=== PATIENT | male | born 1960 | race Caucasian/White ===

== ENCOUNTER 2016-11-12 16:27 | Inpatient (IN) | payer OTHER ==
[2016-11-12 16:48] VITALS: BMI 16.0
--- NOTE | 2016-11-12 18:42 | PDOC ---
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 The patient recently had bloodwork done which revealed that his H&H was low, with a hemoglobin of 8. The patient is nonverbal. Patient is accompanied by family, who report that he has been more pale than usual over the past couple of days. They also report that at this baseline, he usually can stand with support, but this past week has been too weak to do so. Family states that to communicate that he is in pain, the patient usually grunts but has not been doing so, therefore, they do not believe that he is currently in any pain. HPI is limited due to the patients clinical condition. Allergies: Lactose, tomato Past Surgical History: None reported. Social History: Patient lives in a alf. Non smoker. Denies alcohol or drug use. PCP: Dr. 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; PAFIB) CHF: (left diastolic dysfunction) GI Disorders: Yes (HIATAL HERNIA, Shanae-nazario tear, upper GIB, GERD, dysphagia ) HTN: Yes Seizures: Yes - Immunization History Immunization Up to Date: Yes - Psycho/Social/Smoking Cessation Hx Anxiety: No Suicidal Ideation: No Smoking History: Never smoked Have you smoked in the past 12 months: No Number of Cigarettes Smoked Daily: 0 Hx Alcohol Use: No Drug/Substance Use Hx: No Substance Use Type: None Hx Substance Use Treatment: No <Jaycob Christian - Last Filed: 11/12/16 21:28> <Tiff Moreno - Last Filed: 11/12/16 21:31> - Past Medical History Allergies/Adverse Reactions: Allergies Allergy/AdvReac Type Severity Reaction Status Date / Time lactose Allergy Verified 11/12/16 16:44 tomato Allergy Verified 11/12/16 16:44 Home Medications: Ambulatory Orders Ascorbic Acid [Vitamin C] 500 mg PO DAILY 11/12/16 Calcium Carbonate/Vitamin D3 [Calcium 600 + Vit D Softgel] 1 each PO DAILY 11/12 Cholecalciferol (Vitamin D3) [Vitamin D3 -] 400 unit PO DAILY 11/12/16 Denosumab [Prolia] 60 mg SQ MONTHLY 11/12/16 Fluconazole 100 mg PO DAILY 11/12/16 Furosemide [Lasix] 20 mg PO DAILY 11/12/16 Latanoprost 0.005% Eye Drops [Xalatan 0.005% Eye Drops -] 1 drop OD HS 11/12/16 Metoprolol Tartrate 25 mg PO BID 11/12/16 NK [No Known Home Medication] 11/12/16 Pantoprazole Sodium [Protonix] 40 mg PO DAILY 11/12/16 Polyethylene Glycol 3350 [Glycolax] 119 gm PO DAILY 11/12/16 Prednisolone 1% Ophthalmic [Pred Forte 1% -] 1 ml OP TID 11/12/16 Sucralfate [Carafate -] 1 gm PO BID 11/12/16 Review of Systems - Review of Systems Able to Perform ROS?: No Comments:: 11/12/16 19:33 Unable to perform ROS due to patient's clinical condition. <Tiff Moreno - Last Filed: 11/12/16 21:31> *Physical Exam - Vital Signs Last Vital Signs Temp Pulse Resp BP Pulse Ox 98.3 F 54 L 19 128/71 95 11/12/16 16:44 11/12/16 16:44 11/12/16 16:44 11/12/16 16:44 11/12/16 16:44 <Jaycob Christian - Last Filed: 11/12/16 21:28> - Vital Signs Last Vital Signs Temp Pulse Resp BP Pulse Ox 98.3 F 54 L 19 128/71 95 11/12/16 16:44 11/12/16 16:44 11/12/16 16:44 11/12/16 16:44 11/12/16 16:44 - Physical Exam Comments: 11/12/16 21:19 CONSTITUTIONAL: Difficult exam because patient was agitated and began pushing away, which is his baseline for interactions with strangers. Well-appearing; well-nourished; in no apparent distress. HEAD: Normocephalic; atraumatic. EYES: PERRL; EOM intact. ENMT: External appears normal; normal oropharynx. NECK: Supple; non-tender; no cervical lymphadenopathy. CARD: Normal S1, S2; no murmurs, rubs, or gallops. RESP: Normal chest excursion with respiration; breath sounds clear and equal bilaterally; no wheezes, rhonchi, or rales. ABD: Soft, non-distended; non-tender; no palpable organomegaly, no palpable hernias. EXT: Normal ROM in all four extremities; non-tender to palpation; distal pulses intact. SKIN: Pale. Warm, dry, no rash. NEURO: No focal neurological deficiencies. <Tiff Moreno - Last Filed: 11/12/16 21:31> ED Treatment Course - LABORATORY CBC & Chemistry Diagram: 11/12/16 19:21 11/12/16 19:21 <Jaycob Christian - Last Filed: 11/12/16 21:28> - LABORATORY CBC & Chemistry Diagram: 11/12/16 19:21 11/12/16 19:21 <Tiff Moreno - Last Filed: 11/12/16 21:31> Medical Decision Making - Medical Decision Making 11/12/16 21:13 Patient is a 56-year-old male with advanced MR, history of CP, recurrent upper GI bleed with packed RBC transfusions who presents with low hemoglobin and hematocrit noted by the primary care physician as well as increased generalized weakness. In the ER, patient is awake and alert, nonverbal, doesn't follow commands, becomes agitated when examined by M.D., normotensive without evidence of active GI bleeding. As per history, there is no evidence of hematochezia or melena. H&H is noted to be 8 and 25. Patient will be admitted andtransfused 2 units of packed cells to hematocrit of 30. also will be evaluated for hyponatremia. <Jaycob Christian - Last Filed: 11/12/16 21:28> *DC/Admit/Observation/Transfer - Discharge Dispostion Admit: Yes - Attestations Physician Attestion: 11/12/16 21:13 The documentation was prepared by the scribe under my direct supervision. I have reviewed the documentation which correctly represents the findings, medical decision-making and critical action taken by me. <Jaycob Christian - Last Filed: 11/12/16 21:28> - Attestations Scribe Attestion: 11/12/16 18:54 Documentation prepared by Tiff Moreno, acting as medical technologist microbiology for Jaycob Christian MD. <Tiff Moreno - Last Filed: 11/12/16 21:31> Diagnosis at time of Disposition: Weakness, Hyponatremia Anemia Qualifiers: Anemia type: unspecified type Qualified Code(s): D64.9 - Anemia, unspecified - Referrals Referrals: Sarah Miller [Primary Care Provider] -
[2016-11-12 20:28] LABS: BASOPHIL 0.6 % (0-2.0); EOSINOPHIL 0.7 % (0-4.5); MCH 22.3 pg (25.7-33.7); MCHC 32.1 g/dl (32.0-35.9); MEAN CELL VOLUME 69.5 fl (80-96); MEAN PLT VOLUME 7.2 fl (7.5-11.1); NEUTROPHILS 73.1 % (42.8-82.8); PLATELET COUNT 221 K/MM3 (134-434); RDW 19.2 % (11.9-15.9)
[2016-11-12 20:41] LABS: INR 1.07 (0.82-1.09); PROTHROMBIN TIME (PATIENT) 11.8 SEC (9.98-11.88)
[2016-11-12 21:01] LABS: CALCIUM 7.9 mg/dL (8.5-10.1); CREATININE 0.4 mg/dL (0.7-1.3)
[2016-11-12 21:15] LABS: HYPOCHROMIA 1+; PLATELET ESTIMATE DECREASED (NORMAL)
[2016-11-12 21:16] LABS: ANISOCYTOSIS 1+; MICROCYTOSIS 1+; OVALOCYTES 1+; POIKILOCYTOSIS 1+
--- NOTE | 2016-11-12 21:29 | HP ---
[id number] 11/12/16 Care time: The patient presented to the Emergency Department on the above date and was hospitalized for further evaluation of their emergent condition. - New Patient This patient is new to me today: Yes Date on this admission: 11/20/16 - Critical Care Critical Care patient: No
--- NOTE | 2016-11-12 21:36 | HP ---
CHIEF COMPLAINT: PCP: HISTORY OF PRESENT ILLNESS: 56 year old male, residing in a shelter for Cerebral palsy, was sent by his Primary physician Dr. Miller for the evaluation of low hemoglobin of 8. A/c to the patients mother and health aid at bed side, patient visited PCP 3 days ago and found to have Hb of 8. Patient was symptomatic since few days, had low energy, looked pale, didn't like to sit on a chair which he normally does,, unable to stand with support. Patient again went to his PCP today and was sent directly from the clinic to the ED. Repeat blood work from the clinic will be available tomorrow. Patient however has good appetite, no change in sleep pattern, no changes in the color of the stool, didn't notice blood from urine or stool. Denies LOC, nausea or vomiting. Patients baseline: Non verbal, understands very little, recognizes family members, physically disabled, used to walk with a cane but now on a wheel chair. ER course was notable for: (1) CBC, CMP, Type and Screen (2) 1 Unit of PRBC (3) Recent Travel: None Hospitalization: Multiple episodes, last admitted at [facility] on 10/03/2016 for evaluation of GI bleed. PAST MEDICAL HISTORY: Cerebral Palsy/Mental retardation, seizure disorder (Hasn' t had seizures since 25 years), hydrocephalus, anemia, Hiatal hernia, MVP, Hypertension, Paroxysmal Atrial fibrillation, Diastolic dysfunction, GERD, PUD with Upper GI bleed. PAST SURGICAL HISTORY: Hernia repair Social History: Smoking: Never Smoked Alcohol: Never took alcohol Drugs: No illicit drug use Family History: Allergies lactose Allergy (Verified 11/12/16 16:44) tomato Allergy (Verified 11/12/16 16:44) HOME MEDICATIONS: Medication Instructions Recorded Ascorbic Acid [Vitamin C] 500 mg PO DAILY 11/12/16 Calcium Carbonate/Vitamin D3 1 each PO DAILY 11/12/16 [Calcium 600 + Vit D Softgel] Cholecalciferol (Vitamin D3) 400 unit PO DAILY 11/12/16 [Vitamin D3 -] Denosumab [Prolia] 60 mg SQ MONTHLY 11/12/16 Fluconazole 100 mg PO DAILY 11/12/16 Furosemide [Lasix] 20 mg PO DAILY 11/12/16 Latanoprost 0.005% Eye Drops 1 drop OD HS 11/12/16 [Xalatan 0.005% Eye Drops -] Metoprolol Tartrate 25 mg PO BID 11/12/16 NK [No Known Home Medication] 11/12/16 Pantoprazole Sodium [Protonix] 40 mg PO DAILY 11/12/16 Polyethylene Glycol 3350 [Glycolax] 119 gm PO DAILY 11/12/16 Prednisolone 1% Ophthalmic [Pred 1 ml OP TID 11/12/16 Forte 1% -] Sucralfate [Carafate -] 1 gm PO BID 11/12/16 REVIEW OF SYSTEMS: Unobtainable as patient is non verbal at baseline. PHYSICAL EXAMINATION Vital Signs - 24 hr 11/12/16 16:44 Temperature 98.3 F Pulse Rate 54 L Respiratory 19 Rate Blood Pressure 128/71 O2 Sat by Pulse 95 Oximetry (%) GENERAL: Thinly built male, sitting on a wheel chair, Awake, alert, non verbal at baseline, in no acute distress. HEAD: Normal with no signs of trauma. EYES: EOM intact, pallor +, no icterus. EARS, NOSE, THROAT: Ears normal. Moist mucous membranes. NECK: Normal range of motion, supple. LUNGS: Breath sounds equal, clear to auscultation bilaterally. No wheezes, and no crackles. No accessory muscle use. HEART: Regular rate and rhythm, normal S1 and S2 , pansystolic murmur +2. ABDOMEN: Soft, nontender, not distended, normoactive bowel sounds, no guarding, no rebound, no masses. No hepatomegaly or splenomegaly. MUSCULOSKELETAL: Normal range of motion at all joints. No bony deformities or tenderness. No CVA tenderness. MD-Normal. no enlarged prostate. Negative guaiac test. UPPER EXTREMITIES: 2+ pulses, warm, well-perfused. No cyanosis. No clubbing. Cap refill <2 seconds. No peripheral edema. LOWER EXTREMITIES: 2+ pulses, warm, well-perfused. No calf tenderness. No peripheral edema. NEUROLOGICAL: Couldn't assess as patient didn't allow. PSYCHIATRIC:Couldn't assess. SKIN: Warm, dry, normal turgor, no rashes or lesions noted. Laboratory Results - last 24 hr 11/12/16 11/12/16 11/12/16 19:21 19:21 19:21 WBC 8.0 D RBC 3.65 L Hgb 8.1 L D Hct 25.4 L D MCV 69.5 L MCHC 32.1 RDW 19.2 H Plt Count 221 MPV 7.2 L Neutrophils % 73.1 D Lymphocytes % 13.4 D Monocytes % 12.2 H Eosinophils % 0.7 D Basophils % 0.6 Platelet Estimate Decreased Hypochromic-Microcytic 1+ Poikilocytosis 1+ Anisocytosis 1+ Microcytosis 1+ Macrocytosis 1+ Ovalocytes 1+ Morphology Comment Slide scanned INR 1.07 Sodium 125 L D Potassium 4.3 Chloride 90 L D Carbon Dioxide 25 Anion Gap 10 BUN 7 D Creatinine 0.4 L D Random Glucose 79 Calcium 7.9 L Blood Type Antibody Screen Crossmatch 11/12/16 19:21 WBC RBC Hgb Hct MCV MCHC RDW Plt Count MPV Neutrophils % Lymphocytes % Monocytes % Eosinophils % Basophils % Platelet Estimate Hypochromic-Microcytic Poikilocytosis Anisocytosis Microcytosis Macrocytosis Ovalocytes Morphology Comment INR Sodium Potassium Chloride Carbon Dioxide Anion Gap BUN Creatinine Random Glucose Calcium Blood Type B POSITIVE Antibody Screen Negative Crossmatch See Detail ASSESSMENT/PLAN: 56 year old male, residing in a shelter for Cerebral palsy, with significant PMHs of Cerebral Palsy/Mental retardation, seizure disorder (Hasn't had seizures since 25 years), hydrocephalus, anemia, Hiatal hernia, MVP, Hypertension, Paroxysmal Atrial fibrillation, Diastolic dysfunction, GERD, PUD with Upper GI bleed. was sent by his Primary physician Dr. Miller for the evaluation of low hemoglobin of 8. Admitted for Blood transfusion. # Hematology: H/O Anemia Today's H/H: 8.1/25.4 Monitor H/H Transfuse 2 Units of blood and repeat CBC. # Gastrointestinal: H/O GERD, PUD and Hiatal hernia, H/O GI Bleed requiring blood transfusion in the past. No active GI bleed MD-no blood, hemeoccult negative Continue Pantoprazole 40 IVPB Daily GI consult placed Last admission, as per GI attending, he was advised for Yoav fundoplication. Mother wanted to do the procedure at [facility]. In last admission, Esophagram/UGI was scheduled to better document the HH size and exclude a concomitant volvulus but was cancelled due to risk of aspiration. # Hyponatremia Na-125 Continue IV NS Urine osmolality, Serum osmolality, urine electrolytes, urine creatinine pending. # Neurology: H/O Cerebral palsy, Seizure Lives in shelter No seizure activity noted today, as per mother, patient hasn't had seizure activity since 25 years # Cardiovascular: Now normotensive. If Hypotensive, IV NS 500 mls to be given if MAP < 65 and SBP <90 H/O Diastolic LV dysfunction with class I-II NYHA classification LV failure, compensated H/O Mitral valve disease MVP with moderate to severe MR History of paroxysmal atrial fibrillation currently in sinus rhythm, [id number] score of 0 H/O TR with mild degree of pulmonary HTN Hold Metoprolol 25mg for now, will reassess the vitals post transfusion, and continue with the same meds. # FEN:- IV NS @ 100mls/hr Electrolytes to be repeated tomorrow NPO for now except meds. # Prophylaxis: For GI: Pantoprazole IVPB For DVT: On SCD's, not on heparin due to risk of GI bleed # Code Status: Full Code # Health Care proxy: Mother. Illness, Investigation and Plan of care explained to the patients mother. She verbalized understanding. Will discuss case with Dr. Dempsey. Visit type - Emergency Visit Emergency Visit: Yes ED Registration Date: 11/12/16 Care time: The patient presented to the Emergency Department on the above date and was hospitalized for further evaluation of their emergent condition. - New Patient This patient is new to me today: Yes Date on this admission: 11/13/16 - Critical Care Critical Care patient: No
[2016-11-12] MEDS ORDERED: PATIENT'S OWN MEDICATION (NON-FORMULARY) (Denosumab 60 MG) SQ SCH (22:30)
[2016-11-12] MEDS ORDERED: PANTOPRAZOLE SODIUM 40 MG in SODIUM CHLORIDE 100 ML IVPB ONE (22:30)
--- NOTE | 2016-11-12 23:44 | PN ---
<Nahed Dempsey - Last Filed: 11/12/16 23:44> Teaching Attending Note Name of Resident: Argelia Snowden <Marcial Lujan - Last Filed: 11/13/16 04:54> Teaching Attending Note ATTENDING PHYSICIAN STATEMENT I saw and evaluated the patient. I reviewed the resident's note and discussed the case with the resident. I agree with the resident's findings and plan as documented. SUBJECTIVE: Patient is a 56 year old male who presented to the emergency department for evaluation of abnormal blood work. The patient is nonverbal, accompanied by his nurse and mother. On Wednesday, the patient had bloodwork done which revealed a hemoglobin of 8. Patient's mother and nurse noted that he has been more pale than usual over the past couple of days. They also reported that at this baseline, he can usually stand with support, but this past week has been too weak to do so. 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 Awake, alert, in no acute distress. HEAD: Normal with no signs of trauma. EYES: (+)Pallor. EOMI, no icterus. EARS, NOSE, THROAT: Ears normal. Moist mucous membranes. NECK: Normal range of motion, supple. LUNGS: Breath sounds equal, clear to auscultation bilaterally. No wheezes, and no crackles. No accessory muscle use. HEART: (+)Pansystolic murmur +2. Regular rate and rhythm, normal S1 and S2, rub or gallop. ABDOMEN: Soft, nontender, not distended, normoactive bowel sounds, no guarding, no rebound, no masses. No hepatomegaly or splenomegaly. MUSCULOSKELETAL: Normal range of motion at all joints. No bony deformities or tenderness. No CVA tenderness. UPPER EXTREMITIES: 2+ pulses, warm, well-perfused. No cyanosis. No clubbing. Cap refill <2 seconds. No peripheral edema. LOWER EXTREMITIES: 2+ pulses, warm, well-perfused. No calf tenderness. No peripheral edema. NEUROLOGICAL: Cranial nerves II-XII intact. Normal speech. Normal gait. PSYCHIATRIC: Cooperative. Good eye contact. Appropriate mood and affect. SKIN: Warm, dry, normal turgor, no rashes or lesions noted. Labs: CBCD WBC 8.0 K/mm3 (4.0-10.0) D 11/12/16 19:21 RBC 3.65 M/mm3 (4.00-5.60) L 11/12/16 19:21 Hgb 8.1 GM/dL (11.7-16.9) L D 11/12/16 19:21 Hct 25.4 % (35.4-49) L D 11/12/16 19:21 MCV 69.5 fl (80-96) L 11/12/16 19:21 MCHC 32.1 g/dl (32.0-35.9) 11/12/16 19:21 RDW 19.2 % (11.9-15.9) H 11/12/16 19:21 Plt Count 221 K/MM3 (134-434) 11/12/16 19:21 MPV 7.2 fl (7.5-11.1) L 11/12/16 19:21 CMP Sodium 125 mmol/L (136-145) L D 11/12/16 19:21 Potassium 4.3 mmol/L (3.5-5.1) 11/12/16 19:21 Chloride 90 mmol/L (98-107) L D 11/12/16 19:21 Carbon Dioxide 25 mmol/L (21-32) 11/12/16 19:21 Anion Gap 10 (8-16) 11/12/16 19:21 BUN 7 mg/dL (7-18) D 11/12/16 19:21 Creatinine 0.4 mg/dL (0.7-1.3) L D 11/12/16 19:21 Calcium 7.9 mg/dL (8.5-10.1) L 11/12/16 19:21 ASSESSMENT AND PLAN: Acute on chronic anemia secondary to GI bleed, history of bleeding ulcers. NPO, IVF. Continue sucralfat repeat CBC post transfusion on one unit PRBC, follow stool occult test, consider GI consult. -Hyponatremia: most likely euvolemic vs hypovolemic -Get urine studies. -Calculate serum osmolarity. -Repeat BMP in 6 hours. Admit to observation Documentation prepared by Marcial Lujan, acting as medical field representative for Dr. Roselyn MD.
[2016-11-13] MEDS: SODIUM CHLORIDE 1,000 ML IV SCH ×2 (01:55→09:42)
[2016-11-13] MEDS: prednisoLONE ACETATE 1% OPHTH SUSP 5 ML BOTTLE OU SCH ×4 (05:05→21:25)
--- NOTE | 2016-11-13 08:08 | PN ---
Physical Exam: SUBJECTIVE: Patient seen and examined. Non verbal, noncommunicative, can express distress through sounds. As per aide at bedside, he has been appearing weak and appears to lack energy different from his baseline. No recent diarrhia, vomiting, trouble swallowing, coughing, choking, fever. OBJECTIVE: Vital Signs Period Temp Pulse Resp BP Sys/Pimentel Pulse Ox Last 24 Hr 97.5 F-98.9 F 65-97 16-18 107-120/59-92 100 GENERAL: The patient is awake, alert, nonverbal. thin appearing, calm. laying in bed with knees bent HEAD: Normal with no signs of trauma. bitemporal wasting EYES: sclera anicteric, conjunctiva clear. No ptosis. right eye with corneal hazyness, left eye wnl. ENT: Ears normal, nares patent, moist mucous membranes. NECK: Trachea midline LUNGS: Breath sounds equal quiet, no wheezing appreciated HEART: afib, S1, S2, holosystolic heard best in apex. ABDOMEN: Soft, nondistended, normoactive bowel sounds, no masses. EXTREMITIES: 2+ pulses, warm, well-perfused, no edema. limited range of movement secondary to CP NEUROLOGICAL: Normal speech, gait not observed. SKIN: Warm, dry, normal turgor, no rashes or lesions noted - cervantes placed in ED, clear yellow urine. Home medication list: vitamin D 1000 iu caps sucralfate 1gm tabs furosemide 20mg tab latanaprost 0.005% opthsl 1 drop in left eye at bedtime for glaucoma Prolia bam 60mg q 6 months prednisoline 1% oph 1drop in right eye TID vitamin C 500mg tab metoprolol tart 25mg hold if BP <100/60 glycolax oral bam 17gm daily nuha 600+200D 1 tab po BID pantoprazole 40m g tab 1 tab po BID Prevdnt [address] p[address] 1% Homatropine 5% ophthsol 1 drop right eye TID erythromycin gel 2% apply between toes 1 appl BID TATE crm protection apply to buttock area BID TATE 2%cr fungal BARRIENTSO apply 1 appl topically to buttock area BID Active Medications Generic Name Dose Route Start Last Admin Trade Name Freq PRN Reason Stop Dose Admin Ascorbic Acid 500 mg 11/13/16 10:00 Vitamin C - PO DAILY GIA Calcium Carbonate/Cholecalciferol 1 tab 11/13/16 10:00 Os-Nuha 500+D - PO DAILY REPLACED BY [facility] Cholecalciferol 400 unit 11/13/16 10:00 Vitamin D3 - PO DAILY REPLACED BY [facility] Fluconazole 100 mg 11/13/16 10:00 Diflucan - PO DAILY REPLACED BY [facility] Sodium Chloride 1,000 mls @ 100 mls/hr 11/12/16 23:45 11/13/16 01:55 Normal Saline - IV 100 mls/hr ASDIR GIA Administration Latanoprost 1 drop 11/13/16 22:00 Xalatan 0.005% Eye Drops - OD HS GIA Non-Formulary Medication 60 mg 11/12/16 22:30 Denosumab SQ MONTHLY REPLACED BY [facility] Pantoprazole Sodium 40 mg 11/12/16 22:45 Protonix 40mg Ivpb (Pre-Docked) IVPB DAILY REPLACED BY [facility] Prednisolone Acetate 1 drop 11/12/16 22:30 11/13/16 05:05 Pred Forte 1% - OU Not Given TID REPLACED BY [facility] Sucralfate 1 gm 11/12/16 22:30 Carafate - PO BID REPLACED BY [facility] ASSESSMENT/PLAN: 56 yr old man with cerebral palsy, MR, seizure disorder, hydrocephalus, anemia, hiatal hernia, mitral valve prolapse, hypertension, paroxysmal Atrial fibrillation, diastolic dysfunction, GERD, PUD with hx of upper GI bleed referred by PCP for symptomatic anemia. #Anemia - transfuse 2 units of prbc's - repeat labs post transfusion at 10AM - iron studies 10/06/2016, [facility] - GI consulted for hx of PUD, hiatal hernia dr. Barrios - no active GI bleed, stool occult negative. Repeat stool occult positive in the evening as per Dr. Barrios. - H.pylori culture negative from biopsy taken during colonoscopy - on diflucan for herminia in GI, received 11/12, needs 11/13, 11/14 to complete 21 days. #Hyponatremia, Na-125, different from normal baseline on labs, improved post- transfusion - likely from lasix use and poor po intake, hold lasix #Diet: ground diet #DVT: SCD's Visit type - Emergency Visit Emergency Visit: No - New Patient This patient is new to me today: Yes Date on this admission: 11/13/16 - Critical Care Critical Care patient: No - Discharge Referral Referred to [facility] No
[2016-11-13] MEDS: SUCRALFATE 1 GM TABLET (FP) PO SCH ×3 (08:48→21:27)
[2016-11-13] MEDS: PANTOPRAZOLE SODIUM 40 MG/100 ML PRE-DOCKED IVPB SCH ×2 (08:48→09:39)
[2016-11-13] MEDS ORDERED: FLUCONAZOLE 100 MG TABLET (UD) ONE (09:26)
[2016-11-13] MEDS ORDERED: PANTOPRAZOLE SODIUM 100 ML IVPB ONE (09:27)
[2016-11-13] MEDS ORDERED: SUCRALFATE 1 GM TABLET (FP) ONE (09:27)
[2016-11-13] MEDS: FLUCONAZOLE 100 MG TABLET (UD) PO SCH (09:39)
[2016-11-13] MEDS ORDERED: ASCORBIC ACID 500 MG TABLET (FP) PO SCH (10:00)
[2016-11-13 10:32] LABS: BASOPHIL 0.7 % (0-2.0); EOSINOPHIL 0.6 % (0-4.5); MCH 24.3 pg (25.7-33.7); MEAN CELL VOLUME 73.6 fl (80-96); MEAN PLT VOLUME 7.2 fl (7.5-11.1); NEUTROPHILS 68.5 % (42.8-82.8); PLATELET COUNT 174 K/MM3 (134-434); WHITE BLOOD COUNT 4.6 K/mm3 (4.0-10.0)
[2016-11-13 10:49] LABS: CHLORIDE,RANDOM URINE 83 MMOL/L; SODIUM,RANDOM URINE 90 MMOL/L
[2016-11-13 10:50] LABS: URINE CREATININE < 13.0 mg/dL
[2016-11-13 10:58] LABS: ALBUMIN 3.1 g/dl (3.4-5.0); ALK PHOS 83 U/L (45-117); ANION GAP 12 (8-16); BILIRUBIN,TOTAL 1.6 mg/dL (0.2-1.0); CO2 25 mmol/L (21-32); CREATININE 0.4 mg/dL (0.7-1.3); GLUCOSE,RANDOM 65 mg/dL (74-106); SGOT/AST 19 U/L (15-37); SGPT/ALT 15 U/L (12-78); TOT PROT 6.8 g/dl (6.4-8.2)
[2016-11-13 11:45] LABS: ALBUMIN 3.3 g/dl (3.4-5.0)
[2016-11-13] MEDS ORDERED: SODIUM CHLORIDE 1,000 ML IV SCH ×3 (12:22→13:05)
[2016-11-13] MEDS: CHOLECALCIFEROL (VITAMIN D3) 400 UNIT TABLET (FP) PO SCH (12:37)
[2016-11-13] MEDS: CALCIUM 500MG/VIT-D 200 UNITS COMBO TABLET (FP) PO SCH (12:37)
--- NOTE | 2016-11-13 12:38 | PN ---
Teaching Attending Note Name of Resident: Inés Beth ATTENDING PHYSICIAN STATEMENT I saw and evaluated the patient. I reviewed the resident's note and discussed the case with the resident. I agree with the resident's findings and plan as documented. SUBJECTIVE: unable to obtain hx as pt is non-verbal. per Mon , back to base line , has color to his cheek OBJECTIVE: NAD , Awake . non verbal CV: irreg irreg, 3/6 SM at apex with Rad to axilla , also heard in L scapular area in back. Diastolic murmur in RUSB. Lungs : decreased breath sounds at bases . Ext : bakari erma Abd : soft, NT, ND < NL BS Rectal exam: Nl hair distribution , no external hemorrhoids felt , no masses in rectum, soft stool felt in rectum. Light brown/greenish stool came out on examiner finger , OB Neg . ASSESSMENT AND PLAN: 56 y/o man with h/o cerebral palsy , D CHF , A fib not on AC, Upper GI bleed , iron def anemia , HIatal hernia , recent admission to [facility] with Upper GI bleed , was found to have PUD. He presented this time with anemia . 1- acute on chronic icrocytic anemia , ( iron def on irod studies in 10/02 ) . likely form slow blood loss from PUD . No black stool or Bright red blood on rectal exam, stool was Neg for OB . - last EGD 10/07 ulcer in stomach. was supposed to get esophageogram and Surgery but never done - for now , s/p 2 units of RBC in ER. Hb 11. - cont IV PPI daily - no need for further transfusion - add carafate . - start diet . - will start iron supp TID at ut - check 2 more OB in stool - D/W family , will place GI consult . If GI to perform repeat EGD will follow Recs . If not , then will monitor over night , and transfer back to facility tomorrow if no bleed . 2- Hyponatremia: unfortunately , there is no Serum Osm checked on admission. Likely it is hypotonic hypovolemia though ( will order Osm ) Now patient looks euvolemic , but this is after receiving fluids and blood. He possibly was hypovolemic at presentation . Looking at urine Osm and U Na > 20 , FeNA 2.2 % ,it seems like the patient has renal loss from diuretic use ( lasix ) . SIADH is unlikely as NA improved on NS. - Check TSH - given his h/o CHF , will decrease IVF to 50 x 12 hr only - acceptable Na level now 3- h/o chronic Diastolic CHF , not in exacerbation . monitor carefully on fluids can resume his metoprolol at 12.5 BID with holding parameters 4- h/o Afib : CHADSVASC score 1. with his h/o bleed , No AC is recommended - resume BB - monitor 5- dipo : HLOC
--- NOTE | 2016-11-13 16:18 | CON.GI ---
Consult Consult Specialty:: Gastroenterology Referred by:: Dr. Nicolas Flores Reason for Consultation:: Anemia - History of Present Illness Chief Complaint: Past h/o recurring hematemesis but not on this occasion History of Present Illness: 56M with cerebral palsy and h/o recurring GI bleeding is admitted with a Hb of 8. He had a Hb of 6.5 when we last saw him in consultation in 10/02. I performed an EGD on 10/07/16 that revealed a very raw severe distal reflux esophagitis with ulcerations above a large intrathoracic hiatal hernia witha component of gastric volvulus contributing to the reflux. He has a h/o recurring UGI bleeding due to similar findings. IN 12/03 he had a Shanae Richard bleed that required endoclipping. He had a colonoscopy on 04/02/[address] Jonny Post which was unremarkable. He has also been scoped multiple times by my other partner Dr Saleh whenever he got admitted to [facility]. I discussed his situation with his mother in 10/02 and referred them to Dr Candi Chávez at [facility] for hiatal hernia repair. He advised a cardiology preop evaluation. She was told that he needs a valve replacement but is not a candidate for this. 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: Seizure, Other (Mental retardation-cerebral palsy) Cardio/Vascular: Yes: AFIB (paroxysmal), Aortic Insufficiency, HTN, Mitral Insufficiency, Murmur Pulmonary: Yes: Pneumonia Gastrointestinal: Yes: GERD (severe and refractory to therapy and causing transfusion requiring chronic blood loss anemia ), Hiatal Hernia (prone to Nigel ulcers), Peptic Ulcer Disease, Other (large intrathoracic hiatal hernia , h/o Shanae Richard bleed) Heme/Onc: Yes: Anemia (due to GERD and Nigel ulcer bleeding) Additional Medical History: Cerebral palsy, Seizure D/O, Mitral valve prolapse, shingles, glaucoma - Past Surgical History Additional Surgical History: mother describes an abdominal hernia repair but I cannot identify incision - Alcohol/Substance Use Hx Alcohol Use: No History of Substance Use: reports: None - Smoking History Smoking history: Never smoked Have you smoked in the past 12 months: No Aproximately how many cigarettes per day: 0 - Social History Usual Living Arrangement: Assisted ADL: Support Services Place of : [facility] History of Recent Travel: No Home Medications - Allergies Allergies/Adverse Reactions: Allergies Allergy/AdvReac Type Severity Reaction Status Date / Time lactose Allergy Verified 11/12/16 16:44 tomato Allergy Verified 11/12/16 16:44 - Home Medications Home Medications: Ambulatory Orders Ascorbic Acid [Vitamin C] 500 mg PO DAILY 11/12/16 Calcium Carbonate/Vitamin D3 [Calcium 600 + Vit D Softgel] 1 each PO BID Cholecalciferol (Vitamin D3) [Vitamin D3 -] 400 unit PO DAILY 11/12/16 Denosumab [Prolia] 60 mg SQ MONTHLY 11/12/16 Fluconazole 100 mg PO DAILY 11/12/16 Furosemide [Lasix] 20 mg PO DAILY 11/12/16 Latanoprost 0.005% Eye Drops [Xalatan 0.005% Eye Drops -] 1 drop OD HS 11/12/16 Metoprolol Tartrate 25 mg PO BID 11/12/16 Pantoprazole Sodium [Protonix] 40 mg PO BID 11/12/16 Polyethylene Glycol 3350 [Glycolax] 119 gm PO DAILY 11/12/16 Prednisolone 1% Ophthalmic [Pred Forte 1% -] 1 ml OP TID 11/12/16 Sucralfate [Carafate -] 1 gm PO BID 11/12/16 Family Disease History - Family Disease History Family History: Unable to Obtain Review of Systems Unable to obtain ROS, reason: due to cerebral palsy Physical Exam-GI Vital Signs: Vital Signs Temperature 98.6 F 11/13/16 13:07 Pulse Rate 80 11/13/16 13:07 Respiratory Rate 20 11/13/16 13:07 Blood Pressure 153/64 11/13/16 13:07 O2 Sat by Pulse Oximetry (%) 94 L 11/13/16 13:10 CBC,CMP WBC 4.6 K/mm3 (4.0-10.0) D 11/13/16 10:20 RBC 4.54 M/mm3 (4.00-5.60) D 11/13/16 10:20 Hgb 11.0 GM/dL (11.7-16.9) L D 11/13/16 10:20 Hct 33.4 % (35.4-49) L D 11/13/16 10:20 MCV 73.6 fl (80-96) L 11/13/16 10:20 MCHC 33.0 g/dl (32.0-35.9) 11/13/16 10:20 RDW 21.0 % (11.9-15.9) H 11/13/16 10:20 Plt Count 174 K/MM3 (134-434) D 11/13/16 10:20 MPV 7.2 fl (7.5-11.1) L 11/13/16 10:20 Neutrophils % 68.5 % (42.8-82.8) 11/13/16 10:20 Lymphocytes % 15.8 % (8-40) 11/13/16 10:20 Monocytes % 14.4 % (3.8-10.2) H 11/13/16 10:20 Eosinophils % 0.6 % (0-4.5) 11/13/16 10:20 Basophils % 0.7 % (0-2.0) 11/13/16 10:20 Platelet Estimate Decreased (NORMAL) 11/12/16 19:21 Hypochromic-Microcytic 1+ 11/12/16 19:21 Poikilocytosis 1+ 11/12/16 19:21 Anisocytosis 1+ 11/12/16 19:21 Microcytosis 1+ 11/12/16 19:21 Macrocytosis 1+ 11/12/16 19:21 Ovalocytes 1+ 11/12/16 19:21 Morphology Comment Slide scanned 11/12/16 19:21 Sodium 130 mmol/L (136-145) L 11/13/16 10:20 Potassium 4.1 mmol/L (3.5-5.1) 11/13/16 10:20 Chloride 93 mmol/L (98-107) L 11/13/16 10:20 Carbon Dioxide 25 mmol/L (21-32) 11/13/16 10:20 Anion Gap 12 (8-16) 11/13/16 10:20 BUN 4 mg/dL (7-18) L D 11/13/16 10:20 Creatinine 0.4 mg/dL (0.7-1.3) L 11/13/16 10:20 Creat Clearance w eGFR > 60 (>60) 11/13/16 10:20 Random Glucose 65 mg/dL (74-106) L 11/13/16 10:20 Serum Osmolality 262 mosm/kg (278-305) L 11/13/16 11:49 Calcium 8.0 mg/dL (8.5-10.1) L 11/13/16 10:20 Total Bilirubin 1.6 mg/dL (0.2-1.0) H D 11/13/16 10:20 AST 19 U/L (15-37) D 11/13/16 10:20 ALT 15 U/L (12-78) 11/13/16 10:20 Alkaline Phosphatase 83 U/L (45-117) 11/13/16 10:20 Total Protein 6.8 g/dl (6.4-8.2) 11/13/16 10:20 Albumin 3.1 g/dl (3.4-5.0) L 11/13/16 10:20 Current Medications Generic Name Dose Route Start Last Admin Trade Name Jeffersonq PRN Reason Stop Dose Admin Ascorbic Acid 500 mg 11/13/16 10:00 11/13/16 12:37 Vitamin C - PO Not Given DAILY [facility] Calcium Carbonate/Cholecalciferol 1 tab 11/13/16 10:00 11/13/16 12:37 Os-Wil 500+D - PO Not Given DAILY [facility] Cholecalciferol 400 unit 11/13/16 10:00 11/13/16 12:37 Vitamin D3 - PO Not Given DAILY [facility] Fluconazole 100 mg 11/13/16 10:00 11/13/16 09:39 Diflucan - PO 100 mg DAILY GIA Administration Sodium Chloride 1,000 mls @ 50 mls/hr 11/13/16 13:05 11/13/16 13:22 Normal Saline - IV 11/14/16 00:29 50 mls/hr ASDIR GIA Administration Latanoprost 1 drop 11/13/16 22:00 Xalatan 0.005% Eye Drops - OD HS [facility] Metoprolol Tartrate 12.5 mg 11/13/16 22:00 Lopressor - PO BID [facility] Non-Formulary Medication 60 mg 11/12/16 22:30 Denosumab SQ MONTHLY [facility] Pantoprazole Sodium 40 mg 11/12/16 22:45 11/13/16 09:39 Protonix 40mg Ivpb (Pre-Docked) IVPB 40 mg DAILY GIA Administration Prednisolone Acetate 1 drop 11/12/16 22:30 11/13/16 15:53 Pred Forte 1% - OU Not Given TID GIA Sucralfate 1 gm 11/12/16 22:30 11/13/16 09:39 Carafate - PO 1 gm BID GIA Administration Constitutional: Yes: Calm Eyes: Yes: Conjunctiva Clear HENT: Yes: Atraumatic Neck: Yes: Supple Cardiovascular: Yes: Regular Rate and Rhythm, Murmur (3/6 early diastolic murmur ) Respiratory: Yes: CTA Bilaterally Gastrointestinal Inspection: Yes: WNL ...Auscultate: Yes: Normoactive Bowel Sounds ...Palpate: Yes: Soft, Other (nontender) ...Rectal Exam: Yes: Guaiac Positive (no masses, brown guaiac positive stool) Psychiatric: Yes: Alert Labs: CBC, BMP 11/13/16 10:20 11/13/16 10:20 INR, PTT INR 1.07 (0.82-1.09) 11/12/16 19:21 Problem List - Problems (1) Hiatal hernia with gastroesophageal reflux Code(s): K21.9 - GASTRO-ESOPHAGEAL REFLUX DISEASE WITHOUT ESOPHAGITIS K44.9 - DIAPHRAGMATIC HERNIA WITHOUT OBSTRUCTION OR GANGRENE (2) Shanae-Richard syndrome Code(s): K22.6 - GASTRO-ESOPHAGEAL LACERATION-HEMORRHAGE SYNDROME (3) Nigel ulcer Code(s): K25.9 - GASTRIC ULCER, UNSP ACUTE OR CHRONIC, W/O HEMOR OR PERF (4) Aortic insufficiency Code(s): I35.1 - NONRHEUMATIC AORTIC (VALVE) INSUFFICIENCY Assessment/Plan Given the occult bleeding I believe that Akbar's anemia again attributable to refractory ulcerated reflux esophagitis above a large hiatal hernia. Unfortunately he has a cardiac condition that apparently precludes a surgical repair. Would therefore give PPI BID, Carafate and Reglan ( to promote improved gastric emptying and minimize reflux) while strictly enforcing antireflux measures. There is no role for a repeat EGD or colonoscopy at this juncture. I have no objections to discharge after transfusions. His Hcts should be checked regularly and iron replaced with Vitamin C.
[2016-11-13] MEDS ORDERED: PT OWN MED DRAWER 7, Y5N ONE (18:51)
[2016-11-13] MEDS: METOPROLOL TARTRATE 25 MG TABLET (FP) PO SCH (21:23)
[2016-11-13] MEDS: PANTOPRAZOLE 40 MG TABLET (FP) PO SCH (21:23)
[2016-11-13] MEDS: ASCORBIC ACID 500 MG TABLET (FP) PO SCH (21:24)
[2016-11-13] MEDS: FERROUS SO4 325 MG TABLET (FP) PO SCH (21:27)
[2016-11-13] MEDS ORDERED: LATANOPROST 0.005% OPHTH SOLN 2.5ML BOTTLE OD SCH (22:00)
[2016-11-14] MEDS: prednisoLONE ACETATE 1% OPHTH SUSP 5 ML BOTTLE OU SCH (06:32)
[2016-11-14] MEDS: METOCLOPRAMIDE HCL 10 MG TABLET (FP) PO SCH ×2 (06:33→10:13)
[2016-11-14] MEDS ORDERED: PT OWN MED DRAWER 7, Y5N ONE ×2 (06:58→10:05)
[2016-11-14 07:50] LABS: MCH 24.4 pg (25.7-33.7); MCHC 33.6 g/dl (32.0-35.9); MEAN CELL VOLUME 72.7 fl (80-96); MEAN PLT VOLUME 7.4 fl (7.5-11.1); PLATELET COUNT 180 K/MM3 (134-434); RDW 20.5 % (11.9-15.9); WHITE BLOOD COUNT 3.4 K/mm3 (4.0-10.0)
--- NOTE | 2016-11-14 08:04 | DS ---
Physical Exam: SUBJECTIVE: Patient seen and examined. nonverbal. appears to be in no acute distress. hemoglobin/hematocrit stable. OBJECTIVE: Vital Signs Period Temp Pulse Resp BP Sys/Pimentel Pulse Ox Last 24 Hr 97.9 F-98.6 F 80-88 16-20 130-153/62-79 94-94 PHYSICAL EXAM GENERAL: The patient is awake, alert, nonverbal. thin appearing, calm. laying in bed with knees bent. HEAD: Normal with no signs of trauma. bitemporal wasting EYES: sclera anicteric, conjunctiva clear. No ptosis. right eye with corneal hazyness, left eye wnl. ENT: Ears normal, nares patent, moist mucous membranes. NECK: Trachea midline LUNGS: Breath sounds clear, no wheezing, no crackles. HEART: afib, S1, S2, holosystolic murmuer heard best in apex, radiating up axilla ABDOMEN: Soft, nondistended, normoactive bowel sounds, no masses. EXTREMITIES: 2+ pulses, warm, well-perfused, no edema. limited range of movement secondary to CP NEUROLOGICAL: Normal speech, gait not observed. SKIN: Warm, dry, normal turgor, no rashes or lesions noted Rectal exam: normal hair distribution, no external hemorroids, normal rectal tone, no anal fissures, prostate not enlarged without nodules, nonbloody stool on gloved finger. LABS Laboratory Results - last 24 hr 11/12/16 11/13/16 11/13/16 22:15 10:20 10:20 WBC 4.6 D RBC 4.54 D Hgb 11.0 L D Hct 33.4 L D MCV 73.6 L MCHC 33.0 RDW 21.0 H Plt Count 174 D MPV 7.2 L Neutrophils % 68.5 Lymphocytes % 15.8 Monocytes % 14.4 H Eosinophils % 0.6 Basophils % 0.7 Sodium 130 L Potassium 4.1 Chloride 93 L Carbon Dioxide 25 Anion Gap 12 BUN 4 L D Creatinine 0.4 L Creat Clearance w eGFR > 60 Random Glucose 65 L Serum Osmolality Calcium 8.0 L Total Bilirubin 1.6 H D AST 19 D ALT 15 Alkaline Phosphatase 83 Total Protein 6.8 Albumin 3.1 L Urine Osmolality 259 L 11/13/16 11/14/16 11:49 06:15 WBC 3.4 L RBC 4.30 Hgb 10.5 L Hct 31.3 L MCV 72.7 L MCHC 33.6 RDW 20.5 H Plt Count 180 MPV 7.4 L Neutrophils % Lymphocytes % Monocytes % Eosinophils % Basophils % Sodium Potassium Chloride Carbon Dioxide Anion Gap BUN Creatinine Creat Clearance w eGFR Random Glucose Serum Osmolality 262 L Calcium Total Bilirubin AST ALT Alkaline Phosphatase Total Protein Albumin Urine Osmolality Laboratory Tests 11/12/16 11/12/16 11/13/16 19:21 19:21 10:20 Hgb 8.1 L D 11.0 L D Hct 25.4 L D 33.4 L D Sodium 125 L D Potassium 4.3 11/13/16 11/14/16 10:20 06:15 Hgb 10.5 L Hct 31.3 L Sodium 130 L Potassium 4.1 HOSPITAL COURSE: Date of Admission:11/12/16 - Date of Discharge: 11/14/16 56 yr old man from [facility] with cerebral palsy, seizure disorder, MVP, hx of PUD with upper GI bleed referred to ED for symptomatic anemia by PCP, Dr. Miller. His hgb/ hct on admission was 8.1/25.4. His He was transfused 2 units of packed red blood cells. He tolerated the transfusion without complication. He was also found to have hyponatremia of 125.Urine osmolarity and FeNa was FeNA 2.2%, making his sodium likely from diuretic use. His lasix was held during hospital stay. Repeat labs showed an improvement in H/H, 11/33.4 which stayed stable on repeat draw 10.5/31.3. Sodium also improved to 130 after normal saline He was evaluated by GI, Dr. Barrios, who has seen him before. No GI procedure, including EGD/colonoscopy was not indicated at this time. Dr. Barrios has discussed the need for hiatal hernia repair with the family in the past. Past evaluation shows Akbar requires a valve replacement, for which he is not a candidate. Blood work stayed stable on repeat draws. Recommendations: Hold lasix for one week and have PCP to reassess for need to restart. Minutes to complete discharge: 45 Discharge Summary Reason For Visit: AMENIA GI BLEED Current Active Problems Anemia (Acute) Hyponatremia (Acute) Condition: Improved - Instructions Diet, Activity, Other Instructions: The following medications and measures are recommended given Mr. Cage's anemia and gastric ulcer: - A PPI twice daily, he is currently on pantoprazole BID - Carafate 1gm po BID - Iron 325 TID with Vitamin C - strictly enforce antireflux measures - Hcts should be checked regularly He received his diflucan at [facility] on the and the . Given his low sodium level, his lasix 40mg was held. Need CBC, BMP in 1 week Referrals: Sophie Walden MD [Staff Physician] - Sarah Miller [Primary Care Provider] - [facility]position: [facility] - Home Medications Comprehensive Discharge Medication List: Ambulatory Orders Ascorbic Acid [Vitamin C] 500 mg PO DAILY 11/12/16 Calcium Carbonate/Vitamin D3 [Calcium 600 + Vit D Softgel] 1 each PO BID Cholecalciferol (Vitamin D3) [Vitamin D3 -] 400 unit PO DAILY 11/12/16 Denosumab [Prolia] 60 mg SQ MONTHLY 11/12/16 Fluconazole 100 mg PO DAILY 11/12/16 Latanoprost 0.005% Eye Drops [Xalatan 0.005% Eye Drops -] 1 drop OD HS 11/12/16 Pantoprazole Sodium [Protonix] 40 mg PO BID 11/12/16 Polyethylene Glycol 3350 [Glycolax] 119 gm PO DAILY 11/12/16 Prednisolone 1% Ophthalmic [Pred Forte 1% -] 1 ml OP TID 11/12/16 Sucralfate [Carafate -] 1 gm PO BID 11/12/16 Metoprolol Tartrate 25mg po BID This patient is new to me today: No Emergency Visit: No Critical Care patient: No - Discharge Referral Referred to [facility] No
--- NOTE | 2016-11-14 09:06 | PN ---
Teaching Attending Note Name of Resident: Inés Beth ATTENDING PHYSICIAN STATEMENT I saw and evaluated the patient. I reviewed the resident's note and discussed the case with the resident. I agree with the resident's findings and plan as documented. SUBJECTIVE: no events over night , no BM . unable to obtain hx OBJECTIVE: NAD , Awake . non verbal CV: irreg irreg, 3/6 SM at apex with Rad to axilla , also heard in L scapular area in back. Diastolic murmur in RUSB. Lungs : decreased breath sounds at bases . Ext : no edema Abd : soft, NT, ND . NL BS ASSESSMENT AND PLAN: 56 y/o man with h/o cerebral palsy , D CHF , A fib not on AC, Upper GI bleed , iron def anemia , HIatal hernia , recent admission to [facility] with Upper GI bleed , was found to have PUD. He presented this time with anemia . 1- Acute on chronic microcytic anemia , . likely form slow upper GI bleed . - appreciate GI recs - cont PPI , carafate . give reglan - repeat blood work in 1 week , and regularly - no need to repeat EGD at this point. - needed funduplication but not a candidate for sx due to his cardiac issues 2- Hyponatremia: likely hypovolemic hyponatremia , from renal loss ( use of diuretics ) . received IVF. NA improved, lasix was held . Na pending this am 3- h/o chronic Diastolic CHF , not in exacerbation . lasix o n hold for 1 week after dc . 4- h/o Afib : with his h/o bleed , No AC is recommended cont BB dispo : pending blood work, might dc to facility today
[2016-11-14 09:36] LABS: CALCIUM 8.1 mg/dL (8.5-10.1); CREATININE 0.4 mg/dL (0.7-1.3)
[2016-11-14 10:11] VITALS: BP 140/70; PULSE 85; TEMP 98.6
[2016-11-14] MEDS: CALCIUM 500MG/VIT-D 200 UNITS COMBO TABLET (FP) PO SCH (10:13)
[2016-11-14] MEDS: SUCRALFATE 1 GM TABLET (FP) PO SCH (10:13)
[2016-11-14] MEDS: CHOLECALCIFEROL (VITAMIN D3) 400 UNIT TABLET (FP) PO SCH (10:13)
[2016-11-14] MEDS: METOPROLOL TARTRATE 25 MG TABLET (FP) PO SCH (10:13)
[2016-11-14] MEDS: FLUCONAZOLE 100 MG TABLET (UD) PO SCH (10:13)
[2016-11-14] MEDS: FERROUS SO4 325 MG TABLET (FP) PO SCH (10:13)
[2016-11-14] MEDS: ASCORBIC ACID 500 MG TABLET (FP) PO SCH (10:13)
[2016-11-14] MEDS: PANTOPRAZOLE 40 MG TABLET (FP) PO SCH (10:13)
== END 2016-11-14 13:06 | disposition home or self-care (01) | DRG 811 ==
LOC: JER 16:27 → JERBED 21:44 → J8W 11-13 12:27
PROVIDERS: ADMIT Internal Medicine; ATTEND Internal Medicine
PROC: 30233N1 Transfusion of Nonautologous Red Blood Cells into Peripheral Vein, Percutaneous Approach (ICD-10-PCS; principal; 2016-11-12)
DX: D50.0 Iron deficiency anemia secondary to blood loss (chronic) (principal); K22.6 Gastro-esophageal laceration-hemorrhage syndrome; E87.1 Hypo-osmolality and hyponatremia; I50.32 Chronic diastolic (congestive) heart failure; K21.9 Gastro-esophageal reflux disease without esophagitis; K44.9 Diaphragmatic hernia without obstruction or gangrene; K25.9 Gastric ulcer, unspecified as acute or chronic, without hemorrhage or perforation; I35.1 Nonrheumatic aortic (valve) insufficiency; G80.9 Cerebral palsy, unspecified; F79 Unspecified intellectual disabilities; I34.1 Nonrheumatic mitral (valve) prolapse; I48.0 Paroxysmal atrial fibrillation; I11.0 Hypertensive heart disease with heart failure; G40.909 Epilepsy, unspecified, not intractable, without status epilepticus
CPT/HCPCS: 36415; 36430; 80048; 80053; 82040; 82272; 82436; 82570; 83930; 83935; 84133; 84300; 84443; 85025; 85027; 85610; 86850; 86900; 86901; 86922; 99285-25; P9038; P9058

== ENCOUNTER 2017-01-13 13:52 | Emergency (ER) | payer OTHER ==
[2017-01-13 14:01] VITALS: TEMP 98; BMI 16.1
--- NOTE | 2017-01-13 16:09 | PDOC ---
History of Present Illness - General History Source: Patient Exam Limitations: No Limitations - History of Present Illness Initial Comments: 01/13/17 16:18 The patient is a 56-year-old man with a significant past medical history of hypertension, anemia, atrial fibrillation, left diastolic dysfunction, upper gastrointestinal bleed, gastroesophageal reflux disease, intellectual disability and cerebral palsy (non verbal at baseline) who presents to the emergency department for further evaluation of possible anemia. History was provided by patient's home health aide. As per aid,e the patient has been bleeding from his hiatal hernia for approximately 1 year. Recent Hgb went form 12 and dropped to 10. Patient's mother does not want her son to undergo necessary surgery. Patient was recently in this ED, in October, for aspiration pneumonia. Allergies: No Known Drug Allergies Nurse Practitioner: Angela Smith <Joi Pearce - Last Filed: 01/13/17 18:40> <Marla Andersen - Last Filed: 01/13/17 23:03> - General Chief Complaint: Revisit, Lab Variance Stated Complaint: Revisit, Lab Variance Time Seen by Provider: 01/13/17 16:08 Past History <Joi Pearce - Last Filed: 01/13/17 18:40> - Past Medical History Anemia: Yes Cardiac Disorders: Yes (MVP with MR; PAFIB) CHF: (left diastolic dysfunction) GI Disorders: Yes (HIATAL HERNIA, Shanae-nazario tear, upper GIB, GERD, dysphagia ) HTN: Yes Seizures: Yes - Immunization History Immunization Up to Date: Yes - Psycho/Social/Smoking Cessation Hx Anxiety: No Suicidal Ideation: No Smoking History: Never smoked Have you smoked in the past 12 months: No Number of Cigarettes Smoked Daily: 0 Hx Alcohol Use: No Drug/Substance Use Hx: No Substance Use Type: None Hx Substance Use Treatment: No <Marla Andersen - Last Filed: 01/13/17 23:03> - Past Medical History Allergies/Adverse Reactions: Allergies Allergy/AdvReac Type Severity Reaction Status Date / Time No Known Allergies Allergy Verified 01/13/17 14:01 Home Medications: Ambulatory Orders Calcium Carbonate/Vitamin D3 [Calcium 600 + Vit D Softgel] 1 each PO BID Cholecalciferol (Vitamin D3) [Vitamin D -] 400 unit PO DAILY 11/12/16 Denosumab [Prolia -] 60 mg SQ MONTHLY 11/12/16 Latanoprost 0.005% Eye Drops [Xalatan 0.005% Eye Drops -] 1 drop OD HS 11/12/16 Pantoprazole Sodium [Protonix] 40 mg PO BID 11/12/16 Polyethylene Glycol 3350 [Glycolax] 119 gm PO DAILY 11/12/16 Prednisolone 1% Ophthalmic [Pred Forte 1% -] 1 ml OP TID 11/12/16 Ascorbic Acid [Vitamin C] 500 mg PO DAILY #7 capsule.er 11/14/16 Metoprolol Tartrate 25 mg PO BID #30 tablet 11/14/16 Sucralfate [Carafate -] 1 gm PO BID #14 tablet 11/14/16 Azithromycin [Zithromax -] 250 mg PO UTDICT #6 tab 01/13/17 Review of Systems - Review of Systems Able to Perform ROS?: No Comments:: 01/13/17 16:22 Limited. <Joi Pearce - Last Filed: 01/13/17 18:40> *Physical Exam - Vital Signs Last Vital Signs Temp Pulse Resp BP Pulse Ox 98.0 F 103 H 20 119/59 99 01/13/17 13:56 01/13/17 13:56 01/13/17 13:56 01/13/17 13:56 01/13/17 13:56 - Physical Exam Comments: 01/13/17 16:22 GENERAL: Awake. Non verbal at baseline HEAD: No signs of trauma EYES: PERRLA, EOMI, sclera anicteric, conjunctiva clear ENT: Auricles normal inspection, hearing grossly normal, nares patent, oropharynx clear without exudates. Moist mucosa NECK: Normal ROM, supple, no lymphadenopathy, JVD, or masses LUNGS: Diffuse rhonchi bilaterally. HEART: Regular rate and rhythm, normal S1 and S2, no murmurs, rubs or gallops ABDOMEN: Soft, nontender normoactive bowel sounds. No rebound. No masses EXTREMITIES: Normal range of motion, no edema. No clubbing or cyanosis. No cords, erythema, or tenderness NEUROLOGICAL: Limited by patient's history. Non verbal. <Joi Pearce - Last Filed: 01/13/17 18:40> - Vital Signs Last Vital Signs Temp Pulse Resp BP Pulse Ox 98.0 F 103 H 20 119/59 99 01/13/17 13:56 01/13/17 13:56 01/13/17 13:56 01/13/17 13:56 01/13/17 13:56 <Marla Andersen - Last Filed: 01/13/17 23:03> ED Treatment Course - LABORATORY CBC & Chemistry Diagram: 01/13/17 16:30 01/13/17 16:30 - RADIOLOGY Radiograph Interpretation: 01/13/17 18:25 EXAM: RAD/CHEST X-RAY PORTABLE IMPRESSION: Since 09/04/2016, the cardiac silhouette remains slightly enlarged. Chin artifact is obscuring the thoracic inlet. There are increased interstitial markings, bilaterally with likely pleural calcifications along the left lateral chest wall.. Mediastinum and visualized osseous structures appear intact with evidence of osteopenia. Note is made of a small hiatus hernia with an air-fluid level. <Joi Pearce - Last Filed: 01/13/17 18:40> - LABORATORY CBC & Chemistry Diagram: 01/13/17 16:30 01/13/17 16:30 <Marla Andersen - Last Filed: 01/13/17 23:03> Medical Decision Making - Medical Decision Making 01/13/17 19:[address] Bronson. Awaiting CMP and UA results. He has history of multiple prior aspiration pneumonias, and although the CXR does not show acute findings, it is limited by patient's body habitus (and his posture). His lungs are rhoncherous B/L, implying there may be a pneumonia. In terms of his H&H, he does not acutely need transfusion, however, does need remainder of workup for the leukocytosis. I have treated for aspiration pna. Will likely require admission. <Marla Andersen - Last Filed: 01/13/17 23:03> *DC/Admit/Observation/Transfer - Attestations Scribe Attestion: 01/13/17 16:22 Documentation prepared by Joi Pearce, acting as medical sales representative for Marla Andersen MD. <Joi Pearce - Last Filed: 01/13/17 18:40> <Marla Andersen - Last Filed: 01/13/17 23:03> Diagnosis at time of Disposition: Cough - Discharge Dispostion Disposition: HOME Condition at time of disposition: Stable - Prescriptions Prescriptions: Azithromycin [Zithromax -] 250 mg PO UTDICT #6 tab - Referrals Referrals: Sarah Miller [Primary Care Provider] - - Patient Instructions Printed Discharge Instructions: DI for Cough -- Adult
[2017-01-13 16:39] LABS: BASOPHIL 0.3 % (0-2.0); MCH 25.5 pg (25.7-33.7); MCHC 32.5 g/dl (32.0-35.9); MEAN CELL VOLUME 78.5 fl (80-96); MEAN PLT VOLUME 7.8 fl (7.5-11.1); NEUTROPHILS 82.3 % (42.8-82.8); PLATELET COUNT 222 K/MM3 (134-434); RDW 25.5 % (11.9-15.9)
[2017-01-13 17:32] LABS: ALBUMIN 3.1 g/dl (3.4-5.0); ALK PHOS 116 U/L (45-117); BILIRUBIN,TOTAL 0.6 mg/dL (0.2-1.0); CALCIUM 8.4 mg/dL (8.5-10.1); CO2 27 mmol/L (21-32); CREATININE 0.5 mg/dL (0.7-1.3); GLUCOSE,RANDOM 130 mg/dL (74-106); SGPT/ALT 15 U/L (12-78)
[2017-01-13 18:44] LABS: ANION GAP 12 (8-16)
[2017-01-13] MEDS ORDERED: PIPERACILLIN/TAZOB 3.375 GM 3.375 GM in DEXTROSE 5%-WATER - 50 ML IVPB ONE (18:50)
[2017-01-13 19:00] LABS: SGOT/AST 16 U/L (15-37)
[2017-01-13 19:03] LABS: ANISOCYTOSIS 3+; HYPOCHROMIA 1+; MICROCYTOSIS 2+; OVALOCYTES 2+; PLATELET ESTIMATE ADEQUATE (NORMAL)
[2017-01-13] MEDS ORDERED: PIPERACILLIN/TAZOB 3.375 GM 50 ML IVPB ONE (19:33)
[2017-01-13 20:41] LABS: URINE APPEARANCE CLEAR; URINE BILIRUBIN NEGATIVE (NEGATIVE); URINE BLOOD NEGATIVE (NEGATIVE); URINE COLOR LTYELLOW; URINE GLUCOSE (UA) NEGATIVE (NEGATIVE); URINE KETONE NEGATIVE (NEGATIVE); URINE LEUK ESTERASE NEGATIVE (NEGATIVE); URINE NITRITE NEGATIVE (NEGATIVE); URINE PROTEIN NEGATIVE (NEGATIVE); URINE UROBILINOGEN NEGATIVE E.U./dl (0.2-1.0)
--- NOTE | 2017-01-13 21:44 | PDOC ---
*Physical Exam - Vital Signs Last Vital Signs Temp Pulse Resp BP Pulse Ox 98.0 F 103 H 20 119/59 99 01/13/17 13:56 01/13/17 13:56 01/13/17 13:56 01/13/17 13:56 01/13/17 13:56 ED Treatment Course - LABORATORY CBC & Chemistry Diagram: 01/13/17 16:30 01/13/17 16:30 - ADDITIONAL ORDERS Additional order review: Laboratory Results 01/13/17 01/13/17 20:30 16:30 Sodium 134 L Potassium 4.4 Chloride 95 L Carbon Dioxide 27 Anion Gap 12 BUN 15 D Creatinine 0.5 L D Creat Clearance w eGFR > 60 Random Glucose 130 H D Calcium 8.4 L Total Bilirubin 0.6 D AST 16 ALT 15 Alkaline Phosphatase 116 D Total Protein 8.0 Albumin 3.1 L Urine Color Ltyellow Urine Appearance Clear Urine pH 7.0 Ur Specific [place] 1.026 Urine Protein Negative Urine Glucose (UA) Negative Urine Ketones Negative Urine Blood Negative Urine Nitrite Negative Urine Bilirubin Negative Urine Urobilinogen Negative Ur Leukocyte Esterase Negative 01/13/17 16:30 RBC 4.54 MCV 78.5 L MCHC 32.5 RDW 25.5 H MPV 7.8 Neutrophils % 82.3 D Lymphocytes % 7.4 L D Monocytes % 9.0 Eosinophils % 1.0 Basophils % 0.3 - Medications Given in the ED: ED Medications Discontinued Medications Generic Name Dose Route Start Last Admin Trade Name Freq PRN Reason Stop Dose Admin Piperacillin Sod/Tazobactam 50 mls @ 100 mls/hr 01/13/17 18:50 01/13/17 19:40 Sod 3.375 gm/ Dextrose IVPB 01/13/17 19:19 100 mls/hr ONCE ONE Administration Protocol Medical Decision Making - Medical Decision Making 01/13/17 21:43 Pt will be given ABx for preventative coverage. Pt to be discharged *DC/Admit/Observation/Transfer Diagnosis at time of Disposition: Cough - Discharge Dispostion Disposition: HOME Condition at time of disposition: Stable Admit: No - Referrals Referrals: Sarah Miller [Primary Care Provider] - - Patient Instructions Printed Discharge Instructions: DI for Cough -- Adult - Post Discharge Activity
[2017-01-13 21:55] VITALS: BP 110/70
[2017-01-13 22:00] VITALS: PULSE 115
[2017-01-13] MEDS ORDERED: IBUPROFEN 100 MG/5 ML UNIT DOSE CUPS PO ONE (22:03)
[2017-01-13] MEDS ORDERED: IBUPROFEN 100 MG/5 ML UNIT DOSE CUPS ONE (22:05)
== END 2017-01-13 22:09 | disposition home or self-care (01) ==
LOC: JER 13:52
DX: J69.0 Pneumonitis due to inhalation of food and vomit (principal); R05 Cough; D72.828 Other elevated white blood cell count; I50.30 Unspecified diastolic (congestive) heart failure; I48.91 Unspecified atrial fibrillation; K44.9 Diaphragmatic hernia without obstruction or gangrene; I34.1 Nonrheumatic mitral (valve) prolapse; G80.9 Cerebral palsy, unspecified
CPT/HCPCS: 36415; 71010-TC; 80053; 81003; 85025; 99283-25

== ENCOUNTER 2017-02-11 19:23 | Emergency (ER) | payer OTHER ==
[2017-02-11 20:05] VITALS: BP 115/69; PULSE 95; BMI 14.7
--- NOTE | 2017-02-11 21:02 | PDOC ---
History of Present Illness - General History Source: Care Provider, Old Records Exam Limitations: Clinical Condition - History of Present Illness Initial Comments: 02/11/17 21:10 The patient is a 56 year old male with significant past medical history of hypertension, anemia, atrial fibrillation, left diastolic dysfunction, upper gastrointestinal bleed, gastroesophageal reflux disease, intellectual disability and cerebral palsy (non verbal at baseline) who presents to the ED [facility] from [facility] for abnormal labs. As per bench carpenter, at bedside , patient had labs done yesterday at the resident facility, which was noted to have a white blood count 27.5. Complaint Analyst states patient a appears to be in his usual state of health and behavior. It was not reported if patient had a fever at the facility. Complaint Analyst denies diaphoresis, chills, cough, SOB, vomiting, or diarrhea. 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; PAFIB) CHF: (left diastolic dysfunction) GI Disorders: Yes (HIATAL HERNIA, Shanae-nazario tear, upper GIB, GERD, dysphagia ) HTN: Yes Seizures: Yes - Immunization History Immunization Up to Date: Yes - Psycho/Social/Smoking Cessation Hx Anxiety: No Suicidal Ideation: No Smoking History: Never smoked Have you smoked in the past 12 months: No Number of Cigarettes Smoked Daily: 0 Information on smoking cessation initiated: No Hx Alcohol Use: No Drug/Substance Use Hx: No Substance Use Type: None Hx Substance Use Treatment: No <Jagdish Bronson - Last Filed: 02/12/17 00:55> - Past Medical History Allergies/Adverse Reactions: Allergies Allergy/AdvReac Type Severity Reaction Status Date / Time No Known Allergies Allergy Verified 02/11/17 19:59 Home Medications: Ambulatory Orders Calcium Carbonate/Vitamin D3 [Calcium 600 + Vit D Softgel] 1 each PO BID Latanoprost 0.005% Eye Drops [Xalatan 0.005% Eye Drops -] 1 drop OD HS 11/12/16 Pantoprazole Sodium [Protonix] 40 mg PO BID 11/12/16 Polyethylene Glycol 3350 [Glycolax] 17 gm PO DAILY 11/12/16 Prednisolone 1% Ophthalmic [Pred Forte 1% -] 1 ml OP TID 11/12/16 Ascorbic Acid [Vitamin C] 500 mg PO DAILY #7 capsule.er 11/14/16 Metoprolol Tartrate 25 mg PO BID #30 tablet 11/14/16 Sucralfate [Carafate -] 1 gm PO BID #14 tablet 11/14/16 Ferrous Sulfate 325 mg PO BID 02/11/17 Vitamin D - 1,000 iu PO DAILY 02/11/17 Cephalexin [Keflex *Suspension*] 10 ml PO TID 10 Days 02/12/17 Review of Systems - Review of Systems Able to Perform ROS?: No Comments:: 02/11/17 21:10 Unable to obtain secondary to clinical condition <Rachel Walters - Last Filed: 02/11/17 21:09> *Physical Exam - Vital Signs Last Vital Signs Temp Pulse Resp BP Pulse Ox 99.3 F 95 H 18 115/69 96 02/11/17 20:01 02/11/17 20:01 02/11/17 20:01 02/11/17 20:01 02/11/17 20:01 - Physical Exam Comments: 02/11/17 21:10 GENERAL: Well-appearing, well-nourished. No apparent distress. Pt is non verbal at baseline. HEENT: Normocephalic, atraumatic. PERRL, EOM intact. CARDIOVASCULAR: Normal S1, S2. Regular rate and rhythm. PULMONARY: Clear to auscultation bilaterally. ABDOMEN: Soft, non-distended, non-tender. EXTREMITIES: Normal ROM in all four extremities. No gross deformities. SKIN: Warm, dry. No rash NEUROLOGICAL: Pt at baseline per bench carpenter. Nonverbal. <Rachel Walters - Last Filed: 02/11/17 21:09> - Vital Signs Last Vital Signs Temp Pulse Resp BP Pulse Ox 99.3 F 95 H 18 115/69 96 02/11/17 20:01 02/11/17 20:01 02/11/17 20:01 02/11/17 20:01 02/11/17 20:01 <Jagdish Bronson - Last Filed: 02/12/17 00:55> ED Treatment Course - LABORATORY CBC & Chemistry Diagram: 02/11/17 22:04 02/11/17 23:03 <Jagdish Bronson - Last Filed: 02/12/17 00:55> Medical Decision Making - Medical Decision Making 02/12/17 00:54 Dr. Bronson: The scribe's documentation has been prepared under my direction and personally reviewed by me in its entirery. I confirm that the note above accurately reflects all work, treatment, procedures, and medical decision making performed by me. patient found early urinary tract infection. prescription for Keflex suspension given to bench carpenter. Patient to be discharge <Jagdish Bronson - Last Filed: 02/12/17 00:55> *DC/Admit/Observation/Transfer - Attestations Scribe Attestion: 02/11/17 21:10 Documentation prepared by Rachel Walters, acting as medical assistant for Jagdish Bronson MD <Rachel Walters - Last Filed: 02/11/17 21:09> - Discharge Dispostion Admit: No <Jagdish Bronson - Last Filed: 02/12/17 00:55> Diagnosis at time of Disposition: UTI (urinary tract infection) Qualifiers: Urinary tract infection type: site unspecified Hematuria presence: without hematuria Qualified Code(s): N39.0 - Urinary tract infection, site not specified - Discharge Dispostion Disposition: HOME Condition at time of disposition: Stable - Prescriptions Prescriptions: Cephalexin [Keflex *Suspension*] 10 ml PO TID 10 Days - Referrals Referrals: STAFF,NOT ON [Primary Care Provider] - - Patient Instructions Printed Discharge Instructions: DI for Urinary Tract Infection (UTI)
[2017-02-11 22:16] LABS: BASOPHIL 0.3 % (0-2.0); EOSINOPHIL 1.1 % (0-4.5); MCH 26.7 pg (25.7-33.7); MCHC 32.3 g/dl (32.0-35.9); MEAN CELL VOLUME 82.6 fl (80-96); MEAN PLT VOLUME 7.8 fl (7.5-11.1); NEUTROPHILS 82.3 % (42.8-82.8); PLATELET COUNT 183 K/MM3 (134-434); RDW 22.5 % (11.9-15.9); WHITE BLOOD COUNT 14.3 K/mm3 (4.0-10.0)
[2017-02-11 22:37] LABS: INR 1.13 (0.82-1.09); PROTHROMBIN TIME (PATIENT) 12.5 SEC (9.98-11.88)
[2017-02-11 23:16] VITALS: TEMP 98.7
[2017-02-11 23:42] LABS: URINE APPEARANCE SLCLOUDY; URINE BILIRUBIN NEGATIVE (NEGATIVE); URINE COLOR LTYELLOW; URINE GLUCOSE (UA) NEGATIVE (NEGATIVE); URINE KETONE NEGATIVE (NEGATIVE); URINE LEUK ESTERASE NEGATIVE (NEGATIVE); URINE NITRITE NEGATIVE (NEGATIVE); URINE PROTEIN NEGATIVE (NEGATIVE); URINE UROBILINOGEN NEGATIVE E.U./dl (0.2-1.0)
[2017-02-11 23:46] LABS: ANION GAP 8 (8-16); CALCIUM 8.8 mg/dL (8.5-10.1); CO2 32 mmol/L (21-32); COCKROFT - GAULT 75.07; CREATININE 0.7 mg/dL (0.7-1.3); GLUCOSE,RANDOM 156 mg/dL (74-106); MAGNESIUM 2.2 mg/dL (1.8-2.4); SGOT/AST 12 U/L (15-37); SGPT/ALT 14 U/L (12-78)
[2017-02-11 23:49] LABS: ALK PHOS 107 U/L (45-117); BILIRUBIN,TOTAL 0.6 mg/dL (0.2-1.0); TOT PROT 7.3 g/dl (6.4-8.2)
[2017-02-12 00:41] LABS: URINE BLOOD 2+ (NEGATIVE)
[2017-02-12 00:42] LABS: GRANULAR CASTS 1 /lpf; URINE MUCUS RARE; URINE RBC 139 /hpf (0-3); URINE WBC 4 /hpf (3-5); YEAST RARE
[2017-02-12] MEDS ORDERED: CEPHALEXIN 250 MG/5 ML ORAL SUSPENSION PO ONE (00:51)
== END 2017-02-12 01:26 | disposition home or self-care (01) ==
LOC: JER 19:23
DX: N39.0 Urinary tract infection, site not specified (principal); I10 Essential (primary) hypertension; D64.9 Anemia, unspecified; I48.0 Paroxysmal atrial fibrillation; Z79.01 Long term (current) use of anticoagulants; I50.30 Unspecified diastolic (congestive) heart failure; K21.9 Gastro-esophageal reflux disease without esophagitis; G80.8 Other cerebral palsy; F79 Unspecified intellectual disabilities
CPT/HCPCS: 36415; 80053; 81003; 81015; 83605; 83735; 85025; 85610; 87040; 87086; 99283-25

== ENCOUNTER 2017-07-23 19:51 | Emergency (ER) | payer OTHER ==
[2017-07-23 20:07] VITALS: BP 105/65; PULSE 95; TEMP 98.5; BMI 16.1
--- NOTE | 2017-07-23 21:15 | PDOC ---
History of Present Illness - General History Source: Patient Exam Limitations: No Limitations <Chandra Vides - Last Filed: 07/23/17 23:46> - General History Source: Care Provider Exam Limitations: Clinical Condition - History of Present Illness Initial Comments: 07/23/17 22:55 The patient is a 57 year old male, with a significant past medical history of hypertension, anemia, atrial fibrillation, left diastolic dysfunction, upper gastrointestinal bleed, GERD, intellectual disability and cerebral palsy (non verbal at baseline) who presents to the emergency department for abnormal labs. The patients aide is present and reports labs were taken earlier today at the facility and detected an increased WBC count so the patient was advised to come to the ER. The patients aide reports the patient has been behaving normally and eating regularly. The patients aide denies any recent fevers, coughing, vomiting , diarrhea or malodorous stool or urine. The patients aide states there is a cold going around the facility but denies noticing any recent cold symptoms for the patient. Allergies:NKA PCP: Dr. 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; PAFIB) CHF: (left diastolic dysfunction) GI Disorders: Yes (HIATAL HERNIA, Shanae-nazario tear, upper GIB, GERD, dysphagia ) HTN: Yes Seizures: Yes - Immunization History Immunization Up to Date: Yes - Suicide/Smoking/Psychosocial Hx Smoking History: Never smoked Have you smoked in the past 12 months: No Number of Cigarettes Smoked Daily: 0 Information on smoking cessation initiated: No Hx Alcohol Use: No Drug/Substance Use Hx: No Substance Use Type: None Hx Substance Use Treatment: No <Chandra Vides - Last Filed: 07/23/17 23:46> <Sidney Reid - Last Filed: 07/24/17 00:30> - Past Medical History Allergies/Adverse Reactions: Allergies Allergy/AdvReac Type Severity Reaction Status Date / Time No Known Allergies Allergy Verified 07/23/17 20:07 Home Medications: Ambulatory Orders Calcium Carbonate/Vitamin D3 [Calcium 600-Vit D3 500 Softgel] 1 each PO BID Latanoprost 0.005% Eye Drops [Xalatan 0.005% Eye Drops -] 1 drop OD HS 11/12/16 Pantoprazole Sodium [Protonix] 40 mg PO BID 11/12/16 Polyethylene Glycol 3350 [Glycolax] 17 gm PO DAILY 11/12/16 Prednisolone 1% Ophthalmic [Pred Forte 1% -] 1 ml OP TID 11/12/16 Ascorbic Acid [Vitamin C] 500 mg PO DAILY #7 capsule.er 11/14/16 Metoprolol Tartrate 25 mg PO BID #30 tablet 11/14/16 Sucralfate [Carafate -] 1 gm PO BID #14 tablet 11/14/16 Ferrous Sulfate 325 mg PO BID 02/11/17 Vitamin D - 1,000 iu PO DAILY 02/11/17 Cephalexin [Keflex *Suspension*] 10 ml PO TID 10 Days 02/12/17 Review of Systems - Review of Systems Able to Perform ROS?: Yes Comments:: 07/23/17 22:56 Limited due to patient baseline status <Sidney Reid - Last Filed: 07/24/17 00:30> *Physical Exam - Vital Signs Last Vital Signs Temp Pulse Resp BP Pulse Ox 98.5 F 95 H 18 105/65 98 07/23/17 20:01 07/23/17 20:01 07/23/17 20:01 07/23/17 20:01 07/23/17 20:01 <Chandra Vides - Last Filed: 07/23/17 23:46> - Vital Signs Last Vital Signs Temp Pulse Resp BP Pulse Ox 98.5 F 95 H 18 105/65 98 07/23/17 20:01 07/23/17 20:01 07/23/17 20:01 07/23/17 20:01 07/23/17 20:01 - Physical Exam Comments: 07/23/17 22:56 GENERAL: The patient is awake, alert, Nontoxic - in no acute distress. HEAD: microcephalic, atraumatic. EYES: extraocular movements intact, sclera anicteric, conjunctiva clear. ENT: Moist mucous membranes. NECK: Normal range of motion, supple LUNGS: poor respiratory effort, very mild basilar rales HEART: +murmer, ABDOMEN: Soft, nontender, normoactive bowel sounds. No guarding, no rebound. No CVA tenderness EXTREMITIES: Normal range of motion, no edema. NEUROLOGICAL: No facial assymetry, PSYCH: Normal mood, normal affect. <Sidney Reid - Last Filed: 07/24/17 00:30> ED Treatment Course - LABORATORY CBC & Chemistry Diagram: 07/23/17 21:16 07/23/17 21:16 - RADIOLOGY Radiology Studies Ordered: Category Date Time Status CHEST X-RAY PORTABLE* [RAD] Stat Radiology 07/23/17 21:11 Ordered <Chandra Vides - Last Filed: 07/23/17 23:46> - LABORATORY CBC & Chemistry Diagram: 07/23/17 21:16 07/23/17 21:16 - ADDITIONAL ORDERS Additional order review: Laboratory Results 07/23/17 21:16 Sodium 137 Potassium 5.1 Chloride 101 Carbon Dioxide 30 Anion Gap 6 L BUN 21 H Creatinine 0.9 D Creat Clearance w eGFR > 60 Random Glucose 92 D Calcium 8.7 Total Bilirubin 0.2 D AST 21 D ALT 18 D Alkaline Phosphatase 104 Total Protein 8.1 Albumin 3.1 L <Sidney Reid - Last Filed: 07/24/17 00:30> Medical Decision Making - Medical Decision Making 07/23/17 21:15 57y M hx of htn, anemia, afib, lef tidastolic dysfunction, gib, MR (nonverbal at baseline) presents from his longterm for leukocytosis of 12. Per his aid, the pt is otherwise his usual self, eating/drinking, no cough/congestion, n/v, change in his behavior, foul melling urine, diarrhea. will ck basic labs his exam note dfor mild rales at the bases b/l, but pt had poor inspiratory effort, possible atelectasis vs/ pna will obtain xray will reasess A portion of this note was documented by scribe services under my direction. I have reviewed the details of the note, within reason, and agree with the documentation with the following case summary and management plan written by me 07/23/17 23:43 labs reviewed no leukocytosis here cxr neg will dc with pmd fu return precuations were discussed I discussed the physical exam findings, ancillary test results and final diagnoses with the patient. I answered all of the patient's questions. The patient was satisfied with the care received and felt comfortable with the discharge plan and treatment plan. The patient will call their primary care physician within 24 hours to arrange follow-up and will return to the Emergency Department with any new, persistent or worsening symptoms. <Chandra Vides - Last Filed: 07/23/17 23:46> *DC/Admit/Observation/Transfer - Discharge Dispostion Admit: No <Chandra Vides - Last Filed: 07/23/17 23:46> - Attestations Scribe Attestion: 07/23/17 22:57 Documentation prepared by Sidney Reid, acting as medical delivery technician for Chandra Vides MD. <Sidney Reid - Last Filed: 07/24/17 00:30> Diagnosis at time of Disposition: Abnormal laboratory test - Discharge Dispostion Disposition: HOME Condition at time of disposition: Improved - Referrals Referrals: Sarah Miller [Primary Care Provider] - - Patient Instructions Additional Instructions: Return to the emergency department immediately with ANY new, persistent or worsening symptoms. You MUST call and follow up with your doctor tomorrow for further evaluation of your symptoms. Results were discussed with you. Please make sure your doctor reviews the results of your emergency evaluation. If you had any xrays during your visit, it was read preliminarily by myself, a Radiologist will review it and if there are any additional findings we will call you.
[2017-07-23 22:14] LABS: ALBUMIN 3.1 g/dl (3.4-5.0); ALK PHOS 104 U/L (45-117); ANION GAP 6 (8-16); BILIRUBIN,TOTAL 0.2 mg/dL (0.2-1.0); CALCIUM 8.7 mg/dL (8.5-10.1); CO2 30 mmol/L (21-32); CREATININE 0.9 mg/dL (0.7-1.3); GLUCOSE,RANDOM 92 mg/dL (74-106); SGPT/ALT 18 U/L (12-78); TOT PROT 8.1 g/dl (6.4-8.2)
[2017-07-23 22:24] LABS: SGOT/AST 21 U/L (15-37)
[2017-07-23 23:36] LABS: WHITE BLOOD COUNT 7.7 K/mm3 (4.0-10.0)
[2017-07-23 23:37] LABS: BASOPHIL 0.8 % (0-2.0); EOSINOPHIL 2.7 % (0-4.5); MCH 27.8 pg (25.7-33.7); MCHC 33.1 g/dl (32.0-35.9); MEAN CELL VOLUME 84.2 fl (80-96); MEAN PLT VOLUME 7.8 fl (7.5-11.1); PLATELET COUNT 279 K/MM3 (134-434); RDW 15.8 % (11.9-15.9)
== END 2017-07-24 00:02 | disposition home or self-care (01) ==
LOC: JER 19:51
DX: R79.9 Abnormal finding of blood chemistry, unspecified (principal); I10 Essential (primary) hypertension; D64.9 Anemia, unspecified; I48.91 Unspecified atrial fibrillation; K21.9 Gastro-esophageal reflux disease without esophagitis; F79 Unspecified intellectual disabilities; G80.9 Cerebral palsy, unspecified
CPT/HCPCS: 36415; 71010-TC; 80053; 85025; 99281-25

== ENCOUNTER 2018-11-03 07:49 | Emergency (ER) | payer OTHER ==
[2018-11-03 08:03] VITALS: TEMP 98.1; BMI 25.7
--- NOTE | 2018-11-03 08:22 | PDOC ---
Attending Attestation - Resident Resident Name: Manisha García - HPI HPI: 11/03/18 09:43 Pt presents to the ED after brought in by [facility] staff for vomiting with "dark" emesis. As per aide who is with the patient, multiple patients are sick with gastroenteritis. Last night, patient's vomit became dark and he has a history of GI bleeds and ulcers in the past. Aide does not report bloody stool. Patient is non verbal at his baseline and is unable to give history. - Physicial Exam PE: 11/03/18 09:46 Agree with resident exam. Pt is alert and non verbal. Lungs are clear. Heart regular rate and rhythm. Abdomen is non tender, non distended without guarding or rebound. - Medical Decision Making 11/03/18 09:48 Pt presents to the ED with nausea and vomiting and concern for hematemesis. Abdomen is non tender. Stool tested for occult blood and is negative. Will check labs to rule out severe anemia and reassess. Will likely discharge to [facility] if labs are negative.
[2018-11-03] MEDS ORDERED: SODIUM CHLORIDE 1,000 ML IV STA (08:35)
[2018-11-03] MEDS ORDERED: PANTOPRAZOLE SODIUM 40 MG in SODIUM CHLORIDE 100 ML IVPB ONE (08:35)
[2018-11-03] MEDS ORDERED: ONDANSETRON 4 MG/2 ML VIAL IVPUSH ONE (08:38)
[2018-11-03] MEDS ORDERED: ONDANSETRON 4 MG/2 ML VIAL ONE (09:17)
[2018-11-03] MEDS ORDERED: PANTOPRAZOLE SODIUM 40 MG VIAL ONE (09:18)
[2018-11-03 09:32] LABS: BASO % 0.2 % (0-2.0); EOS % 0.4 % (0-4.5); HEMATOCRIT 38.3 % (35.4-49); HEMOGLOBIN 13.1 GM/dL (11.7-16.9); LYMPH % 10.2 % (8-40); MCH 29.4 pg (25.7-33.7); MCHC 34.2 g/dl (32.0-35.9); MEAN CELL VOLUME 86.2 fl (80-96); MEAN PLT VOLUME 7.7 fl (7.5-11.1); MONO % 9.6 % (3.8-10.2); NEUT % 79.6 % (42.8-82.8); PLATELET COUNT 257 K/MM3 (134-434); RBC 4.44 M/mm3 (4.00-5.60); RDW 14.8 % (11.9-15.9); WHITE BLOOD COUNT 7.4 K/mm3 (4.0-10.0)
--- NOTE | 2018-11-03 09:45 | PDOC ---
History of Present Illness - General Chief Complaint: Coffee Ground Emesis Stated Complaint: VOMITING BLOOD Time Seen by Provider: 11/03/18 08:18 History Source: Care Provider, EMS Exam Limitations: Other (nonverbal) - History of Present Illness Initial Comments: 11/03/18 08:40 58 YOM with h/o prior UGIB, PUD, GERD, HTN who was BIBEMS alongside his caregiver who notes he has had vomiting with episodes of coffee ground emesis. Caregiver notes that he has vomited four times since yesterday at 4 pm. The first episode was yellow liquid at 4 pm, the second was slight dark brown tinged fluid at 7 pm, and then he had two episodes of larger volume liquid coffee ground emesis this morning at 5 am, which prompted them to bring him into the ED. They note that otherwise he seems to be feeling well lately and is acting per his baseline. He always appears pale and looks no different to the caregiver today. There has been a "GI bug" going around at [place]. Past History - Past Medical History Allergies/Adverse Reactions: Allergies Allergy/AdvReac Type Severity Reaction Status Date / Time No Known Allergies Allergy Verified 11/03/18 09:31 Home Medications: Ambulatory Orders Calcium Carbonate/Vitamin D3 [Calcium 600-Vit D3 500 Softgel] 1 each PO BID Latanoprost 0.005% Eye Drops [Xalatan 0.005% Eye Drops -] 1 drop OD HS 11/12/16 Pantoprazole Sodium [Protonix] 40 mg PO BID 11/12/16 Polyethylene Glycol 3350 [Glycolax] 17 gm PO DAILY 11/12/16 Prednisolone 1% Ophthalmic [Pred Forte 1% -] 1 ml OP TID 11/12/16 Ascorbic Acid [Vitamin C] 500 mg PO DAILY #7 capsule.er 11/14/16 Metoprolol Tartrate 25 mg PO BID #30 tablet 11/14/16 Sucralfate [Carafate -] 1 gm PO BID #14 tablet 11/14/16 Ferrous Sulfate 325 mg PO BID 02/11/17 Cholecalciferol (Vitamin D3) [Vitamin D3] 1,000 unit PO DAILY 11/03/18 Fluticasone Prop 0.05% Nasal [Flonase -] 1 - 2 spray NS DAILY 11/03/18 Anemia: Yes Cardiac Disorders: Yes (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; PAFIB) COPD: No CHF: (left diastolic dysfunction) GI Disorders: Yes (HIATAL HERNIA, Shanae-richard tear, upper GIB, GERD, dysphagia ) HTN: Yes Seizures: Yes - Immunization History Immunization Up to Date: Yes - Suicide/Smoking/Psychosocial Hx Smoking History: Never smoked Have you smoked in the past 12 months: No Number of Cigarettes Smoked Daily: 0 Information on smoking cessation initiated: No Hx Alcohol Use: No Drug/Substance Use Hx: No Substance Use Type: None Hx Substance Use Treatment: No Review of Systems - Review of Systems Able to Perform ROS?: No (developmental delay) *Physical Exam - Vital Signs Last Vital Signs Temp Pulse Resp BP Pulse Ox 98.1 F 104 H 16 133/82 96 11/03/18 07:59 11/03/18 07:59 11/03/18 07:59 11/03/18 07:59 11/03/18 07:59 - Physical Exam Comments: GENERAL: unable to answer questions 2/2 developmental delay, caregiver at bedside HEENT: small amount of dried black material in crease of lip, PERRLA, EOMI, a bit dry mucous membranes NECK/BACK: no spinal stepoff or deformity, no hematoma, neck supple CHEST WALL: no crepitus CARDIOVASCULAR: regular rate/rhythm, normal S1S2, 2/6 systolic murmur, capillary refill <2 seconds, extremities wwp, no edema LUNGS/RESPIRATORY: nononlabored respirations, lungs CTAB GI/ABDOMEN: symmetric [id number], normoactive BS, soft, no midline pulsatile masses, no organomegaly : normal external appearance, no lesions, no swelling, non-malodorous EXTREMITIES: chronic muscle atrophy, no acute deformity, no edema SKIN: warm and dry, no pallor, no jaundice, no rash, no bruising, no skin breakdown, no cuts NEUROLOGICAL: Not alert or oriented, CN II-XII grossly intact, no obvious facial droop, otherwise patient is unable to participate in exam Moderate Sedation - Procedure Monitoring Vital Signs: Procedure Monitoring Vital Signs Temperature 98.1 F 11/03/18 07:59 Pulse Rate 104 H 11/03/18 07:59 Respiratory Rate 16 11/03/18 07:59 Blood Pressure 133/82 11/03/18 07:59 O2 Sat by Pulse Oximetry (%) 96 11/03/18 07:59 ED Treatment Course - LABORATORY CBC & Chemistry Diagram: 11/03/18 09:00 11/03/18 09:00 - RADIOLOGY Radiology Studies Ordered: Category Date Time Status CHEST X-RAY PORTABLE* [RAD] Stat Radiology 11/03/18 08:35 Ordered Medical Decision Making - Medical Decision Making Adult male with MR/DD and h/o PUD p/w report of coffee ground emesis. Initial Vital Signs Temp Pulse Resp BP Pulse Ox 98.1 F 104 H 16 133/82 96 11/03/18 07:59 11/03/18 07:59 11/03/18 07:59 11/03/18 07:59 11/03/18 07:59 Exam: As noted in Physical Exam section. DDX IBNLT: PUD, esophagitis, varices, gastritis, Shanae-Richard, [place], gastric or duodenal cancer, aortoenteric fistula, hemoptysis, epistaxis, etc. W/U ordered: CBCD CMP Mg Phos T&S Coags FOBT CXR TX ordered: Zofran, IVF, Protonix RAD/CHEST X-RAY PORTABLE* Chest: Vomiting. A single AP view the chest is been submitted. Since 07/23/2017, there is a slightly better inspiration with rotation to the left, large heart, prominent knob and some pleural calcifications but no sign of a discrete infiltrate. Pneumoperitoneum or gross obstructive process is not seen in the abdomen. The soft tissues are intact. There are degenerative changes. Correlation recommended. For more complete evaluation, further imaging may be of help Laboratory Tests 11/03/18 11/03/18 11/03/18 08:50 09:00 09:00 WBC 7.4 RBC 4.44 Hgb 13.1 Hct 38.3 MCV 86.2 MCH 29.4 MCHC 34.2 RDW 14.8 Plt Count 257 MPV 7.7 Absolute Neuts (auto) 5.9 Neutrophils % 79.6 D Lymphocytes % 10.2 D Monocytes % 9.6 Eosinophils % 0.4 D Basophils % 0.2 Nucleated RBC % 0 PT with INR 12.10 INR 1.03 PTT (Actin FS) 30.8 Sodium Potassium Chloride Carbon Dioxide Anion Gap BUN Creatinine Creat Clearance w eGFR Random Glucose Calcium Total Bilirubin AST ALT Alkaline Phosphatase Total Protein Albumin Stool Occult Blood Negative Influenza A (Rapid) Influenza B (Rapid) Blood Type Antibody Screen 11/03/18 11/03/18 11/03/18 09:00 09:00 09:00 WBC RBC Hgb Hct MCV MCH MCHC RDW Plt Count MPV Absolute Neuts (auto) Neutrophils % Lymphocytes % Monocytes % Eosinophils % Basophils % Nucleated RBC % PT with INR INR PTT (Actin FS) Sodium 140 Potassium 4.3 Chloride 103 Carbon Dioxide 29 Anion Gap 8 BUN 34 H Creatinine 0.8 Creat Clearance w eGFR > 60 Random Glucose 88 Calcium 8.2 L Total Bilirubin 0.8 AST 22 ALT 19 Alkaline Phosphatase 92 Total Protein 7.6 Albumin 3.2 L Stool Occult Blood Influenza A (Rapid) Negative Influenza B (Rapid) Negative Blood Type B POSITIVE Antibody Screen Negative Vital Signs Temperature 98.1 F 11/03/18 07:59 Pulse Rate 87 11/03/18 10:47 Respiratory Rate 18 11/03/18 10:47 Blood Pressure 121/79 11/03/18 10:47 O2 Sat by Pulse Oximetry (%) 96 11/03/18 10:47 This patient has gotten significant relief of symptoms while in the ED. On last reassessment, vitals are wnl, pain is reasonably controlled, and exam is benign. Workup is not concerning for emergency-level pathology at this time. This patient is appropriate for discharge with close outpatient follow up. They are comfortable with this plan and will follow up with their primary care provider in 1-3 days. Specific return precautions are discussed and they will come back to the ER if necessary. *DC/Admit/Observation/Transfer Diagnosis at time of Disposition: Vomiting Qualifiers: Vomiting type: unspecified Vomiting Intractability: non-intractable Nausea presence: unspecified Qualified Code(s): R11.10 - Vomiting, unspecified - Discharge Dispostion Disposition: HOME Condition at time of disposition: Stable Decision to Admit order: No - Referrals Referrals: Sarah Miller [Primary Care Provider] - - Patient Instructions Printed Discharge Instructions: DI for Vomiting -- Adult Additional Instructions: Akbar was seen for nausea and vomiting with concern for GI bleeding. We did not see evidence of GI bleeding here in the ER, and all his labs and his chest X -ray were normal. His influenza test was negative. Please follow up with PCP in 1-3 days, also GI doctor in 2-4 weeks. Return to the ER for uncontrollable vomiting, inability to keep down liquids, upper or lower GI bleeding, or any further emergency concerns. - Post Discharge Activity
[2018-11-03 09:53] LABS: INR 1.03 (0.83-1.09); PROTHROMBIN TIME (PATIENT) 12.1 SEC (9.7-13.0)
[2018-11-03 09:56] LABS: ACTIVATED PTT 30.8 SECONDS (25.2-36.5)
[2018-11-03 10:01] LABS: ALBUMIN 3.2 g/dl (3.4-5.0); ALK PHOS 92 U/L (45-117); ANION GAP 8 MMOL/L (8-16); BILIRUBIN,TOTAL 0.8 mg/dL (0.2-1); BLOOD UREA NITROGEN 34 mg/dL (7-18); CALCIUM 8.2 mg/dL (8.5-10.1); CHLORIDE 103 mmol/L (98-107); CO2 29 mmol/L (21-32); CREATININE 0.8 mg/dL (0.55-1.3); GLUCOSE,RANDOM 88 mg/dL (74-106); POTASSIUM 4.3 mmol/L (3.5-5.1); SGOT/AST 22 U/L (15-37); SGPT/ALT 19 U/L (13-61); SODIUM 140 mmol/L (136-145); TOT PROT 7.6 g/dl (6.4-8.2)
[2018-11-03 10:51] VITALS: BP 121/79; PULSE 87
== END 2018-11-03 10:45 | disposition home or self-care (01) ==
LOC: JER 07:49
PROC: 3E033GC Introduction of Other Therapeutic Substance into Peripheral Vein, Percutaneous Approach (ICD-10-PCS; principal; 2018-11-03)
PROC: 3E033GC Introduction of Other Therapeutic Substance into Peripheral Vein, Percutaneous Approach (ICD-10-PCS; 2018-11-03)
DX: R11.10 Vomiting, unspecified (principal); I11.0 Hypertensive heart disease with heart failure; I50.30 Unspecified diastolic (congestive) heart failure; D64.9 Anemia, unspecified; Z87.11 Personal history of peptic ulcer disease; Z87.19 Personal history of other diseases of the digestive system; Z86.69 Personal history of other diseases of the nervous system and sense organs
CPT/HCPCS: 36415; 71045-TC-FY; 80053; 82272; 85025; 85610; 85730; 86850; 86900; 86901; 87804; 99282-25; J7030

== ENCOUNTER 2018-12-01 15:39 | Emergency (ER) | payer OTHER ==
[2018-12-01 15:59] VITALS: BMI 21.6
--- NOTE | 2018-12-01 16:23 | PDOC ---
History of Present Illness - General Chief Complaint: Weakness Stated Complaint: LETHARGIC Time Seen by Provider: 12/01/18 16:23 History Source: Patient Exam Limitations: No Limitations - History of Present Illness Initial Comments: 12/01/18 16:26 58 year old male with PMH HTN, UGIB, PUD, paroxymal atrial fibrillation, twyla -nazario syndrome, murmur, hiatal hernia presented to ED for generalized weakness since today. Per medical aid pt was seen by other staff to appear generally weak and flushed in the face, which is how he has appeared with prior GIB. Per medical aid at bedside who takes care of the patient daily, she believes he is at his normal baseline (nonverbal, wheelchair bound, does not follow commands) and that he was weak because he was unable to use his wheelchair today and was required to walk, and has had a runny nose for a couple of days. Pt was seen and evaluated at [facility], was sent to ED for evaluation. Medical aid denied coughing, fever, AMS, lower extremity swelling, blood in stool, hematemesis. Past History - Past Medical History Allergies/Adverse Reactions: Allergies Allergy/AdvReac Type Severity Reaction Status Date / Time No Known Allergies Allergy Verified 12/01/18 15:55 Home Medications: Ambulatory Orders Calcium Carbonate/Vitamin D3 [Calcium 600-Vit D3 500 Softgel] 1 each PO BID Latanoprost 0.005% Eye Drops [Xalatan 0.005% Eye Drops -] 1 drop OD HS 11/12/16 Pantoprazole Sodium [Protonix] 40 mg PO BID 11/12/16 Polyethylene Glycol 3350 [Glycolax] 17 gm PO DAILY 11/12/16 Prednisolone 1% Ophthalmic [Pred Forte 1% -] 1 ml OP TID 11/12/16 Ascorbic Acid [Vitamin C] 500 mg PO DAILY #7 capsule.er 11/14/16 Metoprolol Tartrate 25 mg PO BID #30 tablet 11/14/16 Sucralfate [Carafate -] 1 gm PO BID #14 tablet 11/14/16 Ferrous Sulfate 325 mg PO BID 02/11/17 Cholecalciferol (Vitamin D3) [Vitamin D3] 1,000 unit PO DAILY 11/03/18 Fluticasone Prop 0.05% Nasal [Flonase -] 1 - 2 spray NS DAILY 11/03/18 Anemia: Yes Cardiac Disorders: Yes (MVP with MR; PAFIB) COPD: No CHF: (left diastolic dysfunction) GI Disorders: Yes (HIATAL HERNIA, Twyla-nazario tear, upper GIB, GERD, dysphagia ) HTN: Yes Seizures: Yes - Immunization History Immunization Up to Date: Yes - Suicide/Smoking/Psychosocial Hx Smoking History: Never smoked Have you smoked in the past 12 months: No Number of Cigarettes Smoked Daily: 0 Hx Alcohol Use: No Drug/Substance Use Hx: No Substance Use Type: None Hx Substance Use Treatment: No Review of Systems - Review of Systems Able to Perform ROS?: No (Baseline mental status) *Physical Exam - Vital Signs Last Vital Signs Temp Pulse Resp BP Pulse Ox 99.1 F 99 H 17 126/80 98 12/01/18 15:55 12/01/18 15:55 12/01/18 15:55 12/01/18 15:55 12/01/18 15:55 - Physical Exam Comments: 12/01/18 17:02 Constitutional: Well-nourished, Well-developed, appearing stated age. HEENT: head is normocephalic, atraumatic. EOMI. PERRLA. unable to visualize posterior pharynx secondary to mental status and inability to follow commands. Neck: supple. Full ROM. Heart: regular rhythm. murmur noted. Lungs: crackles to left base. no wheezing. no stridor. no labored breathing. Abdomen: soft, nontender. normal bowel sounds. no rebound, guarding, masses. Extremities: Peripheral pulses intact, equal, and regular. No lower extremity edema. Neurological: CN 2-12 grossly intact. Moves all four extremities. Psych: awake, alert, noverbal. does not follow commands. Moderate Sedation - Procedure Monitoring Vital Signs: Procedure Monitoring Vital Signs Temperature 99.1 F 12/01/18 15:55 Pulse Rate 99 H 12/01/18 15:55 Respiratory Rate 17 12/01/18 15:55 Blood Pressure 126/80 12/01/18 15:55 O2 Sat by Pulse Oximetry (%) 98 12/01/18 15:55 Medical Decision Making - Medical Decision Making 12/01/18 17:03 58 year old male with above PMH brought to ED by medical aid from [facility] for generalized weakness starting today. Pt was seen and evaluated at [facility], sent to ED. Initial Vital Signs Temp Pulse Resp BP Pulse Ox 99.1 F 99 H 17 126/80 98 12/01/18 15:55 12/01/18 15:55 12/01/18 15:55 12/01/18 15:55 12/01/18 15:55 Afebrile. Borderline tachycardia. No tachypnea. No hypotension. No hypoxia on room air. Labs ordered: none Imaging ordered: CXR Medications ordered: none EKG performed at 1832: rate 107, regular rhythm, normal axis, normal intervals, LVH, T flattening in I/aVL, flipped T in V6. Similar to prior 10/03/16. Paper labwork performed today brought to ED by medical aid. CBC: Hgb 11.4, Hct 35.4%, WBC 8.0. No CMP paperwork. 12/01/18 17:13 I called and spoke with Tiara SEGOVIA who saw the pt at [facility] today, stated she felt they did not have the resources to fully evaluate his weakness, without access to EKG. She stated his CMP was normal, except that his BUN was 25. Cr 0.7. She stated she discussed the case with [facility] Dr. Saleh who knows the patient well, who stated that this patient has had massive GIB with pooling of blood in hiatal hernia. Medical aid denies any vomiting, hematemesis, blood in stool. Repeatedly stated pt is at his baseline. No clinical evidence of GIB at this time. No vomiting. No hematemesis. No blood in stool per aid. Lab work done today within normal limits, other than mildly elevated BUN. Would expect higher value for acute GIB. Will evaluate for pneumonia/pleural effusion that may be causing crackling at left base on examination. Will evaluate for atrial fibrillation that may be causing weakness/borderline tachycardia. 12/01/18 19:01 Pt continues to be asymptomatic. CXR: no infiltrate noted. malrotation noted. Pt discharged. 12/02/18 18:48 CXR official report: hiatal hernia. no infiltrate. no congestive changes. no pleural effusions. *DC/Admit/Observation/Transfer Diagnosis at time of Disposition: Generalized weakness - Discharge Dispostion Disposition: HOME Condition at time of disposition: Improved Decision to Admit order: No - Referrals - Patient Instructions Additional Instructions: Akbar Cage was seen today for generalized weakness. His chest X-ray looked similar to prior. His EKG was similar to prior. He continued to be asymptomatic in the Emergency Department. No further blood work was performed because CBC and CMP was performed at [facility]. Follow up with his primary care doctor in 1-2 days. His care is not complete until he follows up. Return to the Emergency Department for weakness, altered mental status, blood in stool, vomiting, vomiting blood or any other new, worsening or concerning symptoms. - Post Discharge Activity
--- NOTE | 2018-12-01 16:51 | PDOC ---
Attending Attestation - Medical Decision Making Documentation prepared by ZIYAD Palacios, acting as medical advisor for Chandra Vides MD. 12/01/18 18:18 <Christine Marcus - Last Filed: 12/01/18 18:18> - Resident Resident Name: Tiff Reyes - ED Attending Attestation I have performed the following: I have examined & evaluated the patient, The case was reviewed & discussed with the resident, I agree w/resident's findings & plan, Exceptions are as noted - HPI HPI: 12/01/18 17:25 The patient is a 58 year old male, with a significant PMH of cerebral palsy and intellectual disability (non-verbal at baseline), MVP with MR, PAfib, left diastolic dysfunction, upper GI bleed, GERD, hiatal hernia, Shanae-nazario tear, dysphagia, HTN, anemia, and seizures, who presents to the emergency department today with generalized weakness for one day. As per patients aid from [facility] who is typically with him everyday, patient is nonverbal, wheelchair bound, and unresponsive to commands at baseline. She believes he has been weak because there was no wheel chair to use this morning, and had to walk to the bus as a result. Patients aid does report that he has had a runny nose the past two days without associated fever or cough. Patient was seen earlier today at [facility], and was referred to the ED for comparison of blood work and a more complete workup if necessar which is cause for concern for blood pooling in his hiatal hernia (pt gets sick easily, and has a history of this incident). The patient denies chest pain, shortness of breath, headache and dizziness. Denies fever, chills, nausea, vomit, diarrhea and constipation. Denies dysuria, frequency, urgency and hematuria. Allergies: NKA Past surgical history: None reported Social history: No reported PCP: Dr. Sarah Miller - Physicial Exam PE: 12/01/18 17:23 General: no distress HEENT: atraumatic, moist mucus membranes PULM: CTA b/l CARD: rrr, no mrg ABD: soft tender - Medical Decision Making 12/01/18 16:51 58y M pafib, htn, anemia, gib, CP, presents from [facility] for generalized weakness. normal at baseline, the patient is nromally wheel chair bound, but today due to lack of a wheel chair, he was ambulated to the bus. Aide is with the patient who knows the patient well. people at his program noted he was eating les than usual - aid notes that he had a whole ensure, typically he takes the ensure after his meal and suspects that it was because he got full from the ensure and didnt eat his regular meal. Per the aide he was at his usual baseline otherwise. denies fever, chills, n/v, hemotpysis, diarrhea, dark stool, abd pain. notes that his behavior is currently at baseline as well. 12/01/18 17:24 suspect pt at baseline pt was at urgent care earlier - had essentially normal labs pt tolerating oral intake here of a bottle of thickened dairy product and juice will obtain ekg if neg anticipate dc back to assisted with pmd fu <Chandra Vides - Last Filed: 12/01/18 18:49> Heart Score/ECG Review - ECG Impressions Comment:: 12/01/18 18:47 Twelve-lead EKG was performed and reviewed by me. There is normal sinus rhythm with a rate of [address] abnormalities <Chandra Vides - Last Filed: 12/01/18 18:49>
[2018-12-01 19:26] VITALS: BP 127/67; PULSE 110; TEMP 97.7
--- NOTE | 2018-12-02 12:59 | EKG ---
Test Reason : Blood Pressure : / mmHG Vent. Rate : 107 BPM Atrial Rate : 107 BPM P-R Int : 114 ms QRS Dur : 086 ms QT Int : 336 ms P-R-T Axes : 003 -02 -59 degrees QTc Int : 448 ms SINUS TACHYCARDIA MINIMAL VOLTAGE CRITERIA FOR LVH, MAY BE NORMAL VARIANT NONSPECIFIC ST AND T WAVE ABNORMALITY ABNORMAL ECG WHEN COMPARED WITH ECG OF 03-OCT-2016 01:56, MINIMAL CRITERIA FOR SEPTAL INFARCT ARE NO LONGER PRESENT T WAVE AMPLITUDE HAS INCREASED IN ANTERIOR LEADS INVERTED T WAVES HAVE REPLACED NONSPECIFIC T WAVE ABNORMALITY IN LATERAL LEADS Confirmed by CRISTIANA ALFORD, STEPHANIE ([id number]) on 12/02/2018 12:58:47 PM Referred By: Confirmed By:STEPHANIE ZENDEJAS MD
== END 2018-12-01 19:27 | disposition home or self-care (01) ==
LOC: JER 15:39
DX: R53.1 Weakness (principal); I48.91 Unspecified atrial fibrillation; I10 Essential (primary) hypertension; K22.6 Gastro-esophageal laceration-hemorrhage syndrome; R01.1 Cardiac murmur, unspecified
CPT/HCPCS: 71046-TC-FY; 93005; 93010; 99282-25

== ENCOUNTER 2018-12-20 11:17 | Inpatient (IN) | payer OTHER ==
[2018-12-20] MEDS ORDERED: SODIUM CHLORIDE 0.9% 500 ML INFUS.BAG IV ONE (12:38)
--- NOTE | 2018-12-20 12:38 | PDOC ---
History of Present Illness - General Chief Complaint: Respiratory Stated Complaint: COUGH/LOSS APPETITE Time Seen by Provider: 12/20/18 12:07 - History of Present Illness Initial Comments: 58 year old handicapped male with history of cerebral palsy, HTN, UGIB, PUD, paroxymal atrial fibrillation, shanae-nazario syndrome, murmur, and hiatal hernia presented to ED for generalized weakness, warmth, and decreased feeding for the past few days. Per the aid at bedside he is less participatory in his daily activities but is awake and alert. His family (who takes him home for the weekends) states that he has been less willing to eat. The aid at bedside notes the same but he does eat when prompted. The highest temperature measured over the weekend was 99.4 and there has been a light cough noted today. The aid states that he is at his communicative baseline (nonverbal, wheelchair bound, rarely follows commands). They deny measured fevers, nausea, vomiting,diarrhea, or other symptoms. At a baseline his stool is very soft and "pasty". 12/20/18 12:24 Past History - Past Medical History Allergies/Adverse Reactions: Allergies Allergy/AdvReac Type Severity Reaction Status Date / Time No Known Allergies Allergy Verified 12/01/18 15:55 Home Medications: Ambulatory Orders Calcium Carbonate/Vitamin D3 [Calcium 600-Vit D3 500 Softgel] 1 each PO BID Latanoprost 0.005% Eye Drops [Xalatan 0.005% Eye Drops -] 1 drop OD HS 11/12/16 Polyethylene Glycol 3350 [Glycolax] 17 gm PO DAILY 11/12/16 Prednisolone 1% Ophthalmic [Pred Forte 1% -] 1 ml OP TID 11/12/16 Ascorbic Acid [Vitamin C] 500 mg PO DAILY #7 capsule.er 11/14/16 Sucralfate [Carafate -] 1 gm PO BID #14 tablet 11/14/16 Cholecalciferol (Vitamin D3) [Vitamin D3] 1,000 unit PO ASDIR 11/03/18 Famotidine [Pepcid -] 20 mg PO BID 12/20/18 Iron Polysaccharide Complex [Ferrex 150] 150 mg PO BID 12/20/18 Metoprolol Tartrate 12.5 mg PO BID 12/20/18 Anemia: Yes Cardiac Disorders: Yes (MVP with MR; PAFIB) COPD: No CHF: (left diastolic dysfunction) GI Disorders: Yes (HIATAL HERNIA, Shanae-nazario tear, upper GIB, GERD, dysphagia ) HTN: Yes Seizures: Yes - Immunization History Immunization Up to Date: Yes - Suicide/Smoking/Psychosocial Hx Smoking History: Never smoked Have you smoked in the past 12 months: No Number of Cigarettes Smoked Daily: 0 Hx Alcohol Use: No Drug/Substance Use Hx: No Substance Use Type: None Hx Substance Use Treatment: No Review of Systems - Review of Systems Able to Perform ROS?: No (CP) *Physical Exam - Vital Signs Last Vital Signs Temp Pulse Resp BP Pulse Ox 98.4 F 106 H 22 H 117/69 98 12/20/18 11:56 12/20/18 11:28 12/20/18 11:28 12/20/18 11:28 12/20/18 11:28 - Physical Exam General Appearance: Yes: Nourished, Appropriately Dressed. No: Apparent Distress HEENT: positive: EOMI, FRANTZ. negative: Normal ENT Inspection (abnormally shaped cranial features) Neck: positive: Trachea midline, Normal Thyroid, Supple. negative: Tender, Rigid Respiratory/Chest: positive: Lungs Clear (but with upper airway soudn transmission). negative: Chest Tender, Normal Breath Sounds, Respiratory Distress, Accessory Muscle Use Cardiovascular: positive: Regular Rhythm, Tachycardia Gastrointestinal/Abdominal: positive: Normal Bowel Sounds, Flat, Soft. negative : Tender Rectal Exam: positive: melena, heme positive stool. negative: normal exam, hemorrhoids Musculoskeletal: negative: Normal Inspection (upper and lower extremity contractions) Extremity: positive: Normal Capillary Refill. negative: Normal Inspection, Normal Range of Motion, Tender Integumentary: positive: Normal Color, Dry, Warm Neurologic: positive: Alert. negative: Fully Oriented, Normal Mood/Affect Moderate Sedation - Procedure Monitoring Vital Signs: Procedure Monitoring Vital Signs Temperature 98.4 F 12/20/18 11:56 Pulse Rate 106 H 12/20/18 11:28 Respiratory Rate 22 H 12/20/18 11:28 Blood Pressure 117/69 12/20/18 11:28 O2 Sat by Pulse Oximetry (%) 98 12/20/18 11:28 ED Treatment Course - LABORATORY CBC & Chemistry Diagram: 12/20/18 12:50 12/20/18 12:50 Medical Decision Making - Medical Decision Making 58 year old male with history of CP, GIB, AFIB (not on AC) and PUD presenting with weakness, heme positive stool, anemia (2 point drop over the past two months), mild tachycardia. This is concerning for a mild PUD bleed that is causing this. Tachcyacardia resovled with 1 L NS. Lactate also resolved with NS as well. EKG demonstrating apparently sinus rhytm at rate 105, KS 124, QRS 102, QTC 465, nomal axis and non specific ST-T wave repol abnormalities in V1-V3 that are unchanged from EKG on 12/01/18. Patient admitted to [facility] sonogram technician under Dr. Mirella ariasa and new anemia. 12/20/18 15:45 *DC/Admit/Observation/Transfer Diagnosis at time of Disposition: Weakness, Melena - Discharge Dispostion Condition at time of disposition: Stable Decision to Admit order: Yes - Referrals Referrals: Noni Pathak MD [Primary Care Provider] - - Patient Instructions - Post Discharge Activity
--- NOTE | 2018-12-20 12:55 | PDOC ---
Attending Attestation - HPI HPI: 12/20/18 13:25 The patient is a 58 year old male with a significant past medical history of cerebral palsy, GERD, GI bleeds, dysphagia, hypertension, anemia, seizures, PAfib, left diastolic dysfunction, and hiatal hernia who presents to the emergency department via EMS from [facility] with some noted warmth and less like himself for about 1 week. As per the patients aide at bedside, the patient has been a little less interactive in activities at the sn[facility] and more picky with eating. The patients aid states the he will eat if spoon fed but has not been doing so otherwise. It is noted that the patient began to experience a dry cough today with an oral temp of 99.7. It is also noted that there have been some changes to the patient medications recently (protonics to pepcid, metoprolol 25 to 12.5, ferric sulfate to ferric). The patient is otherwise at mental baseline as per patients aide. No other symptoms or complaints reported. - Physicial Exam PE: 12/20/18 13:25 Vitals: Triage vital signs reviewed General Appearance: No acute distress, well nourished, well developed Head: Atraumatic Neck: Supple; No nuchal rigidity Chest Wall: Nontender Cardiac: Regular rate and rhythm, no murmurs, no rubs, no gallops Lungs: Clear to auscultation bilateral, good air movement bilaterally Abdomen: Soft, nondistended, normal bowel sounds, nontender to palpation Extremities: Full range of motion to all extremities, no cyanosis, clubbing, or edema Skin: Warm and dry, no rashes or lesions, no rash, no petechiae Neuro: AOX3; Cranial Nerves 2-12 grossly intact, Strength intact to all extremities, Sensation intact to all extremities, gait normal Psych: Normal mood, normal affect - Medical Decision Making 12/20/18 13:26 The patient is a 58 year old male with a significant past medical history of cerebral palsy, GERD, GI bleeds, dysphagia, hypertension, anemia, seizures, PAfib, left diastolic dysfunction, and hiatal hernia who presents to the emergency department via EMS from [facility] with some noted warmth and less like himself for about 1 week.The patient will get labs drawn and flu swab. <Álvaro Gaytan - Last Filed: 12/20/18 13:25> - Resident Resident Name: Justin Caballero - ED Attending Attestation I have performed the following: I have examined & evaluated the patient, The case was reviewed & discussed with the resident, I agree w/resident's findings & plan, Exceptions are as noted - Critical Care Time Total Critical Care Time: 36 Critical Care Statement: The care of this patient involved high complexity decision making to prevent further life threatening deterioration of the patient 's condition and/or to evaluate & treat vital organ system(s) failure or risk of failure. - Medical Decision Making 58 years old with change in mental status very mild per outside cutter found to be anemic compared to prior labs concerning for GI bleed given history of GI bleeds Coags type and screen ordered we'll admit the patient for further management GI consultation Patient placed on Protonix bolus and drip <Bar Montague - Last Filed: 12/20/18 15:38> Attestations - Attestations 12/20/18 13:26 Documentation prepared by Álvaro Gaytan, acting as medical stenographer for Bar Montague MD. <Álvaro Gaytan - Last Filed: 12/20/18 13:25>
[2018-12-20 13:34] LABS: BASO % 0.5 % (0-2.0); EOS % 1.9 % (0-4.5); HEMATOCRIT 26.8 % (35.4-49); HEMOGLOBIN 8.7 GM/dL (11.7-16.9); LYMPH % 20.1 % (8-40); MCH 27.2 pg (25.7-33.7); MCHC 32.4 g/dl (32.0-35.9); MEAN PLT VOLUME 7.5 fl (7.5-11.1); MONO % 11.4 % (3.8-10.2); NEUT % 66.1 % (42.8-82.8); PLATELET COUNT 389 K/MM3 (134-434); RBC 3.19 M/mm3 (4.00-5.60); RDW 14.5 % (11.9-15.9); WHITE BLOOD COUNT 7.8 K/mm3 (4.0-10.0)
[2018-12-20 13:43] LABS: VENOUS PC02 57.2 mmHg (38-52); VENOUS PH 7.37 (7.32-7.42); VENOUS PO2 29.5 mmHg (28-48)
[2018-12-20 13:48] LABS: INR 1.03 (0.83-1.09); PROTHROMBIN TIME (PATIENT) 12.1 SEC (9.7-13.0)
[2018-12-20 13:51] LABS: ACTIVATED PTT 25.5 SECONDS (25.2-36.5)
[2018-12-20 14:01] LABS: ALBUMIN 2.5 g/dl (3.4-5.0); ALK PHOS 65 U/L (45-117); ANION GAP 8 MMOL/L (8-16); BILIRUBIN,TOTAL 0.2 mg/dL (0.2-1); BLOOD UREA NITROGEN 22 mg/dL (7-18); CALCIUM 8.1 mg/dL (8.5-10.1); CHLORIDE 102 mmol/L (98-107); CO2 32 mmol/L (21-32); CREATININE 0.8 mg/dL (0.55-1.3); GLUCOSE,RANDOM 88 mg/dL (74-106); POTASSIUM 3.6 mmol/L (3.5-5.1); SGOT/AST 15 U/L (15-37); SGPT/ALT 20 U/L (13-61); SODIUM 142 mmol/L (136-145); TOT PROT 6.8 g/dl (6.4-8.2)
[2018-12-20] MEDS ORDERED: PANTOPRAZOLE SODIUM 40 MG VIAL IVPUSH ONE (14:30)
[2018-12-20] MEDS ORDERED: PANTOPRAZOLE SODIUM 40 MG VIAL ONE (14:58)
--- NOTE | 2018-12-20 18:32 | HP ---
CHIEF COMPLAINT: ams PCP: HISTORY OF PRESENT ILLNESS: Patient is a 58 year old male with a past medical history significant for cerebral palsy, seizures, HTN, anemia, MVP, respiratory failure, pneumonia, mitral regurg, paroxysmal a.fib, diastolic dysfunction, cerebral palsy, GERD, dysphagia. Patient comes to the ED with complaints by staff and family that patient is more lethargic, eating less and having less energy for a few weeks, but worsening the last few days. He had noted warmth and less like himself for about 1 week. As per the patients aide at bedside, the patient has been a little less interactive in activities at the long term and more picky with eating. On ED labs, he was noted to have a decrease in his hmg/hct from baseline. He also was noted to have heme positive stools with mild tachycardia. This is concerning for a mild PUD bleed. Tachycardia improved with 1 L NS. His lactic acidosis also resolved with IVF bolus. ER course was notable for: (1) heme positive stools (2) lactic acidosis (3) Family History: Allergies No Known Allergies Allergy (Verified 12/01/18 15:55) HOME MEDICATIONS: Home Medications Medication Instructions Recorded Calcium Carbonate/Vitamin D3 1 each PO BID 11/12/16 [Calcium 600-Vit D3 500 Softgel] Latanoprost 0.005% Eye Drops 1 drop OD HS 11/12/16 [Xalatan 0.005% Eye Drops -] Polyethylene Glycol 3350 [Glycolax] 17 gm PO DAILY 11/12/16 Prednisolone 1% Ophthalmic [Pred 1 ml OP TID 11/12/16 Forte 1% -] Ascorbic Acid [Vitamin C] 500 mg PO DAILY #7 capsule.er 11/14/16 Sucralfate [Carafate -] 1 gm PO BID #14 tablet 11/14/16 Cholecalciferol (Vitamin D3) 1,000 unit PO ASDIR 11/03/18 [Vitamin D3] Famotidine [Pepcid -] 20 mg PO BID 12/20/18 Iron Polysaccharide Complex 150 mg PO BID 12/20/18 [Ferrex 150] Metoprolol Tartrate 12.5 mg PO BID 12/20/18 REVIEW OF SYSTEMS PHYSICAL EXAMINATION Vital Signs - 24 hr 12/20/18 12/20/18 12/20/18 11:28 11:56 17:35 Temperature 98.4 F 98.4 F Pulse Rate 106 H Pulse Rate [ 82 Apical] Respiratory 22 H 16 Rate Blood Pressure 117/69 Blood Pressure 120/82 [Right Arm] O2 Sat by Pulse 98 Oximetry (%) GENERAL: awake, alert, in no acute distress, hx of cerebral palsy HEAD: Normal with no signs of trauma. EYES: Pupils equal, round and reactive to light, extraocular movements intact, sclera anicteric, conjunctiva clear. No lid lag. EARS, NOSE, THROAT: Ears normal, nares patent, oropharynx clear without exudates. Moist mucous membranes. NECK: Normal range of motion, supple without lymphadenopathy, JVD, or masses. LUNGS: Breath sounds equal, clear to auscultation bilaterally. No wheezes, and no crackles. No accessory muscle use. HEART: mild tachycardia ABDOMEN: Soft, nontender, not distended, normoactive bowel sounds, no guarding, no rebound, no masses. No hepatomegaly or splenomegaly. MUSCULOSKELETAL: Normal range of motion at all joints. No bony deformities or tenderness. No CVA tenderness. UPPER EXTREMITIES: . No peripheral edema. LOWER EXTREMITIES: No peripheral edema. NEUROLOGICAL: Normal speech. Normal gait. Laboratory Results - last 24 hr 12/20/18 12/20/18 12/20/18 12:43 12:50 12:50 WBC 7.8 RBC 3.19 L Hgb 8.7 L Hct 26.8 L D MCV 84.0 MCH 27.2 MCHC 32.4 RDW 14.5 Plt Count 389 D MPV 7.5 Absolute Neuts (auto) 5.2 Neutrophils % 66.1 Lymphocytes % 20.1 D Monocytes % 11.4 H Eosinophils % 1.9 D Basophils % 0.5 Nucleated RBC % 0 PT with INR 12.10 INR 1.03 PTT (Actin FS) 25.5 VBG pH POC VBG pCO2 POC VBG pO2 Mixed VBG HCO3 Sodium Potassium Chloride Carbon Dioxide Anion Gap BUN Creatinine Creat Clearance w eGFR Random Glucose Lactic Acid Calcium Total Bilirubin AST ALT Alkaline Phosphatase Troponin I Total Protein Albumin Stool Occult Blood Influenza A (Rapid) Negative Influenza B (Rapid) Negative Blood Type Antibody Screen 12/20/18 12/20/18 12/20/18 12:50 12:50 12:50 WBC RBC Hgb Hct MCV MCH MCHC RDW Plt Count MPV Absolute Neuts (auto) Neutrophils % Lymphocytes % Monocytes % Eosinophils % Basophils % Nucleated RBC % PT with INR INR PTT (Actin FS) VBG pH 7.37 POC VBG pCO2 57.2 H POC VBG pO2 29.5 Mixed VBG HCO3 32.1 H Sodium 142 Potassium 3.6 Chloride 102 Carbon Dioxide 32 Anion Gap 8 BUN 22 H Creatinine 0.8 Creat Clearance w eGFR > 60 Random Glucose 88 Lactic Acid 3.4 H* Calcium 8.1 L Total Bilirubin 0.2 AST 15 ALT 20 Alkaline Phosphatase 65 Troponin I 0.02 Total Protein 6.8 Albumin 2.5 L Stool Occult Blood Influenza A (Rapid) Influenza B (Rapid) Blood Type Antibody Screen 12/20/18 12/20/18 12/20/18 14:30 14:30 15:00 WBC RBC Hgb Hct MCV MCH MCHC RDW Plt Count MPV Absolute Neuts (auto) Neutrophils % Lymphocytes % Monocytes % Eosinophils % Basophils % Nucleated RBC % PT with INR INR PTT (Actin FS) VBG pH POC VBG pCO2 POC VBG pO2 Mixed VBG HCO3 Sodium Potassium Chloride Carbon Dioxide Anion Gap BUN Creatinine Creat Clearance w eGFR Random Glucose Lactic Acid 2.0 Calcium Total Bilirubin AST ALT Alkaline Phosphatase Troponin I Total Protein Albumin Stool Occult Blood Positive Influenza A (Rapid) Influenza B (Rapid) Blood Type B POSITIVE Antibody Screen Negative ASSESSMENT/PLAN: Patient is a 58 year old male with a past medical history significant for cerebral palsy, seizures, HTN, anemia, MVP, respiratory failure, pneumonia, mitral regurg, paroxysmal a.fib, diastolic dysfunction, cerebral palsy, GERD, dysphagia. Patient comes to the ED with complaints by staff and family that patient is more lethargic, eating less and having less energy for a few weeks, but worsening the last few days. He had noted warmth and less like himself for about 1 week. As per the patients aide at bedside, the patient has been a little less interactive in activities at the long term and more picky with eating. On ED labs, he was noted to have a decrease in his hmg/hct from baseline. He also was noted to have heme positive stools with mild tachycardia. This is concerning for a mild PUD bleed . Tachycardia improved with 1 L NS. His lactic acidosis also resolved with IVF bolus. 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 GI: Rule out GI bleed Presents with a decrease in his hmg/hct from baseline with heme positive stools Has history of GI bleed Will start on protonix drip pending Gi consult Clear liquid diet ordered Monitor labs, vitals Heme: Acute blood loss anemia. iron studies pending. Pulmonary: tolerating room air, no acute issues Cardiovascular: Tachycardia in the setting of acute blood loss anemia Hydrate and monitor vitals q4 Endocrine Hypoglycemia, mild monitor and encourage PO intake fen Monitor BMP and replete as indicated Clear liquid diet Prophylaxis: GI: Protonix drip Dispostion: Requires inpatient hospitalization. Full Code. Visit type - Emergency Visit Emergency Visit: Yes ED Registration Date: 12/20/18 Care time: The patient presented to the Emergency Department on the above date and was hospitalized for further evaluation of their emergent condition. - New Patient This patient is new to me today: Yes Date on this admission: 12/20/18 - Critical Care Critical Care patient: No
[2018-12-20] MEDS: SODIUM CHLORIDE 1,000 ML IV SCH (20:29)
[2018-12-20] MEDS: PANTOPRAZOLE SODIUM 80 MG in SODIUM CHLORIDE 100 ML IVPB SCH (20:29)
[2018-12-20] MEDS: LATANOPROST 0.005% OPHTH SOLN 2.5ML BOTTLE OD SCH (22:15)
[2018-12-20] MEDS: RANITIDINE HCL 150 MG TABLET (FP) PO SCH (22:16)
[2018-12-20] MEDS: METOPROLOL TARTRATE 25 MG TABLET (FP) PO SCH (22:16)
[2018-12-20] MEDS: CALCIUM 500MG/VIT-D 200 UNITS COMBO TABLET (FP) PO SCH (22:16)
[2018-12-21] MEDS: PANTOPRAZOLE SODIUM 80 MG in SODIUM CHLORIDE 100 ML IVPB SCH ×2 (05:39→18:03)
[2018-12-21 07:37] LABS: HEMATOCRIT 21.6 % (35.4-49); HEMOGLOBIN 7.1 GM/dL (11.7-16.9); MCH 27.3 pg (25.7-33.7); MCHC 32.7 g/dl (32.0-35.9); MEAN CELL VOLUME 83.4 fl (80-96); MEAN PLT VOLUME 7.1 fl (7.5-11.1); PLATELET COUNT 345 K/MM3 (134-434); RBC 2.59 M/mm3 (4.00-5.60); RDW 14.7 % (11.9-15.9); WHITE BLOOD COUNT 5.3 K/mm3 (4.0-10.0)
[2018-12-21 07:52] LABS: ALBUMIN 2.1 g/dl (3.4-5.0); ALK PHOS 54 U/L (45-117); ANION GAP 6 MMOL/L (8-16); BILIRUBIN,TOTAL 0.3 mg/dL (0.2-1); BLOOD UREA NITROGEN 12 mg/dL (7-18); CALCIUM 7.1 mg/dL (8.5-10.1); CHLORIDE 107 mmol/L (98-107); CO2 28 mmol/L (21-32); CREATININE 0.5 mg/dL (0.55-1.3); GLUCOSE,RANDOM 83 mg/dL (74-106); MAGNESIUM 1.9 mg/dL (1.8-2.4); PHOSPHOROUS 2.9 mg/dL (2.5-4.9); POTASSIUM 3.5 mmol/L (3.5-5.1); SGOT/AST 11 U/L (15-37); SGPT/ALT 15 U/L (13-61); SODIUM 140 mmol/L (136-145)
[2018-12-21] MEDS: METOPROLOL TARTRATE 25 MG TABLET (FP) PO SCH ×2 (10:15→23:35)
[2018-12-21] MEDS: CALCIUM 500MG/VIT-D 200 UNITS COMBO TABLET (FP) PO SCH ×2 (10:18→23:35)
[2018-12-21] MEDS: RANITIDINE HCL 150 MG TABLET (FP) PO SCH ×2 (10:18→23:35)
[2018-12-21] MEDS: CHOLECALCIFEROL (VITAMIN D3) 1,000 UNIT TABLET (FP) PO SCH (10:19)
[2018-12-21] MEDS: SODIUM CHLORIDE 1,000 ML IV SCH (10:23)
--- NOTE | 2018-12-21 11:56 | EKG ---
Test Reason : Blood Pressure : / mmHG Vent. Rate : 105 BPM Atrial Rate : 105 BPM P-R Int : 124 ms QRS Dur : 102 ms QT Int : 352 ms P-R-T Axes : 012 -01 097 degrees QTc Int : 465 ms POOR DATA QUALITY, INTERPRETATION MAY BE ADVERSELY AFFECTED SINUS TACHYCARDIA ABNORMAL ECG WHEN COMPARED WITH ECG OF 01-DEC-2018 18:32, ST NO LONGER DEPRESSED IN INFERIOR LEADS NONSPECIFIC T WAVE ABNORMALITY NO LONGER EVIDENT IN INFERIOR LEADS Confirmed by CRISTIANA ALFORD, STEPHANIE ([id number]) on 12/21/2018 11:56:34 AM Referred By: Confirmed By:STEPHANIE ZENDEJAS MD
--- NOTE | 2018-12-21 11:58 | PN ---
Physical Exam: SUBJECTIVE: Patient seen and examined at the bedside. family present. OBJECTIVE: hmg/hct dropping. dilutional? repeat cbc now. will cancel head ct as his mental status is back to baseline Vital Signs Period Temp Pulse Resp BP Sys/Pimentel Pulse Ox Last 24 Hr 98.3 F-99.1 F 82-114 16-20 109-120/56-82 97 GENERAL: awake, alert, in no acute distress, hx of cerebral palsy HEAD: Normal with no signs of trauma. EYES: Pupils equal, round and reactive to light, extraocular movements intact, sclera anicteric, conjunctiva clear. No lid lag. EARS, NOSE, THROAT: Ears normal, nares patent, oropharynx clear without exudates. Moist mucous membranes. NECK: Normal range of motion, supple without lymphadenopathy, JVD, or masses. LUNGS: Breath sounds equal, clear to auscultation bilaterally. No wheezes, and no crackles. No accessory muscle use. HEART: mild tachycardia ABDOMEN: Soft, nontender, not distended, normoactive bowel sounds, no guarding, no rebound, no masses. No hepatomegaly or splenomegaly. MUSCULOSKELETAL: Normal range of motion at all joints. No bony deformities or tenderness. No CVA tenderness. UPPER EXTREMITIES: . No peripheral edema. LOWER EXTREMITIES: No peripheral edema. NEUROLOGICAL: Normal speech. Normal gait. Laboratory Results - last 24 hr 12/20/18 12/20/18 12/20/18 12:43 12:50 12:50 WBC 7.8 RBC 3.19 L Hgb 8.7 L Hct 26.8 L D MCV 84.0 MCH 27.2 MCHC 32.4 RDW 14.5 Plt Count 389 D MPV 7.5 Absolute Neuts (auto) 5.2 Neutrophils % 66.1 Lymphocytes % 20.1 D Monocytes % 11.4 H Eosinophils % 1.9 D Basophils % 0.5 Nucleated RBC % 0 PT with INR 12.10 INR 1.03 PTT (Actin FS) 25.5 VBG pH POC VBG pCO2 POC VBG pO2 Mixed VBG HCO3 Sodium Potassium Chloride Carbon Dioxide Anion Gap BUN Creatinine Creat Clearance w eGFR Random Glucose Lactic Acid Calcium Phosphorus Magnesium Ferritin Total Bilirubin AST ALT Alkaline Phosphatase Troponin I Total Protein Albumin Stool Occult Blood Influenza A (Rapid) Negative Influenza B (Rapid) Negative Blood Type Antibody Screen 12/20/18 12/20/18 12/20/18 12:50 12:50 12:50 WBC RBC Hgb Hct MCV MCH MCHC RDW Plt Count MPV Absolute Neuts (auto) Neutrophils % Lymphocytes % Monocytes % Eosinophils % Basophils % Nucleated RBC % PT with INR INR PTT (Actin FS) VBG pH 7.37 POC VBG pCO2 57.2 H POC VBG pO2 29.5 Mixed VBG HCO3 32.1 H Sodium 142 Potassium 3.6 Chloride 102 Carbon Dioxide 32 Anion Gap 8 BUN 22 H Creatinine 0.8 Creat Clearance w eGFR > 60 Random Glucose 88 Lactic Acid 3.4 H* Calcium 8.1 L Phosphorus Magnesium Ferritin Total Bilirubin 0.2 AST 15 ALT 20 Alkaline Phosphatase 65 Troponin I 0.02 Total Protein 6.8 Albumin 2.5 L Stool Occult Blood Influenza A (Rapid) Influenza B (Rapid) Blood Type Antibody Screen 12/20/18 12/20/18 12/20/18 14:30 14:30 15:00 WBC RBC Hgb Hct MCV MCH MCHC RDW Plt Count MPV Absolute Neuts (auto) Neutrophils % Lymphocytes % Monocytes % Eosinophils % Basophils % Nucleated RBC % PT with INR INR PTT (Actin FS) VBG pH POC VBG pCO2 POC VBG pO2 Mixed VBG HCO3 Sodium Potassium Chloride Carbon Dioxide Anion Gap BUN Creatinine Creat Clearance w eGFR Random Glucose Lactic Acid 2.0 Calcium Phosphorus Magnesium Ferritin Total Bilirubin AST ALT Alkaline Phosphatase Troponin I Total Protein Albumin Stool Occult Blood Positive Influenza A (Rapid) Influenza B (Rapid) Blood Type B POSITIVE Antibody Screen Negative 12/20/18 12/21/18 12/21/18 20:15 03:30 06:20 WBC 5.3 RBC 2.59 L Hgb 7.1 L Hct 21.6 L D MCV 83.4 MCH 27.3 MCHC 32.7 RDW 14.7 Plt Count 345 MPV 7.1 L Absolute Neuts (auto) Neutrophils % Lymphocytes % Monocytes % Eosinophils % Basophils % Nucleated RBC % PT with INR INR PTT (Actin FS) VBG pH POC VBG pCO2 POC VBG pO2 Mixed VBG HCO3 Sodium Potassium Chloride Carbon Dioxide Anion Gap BUN Creatinine Creat Clearance w eGFR Random Glucose Lactic Acid Calcium Phosphorus Magnesium Ferritin 6.9 L Total Bilirubin AST ALT Alkaline Phosphatase Troponin I Total Protein Albumin Stool Occult Blood Positive Influenza A (Rapid) Influenza B (Rapid) Blood Type Antibody Screen 12/21/18 06:20 WBC RBC Hgb Hct MCV MCH MCHC RDW Plt Count MPV Absolute Neuts (auto) Neutrophils % Lymphocytes % Monocytes % Eosinophils % Basophils % Nucleated RBC % PT with INR INR PTT (Actin FS) VBG pH POC VBG pCO2 POC VBG pO2 Mixed VBG HCO3 Sodium 140 Potassium 3.5 Chloride 107 Carbon Dioxide 28 Anion Gap 6 L BUN 12 Creatinine 0.5 L Creat Clearance w eGFR > 60 Random Glucose 83 Lactic Acid Calcium 7.1 L Phosphorus 2.9 Magnesium 1.9 Ferritin Total Bilirubin 0.3 AST 11 L ALT 15 Alkaline Phosphatase 54 Troponin I Total Protein 5.0 L Albumin 2.1 L Stool Occult Blood Influenza A (Rapid) Influenza B (Rapid) Blood Type Antibody Screen Active Medications Generic Name Dose Route Start Last Admin Trade Name Freq PRN Reason Stop Dose Admin Calcium Carbonate/Cholecalciferol 1 tab 12/20/18 22:00 12/21/18 10:18 Os-Wil 500+D - PO 1 tab BID GIA Administration Cholecalciferol 1,000 unit 12/21/18 10:00 12/21/18 10:19 Vitamin D3 - PO 1,000 unit DAILY GIA Administration Pantoprazole Sodium 80 mg/ 100 mls @ 10 mls/hr 12/20/18 18:30 12/21/18 05:39 Sodium Chloride IVPB 10 mls/hr Q10H GIA Administration 8 MG/HR Sodium Chloride 1,000 mls @ 75 mls/hr 12/20/18 18:30 12/21/18 10:23 Normal Saline - IV 75 mls/hr ASDIR GIA Administration Latanoprost 1 drop 12/20/18 22:00 12/20/18 22:15 Xalatan 0.005% Eye Drops - OD 1 drop HS GIA Administration Metoprolol Tartrate 12.5 mg 12/20/18 22:00 12/21/18 10:15 Lopressor - PO Not Given BID GIA Ranitidine HCl 150 mg 12/20/18 22:00 12/21/18 10:18 Zantac - PO 150 mg BID GIA Administration ASSESSMENT/PLAN: Patient is a 58 year old male with a past medical history significant for cerebral palsy, seizures, HTN, anemia, MVP, respiratory failure, pneumonia, mitral regurg, paroxysmal a.fib, diastolic dysfunction, cerebral palsy, GERD, dysphagia. Patient comes to the ED with complaints by staff and family that patient is more lethargic, eating less and having less energy for a few weeks, but worsening the last few days. He had noted warmth and less like himself for about 1 week. As per the patients aide at bedside, the patient has been a little less interactive in activities at the [facility] and more picky with eating. On ED labs, he was noted to have a decrease in his hmg/hct from baseline. He also was noted to have heme positive stools with mild tachycardia. This is concerning for a gi bleed . Tachycardia improved with 1 L NS. His lactic acidosis also resolved with IVF bolus. Neurology: Acute metabolic encephalopathy. menal status improving. at baseline per family. blood cultures ordered and pending No current signs of sepsis Hydration with IVF Cerebral Palsy, chronic halfway aide and patient's mom both state that pt mentation is at baseline. GI: Rule out GI bleed Presents with a decrease in his hmg/hct from baseline with heme positive stools Has history of GI bleed Will start on protonix drip pending Gi consult Clear liquid diet ordered Monitor labs, vitals Heme: Acute blood loss anemia. iron studies pending. hmg/hct dropping, may need blood transfusion. discussed with his mom who will give us consent Pulmonary: tolerating room air, no acute issues Cardiovascular: Tachycardia in the setting of acute blood loss anemia Hydrate and monitor vitals q4 Endocrine Hypoglycemia, mild monitor and encourage PO intake fen Monitor BMP and replete as indicated Clear liquid diet Prophylaxis: GI: Protonix drip Dispostion: Requires inpatient hospitalization. Full Code. Visit type - Emergency Visit Emergency Visit: Yes ED Registration Date: 12/20/18 Care time: The patient presented to the Emergency Department on the above date and was hospitalized for further evaluation of their emergent condition. - New Patient This patient is new to me today: No - Critical Care Critical Care patient: No - Discharge Referral Referred to [facility] No
[2018-12-21 12:30] LABS: URINE APPEARANCE SLCLOUDY; URINE BILIRUBIN NEGATIVE (<2.0 mg/dL); URINE COLOR LTYELLOW; URINE GLUCOSE (UA) NEGATIVE (NEGATIVE); URINE KETONE NEGATIVE (NEGATIVE); URINE LEUK ESTERASE NEGATIVE (NEGATIVE); URINE NITRITE NEGATIVE (NEGATIVE); URINE PROTEIN NEGATIVE (NEGATIVE); URINE UROBILINOGEN NEGATIVE mg/dL (0.2-1.0)
[2018-12-21 13:07] LABS: BASO % 0.6 % (0-2.0); EOS % 1.9 % (0-4.5); HEMATOCRIT 21.3 % (35.4-49); LYMPH % 24.8 % (8-40); MCH 27.1 pg (25.7-33.7); MCHC 32.9 g/dl (32.0-35.9); MEAN CELL VOLUME 82.3 fl (80-96); MEAN PLT VOLUME 7.1 fl (7.5-11.1); MONO % 12.8 % (3.8-10.2); NEUT % 59.9 % (42.8-82.8); PLATELET COUNT 337 K/MM3 (134-434); RBC 2.58 M/mm3 (4.00-5.60); RDW 14.6 % (11.9-15.9); WHITE BLOOD COUNT 5.7 K/mm3 (4.0-10.0)
[2018-12-21 15:14] VITALS: BMI 20.5
[2018-12-21] MEDS ORDERED: PT OWN MED DRAWER 7, Y5N ONE (17:58)
--- NOTE | 2018-12-21 18:59 | CON.GI ---
Consult Consult Specialty:: Gastroenterology Referred by:: Khadar Silva NP Reason for Consultation:: Anemia - History of Present Illness Chief Complaint: Weakness History of Present Illness: 58M with cerebral palsy is admitted with c/o of waning interaction and wekaness and found to have a drop in Hb to 8. He is well known to our practice. In 12/03 he had a Shanae Richard tear bleed that required endoclipping. EGD with me in revealed a large hiatal hernia with severe reflux esophagitis and Nigel ulcerations. A large portion of his stomach was intrathoracic and torted his stomach into volvulus. At that tome I advised a hernia repair to his mother and referred them to Dr. Kenn Chávez at [facility]. The mother tells me that she opted against the surgery when the surgeon told them that a preoperative consultation was advised. This culminated in a valve replacement surgery which at which point she opted against proceeding. He has required trasfusion on several occasions for bleeding related to this large hiatal hernia. Akbar had a colonoscopy with Dr Jonny Post on 04/02/16 which was unremarkable. 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, Other (Mental retardation-cerebral palsy) Cardio/Vascular: Yes: AFIB (paroxysmal), Aortic Insufficiency, HTN, Mitral Insufficiency (moderate to severe MR), Murmur (moderate to severe TR and MR), Pulmonary Hypertension Pulmonary: Yes: Pneumonia Gastrointestinal: Yes: GERD (severe and refractory to therapy and causing transfusion requiring chronic blood loss anemia ), Hiatal Hernia (large intrathoracic segment HH prone to Nigel ulcers, GERD and gastric volvulus), Peptic Ulcer Disease, Other (large intrathoracic hiatal hernia, h/o Shanae Richard bleed) Heme/Onc: Yes: Anemia (due to GERD and Nigel ulcers) Additional Medical History: Cerebral palsy, Seizure D/O, Mitral valve prolapse, shingles, glaucoma - Past Surgical History Past Surgical History: Yes: Colonoscopy, Upper Endoscopy - Alcohol/Substance Use Hx Alcohol Use: No History of Substance Use: reports: None - Smoking History Smoking history: Never smoked Have you smoked in the past 12 months: No Aproximately how many cigarettes per day: 0 - Social History Usual Living Arrangement: Intermediate ADL: Support Services Place of : [facility] History of Recent Travel: No Home Medications - Allergies Allergies/Adverse Reactions: Allergies Allergy/AdvReac Type Severity Reaction Status Date / Time No Known Allergies Allergy Verified 12/01/18 15:55 - Home Medications Home Medications: Ambulatory Orders Calcium Carbonate/Vitamin D3 [Calcium 600-Vit D3 500 Softgel] 1 each PO BID Latanoprost 0.005% Eye Drops [Xalatan 0.005% Eye Drops -] 1 drop OD HS 11/12/16 Polyethylene Glycol 3350 [Glycolax] 17 gm PO DAILY 11/12/16 Prednisolone 1% Ophthalmic [Pred Forte 1% -] 1 ml OP TID 11/12/16 Ascorbic Acid [Vitamin C] 500 mg PO DAILY #7 capsule.er 11/14/16 Sucralfate [Carafate -] 1 gm PO BID #14 tablet 11/14/16 Cholecalciferol (Vitamin D3) [Vitamin D3] 1,000 unit PO ASDIR 11/03/18 Famotidine [Pepcid -] 20 mg PO BID 12/20/18 Iron Polysaccharide Complex [Ferrex 150] 150 mg PO BID 12/20/18 Metoprolol Tartrate 12.5 mg PO BID 12/20/18 Physical Exam-GI Vital Signs: Vital Signs Temperature 99.8 F H 12/21/18 14:50 Pulse Rate 108 H 12/21/18 14:50 Respiratory Rate 18 12/21/18 14:50 Blood Pressure 120/72 12/21/18 14:50 O2 Sat by Pulse Oximetry (%) 97 12/20/18 22:00 CBC,CMP WBC 5.7 K/mm3 (4.0-10.0) 12/21/18 12:30 RBC 2.58 M/mm3 (4.00-5.60) L 12/21/18 12:30 Hgb 7.0 GM/dL (11.7-16.9) L 12/21/18 12:30 Hct 21.3 % (35.4-49) L 12/21/18 12:30 MCV 82.3 fl (80-96) 12/21/18 12:30 MCH 27.1 pg (25.7-33.7) 12/21/18 12:30 MCHC 32.9 g/dl (32.0-35.9) 12/21/18 12:30 RDW 14.6 % (11.9-15.9) 12/21/18 12:30 Plt Count 337 K/MM3 (134-434) 12/21/18 12:30 MPV 7.1 fl (7.5-11.1) L 12/21/18 12:30 Absolute Neuts (auto) 3.4 K/mm3 (1.5-8.0) 12/21/18 12:30 Neutrophils % 59.9 % (42.8-82.8) 12/21/18 12:30 Lymphocytes % 24.8 % (8-40) D 12/21/18 12:30 Monocytes % 12.8 % (3.8-10.2) H 12/21/18 12:30 Eosinophils % 1.9 % (0-4.5) 12/21/18 12:30 Basophils % 0.6 % (0-2.0) 12/21/18 12:30 Nucleated RBC % 0 % (0-0) 12/21/18 12:30 Sodium 140 mmol/L (136-145) 12/21/18 06:20 Potassium 3.5 mmol/L (3.5-5.1) 12/21/18 06:20 Chloride 107 mmol/L (98-107) 12/21/18 06:20 Carbon Dioxide 28 mmol/L (21-32) 12/21/18 06:20 Anion Gap 6 MMOL/L (8-16) L 12/21/18 06:20 BUN 12 mg/dL (7-18) 12/21/18 06:20 Creatinine 0.5 mg/dL (0.55-1.3) L 12/21/18 06:20 Creat Clearance w eGFR > 60 (>60) 12/21/18 06:20 Random Glucose 83 mg/dL (74-106) 12/21/18 06:20 Lactic Acid 2.0 mmol/L (0.4-2.0) 12/20/18 14:30 Calcium 7.1 mg/dL (8.5-10.1) L 12/21/18 06:20 Phosphorus 2.9 mg/dL (2.5-4.9) 12/21/18 06:20 Magnesium 1.9 mg/dL (1.8-2.4) 12/21/18 06:20 Ferritin 6.9 ng/ml (8-388) L 12/20/18 20:15 Total Bilirubin 0.3 mg/dL (0.2-1) 12/21/18 06:20 AST 11 U/L (15-37) L 12/21/18 06:20 ALT 15 U/L (13-61) 12/21/18 06:20 Alkaline Phosphatase 54 U/L (45-117) 12/21/18 06:20 Troponin I 0.02 ng/ml (0.00-0.05) 12/20/18 12:50 Total Protein 5.0 g/dl (6.4-8.2) L 12/21/18 06:20 Albumin 2.1 g/dl (3.4-5.0) L 12/21/18 06:20 Current Medications Generic Name Dose Route Start Last Admin Trade Name Freq PRN Reason Stop Dose Admin Calcium Carbonate/Cholecalciferol 1 tab 12/20/18 22:00 12/21/18 10:18 Os-Wil 500+D - PO 1 tab BID GIA Administration Cholecalciferol 1,000 unit 12/21/18 10:00 12/21/18 10:19 Vitamin D3 - PO 1,000 unit DAILY GIA Administration Pantoprazole Sodium 80 mg/ 100 mls @ 10 mls/hr 12/20/18 18:30 12/21/18 18:03 Sodium Chloride IVPB 10 mls/hr Q10H GIA Administration 8 MG/HR Sodium Chloride 1,000 mls @ 75 mls/hr 12/20/18 18:30 12/21/18 10:23 Normal Saline - IV 75 mls/hr ASDIR GIA Administration Latanoprost 1 drop 12/20/18 22:00 12/20/18 22:15 Xalatan 0.005% Eye Drops - OD 1 drop HS GIA Administration Metoprolol Tartrate 12.5 mg 12/20/18 22:00 12/21/18 10:15 Lopressor - PO Not Given BID GIA Ranitidine HCl 150 mg 12/20/18 22:00 12/21/18 10:18 Zantac - PO 150 mg BID GIA Administration Constitutional: Yes: Calm Eyes: Yes: Conjunctiva Clear HENT: Yes: Atraumatic Neck: Yes: Trachea Midline Cardiovascular: Yes: Regular Rate and Rhythm, Murmur (3/6 early systolic murmur) Respiratory: Yes: CTA Bilaterally Gastrointestinal Inspection: Yes: WNL ...Auscultate: Yes: Normoactive Bowel Sounds ...Palpate: Yes: Soft, Other (nontender) ...Rectal Exam: Yes: Guaiac Positive (iron stained stool, 1+ prostate, no masses ) Neurological: Yes: Alert Labs: CBC, BMP 12/21/18 12:30 12/21/18 06:20 INR, PTT INR 1.03 (0.83-1.09) 12/20/18 12:50 Laboratory Tests 12/04/15 12/07/15 12/08/15 12:33 09:45 05:50 Hgb 11.1 L 6.6 L* 10.1 L D Hct Plt Count BUN Creatinine Total Bilirubin AST ALT Alkaline Phosphatase Albumin 03/26/16 03/29/16 04/02/16 11:50 05:40 08:30 Hgb 6.1 L* D 6.9 L* D 10.3 L Hct Plt Count BUN Creatinine Total Bilirubin AST ALT Alkaline Phosphatase Albumin 10/06/16 10/06/16 11/03/18 06:00 06:00 09:00 Hgb 9.6 L 13.1 Hct 29.5 L Plt Count 208 BUN 14 D Creatinine 0.7 Total Bilirubin 0.5 D AST 14 L ALT 13 Alkaline Phosphatase 81 Albumin 2.6 L 12/20/18 12/21/18 12/21/18 12:50 06:20 12:30 Hgb 8.7 L 7.1 L 7.0 L Hct Plt Count BUN Creatinine Total Bilirubin AST ALT Alkaline Phosphatase Albumin Problem List - Problems (1) GI bleed Code(s): K92.2 - GASTROINTESTINAL HEMORRHAGE, UNSPECIFIED (2) Hiatal hernia with GERD and esophagitis Code(s): K44.9 - DIAPHRAGMATIC HERNIA WITHOUT OBSTRUCTION OR GANGRENE; K21.0 - GASTRO-ESOPHAGEAL REFLUX DISEASE WITH ESOPHAGITIS (3) Nigel ulcer Code(s): K25.9 - GASTRIC ULCER, UNSP ACUTE OR CHRONIC, W/O HEMOR OR PERF (4) Organoaxial gastric volvulus Code(s): K31.89 - OTHER DISEASES OF STOMACH AND DUODENUM (5) Cerebral palsy Code(s): G80.9 - CEREBRAL PALSY, UNSPECIFIED (6) Shanae-Richard tear Code(s): K22.6 - GASTRO-ESOPHAGEAL LACERATION-HEMORRHAGE SYNDROME (7) Gastroesophageal laceration-hemorrhage syndrome Code(s): K22.6 - GASTRO-ESOPHAGEAL LACERATION-HEMORRHAGE SYNDROME (8) Anemia Code(s): D64.9 - ANEMIA, UNSPECIFIED Qualifiers: Anemia type: unspecified type Qualified Code(s): D64.9 - Anemia, unspecified Assessment/Plan Impression: Recurrent Nigel ulcer and GERD bleeding associated with a large intrathoracic segment hiatal hernia Propensity to organoaxial volvulus Personal h/o Shanae Richard tear bleed Plan: PPI drip Tranfuse PRBCs I have advised a repeat EGD to Akbar's mother. After I informed her of the potential for such complications as perforation and hemorrhage she signed an informed consent Dr Post will perform the EGD tomorrow Case discussed with Khadar Silva, OIL EXPERT May need to reconsider hiatal hernia repair. Given this a repeat cardiology evaluation would be in order.
[2018-12-21] MEDS: LATANOPROST 0.005% OPHTH SOLN 2.5ML BOTTLE OD SCH (23:36)
[2018-12-22] MEDS: PANTOPRAZOLE SODIUM 80 MG in SODIUM CHLORIDE 100 ML IVPB SCH ×2 (01:54→12:15)
[2018-12-22 08:07] LABS: SERUM IRON SATURATION 4 % (15-55); TOTAL IRON BINDING CAPACITY 256 ug/dL (250-450); UIBC 245 ug/dL (111-343)
[2018-12-22 08:07] LABS: BASO % 0.7 % (0-2.0); EOS % 2.5 % (0-4.5); HEMATOCRIT 29.5 % (35.4-49); HEMOGLOBIN 10.2 GM/dL (11.7-16.9); LYMPH % 15.7 % (8-40); MCH 28.4 pg (25.7-33.7); MCHC 34.4 g/dl (32.0-35.9); MEAN CELL VOLUME 82.6 fl (80-96); MEAN PLT VOLUME 7.3 fl (7.5-11.1); MONO % 12.1 % (3.8-10.2); PLATELET COUNT 330 K/MM3 (134-434); RBC 3.58 M/mm3 (4.00-5.60); RDW 14.6 % (11.9-15.9); WHITE BLOOD COUNT 6.3 K/mm3 (4.0-10.0)
[2018-12-22 08:27] LABS: ALBUMIN 2.3 g/dl (3.4-5.0); ALK PHOS 62 U/L (45-117); ANION GAP 6 MMOL/L (8-16); BILIRUBIN,TOTAL 1.8 mg/dL (0.2-1); BLOOD UREA NITROGEN 6 mg/dL (7-18); CALCIUM 7.6 mg/dL (8.5-10.1); CHLORIDE 104 mmol/L (98-107); CO2 27 mmol/L (21-32); CREATININE 0.6 mg/dL (0.55-1.3); GLUCOSE,RANDOM 77 mg/dL (74-106); MAGNESIUM 1.8 mg/dL (1.8-2.4); SGOT/AST 15 U/L (15-37); SGPT/ALT 15 U/L (13-61); SODIUM 137 mmol/L (136-145); TOT PROT 5.8 g/dl (6.4-8.2)
--- NOTE | 2018-12-22 09:48 | CON.CARD ---
Consult Consult Specialty:: Cardiology Referred by:: Hospitalist Reason for Consultation:: Cardiac evaluation - History of Present Illness History of Present Illness: Patient is a 58 year old male with cerebral palsy, HTN, LV diastolic dysfunction , GERD, history of occult GI bleed due to large hiatal hernia, dysphagia, mitral valve disease (MVP) with moderate to severe MR who presented with lethargy, less energy and less interactive. He was found to be anemic and also has heme positive stool with mild tachycardia. He was scheduled for EGD. He was given IV fluids with improvement. He is nonverbal. History was obtained from previous medical records. 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 (Mental retardation-cerebral palsy) Cardio/Vascular: Yes: AFIB (paroxysmal), Aortic Insufficiency, HTN, Mitral Insufficiency (moderate to severe MR), Murmur (moderate to severe TR and MR), Pulmonary Hypertension Pulmonary: Yes: Pneumonia Gastrointestinal: Yes: GERD (severe and refractory to therapy and causing transfusion requiring chronic blood loss anemia ), Hiatal Hernia (large intrathoracic segment HH prone to Nigel ulcers, GERD and gastric volvulus), Peptic Ulcer Disease, Other (large intrathoracic hiatal hernia, h/o Shanae Richard bleed) Additional Medical History: Cerebral palsy, Seizure D/O, Mitral valve prolapse, shingles, glaucoma - Past Surgical History Past Surgical History: Yes: Colonoscopy, Upper Endoscopy - Alcohol/Substance Use Hx Alcohol Use: No History of Substance Use: reports: None - Smoking History Smoking history: Never smoked Have you smoked in the past 12 months: No Aproximately how many cigarettes per day: 0 - Social History Usual Living Arrangement: Intermediate ADL: Support Services History of Recent Travel: No Home Medications - Allergies Allergies/Adverse Reactions: Allergies Allergy/AdvReac Type Severity Reaction Status Date / Time No Known Allergies Allergy Verified 12/01/18 15:55 - Home Medications Home Medications: Ambulatory Orders Calcium Carbonate/Vitamin D3 [Calcium 600-Vit D3 500 Softgel] 1 each PO BID Latanoprost 0.005% Eye Drops [Xalatan 0.005% Eye Drops -] 1 drop OD HS 11/12/16 Polyethylene Glycol 3350 [Glycolax] 17 gm PO DAILY 11/12/16 Prednisolone 1% Ophthalmic [Pred Forte 1% -] 1 ml OP TID 11/12/16 Ascorbic Acid [Vitamin C] 500 mg PO DAILY #7 capsule.er 11/14/16 Sucralfate [Carafate -] 1 gm PO BID #14 tablet 11/14/16 Cholecalciferol (Vitamin D3) [Vitamin D3] 1,000 unit PO ASDIR 11/03/18 Famotidine [Pepcid -] 20 mg PO BID 12/20/18 Iron Polysaccharide Complex [Ferrex 150] 150 mg PO BID 12/20/18 Metoprolol Tartrate 12.5 mg PO BID 12/20/18 Family Disease History - Family Disease History Family History: Unable to Obtain Review of Systems Unable to obtain ROS, reason: Unable to obtain Vital Signs: Vital Signs Temperature 98.4 F 12/22/18 06:00 Pulse Rate 93 H 12/22/18 06:00 Respiratory Rate 17 12/22/18 06:00 Blood Pressure 117/74 12/22/18 06:00 O2 Sat by Pulse Oximetry (%) 97 12/21/18 20:52 Neck: Yes: Supple Respiratory: Yes: Regular, CTA Bilaterally Gastrointestinal: Yes: Normal Bowel Sounds, Soft. No: Tenderness Cardiovascular: Yes: Regular Rate and Rhythm, Tachycardia JVD: No Carotid Bruit: No PMI: Non-Displaced Heart Sounds: Yes: S1, S2 Murmur: Yes: Systolic Murmur, Grade 2 Edema: No - Other Data Labs, Other Data: CBC, BMP 12/22/18 07:05 12/22/18 07:05 INR, PTT INR 1.03 (0.83-1.09) 12/20/18 12:50 Laboratory Results - last 24 hr 12/20/18 12/20/18 12/21/18 15:00 20:15 06:04 WBC RBC Hgb Hct MCV MCH MCHC RDW Plt Count MPV Absolute Neuts (auto) Neutrophils % Lymphocytes % Monocytes % Eosinophils % Basophils % Nucleated RBC % Sodium Potassium Chloride Carbon Dioxide Anion Gap BUN Creatinine Creat Clearance w eGFR Random Glucose Calcium Magnesium Iron 11 L TIBC 256 Iron Saturation 4 L Total Bilirubin AST ALT Alkaline Phosphatase Total Protein Albumin Urine Color Ltyellow Urine Appearance Slcloudy Urine pH 8.0 D Ur Specific [place] 1.012 Urine Protein Negative Urine Glucose (UA) Negative Urine Ketones Negative Urine Blood Negative Urine Nitrite Negative Urine Bilirubin Negative Urine Urobilinogen Negative Ur Leukocyte Esterase Negative Blood Type B POSITIVE Antibody Screen Negative Crossmatch See Detail 12/21/18 12/22/18 12/22/18 12:30 07:05 07:05 WBC 5.7 6.3 RBC 2.58 L 3.58 L Hgb 7.0 L 10.2 L Hct 21.3 L 29.5 L D MCV 82.3 82.6 MCH 27.1 28.4 MCHC 32.9 34.4 RDW 14.6 14.6 Plt Count 337 330 MPV 7.1 L 7.3 L Absolute Neuts (auto) 3.4 4.3 Neutrophils % 59.9 69.0 Lymphocytes % 24.8 D 15.7 D Monocytes % 12.8 H 12.1 H Eosinophils % 1.9 2.5 Basophils % 0.6 0.7 Nucleated RBC % 0 0 Sodium 137 Potassium 4.0 Chloride 104 Carbon Dioxide 27 Anion Gap 6 L BUN 6 L Creatinine 0.6 Creat Clearance w eGFR > 60 Random Glucose 77 Calcium 7.6 L Magnesium 1.8 Iron TIBC Iron Saturation Total Bilirubin 1.8 H AST 15 ALT 15 Alkaline Phosphatase 62 Total Protein 5.8 L Albumin 2.3 L Urine Color Urine Appearance Urine pH Ur Specific [place] Urine Protein Urine Glucose (UA) Urine Ketones Urine Blood Urine Nitrite Urine Bilirubin Urine Urobilinogen Ur Leukocyte Esterase Blood Type Antibody Screen Crossmatch Sinus tachycardia Problem List - Problems (1) HTN (hypertension) Code(s): I10 - ESSENTIAL (PRIMARY) HYPERTENSION (2) Cerebral palsy Code(s): G80.9 - CEREBRAL PALSY, UNSPECIFIED (3) GI bleed Code(s): K92.2 - GASTROINTESTINAL HEMORRHAGE, UNSPECIFIED (4) Hiatal hernia with GERD and esophagitis Code(s): K44.9 - DIAPHRAGMATIC HERNIA WITHOUT OBSTRUCTION OR GANGRENE; K21.0 - GASTRO-ESOPHAGEAL REFLUX DISEASE WITH ESOPHAGITIS (5) Shanae-Richard tear Code(s): K22.6 - GASTRO-ESOPHAGEAL LACERATION-HEMORRHAGE SYNDROME (6) Anemia Code(s): D64.9 - ANEMIA, UNSPECIFIED Qualifiers: Anemia type: unspecified type Qualified Code(s): D64.9 - Anemia, unspecified Assessment/Plan 1. Anemia with heme positive stool 2. LV diastolic dysfunction currently euvolemic 3. HTN 4. GERD with history of prior GI bleed 5. Hiatal hernia 6. Mental retardation due to cerebral palsy 7. Mitral valve disease with MVP and moderate to severe MR PLAN: 1. EGD and further GI work up in progress 2. Continue Lopressor 3. Transfuse as needed and follow H/H Further plans are to follow Serge Bergman MD
[2018-12-22] MEDS ORDERED: MIDAZOLAM HCL 2 MG/2 ML SINGLE DOSE VIAL ONE (09:58)
--- NOTE | 2018-12-22 10:48 | PN ---
Progress Note (short form) - Note Progress Note: EGD report placed in procedural section of physical chart and to be scanned into [facility]
--- NOTE | 2018-12-22 11:28 | PN ---
Physical Exam: SUBJECTIVE: Patient seen and examined at the bedside. family at bedside OBJECTIVE: s/p egd today Vital Signs Period Temp Pulse Resp BP Sys/Pimentel Pulse Ox Last 24 Hr 98.2 F-99.8 F 91-109 17-19 102-127/50-76 93-99 GENERAL: awake, alert, in no acute distress, hx of cerebral palsy HEAD: Normal with no signs of trauma. EYES: Pupils equal, round and reactive to light, extraocular movements intact, sclera anicteric, conjunctiva clear. No lid lag. EARS, NOSE, THROAT: Ears normal, nares patent, oropharynx clear without exudates. Moist mucous membranes. NECK: Normal range of motion, supple without lymphadenopathy, JVD, or masses. LUNGS: Breath sounds equal, clear to auscultation bilaterally. No wheezes, and no crackles. No accessory muscle use. HEART: mild tachycardia ABDOMEN: Soft, nontender, not distended, normoactive bowel sounds, no guarding, no rebound, no masses. No hepatomegaly or splenomegaly. MUSCULOSKELETAL: Normal range of motion at all joints. No bony deformities or tenderness. No CVA tenderness. UPPER EXTREMITIES: . No peripheral edema. LOWER EXTREMITIES: No peripheral edema. NEUROLOGICAL: Normal speech. Normal gait. Laboratory Results - last 24 hr 12/20/18 12/20/18 12/21/18 15:00 20:15 06:04 WBC RBC Hgb Hct MCV MCH MCHC RDW Plt Count MPV Absolute Neuts (auto) Neutrophils % Lymphocytes % Monocytes % Eosinophils % Basophils % Nucleated RBC % Sodium Potassium Chloride Carbon Dioxide Anion Gap BUN Creatinine Creat Clearance w eGFR Random Glucose Calcium Magnesium Iron 11 L TIBC 256 Iron Saturation 4 L Total Bilirubin AST ALT Alkaline Phosphatase Total Protein Albumin Urine Color Ltyellow Urine Appearance Slcloudy Urine pH 8.0 D Ur Specific [place] 1.012 Urine Protein Negative Urine Glucose (UA) Negative Urine Ketones Negative Urine Blood Negative Urine Nitrite Negative Urine Bilirubin Negative Urine Urobilinogen Negative Ur Leukocyte Esterase Negative Blood Type B POSITIVE Antibody Screen Negative Crossmatch See Detail 12/21/18 12/22/18 12/22/18 12:30 07:05 07:05 WBC 5.7 6.3 RBC 2.58 L 3.58 L Hgb 7.0 L 10.2 L Hct 21.3 L 29.5 L D MCV 82.3 82.6 MCH 27.1 28.4 MCHC 32.9 34.4 RDW 14.6 14.6 Plt Count 337 330 MPV 7.1 L 7.3 L Absolute Neuts (auto) 3.4 4.3 Neutrophils % 59.9 69.0 Lymphocytes % 24.8 D 15.7 D Monocytes % 12.8 H 12.1 H Eosinophils % 1.9 2.5 Basophils % 0.6 0.7 Nucleated RBC % 0 0 Sodium 137 Potassium 4.0 Chloride 104 Carbon Dioxide 27 Anion Gap 6 L BUN 6 L Creatinine 0.6 Creat Clearance w eGFR > 60 Random Glucose 77 Calcium 7.6 L Magnesium 1.8 Iron TIBC Iron Saturation Total Bilirubin 1.8 H AST 15 ALT 15 Alkaline Phosphatase 62 Total Protein 5.8 L Albumin 2.3 L Urine Color Urine Appearance Urine pH Ur Specific [place] Urine Protein Urine Glucose (UA) Urine Ketones Urine Blood Urine Nitrite Urine Bilirubin Urine Urobilinogen Ur Leukocyte Esterase Blood Type Antibody Screen Crossmatch Active Medications Generic Name Dose Route Start Last Admin Trade Name Caitlyn PRN Reason Stop Dose Admin Calcium Carbonate/Cholecalciferol 1 tab 12/20/18 22:00 12/21/18 23:35 Os-Wil 500+D - PO 1 tab BID GIA Administration Cholecalciferol 1,000 unit 12/21/18 10:00 12/21/18 10:19 Vitamin D3 - PO 1,000 unit DAILY GIA Administration Sodium Chloride 1,000 mls @ 75 mls/hr 12/20/18 18:30 12/21/18 10:23 Normal Saline - IV 75 mls/hr ASDIR GIA Administration Latanoprost 1 drop 12/20/18 22:00 12/21/18 23:36 Xalatan 0.005% Eye Drops - OD 1 drop HS GIA Administration Metoprolol Tartrate 12.5 mg 12/20/18 22:00 12/21/18 23:35 Lopressor - PO 12.5 mg BID GIA Administration Pantoprazole Sodium 40 mg 12/22/18 22:00 Protonix - PO BID GIA Sucralfate 1 gm 12/22/18 22:00 Carafate Oral Suspension - PO 12/27/18 21:59 BID GIA ASSESSMENT/PLAN: Patient is a 58 year old male with a past medical history significant for cerebral palsy, seizures, HTN, anemia, MVP, respiratory failure, pneumonia, mitral regurg, paroxysmal a.fib, diastolic dysfunction, cerebral palsy, GERD, dysphagia. Patient comes to the ED with complaints by staff and family that patient is more lethargic, eating less and having less energy for a few weeks, but worsening the last few days. He had noted warmth and less like himself for about 1 week. As per the patients aide at bedside, the patient has been a little less interactive in activities at the custodial and more picky with eating. On ED labs, he was noted to have a decrease in his hmg/hct from baseline. He also was noted to have heme positive stools with mild tachycardia. This is concerning for a gi bleed . Tachycardia improved with 1 L NS. His lactic acidosis also resolved with IVF bolus. Neurology: Acute metabolic encephalopathy. 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 GI: Rule out GI bleed Presents with a decrease in his hmg/hct from baseline with heme positive stools Has history of GI bleed Has received 2 units of blood with good response Has had an EGD which shows severe LA grade D reflux esophagitis in the distal esophagus, large hiatal hernia containing most of the body of the fundus. Plan is to avoid NSAIDs, Protonix 40mg bid, carafate liquid 1 gram bid x 5 days. Monitor labs, vitals Heme: Acute blood loss anemia. iron studies pending. s/p 2 units of prbc Pulmonary: tolerating room air, no acute issues Cardiovascular: Would need cardiac clearance for surgical procedures as patient has a valvular heart issue. Cardiology following fen pureed diet, nectar thick Prophy: protonix bid Dispostion: Requires inpatient hospitalization. Full Code. Discharge tomorrow pending. Visit type - Emergency Visit Emergency Visit: Yes ED Registration Date: 12/20/18 Care time: The patient presented to the Emergency Department on the above date and was hospitalized for further evaluation of their emergent condition. - New Patient This patient is new to me today: No - Critical Care Critical Care patient: No - Discharge Referral Referred to [facility] Med P.C[facility] No
[2018-12-22] MEDS: METOPROLOL TARTRATE 25 MG TABLET (FP) PO SCH ×2 (11:51→21:44)
[2018-12-22] MEDS: CHOLECALCIFEROL (VITAMIN D3) 1,000 UNIT TABLET (FP) PO SCH (11:51)
[2018-12-22] MEDS: CALCIUM 500MG/VIT-D 200 UNITS COMBO TABLET (FP) PO SCH ×2 (11:51→21:44)
[2018-12-22] MEDS: RANITIDINE HCL 150 MG TABLET (FP) PO SCH (12:14)
[2018-12-22] MEDS: SODIUM CHLORIDE 1,000 ML IV SCH ×2 (15:02→17:28)
[2018-12-22] MEDS: SUCRALFATE 1 GM/10 ML UNIT DOSE CUPS PO SCH (21:44)
[2018-12-22] MEDS: LATANOPROST 0.005% OPHTH SOLN 2.5ML BOTTLE OD SCH (21:45)
[2018-12-22] MEDS: PANTOPRAZOLE 40 MG TABLET (FP) PO SCH (21:45)
[2018-12-23] MEDS: SODIUM CHLORIDE 1,000 ML IV SCH ×2 (01:34→15:18)
[2018-12-23 07:13] LABS: BASO % 0.6 % (0-2.0); HEMATOCRIT 35.1 % (35.4-49); HEMOGLOBIN 11.8 GM/dL (11.7-16.9); LYMPH % 28.3 % (8-40); MCH 28.6 pg (25.7-33.7); MCHC 33.5 g/dl (32.0-35.9); MEAN CELL VOLUME 85.5 fl (80-96); MEAN PLT VOLUME 7.2 fl (7.5-11.1); MONO % 13.1 % (3.8-10.2); PLATELET COUNT 360 K/MM3 (134-434); RBC 4.11 M/mm3 (4.00-5.60); RDW 14.7 % (11.9-15.9); WHITE BLOOD COUNT 7.4 K/mm3 (4.0-10.0)
[2018-12-23 08:11] LABS: ALBUMIN 2.6 g/dl (3.4-5.0); ALK PHOS 72 U/L (45-117); ANION GAP 14 MMOL/L (8-16); BILIRUBIN,TOTAL 1.2 mg/dL (0.2-1); BLOOD UREA NITROGEN 6 mg/dL (7-18); CALCIUM 8.2 mg/dL (8.5-10.1); CHLORIDE 104 mmol/L (98-107); CO2 24 mmol/L (21-32); CREATININE 0.8 mg/dL (0.55-1.3); GLUCOSE,RANDOM 84 mg/dL (74-106); POTASSIUM 4.1 mmol/L (3.5-5.1); SGOT/AST 16 U/L (15-37); SGPT/ALT 16 U/L (13-61); SODIUM 141 mmol/L (136-145); TOT PROT 6.8 g/dl (6.4-8.2)
[2018-12-23] MEDS ORDERED: IRON SUCROSE INJECTION 200 MG in SODIUM CHLORIDE 90 ML IVPB ONE (09:00)
[2018-12-23] MEDS: CHOLECALCIFEROL (VITAMIN D3) 1,000 UNIT TABLET (FP) PO SCH (09:32)
[2018-12-23] MEDS: SUCRALFATE 1 GM/10 ML UNIT DOSE CUPS PO SCH (09:32)
[2018-12-23] MEDS: CALCIUM 500MG/VIT-D 200 UNITS COMBO TABLET (FP) PO SCH (09:32)
[2018-12-23] MEDS: METOPROLOL TARTRATE 25 MG TABLET (FP) PO SCH (09:32)
[2018-12-23] MEDS: PANTOPRAZOLE 40 MG TABLET (FP) PO SCH (09:32)
[2018-12-23] MEDS ORDERED: MULTIVITAMINS (DAILY MVI) TABLET (FP) PO SCH (10:00)
--- NOTE | 2018-12-23 10:09 | PN ---
Progress Note, Physician History of Present Illness: EGD shows severe reflux esophagitis and hiatal hernia. - Current Medication List Current Medications: Active Medications Calcium Carbonate/Cholecalciferol (Os-Wil 500+D -) 1 tab PO BID [facility] Last Admin: 12/23/18 09:32 Dose: 1 tab Cholecalciferol (Vitamin D3 -) 1,000 unit PO DAILY [facility] Last Admin: 12/23/18 09:32 Dose: 1,000 unit Sodium Chloride (Normal Saline -) 1,000 mls @ 50 mls/hr IV ASDIR [facility] Last Admin: 12/23/18 01:34 Dose: 50 mls/hr Latanoprost (Xalatan 0.005% Eye Drops -) 1 drop OD HS [facility] Last Admin: 12/22/18 21:45 Dose: 1 drop Metoprolol Tartrate (Lopressor -) 12.5 mg PO BID [facility] Last Admin: 12/23/18 09:32 Dose: 12.5 mg Multivitamins/Minerals/Vitamin C (Tab-A-Vit -) 1 tab PO DAILY [facility] Last Admin: 12/23/18 09:32 Dose: 1 tab Pantoprazole Sodium (Protonix -) 40 mg PO BID [facility] Last Admin: 12/23/18 09:32 Dose: 40 mg Sucralfate (Carafate Oral Suspension -) 1 gm PO BID [facility] Stop: 12/27/18 21:59 Last Admin: 12/23/18 09:32 Dose: 1 gm - Objective Vital Signs: Vital Signs Temperature 98.1 F 12/23/18 06:00 Pulse Rate 91 H 12/23/18 06:00 Respiratory Rate 18 12/23/18 06:00 Blood Pressure 101/54 L 12/23/18 06:00 O2 Sat by Pulse Oximetry (%) 98 12/22/18 21:00 Constitutional: Yes: No Distress, Calm, Thin Neck: Yes: Supple Cardiovascular: Yes: Regular Rate and Rhythm, Murmur (2/6 SM) Respiratory: Yes: Regular, Diminished Gastrointestinal: Yes: Normal Bowel Sounds, Soft Edema: No Labs: CBC, BMP 12/23/18 06:00 12/23/18 06:00 INR, PTT INR 1.03 (0.83-1.09) 12/20/18 12:50 Problem List - Problems (1) Cerebral palsy Code(s): G80.9 - CEREBRAL PALSY, UNSPECIFIED Qualifiers: Cerebral palsy type: unspecified type Qualified Code(s): G80.9 - Cerebral palsy, unspecified (2) HTN (hypertension) Code(s): I10 - ESSENTIAL (PRIMARY) HYPERTENSION Qualifiers: Hypertension type: essential hypertension Qualified Code(s): I10 - Essential (primary) hypertension (3) Hiatal hernia with GERD and esophagitis Code(s): K44.9 - DIAPHRAGMATIC HERNIA WITHOUT OBSTRUCTION OR GANGRENE; K21.0 - GASTRO-ESOPHAGEAL REFLUX DISEASE WITH ESOPHAGITIS Assessment/Plan 09/04/2016 Echo: Normal LV and RV size and fxn, mild LAE, MVP with mod-severe MR , mild-mod TR, RVSP 40-50 mmHg, mild-mod AR 1. Anemia with heme positive stool referable to severe reflux esophagitis 2. LV diastolic dysfunction currently euvolemic 3. HTN 4. GERD with history of prior GI bleed 2/2 MWT, reflux esophagitis and Nigel ulcers 5. Hiatal hernia 6. Mental retardation due to cerebral palsy 7. Mitral valve disease with MVP and moderate to severe MR PLAN: 1. Antireflux meds, not ideal candidate for hiatal hernia repair 2. Continue Lopressor 12.5 bid 3. Transfuse as needed and follow H/H
[2018-12-23 14:07] VITALS: BP 144/67; PULSE 118; TEMP 99.9
--- NOTE | 2018-12-23 14:45 | DS ---
Physical Exam: SUBJECTIVE: Patient seen and examined OBJECTIVE: Vital Signs Period Temp Pulse Resp BP Sys/Pimentel Pulse Ox Last 24 Hr 97.7 F-99.9 F 91-118 18-20 101-144/52-73 98 PHYSICAL EXAM GENERAL: awake, alert, in no acute distress, hx of cerebral palsy HEAD: Normal with no signs of trauma. EYES: Pupils equal, round and reactive to light, extraocular movements intact, sclera anicteric, conjunctiva clear. No lid lag. EARS, NOSE, THROAT: Ears normal, nares patent, oropharynx clear without exudates. Moist mucous membranes. NECK: Normal range of motion, supple without lymphadenopathy, JVD, or masses. LUNGS: Breath sounds equal, clear to auscultation bilaterally. No wheezes, and no crackles. No accessory muscle use. HEART: mild tachycardia ABDOMEN: Soft, nontender, not distended, normoactive bowel sounds, no guarding, no rebound, no masses. No hepatomegaly or splenomegaly. MUSCULOSKELETAL: Normal range of motion at all joints. No bony deformities or tenderness. No CVA tenderness. UPPER EXTREMITIES: . No peripheral edema. LOWER EXTREMITIES: No peripheral edema. NEUROLOGICAL: Normal speech. Normal gait. LABS Laboratory Results - last 24 hr 12/20/18 12/23/18 12/23/18 15:00 06:00 06:00 WBC 7.4 RBC 4.11 Hgb 11.8 Hct 35.1 L D MCV 85.5 MCH 28.6 MCHC 33.5 RDW 14.7 Plt Count 360 MPV 7.2 L Absolute Neuts (auto) 4.0 Neutrophils % 54.0 D Lymphocytes % 28.3 D Monocytes % 13.1 H Eosinophils % 4.0 Basophils % 0.6 Nucleated RBC % 0 Sodium 141 Potassium 4.1 Chloride 104 Carbon Dioxide 24 Anion Gap 14 BUN 6 L Creatinine 0.8 Creat Clearance w eGFR > 60 Random Glucose 84 Calcium 8.2 L Total Bilirubin 1.2 H AST 16 ALT 16 Alkaline Phosphatase 72 Total Protein 6.8 Albumin 2.6 L Blood Type B POSITIVE Antibody Screen Negative Crossmatch See Detail HOSPITAL COURSE: Date of Admission:12/20/18 Date of Discharge: 12/23/18 Patient is a 58 year old male with a past medical history significant for cerebral palsy, seizures, HTN, anemia, MVP, respiratory failure, pneumonia, mitral regurg, paroxysmal a.fib, diastolic dysfunction, cerebral palsy, GERD, dysphagia. Patient comes to the ED with complaints by staff and family that patient is more lethargic, eating less and having less energy for a few weeks, but worsening the last few days. He had noted warmth and less like himself for about 1 week. As per the patients aide at bedside, the patient has been a little less interactive in activities at the retirement and more picky with eating. On ED labs, he was noted to have a decrease in his hmg/hct from baseline. He also was noted to have heme positive stools with mild tachycardia. This is concerning for a gi bleed . Tachycardia improved with 1 L NS. His lactic acidosis also resolved with IVF bolus. Neurology: Acute metabolic encephalopathy. resolved, mental status at baseline blood cultures negative No current signs of sepsis Hydration with IVF Cerebral Palsy, chronic long-term aide and patient's mom both state that pt mentation is at baseline. GI: Rule out GI bleed Presents with a decrease in his hmg/hct from baseline with heme positive stools Has history of GI bleed Has received 2 units of blood with good response Has had an EGD which shows severe LA grade D reflux esophagitis in the distal esophagus, large hiatal hernia containing most of the body of the fundus. Plan is to avoid NSAIDs, Protonix 40mg bid, carafate liquid 1 gram bid x 5 days. He will need a repeat EGD with Dr. Post. Family to make a follow up appointment. Patient has a [employer] mixing [employer] that he follows and recommended that he follow up again. Heme: Acute blood loss anemia. iron studies show iron deficiency anemia s/p 2 units of prbc and given 200mg of IV venofer. follow up with [employer] as an outpatient continue Iron supplements Pulmonary: tolerating room air, no acute issues Cardiovascular: Would need cardiac clearance for surgical procedures as patient has a valvular heart issue. Cardiology following Discharge back to retirement with recommended medical regimen for the gastric ulcers. 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 recommended to his mom that he should be seen again. Repeat labs next week. Visit type - Emergency Visit Emergency Visit: Yes ED Registration Date: 12/20/18 Care time: The patient presented to the Emergency Department on the above date and was hospitalized for further evaluation of their emergent condition. - New Patient This patient is new to me today: No - Critical Care Critical Care patient: No - Discharge Referral Referred to [facility] Med P.C.: No Minutes to complete discharge: 60 Discharge Summary Reason For Visit: ANEMIA/WEAKNESS/MELENA Current Active Problems Nigel ulcer (Acute) Cerebral palsy (Acute) GI bleed (Acute) Gastroesophageal laceration-hemorrhage syndrome (Acute) HTN (hypertension) (Acute) Hiatal hernia with GERD and esophagitis (Acute) Shanae-Richard tear (Acute) Melena (Acute) Organoaxial gastric volvulus (Acute) Weakness (Acute) Condition: Stable - Instructions Diet, Activity, Other Instructions: Mr. Cage, family and staff: We thank you for allowing us to care for Mr. Cage. Mr Cage came to our hospital on 12/20/2018 for anemia and weakness. He was found to have low red blood cell counts and has been transfused 2 units of blood and has been given IV iron. Here are our recommendations: Blood Loss anemia We did an EGD that shows severe reflux esophagitis in the distal esopohagus. We gave you 2 units of blood and now your counts are stable. Please do not take any Aspirin, Motrin or Advil. If you have some pain, Tylenol is Ok to take. You have been started on Protonix 40mg TWICE per day. I have called in 60 pills to you pharmacy but you your doctor will need to call in more once you run out. Carafate 1 gram/10ml TWICE per day for 4 more days, then stop taking carafate. You will need another EGD in 3 months to make sure that your ulcers are healing. Please have your blood work repeated next week (CBC) to make sure that your hemaglobin and hematocrit are stable. You will need to keep a close eye on this so that your counts dont drop. IF you start to feel short of breath or if you have Black stools, please return back to the ER. Follow ups: Please follow up with Dr. Post by calling his office for an appointment. His information is enclosed. I am available for questions. Please call me if you any have any. Thank you [facility] [phone] Referrals: Agustin Post DO [Staff Physician] - 1 Week Sophie Walden MD [Staff Physician] - Noni Pathak MD [Primary Care Provider] - Disposition: HOME - Home Medications Comprehensive Discharge Medication List: Ambulatory Orders Calcium Carbonate/Vitamin D3 [Calcium 600-Vit D3 500 Softgel] 1 each PO BID Latanoprost 0.005% Eye Drops [Xalatan 0.005% Eye Drops -] 1 drop OD HS 11/12/16 Polyethylene Glycol 3350 [Glycolax] 17 gm PO DAILY 11/12/16 Prednisolone 1% Ophthalmic [Pred Forte 1% -] 1 ml OP TID 11/12/16 Ascorbic Acid [Vitamin C] 500 mg PO DAILY #7 capsule.er 11/14/16 Cholecalciferol (Vitamin D3) [Vitamin D3] 1,000 unit PO ASDIR 11/03/18 Iron Polysaccharide Complex [Ferrex 150] 150 mg PO BID 12/20/18 Metoprolol Tartrate 12.5 mg PO BID 12/20/18 Multivitamins [Multivit ([facility] Formulary)] 1 tab PO DAILY #30 tab 12/23/18 Pantoprazole Sodium [Protonix -] 40 mg PO BID #60 tablet.ec 12/23/18 Sucralfate Oral Suspension [Carafate Oral Suspension -] 1 gm PO BID #1 bottle This patient is new to me today: No Emergency Visit: Yes ED Registration Date: 12/20/18 Care time: The patient presented to the Emergency Department on the above date and was hospitalized for further evaluation of their emergent condition. Critical Care patient: No - Discharge Referral Referred to [facility] Med P.C.: No
== END 2018-12-23 16:14 | disposition home or self-care (01) | DRG 377 ==
LOC: JER 11:17 → JERBED 14:41 → J5S 18:21
PROVIDERS: ADMIT Internal Medicine; ATTEND Nurse Practitioner Family
PROC: 30233N1 Transfusion of Nonautologous Red Blood Cells into Peripheral Vein, Percutaneous Approach (ICD-10-PCS; 2018-12-21)
PROC: 0DD68ZX Extraction of Stomach, Via Natural or Artificial Opening Endoscopic, Diagnostic (ICD-10-PCS; principal; 2018-12-22 09:00)
DX: K92.2 Gastrointestinal hemorrhage, unspecified (principal); G93.41 Metabolic encephalopathy; E87.2 Acidosis; D62 Acute posthemorrhagic anemia; G80.9 Cerebral palsy, unspecified; E16.2 Hypoglycemia, unspecified; K31.89 Other diseases of stomach and duodenum; K21.0 Gastro-esophageal reflux disease with esophagitis; I10 Essential (primary) hypertension; I48.0 Paroxysmal atrial fibrillation; I34.0 Nonrheumatic mitral (valve) insufficiency; F79 Unspecified intellectual disabilities; I27.20 Pulmonary hypertension, unspecified; K44.9 Diaphragmatic hernia without obstruction or gangrene; Z87.11 Personal history of peptic ulcer disease
CPT/HCPCS: 36415; 36430; 71045-TC-FY; 80053; 81003; 82272; 82728; 82803; 83540; 83550; 83605; 83735; 84100; 84484; 85025; 85027; 85610; 85730; 86850; 86900; 86901; 86922; 87040; 87045; 87046; 87086; 87804; 93005; 93010; 97116-GP; 97161-GP; 99283-25; J1756; J7030; P9038; P9058

== ENCOUNTER 2019-01-05 13:55 | Observation (INO) | payer OTHER ==
--- NOTE | 2019-01-05 15:01 | PDOC ---
History of Present Illness - General Chief Complaint: Rectal Bleed Stated Complaint: BLOOD IN THE STOOL Time Seen by Provider: 01/05/19 14:59 - History of Present Illness Initial Comments: 58yo M with PMH of GI bleed coming from [facility] with severe reflux esophagitis and bashir ulcerations, cerebral palsy, HTN, Anemia, paroxysmal Afib, GERD, dysphagia presenting with positive heme occult test. Per aide at the bedside, patient is currently at his baseline. He was discharged from the hospital two weeks ago. No vomiting observed. Stool is green at baseline. Per aide, they contacted one of patient's gastroenterologists for follow-up but was told that since he would not be able to see the physician until Wednesday, they were instructed to bring the patient to the ED. History is difficult to obtain as patient is nonverbal at baseline. Past History - Past Medical History Allergies/Adverse Reactions: Allergies Allergy/AdvReac Type Severity Reaction Status Date / Time No Known Allergies Allergy Verified 01/05/19 14:09 Home Medications: Ambulatory Orders Calcium Carbonate/Vitamin D3 [Calcium 600-Vit D3 500 Softgel] 1 each PO BID Latanoprost 0.005% Eye Drops [Xalatan 0.005% Eye Drops -] 1 drop OD HS 11/12/16 Polyethylene Glycol 3350 [Glycolax] 17 gm PO DAILY 11/12/16 Prednisolone 1% Ophthalmic [Pred Forte 1% -] 1 ml OP TID 11/12/16 Ascorbic Acid [Vitamin C] 500 mg PO DAILY #7 capsule.er 11/14/16 Cholecalciferol (Vitamin D3) [Vitamin D3] 1,000 unit PO ASDIR 11/03/18 Iron Polysaccharide Complex [Ferrex 150] 150 mg PO BID 12/20/18 Metoprolol Tartrate 12.5 mg PO BID 12/20/18 Multivitamins [Multivit ([facility] Formulary)] 1 tab PO DAILY #30 tab 12/23/18 Pantoprazole Sodium [Protonix -] 40 mg PO BID #60 tablet.ec 12/23/18 Sucralfate Oral Suspension [Carafate Oral Suspension -] 1 gm PO BID #1 bottle Anemia: Yes Asthma: No Cancer: No Cardiac Disorders: Yes (MVP with MR; PAFIB) CVA: No COPD: No CHF: (left diastolic dysfunction) Dementia: No Diabetes: No GI Disorders: Yes (HIATAL HERNIA, Shanae-nazario tear, upper GIB, GERD, dysphagia ) Disorders: No HTN: Yes Hypercholesterolemia: No Liver Disease: No Seizures: Yes Thyroid Disease: No - Surgical History Abdominal Surgery: Yes Appendectomy: No Cholecystectomy: No Lung Surgery: No Neurologic Surgery: No Orthopedic Surgery: No - Immunization History Immunization Up to Date: Yes - Suicide/Smoking/Psychosocial Hx Smoking History: Never smoked Have you smoked in the past 12 months: No Number of Cigarettes Smoked Daily: 0 Information on smoking cessation initiated: No Hx Alcohol Use: No Drug/Substance Use Hx: No Substance Use Type: None Hx Substance Use Treatment: No Review of Systems - Review of Systems Able to Perform ROS?: No (pt nonverbal) *Physical Exam - Vital Signs Last Vital Signs Temp Pulse Resp BP Pulse Ox 98.4 F 103 H 17 119/65 98 01/05/19 14:07 01/05/19 14:07 01/05/19 14:07 01/05/19 14:07 01/05/19 14:07 - Physical Exam Comments: General: Awake, alert Head: No signs of trauma Eyes: EOMI, sclera anicteric ENT: Moist mucus membranes Neck: Normal ROM, supple Lungs: Lungs clear, Normal breath sounds Cardio: Regular rhythm, S1 and S2 present Abdomen: Soft, nondistended. No grimacing appreciated while palpating abdomen. Extremities: Contracted, Distal pulses present SKIN: Warm, Dry, normal turgor Neurologic: Nonverbal, will track with eyes Moderate Sedation - Procedure Monitoring Vital Signs: Procedure Monitoring Vital Signs Temperature 98.4 F 01/05/19 14:07 Pulse Rate 103 H 01/05/19 14:07 Respiratory Rate 17 01/05/19 14:07 Blood Pressure 119/65 01/05/19 14:07 O2 Sat by Pulse Oximetry (%) 98 01/05/19 14:07 ED Treatment Course - LABORATORY CBC & Chemistry Diagram: 01/06/19 06:15 01/06/19 06:15 Medical Decision Making - Medical Decision Making 58yo M with PMH of GI bleed coming from [facility] with severe reflux esophagitis and bashir ulcerations, cerebral palsy, HTN, Anemia, paroxysmal Afib, GERD, dysphagia presenting with positive heme occult test. DDX including but not limited to GI bleed- upper vs lower, pepto bismol or iron consumption, anemia CBC, CMP, TS, EKG, CXR 01/05/19 16:16 No leukocytosis Hgb at baseline 10. Lactate elevated 2.1, 1L NS ordered Discussed case with Dr. Tang who reports that patient had endoscopy 2-3 weeks ago. He says that per patient's family member, patient is a not a surgical candidate due to valvular heart disease. Plan made to hydrate patient and repeat CBC and lactate. If CBC relatively stable, patient may be discharged from ED. 01/05/19 16:53 Hgb 9.5, down from 10.9. Repeat hgb decreased more than expected for dilutional decrease after giving 1LNS Pending lactate Plan to admit for serial CBC's 01/05/19 20:[address] Thorne who will come down and evaluate the patient 01/05/19 20:37 Repeat lactate 0.5 01/05/19 23:10 Patient accepted for admission under Dr. Guevara *DC/Admit/Observation/Transfer Diagnosis at time of Disposition: Fecal occult blood test positive Anemia Qualifiers: Anemia type: unspecified type Qualified Code(s): D64.9 - Anemia, unspecified - Discharge Dispostion Condition at time of disposition: Guarded Decision to Admit order: Yes - Referrals - Patient Instructions - Post Discharge Activity
[2019-01-05 16:08] LABS: EOS % 3.2 % (0-4.5); HEMATOCRIT 32.3 % (35.4-49); HEMOGLOBIN 10.9 GM/dL (11.7-16.9); LYMPH % 26.8 % (8-40); MCH 28.5 pg (25.7-33.7); MCHC 33.7 g/dl (32.0-35.9); MEAN CELL VOLUME 84.5 fl (80-96); MEAN PLT VOLUME 7.3 fl (7.5-11.1); MONO % 10.7 % (3.8-10.2); NEUT % 58.3 % (42.8-82.8); PLATELET COUNT 347 K/MM3 (134-434); RBC 3.83 M/mm3 (4.00-5.60); RDW 17.2 % (11.9-15.9); WHITE BLOOD COUNT 6.2 K/mm3 (4.0-10.0)
[2019-01-05 16:36] LABS: INR 1.06 (0.83-1.09); PROTHROMBIN TIME (PATIENT) 12.5 SEC (9.7-13.0)
[2019-01-05 16:44] LABS: ALBUMIN 2.4 g/dl (3.4-5.0); ALK PHOS 66 U/L (45-117); ANION GAP 8 MMOL/L (8-16); BILIRUBIN,TOTAL 0.1 mg/dL (0.2-1); BLOOD UREA NITROGEN 15 mg/dL (7-18); CALCIUM 8.2 mg/dL (8.5-10.1); CHLORIDE 101 mmol/L (98-107); CO2 27 mmol/L (21-32); CREATININE 0.9 mg/dL (0.55-1.3); GLUCOSE,RANDOM 89 mg/dL (74-106); POTASSIUM 4.4 mmol/L (3.5-5.1); SGOT/AST 8 U/L (15-37); SGPT/ALT 12 U/L (13-61); SODIUM 136 mmol/L (136-145); TOT PROT 7.3 g/dl (6.4-8.2)
--- NOTE | 2019-01-05 16:50 | PDOC ---
Attending Attestation - Resident Resident Name: AmandaAgnesMarla - ED Attending Attestation I have performed the following: I have examined & evaluated the patient, The case was reviewed & discussed with the resident, I agree w/resident's findings & plan, Exceptions are as noted - Medical Decision Making 58 yo male with h/o cp, prior gi bleed, h/o ulcers and gastritis, recently admitted, here from group facility because were called about a positive guiac test. per staff at [facility]. no bright red blood per rectum in home. tolerating po well. appears well overall. no f/c no n/v no melena. pt is on iron and has dark stool from iron. no other complaints. has appt with GI in 4 days, were worried, because told hemoccult positive so came to ed for earlier eval. on exam pt awake alert lungs clear , abd soft nt nd. ext wwp . pt with outpt hemoccult positive. otherwise at baseline and well appearing per staff. plan r/o anemia, persistant bleeding, and repeat hemoccult. d/w dr bettencourt, pt not surgical candidate, will see on wednesday if stable. hemoccult negative in ED, hgb at baseline, and improved from last dc 10.9, mild elevated lactate 2.1 will repeat with hydration, and repeat cbc vs. if stable, dc home wtih outpt fu GI in 4 days. () signed out oncomoing attending pending rpt cbc and lactate. hemoccult negative here. no gross blood on rectal exam. <Renetta Green - Last Filed: 01/05/19 18:12> - HPI HPI: The patient is a 58 year old male, with a significant PMH of cerebral palsy (non -verbal at baseline), MVP with MR, PAfib, left diastolic CHF, anemia, hiatal hernia, Shanae-Richard tear, upper GIB, GERD with dysphagia,HTN, and seizures, who presents to the emergency department today from [facility] as per request of door manager for positive hemoccult test. Patient was recently discharged two weeks ago for GI bleed, and was instructed to return to the ED for treatment since GI would not be able to evaluate him for another 4 days. Patients aid reports green stool, which is baseline. The patient denies chest pain, shortness of breath, headache and dizziness. Denies fever, chills, nausea, vomit, diarrhea and constipation. Denies dysuria, frequency, urgency and hematuria. Allergies: NKA Past surgical history: None reported Social history: No reported PCP; Dr. Edilia Miller 01/05/19 16:50 - Physicial Exam PE: GENERAL: +Nonverbal (baseline secondary to CP). Awake, alert, and fully oriented , in no acute distress HEAD: No signs of trauma EYES: PERRLA, EOMI, sclera anicteric, conjunctiva clear ENT: Auricles normal inspection, hearing grossly normal, nares patent, oropharynx clear without exudates. Moist mucosa NECK: Normal ROM, supple, no lymphadenopathy, JVD, or masses LUNGS: Breath sounds equal, clear to auscultation bilaterally. No wheezes, and no crackles HEART: +Systolic murmur. Regular rate and rhythm, normal S1 and S2, no rubs or gallops ABDOMEN: Soft, nontender, normoactive bowel sounds. No guarding, no rebound. No masses EXTREMITIES: +Few superficial abrasions to the right anterior garza. Normal range of motion, no edema. No clubbing or cyanosis. No cords, erythema, or tenderness NEUROLOGICAL: +Nonverbal (baseline secondary to CP). Cranial nerves II through XII grossly intact. Normal speech, normal gait SKIN: +Pale-appearing. Warm, Dry, normal turgor, no rashes or lesions noted. 01/05/19 17:12 - Medical Decision Making Documentation prepared by ZIYAD Palacios, acting as medical staff services manager for Renetta Green MD. 01/05/19 16:50 <Christine Marcus - Last Filed: 01/05/19 20:52>
[2019-01-05] MEDS ORDERED: PANTOPRAZOLE SODIUM 40 MG/100 ML BAG IVPB ONE (16:57)
[2019-01-05] MEDS ORDERED: PANTOPRAZOLE SODIUM 40 MG VIAL ONE (16:57)
[2019-01-05] MEDS: PANTOPRAZOLE SODIUM 80 MG in SODIUM CHLORIDE 100 ML IVPB SCH (17:06)
[2019-01-05] MEDS ORDERED: SODIUM CHLORIDE 1,000 ML IV STA (17:58)
[2019-01-05 20:21] LABS: BASO % 0.5 % (0-2.0); EOS % 3.6 % (0-4.5); HEMATOCRIT 28.2 % (35.4-49); HEMOGLOBIN 9.5 GM/dL (11.7-16.9); LYMPH % 26.4 % (8-40); MCH 28.1 pg (25.7-33.7); MCHC 33.7 g/dl (32.0-35.9); MEAN CELL VOLUME 83.6 fl (80-96); MEAN PLT VOLUME 7.3 fl (7.5-11.1); MONO % 9.7 % (3.8-10.2); NEUT % 59.8 % (42.8-82.8); PLATELET COUNT 313 K/MM3 (134-434); RBC 3.38 M/mm3 (4.00-5.60); RDW 17.3 % (11.9-15.9); WHITE BLOOD COUNT 6.3 K/mm3 (4.0-10.0)
--- NOTE | 2019-01-05 20:44 | PN ---
Teaching Attending Note Name of Resident: Bryon Thorne ATTENDING PHYSICIAN STATEMENT I saw and evaluated the patient. I reviewed the resident's note and discussed the case with the resident. I agree with the resident's findings and plan as documented. SUBJECTIVE: Seen and examined; please see resident note for further historical documentation. Briefly, this is a 58 y/o male sent in for +FOBT 2 days ago ( taken 2 days ago and resulted today). He provides no history due to his underlying PMH of CP. He was recently here for GIB and was discharged on (3 admit) by [facility]; recently seen by Dr. Post; 2 units of PRBC and a dose of venofer on last admission and had EGD which showed evere LA grade D reflux esophagitis in the distal esophagus with large hiatal hernia containing most of stomach and ormal gastric/duodenal mucosa. Family insists multiple tests done on stool here that were positive and negative, but we only have one negative FOBT and have verified with ER MD that only 1 FOBT was done and it was negative. I am told his stool is greenish with no robert blood or melena. He has no vomiting or diarrhea recorded. Family is concerned that he may not be eating enough. 10 sys ROS done and negative aside from HPI PMH (HTN, anemia, GIB [2017 MWT s/p endoclipping; large hiatal hernia known since 10/02 with bashir ulcerations] , MR/MVP [documented opted against offered repair], p-af, diastolic dysfunction, grade D reflux esophagitis in distal esophagus, large hiatal hernia [a portion of his stomach was seen 2015 to be intrathoracic in a volvulus and pt referred to [facility] Dr. Chávez for operative repair which was opted against], CP, Seizures HTN), PSH, Family Hx, Social Hx reviewed Medication list reviewed; pending reconciliation Home Medications Medication Instructions Recorded Calcium Carbonate/Vitamin D3 1 each PO BID 11/12/16 [Calcium 600-Vit D3 500 Softgel] Latanoprost 0.005% Eye Drops 1 drop OD HS 11/12/16 [Xalatan 0.005% Eye Drops -] Polyethylene Glycol 3350 [Glycolax] 17 gm PO DAILY 11/12/16 Prednisolone 1% Ophthalmic [Pred 1 ml OP TID 11/12/16 Forte 1% -] Ascorbic Acid [Vitamin C] 500 mg PO DAILY #7 capsule.er 11/14/16 Cholecalciferol (Vitamin D3) 1,000 unit PO ASDIR 11/03/18 [Vitamin D3] Iron Polysaccharide Complex 150 mg PO BID 12/20/18 [Ferrex 150] Metoprolol Tartrate 12.5 mg PO BID 12/20/18 Multivitamins [Multivit ([facility] 1 tab PO DAILY #30 tab 12/23/18 Formulary)] Pantoprazole Sodium [Protonix -] 40 mg PO BID #60 tablet.ec 12/23/18 Sucralfate Oral Suspension 1 gm PO BID #1 bottle 12/23/18 [Carafate Oral Suspension -] OBJECTIVE: VS, labs, imaging reviewed NAD, AA but nonverbal, resting comfortably in bed NC AT EOMI PERRLA RRR s1/2 no mgr Lungs CTAB, w/ sym exp NT ND +BS CN2-12 wnl, no fnd Normal mood, appropriate behavior ASSESSMENT AND PLAN: Patient presents with positive FOBT done as OP with known severe esophagitis, now with negative FOBT and stable Hb (went down slightly but was after 1L fluid) . 1) Severe esophagitis with +FOBT (prior hx GIB 2/2 MWT, reflux esophagitis, bashir ulcers) -Recent endoscopy report from Dr. Post 12/22/2018 shows severe LA grade D reflux esophagitis in the distal esophagus with large hiatal hernia containing most of stomach and oral gastric/duodenal mucosa. Recommended at that juncture to avoid NSAIDs and do protonix 40 BID (with a 5 day course of BID carafate). Per documentation with GI, valvular heart issues precluded him from surgical repair of the hiatal hernia (alongside family concern with patient's ability to maintain post op care). Recommended 3 month repeat EGD. -Today the patient's h/h are around his baseline (appears to be ~10 post transfusion after last time); slight drop after fluids. Will place him NPO, repeat FOBT, and change his protonix to PO. Consider GI consult in AM. Q8H h/ h for today to ensure no significant drop. No bloody/melenotic stools noted. 2) LV Diastolic Dysfunction -Appears euvolemic; monitor fluid status carefully. On Lopressor 12.5 BID which can be continued. -Monitor IVF carefully and DC when taking PO 3) Chronic Anemia -Trend; has gotten transfused/IV Fe in the past 4) Cerebral Palsy -At baseline; resident of senior care. Monitor for agitation, etc. 5) Moderate to severe MR with MVP -This makes him a non-ideal candidate for hiatal hernia repair per Dr. Reina's last note; if aggressive measures warranted could consult their service to coordinate care. 6) Poor PO intake -Per family; low albumin noted. Check prealbumin and refer to nutrition as OP. FENA -LR@75 -PRN replete -NPO -As tolerated Family wishes to make him DNR/I; he lives in a senior care but is able to leave and spend time with family. Will discuss decision making, etc. with patient's senior care.
--- NOTE | 2019-01-06 00:29 | HP ---
<Bryon Thorne - Last Filed: 01/08/19 18:47> CHIEF COMPLAINT: Positive FOBT PCP: HISTORY OF PRESENT ILLNESS: Pt. is a 58 y.o. M from [facility] home presents after follow up visit to [facility](medical clinic, Dr. Perry? JARED gary) yielded a positive FOBT. Pt. has cerebral palsy and is non-verbal at baseline however sometimes understands simple commands. Per Health Aide wh sees hime 5x/week for the last 2 years he has not had any episodes of hematochezia or hematemesis. Health Aide and Pt.s mother and sister endorse decreased PO intake (1/3-1/2 of the plate of meals). Pt. was recently admitted for GI bleed 2 weeks ago, EGD showed severe Grade D reflux esophagitis 2/2 large hiatal hernia involving most of the body of the stomach. Pt.s mother refused intervention because of the need to evaluate Pt. for Mitral Valve Prolapse ( discussed at length with the family). Per Health Aide, no history of fevers, chills within the last week. Pt.s mother is Francisca Cage and states she is the HCP. ER course was notable for: (1)Protonix, CBC, CMP (2)FOBT, LA (3) Recent Travel: No PAST MEDICAL HISTORY: Shanae Richard Tear(2016), Cerebral Palsy, seizures (last seizure 20 years ago), HTN, anemia, MVP, Paroxysmal A.Fib, GERD and dysphagia PAST SURGICAL HISTORY: Inguinal Hernia Repair Social History: Smoking: Denies Alcohol: Denies Drugs: Denies Family History: Mother: Lupus and Pulmonary Fibrosis; Father: Laryngeal Ca, during knee surgery Allergies No Known Allergies Allergy (Verified 01/05/19 14:09) HOME MEDICATIONS: Home Medications Medication Instructions Recorded Calcium Carbonate/Vitamin D3 1 each PO BID 11/12/16 [Calcium 600-Vit D3 500 Softgel] Latanoprost 0.005% Eye Drops 1 drop OD HS 11/12/16 [Xalatan 0.005% Eye Drops -] Polyethylene Glycol 3350 [Glycolax] 17 gm PO DAILY 11/12/16 Prednisolone 1% Ophthalmic [Pred 1 ml OP TID 11/12/16 Forte 1% -] Ascorbic Acid [Vitamin C] 500 mg PO DAILY #7 capsule.er 11/14/16 Cholecalciferol (Vitamin D3) 1,000 unit PO ASDIR 11/03/18 [Vitamin D3] Iron Polysaccharide Complex 150 mg PO BID 12/20/18 [Ferrex 150] Metoprolol Tartrate 12.5 mg PO BID 12/20/18 Multivitamins [Multivit ([facility] 1 tab PO DAILY #30 tab 12/23/18 Formulary)] Pantoprazole Sodium [Protonix -] 40 mg PO BID #60 tablet.ec 12/23/18 Sucralfate Oral Suspension 1 gm PO BID #1 bottle 12/23/18 [Carafate Oral Suspension -] REVIEW OF SYSTEMS CONSTITUTIONAL: Absent: fever, chills, diaphoresis, generalized weakness, malaise, loss of appetite, weight change HEENT: Absent: rhinorrhea, nasal congestion, throat pain, throat swelling, difficulty swallowing, mouth swelling, ear pain, eye pain, visual changes CARDIOVASCULAR: Absent: chest pain, syncope, palpitations, irregular heart rate, lightheadedness , peripheral edema RESPIRATORY: Absent: cough, shortness of breath, dyspnea with exertion, orthopnea, wheezing, stridor, hemoptysis GASTROINTESTINAL: Absent: abdominal pain, abdominal distension, nausea, vomiting, diarrhea, constipation, melena, hematochezia GENITOURINARY: Absent: dysuria, frequency, urgency, hesitancy, hematuria, flank pain, genital pain MUSCULOSKELETAL: Absent: myalgia, arthralgia, joint swelling, back pain, neck pain SKIN: Absent: rash, itching, pallor HEMATOLOGIC/IMMUNOLOGIC: Absent: easy bleeding, easy bruising, lymphadenopathy, frequent infections ENDOCRINE: Absent: unexplained weight gain, unexplained weight loss, heat intolerance, cold intolerance NEUROLOGIC: Absent: headache, focal weakness or paresthesias, dizziness, unsteady gait, seizure, mental status changes, bladder or bowel incontinence PSYCHIATRIC: Absent: anxiety, depression, suicidal or homicidal ideation, hallucinations. PHYSICAL EXAMINATION Vital Signs - 24 hr 01/05/19 01/05/19 14:06 14:07 Temperature 98.4 F Pulse Rate 103 H Respiratory 17 17 Rate Blood Pressure 119/65 O2 Sat by Pulse 98 98 Oximetry (%) GENERAL: Awake, alert, and fully oriented, in no acute distress. HEAD: Normal with no signs of trauma. EYES: Pupils equal, round and reactive to light, extraocular movements intact, sclera anicteric, conjunctiva clear. No lid lag. EARS, NOSE, THROAT: Ears normal, nares patent, oropharynx clear without exudates. Moist mucous membranes. NECK: Normal range of motion, supple without lymphadenopathy, JVD, or masses. LUNGS: Breath sounds equal, clear to auscultation bilaterally. No wheezes, and no crackles. No accessory muscle use. HEART: Regular rate and rhythm, normal S1 and S2 without murmur, rub or gallop. ABDOMEN: Soft, nontender, not distended, normoactive bowel sounds, no guarding, no rebound, no masses. No hepatomegaly or splenomegaly. MUSCULOSKELETAL: Normal range of motion at all joints. No bony deformities or tenderness. No CVA tenderness. UPPER EXTREMITIES: 2+ pulses, warm, well-perfused. No cyanosis. No clubbing. No peripheral edema. LOWER EXTREMITIES: 2+ pulses, warm, well-perfused. No calf tenderness. No peripheral edema. NEUROLOGICAL: Cranial nerves II-XII intact. Normal speech. Normal gait. PSYCHIATRIC: Cooperative. Good eye contact. Appropriate mood and affect. SKIN: Warm, dry, normal turgor, no rashes or lesions noted, normal capillary refill. Laboratory Results - last 24 hr 01/05/19 01/05/19 01/05/19 15:37 15:37 15:37 WBC 6.2 RBC 3.83 L Hgb 10.9 L Hct 32.3 L MCV 84.5 MCH 28.5 MCHC 33.7 RDW 17.2 H Plt Count 347 MPV 7.3 L Absolute Neuts (auto) 3.6 Neutrophils % 58.3 Lymphocytes % 26.8 Monocytes % 10.7 H Eosinophils % 3.2 Basophils % 1.0 Nucleated RBC % 0 PT with INR INR PTT (Actin FS) 27.4 Sodium Potassium Chloride Carbon Dioxide Anion Gap BUN Creatinine Creat Clearance w eGFR Random Glucose Lactic Acid Calcium Total Bilirubin AST ALT Alkaline Phosphatase Troponin I Total Protein Albumin Stool Occult Blood Blood Type B POSITIVE Antibody Screen Negative 01/05/19 01/05/19 01/05/19 15:37 15:37 15:37 WBC RBC Hgb Hct MCV MCH MCHC RDW Plt Count MPV Absolute Neuts (auto) Neutrophils % Lymphocytes % Monocytes % Eosinophils % Basophils % Nucleated RBC % PT with INR 12.50 INR 1.06 PTT (Actin FS) Sodium 136 Potassium 4.4 Chloride 101 Carbon Dioxide 27 Anion Gap 8 BUN 15 Creatinine 0.9 Creat Clearance w eGFR 87.29 Random Glucose 89 Lactic Acid 2.1 H Calcium 8.2 L Total Bilirubin 0.1 L AST 8 L ALT 12 L Alkaline Phosphatase 66 Troponin I < 0.02 Total Protein 7.3 Albumin 2.4 L Stool Occult Blood Blood Type Antibody Screen 01/05/19 01/05/19 01/05/19 16:00 20:00 20:00 WBC 6.3 RBC 3.38 L Hgb 9.5 L Hct 28.2 L MCV 83.6 MCH 28.1 MCHC 33.7 RDW 17.3 H Plt Count 313 MPV 7.3 L Absolute Neuts (auto) 3.8 Neutrophils % 59.8 Lymphocytes % 26.4 Monocytes % 9.7 Eosinophils % 3.6 Basophils % 0.5 Nucleated RBC % 0 PT with INR INR PTT (Actin FS) Sodium Potassium Chloride Carbon Dioxide Anion Gap BUN Creatinine Creat Clearance w eGFR Random Glucose Lactic Acid 0.5 Calcium Total Bilirubin AST ALT Alkaline Phosphatase Troponin I Total Protein Albumin Stool Occult Blood Negative Blood Type Antibody Screen ASSESSMENT/PLAN: Pt. is a 58 y.o. M w/ PMHx. of Shanae Richard Tear(2016), Cerebral Palsy, seizures (last seizure 20 years ago), HTN, anemia, MVP, Paroxysmal A.Fib, GERD and dysphagia presents to the ED after a positive FOBT at [facility]). #GI Bleed Negative FOBT here Recent EGD: Visit type - Emergency Visit Emergency Visit: Yes ED Registration Date: 01/05/19 Care time: The patient presented to the Emergency Department on the above date and was hospitalized for further evaluation of their emergent condition. - New Patient This patient is new to me today: Yes Date on this admission: 01/05/19 - Critical Care Critical Care patient: No <Angelo Guevara - Last Filed: 02/06/19 21:51> Seen and examined; agree with above aside from what is supplemented in my own documentation. Repeated all fierro parts of exam, supervised all vital parts of patient care.
[2019-01-06] MEDS ORDERED: LACTATED RINGERS SOLUTION 1,000 ML/1,000 ML INFUS.BAG IV SCH (00:30)
[2019-01-06] MEDS ORDERED: PANTOPRAZOLE SODIUM 40 MG VIAL ONE (02:31)
[2019-01-06] MEDS: PANTOPRAZOLE SODIUM 80 MG in SODIUM CHLORIDE 100 ML IVPB SCH (03:07)
[2019-01-06] MEDS: prednisoLONE ACETATE 1% OPHTH SUSP 5 ML BOTTLE OU SCH ×2 (06:02→15:33)
[2019-01-06 06:42] LABS: HEMATOCRIT 28.5 % (35.4-49); HEMOGLOBIN 9.7 GM/dL (11.7-16.9); MCH 28.2 pg (25.7-33.7); MCHC 34.1 g/dl (32.0-35.9); MEAN CELL VOLUME 82.5 fl (80-96); MEAN PLT VOLUME 7.4 fl (7.5-11.1); PLATELET COUNT 314 K/MM3 (134-434); RBC 3.46 M/mm3 (4.00-5.60); RDW 17.5 % (11.9-15.9); WHITE BLOOD COUNT 5.2 K/mm3 (4.0-10.0)
[2019-01-06 07:56] LABS: ANION GAP 7 MMOL/L (8-16); BLOOD UREA NITROGEN 11 mg/dL (7-18); CALCIUM 7.6 mg/dL (8.5-10.1); CHLORIDE 104 mmol/L (98-107); CO2 25 mmol/L (21-32); CREATININE 0.5 mg/dL (0.55-1.3); GLUCOSE,RANDOM 76 mg/dL (74-106); PHOSPHOROUS 3.2 mg/dL (2.5-4.9); POTASSIUM 3.8 mmol/L (3.5-5.1); SODIUM 136 mmol/L (136-145)
[2019-01-06] MEDS ORDERED: PATIENT'S OWN MEDICATION (NON-FORMULARY) (Ascorbic Acid [Vitamin C] 500 MG) PO SCH (10:00)
[2019-01-06] MEDS ORDERED: POLYETHYLENE GLYCOL 3350 255 GM BTL PO SCH (10:00)
[2019-01-06] MEDS ORDERED: PATIENT'S OWN MEDICATION (NON-FORMULARY) (Calcium Carbonate/Vitamin D3 [Calcium 600-Vit D3 PO SCH (10:00)
[2019-01-06] MEDS ORDERED: MULTIVITAMINS (DAILY MVI) TABLET (FP) PO SCH (10:00)
[2019-01-06] MEDS ORDERED: PANTOPRAZOLE 40 MG TABLET (FP) PO SCH ×2 (10:00→22:00)
[2019-01-06] MEDS ORDERED: METOPROLOL TARTRATE 25 MG TABLET (FP) PO SCH (10:00)
[2019-01-06] MEDS ORDERED: IRON POLYSACCHARIDES 150 MG CAPSULE PO SCH (10:00)
[2019-01-06] MEDS ORDERED: METOPROLOL TARTRATE 25 MG TABLET (FP) ONE (10:11)
--- NOTE | 2019-01-06 11:05 | EKG ---
Test Reason : Blood Pressure : / mmHG Vent. Rate : 103 BPM Atrial Rate : 103 BPM P-R Int : 088 ms QRS Dur : 086 ms QT Int : 338 ms P-R-T Axes : 019 -01 103 degrees QTc Int : 442 ms POOR DATA QUALITY, INTERPRETATION MAY BE ADVERSELY AFFECTED SINUS TACHYCARDIA WITH SHORT MT MODERATE VOLTAGE CRITERIA FOR LVH, MAY BE NORMAL VARIANT ABNORMAL ECG Confirmed by BILL CROUCH MD ([id number]) on 01/06/2019 11:05:13 AM Referred By: Confirmed By:BILL CROUCH MD
[2019-01-06 15:31] VITALS: BP 125/77; PULSE 92; TEMP 99.3
--- NOTE | 2019-01-06 16:46 | PN ---
Physical Exam: SUBJECTIVE: Patient seen and examined OBJECTIVE: re admit for possible gi bleed has had stable cbc, and negative stool for blood here no signs of bleeding hmg/hct stable will repeat hmg/hct today and if remains stable, will start diet d/c tomorrow likely Vital Signs Period Temp Pulse Resp BP Sys/Pimentel Pulse Ox Last 24 Hr 98 F-99.3 F 17-92 16-18 118-138/57-77 96-99 GENERAL: awake, alert, in no acute distress, hx of cerebral palsy HEAD: Normal with no signs of trauma. EYES: Pupils equal, round and reactive to light, extraocular movements intact, sclera anicteric, conjunctiva clear. No lid lag. EARS, NOSE, THROAT: Ears normal, nares patent, oropharynx clear without exudates. Moist mucous membranes. NECK: Normal range of motion, supple without lymphadenopathy, JVD, or masses. LUNGS: Breath sounds equal, clear to auscultation bilaterally. No wheezes, and no crackles. No accessory muscle use. HEART: mild tachycardia ABDOMEN: Soft, nontender, not distended, normoactive bowel sounds, no guarding, no rebound, no masses. No hepatomegaly or splenomegaly. MUSCULOSKELETAL: Normal range of motion at all joints. No bony deformities or tenderness. No CVA tenderness. UPPER EXTREMITIES: . No peripheral edema. LOWER EXTREMITIES: No peripheral edema. NEUROLOGICAL: Normal speech. Normal gait. Laboratory Results - last 24 hr 01/05/19 01/05/19 01/05/19 15:37 15:37 20:00 WBC 6.3 RBC 3.38 L Hgb 9.5 L Hct 28.2 L MCV 83.6 MCH 28.1 MCHC 33.7 RDW 17.3 H Plt Count 313 MPV 7.3 L Absolute Neuts (auto) 3.8 Neutrophils % 59.8 Lymphocytes % 26.4 Monocytes % 9.7 Eosinophils % 3.6 Basophils % 0.5 Nucleated RBC % 0 Sodium Potassium Chloride Carbon Dioxide Anion Gap BUN Creatinine Creat Clearance w eGFR Random Glucose Lactic Acid 2.1 H Calcium Phosphorus Magnesium Blood Type B POSITIVE Antibody Screen Negative 01/05/19 01/06/19 01/06/19 20:00 06:15 06:15 WBC 5.2 RBC 3.46 L Hgb 9.7 L Hct 28.5 L MCV 82.5 MCH 28.2 MCHC 34.1 RDW 17.5 H Plt Count 314 MPV 7.4 L Absolute Neuts (auto) Neutrophils % Lymphocytes % Monocytes % Eosinophils % Basophils % Nucleated RBC % Sodium 136 Potassium 3.8 Chloride 104 Carbon Dioxide 25 Anion Gap 7 L BUN 11 Creatinine 0.5 L Creat Clearance w eGFR 172.01 Random Glucose 76 Lactic Acid 0.5 Calcium 7.6 L Phosphorus 3.2 Magnesium 2.0 Blood Type Antibody Screen 01/06/19 06:15 WBC RBC Hgb Hct MCV MCH MCHC RDW Plt Count MPV Absolute Neuts (auto) Neutrophils % Lymphocytes % Monocytes % Eosinophils % Basophils % Nucleated RBC % Sodium Potassium Chloride Carbon Dioxide Anion Gap BUN Creatinine Creat Clearance w eGFR Random Glucose Lactic Acid Calcium Phosphorus Magnesium Blood Type B POSITIVE Antibody Screen Negative Active Medications Generic Name Dose Route Start Last Admin Trade Name Freq PRN Reason Stop Dose Admin Lactated Ringer's 1,000 ml in 1,000 mls @ 75 mls/hr 01/06/19 00:30 01/06/19 00:48 Lactated Ringers Solution IV 75 mls/hr ASDIR GIA Administration Latanoprost 1 drop 01/06/19 22:00 Xalatan 0.005% Eye Drops - OD HS GIA Metoprolol Tartrate 12.5 mg 01/06/19 10:00 01/06/19 10:21 Lopressor - PO 12.5 mg BID GIA Administration Pantoprazole Sodium 40 mg 01/06/19 22:00 Protonix - PO BID GIA Prednisolone Acetate 1 drop 01/06/19 06:00 01/06/19 15:33 Pred Forte 1% - OU Not Given TID GIA ASSESSMENT/PLAN: Patient is a 58 year old male with a past medical history significant for cerebral palsy, seizures, HTN, anemia, MVP, respiratory failure, pneumonia, mitral regurg, paroxysmal a.fib, diastolic dysfunction, cerebral palsy, GERD, dysphagia. recently admitted for gi bleed and had an EGD. he is s/p 2 units of prbc and 1 run of venofer on last admission. Returns to the ED after he was told he had a possible + blood in stool. Neurology: Cerebral Palsy, chronic longterm aide and patient's mom both state that pt mentation is at baseline. GI: Rule out GI bleed hmg/hct stabe. s/p 2 units of prbc on last admission and iron sucrose. Has had an EGD 2 weeks ago which showed severe LA grade D reflux esophagitis in the distal esophagus, large hiatal hernia containing most of the body of the fundus. his discharge plan was to avoid NSAIDs, start on Protonix 40mg bid. He was instructed to take carafate liquid 1 gram bid x 5 days which he has completed. repeat cbc today, if stable. start pureed diet, follow up tomorrow cbc. Heme: Acute blood loss anemia. iron studies pending. s/p 2 units of prbc 2 weeks ago. does not require transfusions at this time. Pulmonary: tolerating room air, no acute issues Cardiovascular: Would need cardiac clearance for surgical procedures as patient has a valvular heart issue. but his mother is refusing surgical procedure. fen pureed diet, nectar thick Prophy: protonix bid Dispostion: Full Code. Discharge tomorrow pending. Visit type - Emergency Visit Emergency Visit: Yes ED Registration Date: 01/05/19 Care time: The patient presented to the Emergency Department on the above date and was hospitalized for further evaluation of their emergent condition. - New Patient This patient is new to me today: Yes Date on this admission: 01/06/19 - Critical Care Critical Care patient: No - Discharge Referral Referred to [facility] Med P.C.: No
[2019-01-06 17:52] LABS: BASO % 0.6 % (0-2.0); EOS % 2.1 % (0-4.5); HEMATOCRIT 32.1 % (35.4-49); HEMOGLOBIN 10.9 GM/dL (11.7-16.9); MCH 28.2 pg (25.7-33.7); MEAN CELL VOLUME 82.9 fl (80-96); MEAN PLT VOLUME 7.4 fl (7.5-11.1); MONO % 8.7 % (3.8-10.2); NEUT % 66.6 % (42.8-82.8); PLATELET COUNT 348 K/MM3 (134-434); RBC 3.87 M/mm3 (4.00-5.60); RDW 17.2 % (11.9-15.9); WHITE BLOOD COUNT 5.9 K/mm3 (4.0-10.0)
--- NOTE | 2019-01-06 18:35 | CON.GI ---
Consult Consult Specialty:: GI Referred by:: Hospitalist Service Reason for Consultation:: Anemia - History of Present Illness Chief Complaint: Patient non-verbal History of Present Illness: 58M admitted for evaluation of FOBT +. He was recently admitted. He had EGD early december that revealed severe ulcerated LA grade D esophagitis and a large hiatal hernia. This hernia and esophagitis has been suspected to play a role in his anemia and occult blood in stool for multiple years. His mother has opted not to have it repaired due to potential risks involved with surgery. He apparently has valvular heart disease that would need repair prior to surgery as per his mother. . He last had a colonoscopy in 2016 that was unremarkable. he has had multiple upper endoscopies. Last year he had a push enteroscopy that was unrevealing aside from the large hiatal hernia and reflux esophagitis. He usually has green iron stained bowel movements. There has been no gross rectal bleeding or melena. Hgb this afternoon is 10.9. His baseline is 9-10. 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, Other (Mental retardation-cerebral palsy) Cardio/Vascular: Yes: AFIB (paroxysmal), Aortic Insufficiency, HTN, Mitral Insufficiency (moderate to severe MR), Murmur (moderate to severe TR and MR), Pulmonary Hypertension Pulmonary: Yes: Pneumonia Gastrointestinal: Yes: GERD (severe and refractory to therapy and causing transfusion requiring chronic blood loss anemia ), Hiatal Hernia (large intrathoracic segment HH prone to Nigel ulcers, GERD and gastric volvulus), Peptic Ulcer Disease, Other (large intrathoracic hiatal hernia, h/o Shanae Richard bleed) Additional Medical History: Cerebral palsy, Seizure D/O, Mitral valve prolapse, shingles, glaucoma - Past Surgical History Past Surgical History: Yes: Colonoscopy, Upper Endoscopy - Alcohol/Substance Use Hx Alcohol Use: No History of Substance Use: reports: None - Smoking History Smoking history: Never smoked Have you smoked in the past 12 months: No Aproximately how many cigarettes per day: 0 - Social History Usual Living Arrangement: [facility] ADL: Support Services Place of : [facility] History of Recent Travel: No Home Medications - Allergies Allergies/Adverse Reactions: Allergies Allergy/AdvReac Type Severity Reaction Status Date / Time No Known Allergies Allergy Verified 01/05/19 14:09 - Home Medications Home Medications: Ambulatory Orders Calcium Carbonate/Vitamin D3 [Calcium 600-Vit D3 500 Softgel] 1 each PO BID Latanoprost 0.005% Eye Drops [Xalatan 0.005% Eye Drops -] 1 drop OD HS 11/12/16 Polyethylene Glycol 3350 [Glycolax] 17 gm PO DAILY 11/12/16 Prednisolone 1% Ophthalmic [Pred Forte 1% -] 1 ml OP TID 11/12/16 Ascorbic Acid [Vitamin C] 500 mg PO DAILY #7 capsule.er 11/14/16 Cholecalciferol (Vitamin D3) [Vitamin D3] 1,000 unit PO ASDIR 11/03/18 Iron Polysaccharide Complex [Ferrex 150] 150 mg PO BID 12/20/18 Metoprolol Tartrate 12.5 mg PO BID 12/20/18 Multivitamins [Multivit ([facility] Formulary)] 1 tab PO DAILY #30 tab 12/23/18 Pantoprazole Sodium [Protonix -] 40 mg PO BID #60 tablet.ec 12/23/18 Sucralfate Oral Suspension [Carafate Oral Suspension -] 1 gm PO BID #1 bottle Family Disease History - Family Disease History Other Family History: No family h/o colon cancer Review of Systems - Review of Systems Respiratory: reports: Cough Physical Exam-GI Vital Signs: Vital Signs Temperature 99.3 F 01/06/19 15:28 Pulse Rate 92 H 01/06/19 15:28 Respiratory Rate 18 01/06/19 15:28 Blood Pressure 125/77 01/06/19 15:28 O2 Sat by Pulse Oximetry (%) 99 01/06/19 13:58 Constitutional: Yes: Calm Eyes: No: Sclera Icterus Cardiovascular: Yes: Tachycardia Respiratory: Yes: Diminished (at bases with poor insp. effort) Gastrointestinal Inspection: No: Distention, Scars ...Auscultate: Yes: Normoactive Bowel Sounds ...Palpate: No: Tenderness (No frimacing upon palpation) ...Percussion: No: Tympanitic ...Rectal Exam: Yes: Other (Green iron stained stool) Edema: No (No LE edema) Neurological: Yes: Alert Labs: CBC, BMP 01/06/19 16:45 01/06/19 06:15 INR, PTT INR 1.06 (0.83-1.09) 01/05/19 15:37 Problem List - Problems (1) Anemia Assessment/Plan: Chronic anemia. suspect ozzing from severe esophagitis and intermittent nigel ulcerations accompanying the large hiatal hernia. Surgical repair deferred by his mother due to suirgical risks. Protonix 40mg PO BID Advised reassessment in 1-2 months to discus repeat upper endoscopy and assess distal esophagus. prior to his last admission, he had been taken off PPI by his claim administrator No GI objection to discharge home. Code(s): D64.9 - ANEMIA, UNSPECIFIED Qualifiers: Anemia type: unspecified type Qualified Code(s): D64.9 - Anemia, unspecified
[2019-01-06 18:37] VITALS: BMI 20.2
[2019-01-06] MEDS ORDERED: LATANOPROST 0.005% OPHTH SOLN 2.5ML BOTTLE OD SCH (22:00)
--- NOTE | 2019-01-07 07:10 | DS ---
Physical Exam: SUBJECTIVE: Patient and mother decided to go home overnight on 01/06/19 OBJECTIVE: Vital Signs Period Temp Pulse Resp BP Sys/Pimentel Pulse Ox Last 24 Hr 99.3 F 17-92 16-18 118-125/75-77 99-99 PHYSICAL EXAM GENERAL: awake, alert, in no acute distress, hx of cerebral palsy HEAD: Normal with no signs of trauma. EYES: Pupils equal, round and reactive to light, extraocular movements intact, sclera anicteric, conjunctiva clear. No lid lag. EARS, NOSE, THROAT: Ears normal, nares patent, oropharynx clear without exudates. Moist mucous membranes. NECK: Normal range of motion, supple without lymphadenopathy, JVD, or masses. LUNGS: Breath sounds equal, clear to auscultation bilaterally. No wheezes, and no crackles. No accessory muscle use. HEART: mild tachycardia ABDOMEN: Soft, nontender, not distended, normoactive bowel sounds, no guarding, no rebound, no masses. No hepatomegaly or splenomegaly. MUSCULOSKELETAL: Normal range of motion at all joints. No bony deformities or tenderness. No CVA tenderness. UPPER EXTREMITIES: . No peripheral edema. LOWER EXTREMITIES: No peripheral edema. NEUROLOGICAL: Normal speech. Normal gait. LABS Laboratory Results - last 24 hr 01/06/19 01/06/19 01/06/19 06:15 06:15 16:45 WBC 5.9 RBC 3.87 L Hgb 10.9 L Hct 32.1 L MCV 82.9 MCH 28.2 MCHC 34.0 RDW 17.2 H Plt Count 348 MPV 7.4 L Absolute Neuts (auto) 3.9 Neutrophils % 66.6 Lymphocytes % 22.0 Monocytes % 8.7 Eosinophils % 2.1 Basophils % 0.6 Nucleated RBC % 0 Sodium 136 Potassium 3.8 Chloride 104 Carbon Dioxide 25 Anion Gap 7 L BUN 11 Creatinine 0.5 L Creat Clearance w eGFR 172.01 Random Glucose 76 Calcium 7.6 L Phosphorus 3.2 Magnesium 2.0 Blood Type B POSITIVE Antibody Screen Negative HOSPITAL COURSE: Date of Admission:01/05/19 Date of Discharge: 01/07/19 Patient is a 58 year old male with a past medical history significant for cerebral palsy, seizures, HTN, anemia, MVP, respiratory failure, pneumonia, mitral regurg, paroxysmal a.fib, diastolic dysfunction, cerebral palsy, GERD, dysphagia. recently admitted for gi bleed and had an EGD. he is s/p 2 units of prbc and 1 run of venofer on last admission. Returns to the ED after he was told he had a possible + blood in stool. Neurology: Cerebral Palsy, chronic custodial aide and patient's mom both state that pt mentation is at baseline. GI: Rule out GI bleed, ruled out. hmg/hct stabe. s/p 2 units of prbc on last admission and iron sucrose. Has had an EGD 2 weeks ago which showed severe LA grade D reflux esophagitis in the distal esophagus, large hiatal hernia containing most of the body of the fundus. his discharge plan was to avoid NSAIDs, start on Protonix 40mg bid. He was instructed to take carafate liquid 1 gram bid x 5 days which he has completed. serial cbc stable and diet resumed. Heme: s/p 2 units of prbc 2 weeks ago. does not require transfusions at this time. Pulmonary: tolerating room air, no acute issues Cardiovascular: Would need cardiac clearance for surgical procedures as patient has a valvular heart issue. but his mother is refusing surgical procedure. Dispostion: discharge back to jail overnight on 01/06/19 Discharge Summary Reason For Visit: ANEMIA/HIATAL HERNIA W/GASTROESOPHAGEAL REFLUX Condition: Good - Instructions Disposition: [facility]IV[facility]AC[facility] - Home Medications Comprehensive Discharge Medication List: Ambulatory Orders Calcium Carbonate/Vitamin D3 [Calcium 600-Vit D3 500 Softgel] 1 each PO BID Latanoprost 0.005% Eye Drops [Xalatan 0.005% Eye Drops -] 1 drop OD HS 11/12/16 Polyethylene Glycol 3350 [Glycolax] 17 gm PO DAILY 11/12/16 Prednisolone 1% Ophthalmic [Pred Forte 1% -] 1 ml OP TID 11/12/16 Ascorbic Acid [Vitamin C] 500 mg PO DAILY #7 capsule.er 11/14/16 Cholecalciferol (Vitamin D3) [Vitamin D3] 1,000 unit PO ASDIR 11/03/18 Iron Polysaccharide Complex [Ferrex 150] 150 mg PO BID 12/20/18 Metoprolol Tartrate 12.5 mg PO BID 12/20/18 Multivitamins [Multivit ([facility] Formulary)] 1 tab PO DAILY #30 tab 12/23/18 Pantoprazole Sodium [Protonix -] 40 mg PO BID #60 tablet.ec 12/23/18 Sucralfate Oral Suspension [Carafate Oral Suspension -] 1 gm PO BID #1 bottle - Discharge Referral Referred to [facility] No
== END 2019-01-06 20:49 | disposition home or self-care (01) ==
LOC: JER 13:55 → JERBED 23:19 → INTOOBSV 23:19 → OBSVTOIN 23:19 → J7W 01-06 14:07
PROVIDERS: ADMIT Internal Medicine; ATTEND Nurse Practitioner Family
PROC: 3E033GC Introduction of Other Therapeutic Substance into Peripheral Vein, Percutaneous Approach (ICD-10-PCS; principal; 2019-01-05)
PROC: 3E0337Z Introduction of Electrolytic and Water Balance Substance into Peripheral Vein, Percutaneous Approach (ICD-10-PCS; 2019-01-05)
DX: D50.0 Iron deficiency anemia secondary to blood loss (chronic) (principal); R19.5 Other fecal abnormalities; K22.6 Gastro-esophageal laceration-hemorrhage syndrome; G80.9 Cerebral palsy, unspecified; G40.909 Epilepsy, unspecified, not intractable, without status epilepticus; I11.0 Hypertensive heart disease with heart failure; I34.1 Nonrheumatic mitral (valve) prolapse; I48.0 Paroxysmal atrial fibrillation; K21.9 Gastro-esophageal reflux disease without esophagitis; I34.0 Nonrheumatic mitral (valve) insufficiency; I50.30 Unspecified diastolic (congestive) heart failure; K44.9 Diaphragmatic hernia without obstruction or gangrene
CPT/HCPCS: 36415; 71045-TC-FY; 80048; 80053; 82272; 83605; 83735; 84100; 84484; 85025; 85027; 85610; 85730; 86850; 86900; 86901; 93005; 93010; 96361; 96374; 99283-25; G0378; J7030

== ENCOUNTER 2019-03-23 09:37 | Day surgery (SDC) | payer OTHER | END 2019-03-23 13:55 | disposition home or self-care (01) | LOC: JASU-ENDO 09:37 ==

== ENCOUNTER 2019-08-05 15:47 | Inpatient (IN) | payer OTHER ==
[2019-08-05] MEDS ORDERED: PANTOPRAZOLE SODIUM 40 MG VIAL IVPUSH ONE (16:03)
[2019-08-05] MEDS ORDERED: SODIUM CHLORIDE 0.9% 500 ML INFUS.BAG IV ONE (16:03)
--- NOTE | 2019-08-05 16:04 | PDOC ---
History of Present Illness - General Chief Complaint: Vomiting Blood Stated Complaint: VOIMITING BLOOD - History of Present Illness Initial Comments: The pt is a 59M from [facility] w/ a history of GI bleed, severe reflux esophagitis and bashir ulcerations, cerebral palsy, HTN, Anemia, paroxysmal Afib, GERD, and dysphagia who presents for evaluation of 1 episode of grossly bloody emesis at 1400 today witnessed by the medical language specialist. The pt is unable to provide a history. Per the caregiver, the pt has also had several dark stools. Denies fevers, blood in urine, abdominal distension, or changes in PO intake. PCP: Dr. Jyotsna Miller 08/05/19 16:48 Past History - Past Medical History Allergies/Adverse Reactions: Allergies Allergy/AdvReac Type Severity Reaction Status Date / Time No Known Allergies Allergy Verified 08/05/19 15:51 Home Medications: Ambulatory Orders Latanoprost 0.005% Eye Drops [Xalatan 0.005% Eye Drops -] 1 drop OS HS 11/12/16 Polyethylene Glycol 3350 [Glycolax] 17 gm PO DAILY 11/12/16 Prednisolone 1% Ophthalmic [Pred Forte 1% -] 1 ml OD TID 11/12/16 Ascorbic Acid [Vitamin C] 500 mg PO DAILY #7 capsule.er 11/14/16 Cholecalciferol (Vitamin D3) [Vitamin D3] 1,000 unit PO ASDIR 11/03/18 Metoprolol Tartrate 12.5 mg PO BID 12/20/18 Multivitamins [Multivit ([facility] Formulary)] 1 tab PO DAILY #30 tab 12/23/18 Pantoprazole Sodium [Protonix -] 40 mg PO BID #60 tablet.ec 12/23/18 Ferrous Sulfate [Iron] 325 mg PO BID 03/23/19 Calcium Citrate/Vitamin D3 [Calcium Cit 315-Vit D3 250 Cpt] 2 each PO BID Fluticasone Propionate 50 mcg IN DAILY 08/05/19 Nystatin Cream [Mycostatin] 1 applic TP BID 08/05/19 Sodium Fluoride 5000 Plus 1 applic PO DAILY 08/05/19 Whey Protein Isolate [Resource Beneprotein] 1 each PO DAILY 08/05/19 Anemia: Yes Asthma: No Cancer: No Cardiac Disorders: Yes (MVP AND INSUFFICIENCY with MR; PAFIB, VALVULAR HEART DISEASE) CVA: No COPD: No CHF: (left diastolic dysfunction) Dementia: No Diabetes: No GI Disorders: Yes (HIATAL HERNIA, Shanae-nazario tear, upper GIB, GERD, dysphagia ) Disorders: No HTN: Yes Hypercholesterolemia: No Liver Disease: No Seizures: Yes Thyroid Disease: No - Surgical History Abdominal Surgery: No Appendectomy: No Cholecystectomy: No Lung Surgery: No Neurologic Surgery: No Orthopedic Surgery: No - Immunization History Immunization Up to Date: Yes - Psycho Social/Smoking Cessation Hx Smoking History: Never smoked Have you smoked in the past 12 months: No Number of Cigarettes Smoked Daily: 0 Information on smoking cessation initiated: No Hx Alcohol Use: No Drug/Substance Use Hx: No Substance Use Type: None Hx Substance Use Treatment: No Review of Systems - Review of Systems Able to Perform ROS?: No (2/2 medical condition) *Physical Exam - Vital Signs Last Vital Signs Temp Pulse Resp BP Pulse Ox 98.5 F 128 H 18 128/81 96 08/05/19 15:51 08/05/19 15:51 08/05/19 15:51 08/05/19 15:51 08/05/19 15:51 - Physical Exam Comments: GENERAL: Awake, alert, in no acute distress HEAD: No signs of trauma, normocephalic, atraumatic EYES: PERRLA, EOMI, sclera anicteric, conjunctiva clear ENT: Hearing grossly normal, nares patent, oropharynx clear without exudates. Moist mucosa LUNGS: No distress, speaks in full sentences, clear to auscultation bilaterally BACK: severe kyphosis HEART: Regular rate and rhythm, normal S1 and S2, no murmurs appreciated, peripheral pulses normal and equal bilaterally ABDOMEN: Soft, nontender, normoactive bowel sounds. No guarding, no rebound EXTREMITIES: Pt able to stand with assistance. Mild contracture of BUE at elbows. NEUROLOGICAL: Cranial nerves II through XII grossly intact. Non-verbal SKIN: Warm, Dry 08/05/19 16:04 ED Treatment Course - LABORATORY CBC & Chemistry Diagram: 08/05/19 16:28 08/05/19 16:28 - RADIOLOGY Radiology Studies Ordered: Category Date Time Status CHEST PA & LAT [RAD] Stat Radiology 08/05/19 16:02 Ordered Medical Decision Making - Medical Decision Making The pt is a 59M from [facility] w/ a history of GI bleed, severe reflux esophagitis and bashir ulcerations, cerebral palsy, HTN, Anemia, paroxysmal Afib, GERD, and dysphagia who presents for evaluation of 1 episode of grossly bloody emesis at 1400 today Pt noted to be tachycardic and a rectal temp of 100.4 ED Course Sepsis labs ordered FOBT, though no stool in vault ECG CXR IVF Vanc/Zosyn 08/05/19 16:53 Leukocytosis to 18 No anemia Trop I neg FOBT neg 08/05/19 17:11 Pt given Vanc/Zosyn Lipase wnl UA pending, straight cath w/ no urine CXR w/ L pulmonary infiltrates, improved from previous, official read pending Microblog sent, awaiting call back 08/05/19 18:41 Pt signed out to Dr[address] English 08/05/19 19:04 Discharge - Discharge Information Problems reviewed: Yes Clinical Impression/Diagnosis: Hematemesis Qualifiers: Nausea presence: unspecified Qualified Code(s): K92.0 - Hematemesis Cerebral palsy Qualifiers: Cerebral palsy type: unspecified type Qualified Code(s): G80.9 - Cerebral palsy , unspecified HTN (hypertension) Qualifiers: Hypertension type: unspecified Qualified Code(s): I10 - Essential (primary) hypertension Condition: Fair - Admission Yes - Follow up/Referral - Patient Discharge Instructions - Post Discharge Activity
[2019-08-05] MEDS ORDERED: PANTOPRAZOLE SODIUM 40 MG VIAL ONE (16:42)
[2019-08-05 16:45] LABS: BASO % 0.4 % (0-2.0); EOS % 0.1 % (0-4.5); HEMATOCRIT 39.3 % (35.4-49); HEMOGLOBIN 12.6 GM/dL (11.7-16.9); LYMPH % 7.1 % (8-40); MCH 28.6 pg (25.7-33.7); MEAN CELL VOLUME 89.4 fl (80-96); MEAN PLT VOLUME 8.4 fl (7.5-11.1); MONO % 4.6 % (3.8-10.2); NEUT % 87.8 % (42.8-82.8); PLATELET COUNT 297 K/MM3 (134-434); RDW 14.4 % (11.9-15.9); WHITE BLOOD COUNT 18.3 K/mm3 (4.0-10.0)
[2019-08-05] MEDS ORDERED: PIPERACILLIN/TAZOB 3.375 GM 3.375 GM in DEXTROSE 5%-WATER - 50 ML IVPB ONE (16:54)
[2019-08-05] MEDS ORDERED: VANCOMYCIN 1,000 MG in DEXTROSE 5%-WATER - 250 ML IVPB ONE (16:54)
[2019-08-05 17:02] LABS: INR 1.06 (0.83-1.09); PROTHROMBIN TIME (PATIENT) 12.5 SEC (9.7-13.0)
[2019-08-05 17:05] LABS: ACTIVATED PTT 25.4 SECONDS (25.2-36.5)
[2019-08-05] MEDS ORDERED: PIPERACILLIN/TAZOB 3.375 GM 3.375 GM/50 ML BAG IVPB ONE (17:30)
[2019-08-05 17:52] LABS: ALBUMIN 3.6 g/dl (3.4-5.0); BILIRUBIN,TOTAL 0.3 mg/dL (0.2-1); BLOOD UREA NITROGEN 48.9 mg/dL (7-18); CALCIUM 9.3 mg/dL (8.5-10.1); CREATININE 0.9 mg/dL (0.55-1.3); MAGNESIUM 1.9 mg/dL (1.8-2.4); POTASSIUM 4.3 mmol/L (3.5-5.1); TOT PROT 8.1 g/dl (6.4-8.2)
[2019-08-05 17:57] LABS: VENOUS PC02 42.4 mmHg (38-52); VENOUS PH 7.42 (7.31-7.41); VENOUS PO2 62.9 mmHg (28-48)
[2019-08-05] MEDS ORDERED: VANCOMYCIN 1 GRAM (PRE-DOCKED) 1,000 MG/250 ML BAG IVPB ONE (18:01)
--- NOTE | 2019-08-05 18:56 | PDOC ---
Documentation entered by Kee Dominguez SCRIBE, acting as scribe for Bren Colmenares MD. Bren Colmenares MD: This documentation has been prepared by the Alberto curran Nirvannie, SCRIBE, under my direction and personally reviewed by me in its entirety. I confirm that the documentation accurately reflects all work, treatment, procedures, and medical decision making performed by me. Attending Attestation - Resident Resident Name: Brad Mcgarry - ED Attending Attestation I have performed the following: I have examined & evaluated the patient, The case was reviewed & discussed with the resident, I agree w/resident's findings & plan, Exceptions are as noted - HPI HPI: 08/05/19 18:40 The patient is a 59 year old male, with a significant past medical history of GI bleed, severe reflux esophagitis and bashir ulcerations, cerebral palsy, HTN , Anemia, paroxysmal Afib, GERD, and dysphagia, who presents to the emergency department with, 1 episode of hematemesis. As per testing and regulating technician, he has been experiencing multiple episodes of dark stool and today she noticed one episode of hematemesis at approximately 2pm, prompting their arrival to the ED. History was obtained via caregiver at bedside. Steam Drier Operator denies fevers or chills. History limited due to pt condition. Pt is not on blood thinners Allergies: NKDA Primary Care Physician: Dr. Jyotsna Miller - Physicial Exam PE: 08/05/19 18:52 agree with resident exam - Medical Decision Making 08/05/19 18:30 59yo M with MMP including CP, GERD, twyla nazario tears, severe reflux esophagitis and bashir ulcerations presents to the ED with 1 episode of hematemesis and dark stools. Pt tachycardic to 128, remaining vitals wnl Pt not on AC Exam with no blood in OP Pt also rectally febrile, sepsis w/u initiated Plan for labs, monitoring, PPI, IVF, admission for GI c/s 08/05/19 18:53 W/u thus far remarkable for WBC 18, lactic 2.8 Pt covered empirically with vanc/zosyn, 1L NS bolus initiated Pt voided twice in diaper, when nurse attempted straight cath, no urine in bladder CXR with some congestion in L hemithorax but improved compared to previous CXR Plan to admit for UGIB and possible sepsis Hospitalist paged for admission, awaiting call back
[2019-08-05] MEDS ORDERED: SODIUM CHLORIDE 1,000 ML IV SCH (19:15)
--- NOTE | 2019-08-05 19:27 | PN ---
Teaching Attending Note Name of Resident: Aurora Lowery ATTENDING PHYSICIAN STATEMENT I saw and evaluated the patient. I reviewed the resident's note and discussed the case with the resident. I agree with the resident's findings and plan as documented. SUBJECTIVE: 59-year-old male with mental retardation secondary to cerebral palsy who has a history of severe twyla wiess tear, pud, esophagitis who had a EGD in December [address] Henderson and was found to have grade D reflux esophagitis and distal esophagus with large hiatal hernia containing most of stomach and normal gastric/duodenal mucosal, presents today with legal investigator after he was found to have 2 episodes of dark bloody vomiting this morning. As per legal investigator vomitus was enough to fill up 1 cup. He also mentioned several weeks of dark green stools. Patient was found to be hemodynamically stable in the emergency rooPatient's H&H appears to be stable as well. Patient was noted to have colonoscopy in 2015 that was unremarkable he had multiple upper endoscopies. OBJECTIVE: Last Vital Signs Temp Pulse Resp BP Pulse Ox 98.0 F 113 H 17 143/82 96 08/05/19 19:13 08/05/19 19:13 08/05/19 19:13 08/05/19 19:13 08/05/19 19:13 General HEENTClear sclera nonicteric moist mucous membranes Neck Supple CV S1-S2 tachycardia Chest Clear to auscultation bilaterally Abdomen Soft nontender bowel sounds present Extremities No pedal edema Abnormal Lab Results 08/05/19 08/05/19 08/05/19 16:28 16:28 16:53 WBC 18.3 H Absolute Neuts (auto) 16.1 H Neutrophils % 87.8 H D Lymphocytes % 7.1 L D VBG pH POC VBG pO2 VBG O2 Sat (Skye) VBG Base Excess BUN 48.9 H Random Glucose 137 H Lactic Acid 2.8 H* 08/05/19 16:53 WBC Absolute Neuts (auto) Neutrophils % Lymphocytes % VBG pH 7.42 H POC VBG pO2 62.9 H VBG O2 Sat (Skye) 91.0 H VBG Base Excess 3.0 H BUN Random Glucose Lactic Acid Imaging reviewed EKG reviewed ASSESSMENT AND PLAN: 59-year-old male with hematemesis . Hemodynamically stable suspected upper GI bleed. Possibly secondary to esophagitis. Patient noted to have fever in ER along with tachycardia and leukocytosis. Sepsis picture noted however uncertain source of infection. Received vancomycin and Zosyn in the emergency room. Admit to [facility] Blood cultures UA Urine culture Flu swab Sputum culture Trend CBC Trend lactate IV fluid hydration Continue vancomycin and Zosyn Infectious disease evaluation Protonix drip CBC every 6 hours Monitor vital signs closely GI evaluation Keep n.p.o. Monitor BGM SCDs for DVT prophylaxis
--- NOTE | 2019-08-05 20:39 | HP ---
CHIEF COMPLAINT: bloody vomit episode PCP: Angela Goyal HISTORY OF PRESENT ILLNESS: 59 y/o M from [facility] with PMH of recurrent admission for GI bleeds secondary to sever LA type D gastritis with severe reflux, intermittent bashir ulcerations, cerebral palsy,scoliosis, hydrocephalus,seizure disorder, HTN, Anemia, pAfib, GERD, dysphagia, MVP, MR who was brought to the ED because of one episode of bloody vomitus around 2 pm today. Per caregiver, the vomitus amounted to 1 cup,with the smell of iron and did not reccur since. He has hx of black stool however pt is on iron therapy for his anemia. Pt had displayed signs that he wasnt feeling well by refusing his lunch. Though he was febrile on admission at 100.4 per caregiver his temperature this morning was 98.7F. Caregiver denies any recent use of NSAIDs, blood thinners or change to his medications or diet. Caregiver also denied any nausea, vomiting or diarrhea. ER course was notable for: (1) Sepsis work up sent. LA 2.8 pending repeat at 10 pm after IVFs (2) CXR showed no acute pathology. UA pending and urine culture sent (3) IV fluids bolus, 1 dose of Vanc and zosyn. PT 12.5 PTT 25.4 INR 1.06. neg FOBT. neg trop x1 Recent Travel: none PAST MEDICAL HISTORY: as noted above PAST SURGICAL HISTORY: none Social History: none Smoking: Alcohol: Drugs: Allergies No Known Allergies Allergy (Verified 08/05/19 15:51) HOME MEDICATIONS: Home Medications Medication Instructions Recorded Latanoprost 0.005% Eye Drops 1 drop OS HS 11/12/16 [Xalatan 0.005% Eye Drops -] Polyethylene Glycol 3350 [Glycolax] 17 gm PO DAILY 11/12/16 Prednisolone 1% Ophthalmic [Pred 1 ml OD TID 11/12/16 Forte 1% -] Ascorbic Acid [Vitamin C] 500 mg PO DAILY #7 capsule.er 11/14/16 Cholecalciferol (Vitamin D3) 1,000 unit PO ASDIR 11/03/18 [Vitamin D3] Metoprolol Tartrate 12.5 mg PO BID 12/20/18 Multivitamins [Multivit ([facility] 1 tab PO DAILY #30 tab 12/23/18 Formulary)] Pantoprazole Sodium [Protonix -] 40 mg PO BID #60 tablet.ec 12/23/18 Ferrous Sulfate [Iron] 325 mg PO BID 03/23/19 Calcium Citrate/Vitamin D3 2 each PO BID 08/05/19 [Calcium Cit 315-Vit D3 250 Cpt] Fluticasone Propionate 50 mcg IN DAILY 08/05/19 Whey Protein Isolate [Resource 1 each PO DAILY 08/05/19 Beneprotein] REVIEW OF SYSTEMS CONSTITUTIONAL: Absent: fever, chills, diaphoresis, generalized weakness, malaise, loss of appetite, weight change HEENT: Absent: rhinorrhea, nasal congestion, throat pain, throat swelling, difficulty swallowing, mouth swelling, ear pain, eye pain, visual changes CARDIOVASCULAR: Absent: chest pain, syncope, palpitations, irregular heart rate, lightheadedness , peripheral edema RESPIRATORY: Absent: cough, shortness of breath, dyspnea with exertion, orthopnea, wheezing, stridor, hemoptysis GASTROINTESTINAL:vomiting Absent: abdominal pain, abdominal distension, nausea , diarrhea, constipation, melena, hematochezia GENITOURINARY: Absent: dysuria, frequency, urgency, hesitancy, hematuria, flank pain, genital pain MUSCULOSKELETAL: Absent: myalgia, arthralgia, joint swelling, back pain, neck pain SKIN: Absent: rash, itching, pallor HEMATOLOGIC/IMMUNOLOGIC: Absent: easy bleeding, easy bruising, lymphadenopathy, frequent infections ENDOCRINE: Absent: unexplained weight gain, unexplained weight loss, heat intolerance, cold intolerance NEUROLOGIC: Absent: headache, focal weakness or paresthesias, dizziness, unsteady gait, seizure, mental status changes, bladder or bowel incontinence PSYCHIATRIC: Absent: anxiety, depression, suicidal or homicidal ideation, hallucinations. PHYSICAL EXAMINATION Vital Signs - 24 hr 08/05/19 08/05/19 08/05/19 15:51 16:30 16:50 Temperature 98.5 F 100.4 F H Pulse Rate 128 H Pulse Rate [ 128 H Left Radial] Respiratory 18 17 Rate Blood Pressure 128/81 Blood Pressure 151/83 [Left Arm] O2 Sat by Pulse 96 97 100 Oximetry (%) 08/05/19 08/05/19 18:40 19:13 Temperature 98.0 F Pulse Rate Pulse Rate [ 110 H 113 H Left Radial] Respiratory 18 17 Rate Blood Pressure Blood Pressure 137/82 143/82 [Left Arm] O2 Sat by Pulse 97 96 Oximetry (%) GENERAL: Awake, alert, and fully oriented, in apparent distress. HEAD: Normal with no signs of trauma. EYES: haziness on right iris, sclera anicteric, conjunctiva clear. No lid lag. EARS, NOSE, THROAT: Ears normal, nares patent, oropharynx clear without exudates. Moist mucous membranes. NECK: Normal range of motion, supple without lymphadenopathy, JVD, or masses. LUNGS: Breath sounds equal, clear to auscultation bilaterally. No wheezes, and no crackles. No accessory muscle use. HEART: Regular rate and rhythm, normal S1 and S2 with 4/6 mummur in apex and left sternal border,no rub or gallop. ABDOMEN: Soft, nontender, not distended, hyperactive bowel sounds, no guarding, no rebound, no masses. No hepatomegaly or splenomegaly. MUSCULOSKELETAL: Normal range of motion at all joints. No bony deformities or tenderness. No CVA tenderness. UPPER EXTREMITIES: 2+ pulses, warm, well-perfused. No cyanosis. No clubbing. No peripheral edema. LOWER EXTREMITIES: 2+ pulses, warm, well-perfused. No calf tenderness. No peripheral edema. SKIN: Warm, dry, normal turgor, no rashes or lesions noted, normal capillary refill. rectal exam: no skin tag, external or internal hemorrhoids noted or fissures. No mass or stool felt in rectal vault. Laboratory Results - last 24 hr 08/05/19 08/05/19 08/05/19 16:28 16:28 16:28 WBC 18.3 H RBC 4.40 Hgb 12.6 Hct 39.3 MCV 89.4 MCH 28.6 MCHC 32.0 RDW 14.4 D Plt Count 297 D MPV 8.4 Absolute Neuts (auto) 16.1 H Neutrophils % 87.8 H D Lymphocytes % 7.1 L D Monocytes % 4.6 Eosinophils % 0.1 D Basophils % 0.4 Nucleated RBC % 0 PT with INR 12.50 INR 1.06 PTT (Actin FS) 25.4 VBG pH POC VBG pCO2 POC VBG pO2 VBG HCO3 VBG O2 Sat (Skye) VBG Base Excess Sodium Potassium Chloride Carbon Dioxide Anion Gap BUN Creatinine Est GFR (CKD-EPI)AfAm Est GFR (CKD-EPI)NonAf Random Glucose Lactic Acid Calcium Magnesium Total Bilirubin AST ALT Alkaline Phosphatase Troponin I Total Protein Albumin Lipase Stool Occult Blood Negative Anti-A Titer Blood Type Antibody Screen 08/05/19 08/05/19 08/05/19 16:28 16:28 16:28 WBC RBC Hgb Hct MCV MCH MCHC RDW Plt Count MPV Absolute Neuts (auto) Neutrophils % Lymphocytes % Monocytes % Eosinophils % Basophils % Nucleated RBC % PT with INR INR PTT (Actin FS) VBG pH POC VBG pCO2 POC VBG pO2 VBG HCO3 VBG O2 Sat (Skye) VBG Base Excess Sodium 144 Potassium 4.3 Chloride 104 Carbon Dioxide 30 Anion Gap 11 BUN 48.9 H Creatinine 0.9 Est GFR (CKD-EPI)AfAm 109.50 Est GFR (CKD-EPI)NonAf 94.48 Random Glucose 137 H Lactic Acid Calcium 9.3 Magnesium 1.9 Total Bilirubin 0.3 AST 20 ALT 16 Alkaline Phosphatase 92 Troponin I < 0.02 Total Protein 8.1 Albumin 3.6 Lipase 151 Stool Occult Blood Anti-A Titer Cancelled Blood Type Cancelled Antibody Screen Cancelled 08/05/19 08/05/19 16:53 16:53 WBC RBC Hgb Hct MCV MCH MCHC RDW Plt Count MPV Absolute Neuts (auto) Neutrophils % Lymphocytes % Monocytes % Eosinophils % Basophils % Nucleated RBC % PT with INR INR PTT (Actin FS) VBG pH 7.42 H POC VBG pCO2 42.4 POC VBG pO2 62.9 H VBG HCO3 27.3 VBG O2 Sat (Skye) 91.0 H VBG Base Excess 3.0 H Sodium Potassium Chloride Carbon Dioxide Anion Gap BUN Creatinine Est GFR (CKD-EPI)AfAm Est GFR (CKD-EPI)NonAf Random Glucose Lactic Acid 2.8 H* Calcium Magnesium Total Bilirubin AST ALT Alkaline Phosphatase Troponin I Total Protein Albumin Lipase Stool Occult Blood Anti-A Titer Blood Type Antibody Screen ASSESSMENT/PLAN: 59 y/o M from [facility] with PMH of recurrent admission for GI bleeds secondary to sever LA type D gastritis with severe reflux, intermittent bsahir ulcerations, cerebral palsy,scoliosis, hydrocephalus,seizure disorder, HTN, Anemia, pAfib, GERD, dysphagia, MVP, MR who was brought to the ED because of one episode of bloody vomitus. Hematemesis 2/2 eosophigitis, gastric ulcer bleed NPO except for meds [id number]@100cc Protonix drip type and screen current Hemoglobin 12.6/39.3. monitor with CBC Q6h. low treshold for transfer to ICU if Hb drops again, pt goes to ICU. trend Lactic acid. current Lactic acid is 2.[address] Tang consulted as pt has been seen by him multiple time in the past for recurrent GI bleeds. Service contacted and transferred us to Dr Walden service who recommended to continue current management. Leukocytosis 2/2 UTI? WBC of 18.3 on admission low grade Fever of 100.4 CXR showed no acute pathology in ED received 1 dose of vanc and zosyn. continue for now Dr Corrigan consulted flu swab sent blood and urine cultures sent. DVT SCDs no chemical prophylaxis to decrease bleeding risk NEED TO HAVE GOALS OF CARE DISCUSSION WITH FAMILY. FAMILY SAYS PT IS DNR/DNI but [facility] HAS NO DOCUMENTATION Visit type - Emergency Visit Emergency Visit: Yes ED Registration Date: 08/05/19 Care time: The patient presented to the Emergency Department on the above date and was hospitalized for further evaluation of their emergent condition. - New Patient This patient is new to me today: Yes Date on this admission: 08/06/19 - Critical Care Critical Care patient: No ATTENDING PHYSICIAN STATEMENT I saw and evaluated the patient. I reviewed the resident's note and discussed the case with the resident. I agree with the resident's findings and plan as documented. SUBJECTIVE: OBJECTIVE: ASSESSMENT AND PLAN:
[2019-08-05] MEDS ORDERED: ACETAMINOPHEN 1000 MG/100 ML VIAL (NON FORMULARY) IVPB ONE (22:22)
[2019-08-05] MEDS: METOPROLOL TARTRATE 25 MG TABLET (FP) PO SCH (22:24)
[2019-08-05] MEDS: FERROUS SO4 325 MG TABLET (FP) PO SCH (22:24)
[2019-08-05] MEDS: DEXTROSE 5%-LACTATED RINGERS 1,000 ML IV SCH (22:44)
[2019-08-05] MEDS: PANTOPRAZOLE SODIUM 80 MG in SODIUM CHLORIDE 100 ML IVPB SCH (23:18)
[2019-08-05] MEDS: LATANOPROST 0.005% OPHTH SOLN 2.5ML BOTTLE OS SCH (23:21)
[2019-08-06 00:37] LABS: BASO % 0.3 % (0-2.0); EOS % 0.3 % (0-4.5); HEMATOCRIT 25.9 % (35.4-49); HEMOGLOBIN 8.5 GM/dL (11.7-16.9); LYMPH % 21.8 % (8-40); MCHC 32.6 g/dl (32.0-35.9); MEAN PLT VOLUME 8.1 fl (7.5-11.1); MONO % 10.1 % (3.8-10.2); NEUT % 67.5 % (42.8-82.8); PLATELET COUNT 177 K/MM3 (134-434); RBC 2.91 M/mm3 (4.00-5.60); RDW 14.7 % (11.9-15.9); WHITE BLOOD COUNT 9.5 K/mm3 (4.0-10.0)
[2019-08-06] MEDS: prednisoLONE ACETATE 1% OPHTH SUSP 5 ML BOTTLE OD SCH ×4 (00:37→22:49)
[2019-08-06] MEDS ORDERED: PIPERACILLIN/TAZOBACTAM 3.375 GM VIAL IVPB ONE ×2 (01:15→10:16)
[2019-08-06] MEDS ORDERED: DEXTROSE 5%-WATER - 50 ML IVPB ONE ×3 (01:15→14:53)
[2019-08-06] MEDS: PIPERACILLIN/TAZOB 3.375 GM 3.375 GM in DEXTROSE 5%-WATER - 50 ML IVPB SCH ×4 (01:58→19:22)
[2019-08-06] MEDS: PANTOPRAZOLE SODIUM 80 MG in SODIUM CHLORIDE 100 ML IVPB SCH ×4 (06:13→22:50)
[2019-08-06 07:26] LABS: BASO % 0.6 % (0-2.0); EOS % 1.1 % (0-4.5); HEMATOCRIT 24.5 % (35.4-49); HEMOGLOBIN 8.3 GM/dL (11.7-16.9); LYMPH % 20.7 % (8-40); MEAN CELL VOLUME 88.3 fl (80-96); MEAN PLT VOLUME 7.9 fl (7.5-11.1); MONO % 9.8 % (3.8-10.2); NEUT % 67.8 % (42.8-82.8); PLATELET COUNT 176 K/MM3 (134-434); RBC 2.77 M/mm3 (4.00-5.60); RDW 14.6 % (11.9-15.9); WHITE BLOOD COUNT 6.6 K/mm3 (4.0-10.0)
[2019-08-06 07:50] LABS: ALBUMIN 2.4 g/dl (3.4-5.0); BILIRUBIN,TOTAL 0.4 mg/dL (0.2-1); CALCIUM 7.7 mg/dL (8.5-10.1); CREATININE 0.8 mg/dL (0.55-1.3); MAGNESIUM 1.7 mg/dL (1.8-2.4); PHOSPHOROUS 2.4 mg/dL (2.5-4.9); POTASSIUM 3.5 mmol/L (3.5-5.1); TOT PROT 5.2 g/dl (6.4-8.2)
[2019-08-06] MEDS ORDERED: VANCOMYCIN 1 GM in D5W (PRE-DOCKED) 1,000 MG/250 ML IVPB SCH (10:00)
[2019-08-06] MEDS ORDERED: WHEY PROTEIN ISOLATE PO SCH (10:00)
[2019-08-06] MEDS: FLUTICASONE PROP 0.05% 16 GM NASAL SPRAY NS SCH (10:30)
[2019-08-06] MEDS: METOPROLOL TARTRATE 25 MG TABLET (FP) PO SCH ×2 (10:30→22:45)
[2019-08-06] MEDS: ASCORBIC ACID 500 MG TABLET (FP) PO SCH (10:30)
[2019-08-06] MEDS: MULTIVITAMINS (DAILY MVI) TABLET (FP) PO SCH (10:30)
[2019-08-06] MEDS: FERROUS SO4 325 MG TABLET (FP) PO SCH ×2 (10:30→22:44)
--- NOTE | 2019-08-06 10:32 | EKG ---
Test Reason : Blood Pressure : / mmHG Vent. Rate : 119 BPM Atrial Rate : 119 BPM P-R Int : 114 ms QRS Dur : 090 ms QT Int : 314 ms P-R-T Axes : -08 004 138 degrees QTc Int : 441 ms SINUS TACHYCARDIA ABNORMAL ECG WHEN COMPARED WITH ECG OF 05-JAN-2019 15:43, ST NO LONGER DEPRESSED IN INFERIOR LEADS NONSPECIFIC T WAVE ABNORMALITY NOW EVIDENT IN INFERIOR LEADS T WAVE INVERSION MORE EVIDENT IN LATERAL LEADS Confirmed by MD NANCI, SAURAV ([id number]) on 08/06/2019 10:32:18 AM Referred By: Confirmed By:SAURAV CHRISTINE MD
[2019-08-06] MEDS: DEXTROSE 5%-LACTATED RINGERS 1,000 ML IV SCH ×2 (12:30→22:31)
[2019-08-06 12:57] LABS: BASO % 0.5 % (0-2.0); EOS % 1.5 % (0-4.5); HEMATOCRIT 26.1 % (35.4-49); HEMOGLOBIN 8.5 GM/dL (11.7-16.9); LYMPH % 16.3 % (8-40); MCHC 32.6 g/dl (32.0-35.9); MEAN PLT VOLUME 7.8 fl (7.5-11.1); MONO % 7.1 % (3.8-10.2); NEUT % 74.6 % (42.8-82.8); PLATELET COUNT 176 K/MM3 (134-434); RBC 2.94 M/mm3 (4.00-5.60); RDW 15.1 % (11.9-15.9); WHITE BLOOD COUNT 9.2 K/mm3 (4.0-10.0)
--- NOTE | 2019-08-06 13:48 | PN ---
Progress Note (short form) - Note Progress Note: ID consult dictated imp/reccd suspect UGI bleed with coffee ground emesis leukocytosis and lactic acidosis could be due to the above episode vomiting with fever- ?aspirationn [facility] sick [facility] jail switch to unasyn last admit here in 01/03 Problem List - Problems (1) GI bleed Code(s): K92.2 - GASTROINTESTINAL HEMORRHAGE, UNSPECIFIED (2) Leukocytosis Code(s): D72.829 - ELEVATED WHITE BLOOD CELL COUNT, UNSPECIFIED (3) Lactic acid acidosis Code(s): E87.2 - ACIDOSIS (4) Aspiration pneumonia Code(s): J69.0 - PNEUMONITIS DUE TO INHALATION OF FOOD AND VOMIT
--- NOTE | 2019-08-06 14:26 | CON.GI ---
Consult Consult Specialty:: Gastroenterology ( covering Dr Post) Referred by:: Dr Aurora Lowery Reason for Consultation:: Coffee grd emesis - History of Present Illness Chief Complaint: Coffee ground emesis History of Present Illness: 59M with CP who is well known to [facility] for recurrent UGI bleeds related to severe reflux esophagitis above a large hiatal hernia. The intrathoracic protrusion into the thorax is large enough to cause partial organoaxial volvulus. He last had an EGD with Dr. Post on 03/23/19 when his distal reflux esophaghitis appeared improved but it did reveal persistent linear ulcers. Biopsies however did not reveal Hensley's eosphagitis. IN 12/03 he had a Shanae Richard bleed that required endoclipping. He had a colonoscopy with Dr Post on 03/23/16 that was unremarkable. He has had innumerable hospitalization for GERD related bleeding EGDs and transfusions. When he saw a surgeon at [facility] for hiatal hernia repair he was referred for a cardiac clearance which discovered that he would need a heart valve replacement before a HH repair could be undertaken. The mother cannot explain why the cardiac surgery never took place. She also tells me that the surgeon told her that Akbar could end up with a feeding tube if the surgery failed and she does not want thsi as his current residence would not accept him with a G tube. - History Source History Provided By: Family Member, Medical Record Limitations to Obtaining History: Clinical Condition - Past Medical History TIE LAYER: Yes: Seizure, Other (Mental retardation-cerebral palsy) Cardio/Vascular: Yes: AFIB (paroxysmal), Aortic Insufficiency, HTN, Mitral Insufficiency (moderate to severe MR), Murmur (moderate to severe TR and MR), Pulmonary Hypertension Pulmonary: Yes: Pneumonia Gastrointestinal: Yes: GERD (severe and refractory to therapy and causing transfusion requiring chronic blood loss anemia ), Hiatal Hernia (large intrathoracic segment HH prone to Nigel ulcers, GERD and gastric volvulus), Peptic Ulcer Disease, Other (large intrathoracic hiatal hernia, h/o Shanae Richard bleed) Additional Medical History: Cerebral palsy, Seizure D/O, Mitral valve prolapse, shingles, glaucoma - Past Surgical History Past Surgical History: Yes: Colonoscopy, Upper Endoscopy - Alcohol/Substance Use Hx Alcohol Use: No History of Substance Use: reports: None - Smoking History Smoking history: Never smoked Have you smoked in the past 12 months: No Aproximately how many cigarettes per day: 0 - Social History Usual Living Arrangement: [facility] ADL: Support Services Place of : [facility] History of Recent Travel: No Home Medications - Allergies Allergies/Adverse Reactions: Allergies Allergy/AdvReac Type Severity Reaction Status Date / Time No Known Allergies Allergy Verified 08/05/19 15:51 - Home Medications Home Medications: Ambulatory Orders Latanoprost 0.005% Eye Drops [Xalatan 0.005% Eye Drops -] 1 drop OS HS 11/12/16 Polyethylene Glycol 3350 [Glycolax] 17 gm PO DAILY 11/12/16 Prednisolone 1% Ophthalmic [Pred Forte 1% -] 1 ml OD TID 11/12/16 Ascorbic Acid [Vitamin C] 500 mg PO DAILY #7 capsule.er 11/14/16 Cholecalciferol (Vitamin D3) [Vitamin D3] 1,000 unit PO ASDIR 11/03/18 Metoprolol Tartrate 12.5 mg PO BID 12/20/18 Multivitamins [Multivit ([facility])] 1 tab PO DAILY #30 tab 12/23/18 Pantoprazole Sodium [Protonix -] 40 mg PO BID #60 tablet.ec 12/23/18 Ferrous Sulfate [Iron] 325 mg PO BID 03/23/19 Calcium Citrate/Vitamin D3 [Calcium Cit 315-Vit D3 250 Cpt] 2 each PO BID Fluticasone Propionate 50 mcg IN DAILY 08/05/19 Whey Protein Isolate [Resource Beneprotein] 1 each PO DAILY 08/05/19 Family Medical History Family History: Unable to Obtain Review of Systems Unable to obtain ROS, reason: cerebral palsy Physical Exam-GI Vital Signs: Vital Signs Temperature 97.9 F 08/06/19 10:00 Pulse Rate 105 H 08/06/19 10:00 Respiratory Rate 18 08/06/19 10:00 Blood Pressure 105/57 L 08/06/19 10:00 O2 Sat by Pulse Oximetry (%) 96 08/05/19 19:13 CBC,CMP WBC 9.2 K/mm3 (4.0-10.0) 08/06/19 12:30 RBC 2.94 M/mm3 (4.00-5.60) L 08/06/19 12:30 Hgb 8.5 GM/dL (11.7-16.9) L 08/06/19 12:30 Hct 26.1 % (35.4-49) L 08/06/19 12:30 MCV 89.0 fl (80-96) 08/06/19 12:30 MCH 29.0 pg (25.7-33.7) 08/06/19 12:30 MCHC 32.6 g/dl (32.0-35.9) 08/06/19 12:30 RDW 15.1 % (11.9-15.9) 08/06/19 12:30 Plt Count 176 K/MM3 (134-434) 08/06/19 12:30 MPV 7.8 fl (7.5-11.1) 08/06/19 12:30 Absolute Neuts (auto) 6.9 K/mm3 (1.5-8.0) 08/06/19 12:30 Neutrophils % 74.6 % (42.8-82.8) 08/06/19 12:30 Lymphocytes % 16.3 % (8-40) D 08/06/19 12:30 Monocytes % 7.1 % (3.8-10.2) 08/06/19 12:30 Eosinophils % 1.5 % (0-4.5) 08/06/19 12:30 Basophils % 0.5 % (0-2.0) 08/06/19 12:30 Nucleated RBC % 0 % (0-0) 08/06/19 12:30 Sodium 148 mmol/L (136-145) H 08/06/19 05:10 Potassium 3.5 mmol/L (3.5-5.1) 08/06/19 05:10 Chloride 114 mmol/L (98-107) H 08/06/19 05:10 Carbon Dioxide 27 mmol/L (21-32) 08/06/19 05:10 Anion Gap 7 MMOL/L (8-16) L 08/06/19 05:10 BUN 29.0 mg/dL (7-18) H 08/06/19 05:10 Creatinine 0.8 mg/dL (0.55-1.3) 08/06/19 05:10 Est GFR (CKD-EPI)AfAm 114.93 08/06/19 05:10 Est GFR (CKD-EPI)NonAf 99.16 08/06/19 05:10 Random Glucose 92 mg/dL (74-106) 08/06/19 05:10 Lactic Acid 1.5 mmol/L (0.4-2.0) 08/05/19 21:18 Calcium 7.7 mg/dL (8.5-10.1) L 08/06/19 05:10 Phosphorus 2.4 mg/dL (2.5-4.9) L 08/06/19 05:10 Magnesium 1.7 mg/dL (1.8-2.4) L 08/06/19 05:10 Total Bilirubin 0.4 mg/dL (0.2-1) 08/06/19 05:10 AST 9 U/L (15-37) L 08/06/19 05:10 ALT 10 U/L (13-61) L 08/06/19 05:10 Alkaline Phosphatase 55 U/L (45-117) 08/06/19 05:10 Troponin I < 0.02 ng/ml (0.00-0.05) 08/05/19 16:28 Total Protein 5.2 g/dl (6.4-8.2) L 08/06/19 05:10 Albumin 2.4 g/dl (3.4-5.0) L 08/06/19 05:10 Lipase 151 U/L (73-393) 08/05/19 16:28 Current Medications Generic Name Dose Route Start Last Admin Trade Name Freq PRN Reason Stop Dose Admin Ascorbic Acid 500 mg 08/06/19 10:00 08/06/19 10:30 Vitamin C - PO Not Given DAILY [facility] Cholecalciferol 1,000 unit 08/07/19 10:00 Vitamin D3 - PO MoWeFr@1000 [facility] Ferrous Sulfate 325 mg 08/05/19 22:00 08/06/19 10:30 Feosol - PO Not Given BID GIA Fluticasone Propionate 2 spray 08/06/19 10:00 08/06/19 10:30 Flonase - NS Not Given DAILY [facility] Sodium Chloride 1,000 mls @ 0 mls/hr 08/05/19 19:15 08/05/19 20:15 Normal Saline - IV 1,000 mls/hr ASDIR GIA Administration Wide Open Pantoprazole Sodium 80 mg/ 100 mls @ 10 mls/hr 08/05/19 20:30 08/06/19 10:24 Sodium Chloride IVPB 10 mls/hr Q10H GIA Administration 8 MG/HR Dextrose/Lactated Ringer's 1,000 mls @ 100 mls/hr 08/05/19 20:30 08/06/19 12: 30 D5-Lr - IV 100 mls/hr ASDIR GIA Administration Ceftriaxone Sodium 1 gm/ 50 mls @ 100 mls/hr 08/06/19 14:30 Dextrose IVPB DAILY GIA Metronidazole 500 mg in 100 mls @ 100 mls/hr 08/06/19 18:00 Flagyl 500mg Premixed Ivpb - IVPB Q8H-IV GIA Latanoprost 1 drop 08/05/19 22:00 08/05/19 23:21 Xalatan 0.005% Eye Drops - OS 1 drop HS GIA Administration Metoprolol Tartrate 12.5 mg 08/05/19 22:00 08/06/19 10:30 Lopressor - PO Not Given BID GIA Multivitamins/Minerals/Vitamin C 1 tab 08/06/19 10:00 08/06/19 10:30 Tab-A-Vit - PO Not Given DAILY [facility] Prednisolone Acetate 1 drop 08/05/19 22:00 08/06/19 05:20 Pred Forte 1% - OD 1 drop TID GIA Administration Constitutional: Yes: Calm Eyes: Yes: Conjunctiva Clear HENT: Yes: Atraumatic Neck: Yes: Trachea Midline Cardiovascular: Yes: Regular Rate and Rhythm, Murmur (3/6 holosystolic murmur) Respiratory: Yes: CTA Bilaterally Gastrointestinal Inspection: Yes: WNL ...Auscultate: Yes: Normoactive Bowel Sounds ...Palpate: Yes: Soft, Other (nontender) ...Rectal Exam: Yes: Guaiac Negative (iron stained guaiac negative stool) Labs: CBC, BMP 08/06/19 12:30 08/06/19 05:10 INR, PTT INR 1.06 (0.83-1.09) 08/05/19 16:28 Problem List - Problems (1) Hematemesis/vomiting blood Code(s): K92.0 - HEMATEMESIS (2) Mitral regurgitation Code(s): I34.0 - NONRHEUMATIC MITRAL (VALVE) INSUFFICIENCY (3) Tricuspid regurgitation Code(s): I07.1 - RHEUMATIC TRICUSPID INSUFFICIENCY (4) Cerebral palsy Code(s): G80.9 - CEREBRAL PALSY, UNSPECIFIED Qualifiers: Cerebral palsy type: unspecified type Qualified Code(s): G80.9 - Cerebral palsy, unspecified (5) GI bleed Code(s): K92.2 - GASTROINTESTINAL HEMORRHAGE, UNSPECIFIED (6) Gastroesophageal laceration-hemorrhage syndrome Code(s): K22.6 - GASTRO-ESOPHAGEAL LACERATION-HEMORRHAGE SYNDROME (7) Hiatal hernia with GERD and esophagitis Code(s): K44.9 - DIAPHRAGMATIC HERNIA WITHOUT OBSTRUCTION OR GANGRENE; K21.0 - GASTRO-ESOPHAGEAL REFLUX DISEASE WITH ESOPHAGITIS (8) Shanae-Richard tear Code(s): K22.6 - GASTRO-ESOPHAGEAL LACERATION-HEMORRHAGE SYNDROME (9) Organoaxial gastric volvulus Code(s): K31.89 - OTHER DISEASES OF STOMACH AND DUODENUM (10) Vomiting Code(s): R11.10 - VOMITING, UNSPECIFIED Qualifiers: Vomiting type: unspecified Vomiting Intractability: non-intractable Nausea presence: unspecified Qualified Code(s): R11.10 - Vomiting, unspecified Assessment/Plan Assessment: - Recurrent but self limited bleeding is most likely again from severe GERD above his large hiatal hernia. I again discussed the [facility] risks of developing esophageal ulceration with life threatening hemorrhage and perforation, for aspiration pneumonia and possibly esophageal cancer through Hensley's esophagus which fortunately has not yet become evident. Surgery was again discussed. - Propensity to organoaxial volvulus- if vomiting persists he may need an EGD to detort this Plan: - PPI drip to maximize acid control - Antireflux measures - Wilmer of clear liquids - If bleeding or vomiting persist/ ensue then a repeat EGDF will need to be considered. The [facility] GI service will assume GI care tomorrow.
[2019-08-06] MEDS ORDERED: cefTRIAXone SODIUM 1 GM VIAL ONE (14:53)
[2019-08-06] MEDS: CEFTRIAXONE 1 GM in DEXTROSE 5%-WATER - 50 ML IVPB SCH (15:26)
--- NOTE | 2019-08-06 16:53 | PN ---
Physical Exam: SUBJECTIVE: Patient seen and examined at the bedside. laying in bed, comfortable a rest. family at the bedside. aide also at bedside. OBJECTIVE: Patient is a 58 year old male with a past medical history significant for cerebral palsy, seizures, HTN, anemia, MVP, respiratory failure, pneumonia, mitral regurg, paroxysmal a.fib, diastolic dysfunction, cerebral palsy, GERD, dysphagia. Past hospitalized for gi bleed s/p EGD and prbcs. Last admitted on 12/2018. Returns [facility] for one episode of coffee [facility] emesis at the [facility]. Vital Signs Period Temp Pulse Resp BP Sys/Pimentel Pulse Ox Last 24 Hr 97.9 F-98.7 F 103-115 17-19 93-143/55-82 96-97 GENERAL: awake, alert, in no acute distress, hx of cerebral palsy HEAD: Normal with no signs of trauma. EYES: Pupils equal, round and reactive to light, extraocular movements intact, sclera anicteric, conjunctiva clear. No lid lag. EARS, NOSE, THROAT: Ears normal, nares patent, oropharynx clear without exudates. Moist mucous membranes. NECK: Normal range of motion, supple without lymphadenopathy, JVD, or masses. LUNGS: Breath sounds equal, clear to auscultation bilaterally. No wheezes, and no crackles. No accessory muscle use. HEART: mild tachycardia ABDOMEN: Soft, nontender, not distended, normoactive bowel sounds, no guarding, no rebound, no masses. No hepatomegaly or splenomegaly. MUSCULOSKELETAL: Normal range of motion at all joints. No bony deformities or tenderness. No CVA tenderness. UPPER EXTREMITIES: . No peripheral edema. LOWER EXTREMITIES: No peripheral edema. NEUROLOGICAL: Normal speech. Normal gait. Laboratory Results - last 24 hr 08/05/19 08/05/19 08/05/19 16:28 16:28 16:28 WBC 18.3 H RBC 4.40 Hgb 12.6 Hct 39.3 MCV 89.4 MCH 28.6 MCHC 32.0 RDW 14.4 D Plt Count 297 D MPV 8.4 Absolute Neuts (auto) 16.1 H Neutrophils % 87.8 H D Lymphocytes % 7.1 L D Monocytes % 4.6 Eosinophils % 0.1 D Basophils % 0.4 Nucleated RBC % 0 PT with INR 12.50 INR 1.06 PTT (Actin FS) 25.4 VBG pH POC VBG pCO2 POC VBG pO2 VBG HCO3 VBG O2 Sat (Skye) VBG Base Excess Sodium Potassium Chloride Carbon Dioxide Anion Gap BUN Creatinine Est GFR (CKD-EPI)AfAm Est GFR (CKD-EPI)NonAf Random Glucose Lactic Acid Calcium Phosphorus Magnesium Total Bilirubin AST ALT Alkaline Phosphatase Troponin I Total Protein Albumin Lipase Stool Occult Blood Negative Anti-A Titer Blood Type Antibody Screen 08/05/19 08/05/19 08/05/19 16:28 16:28 16:28 WBC RBC Hgb Hct MCV MCH MCHC RDW Plt Count MPV Absolute Neuts (auto) Neutrophils % Lymphocytes % Monocytes % Eosinophils % Basophils % Nucleated RBC % PT with INR INR PTT (Actin FS) VBG pH POC VBG pCO2 POC VBG pO2 VBG HCO3 VBG O2 Sat (Skye) VBG Base Excess Sodium 144 Potassium 4.3 Chloride 104 Carbon Dioxide 30 Anion Gap 11 BUN 48.9 H Creatinine 0.9 Est GFR (CKD-EPI)AfAm 109.50 Est GFR (CKD-EPI)NonAf 94.48 Random Glucose 137 H Lactic Acid Calcium 9.3 Phosphorus Magnesium 1.9 Total Bilirubin 0.3 AST 20 ALT 16 Alkaline Phosphatase 92 Troponin I < 0.02 Total Protein 8.1 Albumin 3.6 Lipase 151 Stool Occult Blood Anti-A Titer Cancelled Blood Type Cancelled Antibody Screen Cancelled 08/05/19 08/05/19 08/05/19 16:53 16:53 21:18 WBC RBC Hgb Hct MCV MCH MCHC RDW Plt Count MPV Absolute Neuts (auto) Neutrophils % Lymphocytes % Monocytes % Eosinophils % Basophils % Nucleated RBC % PT with INR INR PTT (Actin FS) VBG pH 7.42 H POC VBG pCO2 42.4 POC VBG pO2 62.9 H VBG HCO3 27.3 VBG O2 Sat (Skye) 91.0 H VBG Base Excess 3.0 H Sodium Potassium Chloride Carbon Dioxide Anion Gap BUN Creatinine Est GFR (CKD-EPI)AfAm Est GFR (CKD-EPI)NonAf Random Glucose Lactic Acid 2.8 H* 1.5 Calcium Phosphorus Magnesium Total Bilirubin AST ALT Alkaline Phosphatase Troponin I Total Protein Albumin Lipase Stool Occult Blood Anti-A Titer Blood Type Antibody Screen 08/06/19 08/06/19 08/06/19 00:05 05:10 05:10 WBC 9.5 6.6 RBC 2.91 L 2.77 L Hgb 8.5 L 8.3 L Hct 25.9 L D 24.5 L MCV 89.0 88.3 MCH 29.0 30.0 MCHC 32.6 34.0 RDW 14.7 14.6 Plt Count 177 D 176 MPV 8.1 7.9 Absolute Neuts (auto) 6.4 4.5 Neutrophils % 67.5 D 67.8 Lymphocytes % 21.8 D 20.7 Monocytes % 10.1 D 9.8 Eosinophils % 0.3 D 1.1 D Basophils % 0.3 0.6 Nucleated RBC % 0 0 PT with INR INR PTT (Actin FS) VBG pH POC VBG pCO2 POC VBG pO2 VBG HCO3 VBG O2 Sat (Skye) VBG Base Excess Sodium 148 H Potassium 3.5 Chloride 114 H Carbon Dioxide 27 Anion Gap 7 L BUN 29.0 H Creatinine 0.8 Est GFR (CKD-EPI)AfAm 114.93 Est GFR (CKD-EPI)NonAf 99.16 Random Glucose 92 Lactic Acid Calcium 7.7 L Phosphorus 2.4 L Magnesium 1.7 L Total Bilirubin 0.4 AST 9 L ALT 10 L Alkaline Phosphatase 55 Troponin I Total Protein 5.2 L Albumin 2.4 L Lipase Stool Occult Blood Anti-A Titer Blood Type Antibody Screen 08/06/19 08/06/19 07:20 12:30 WBC 9.2 RBC 2.94 L Hgb 8.5 L Hct 26.1 L MCV 89.0 MCH 29.0 MCHC 32.6 RDW 15.1 Plt Count 176 MPV 7.8 Absolute Neuts (auto) 6.9 Neutrophils % 74.6 Lymphocytes % 16.3 D Monocytes % 7.1 Eosinophils % 1.5 Basophils % 0.5 Nucleated RBC % 0 PT with INR INR PTT (Actin FS) VBG pH POC VBG pCO2 POC VBG pO2 VBG HCO3 VBG O2 Sat (Skye) VBG Base Excess Sodium Potassium Chloride Carbon Dioxide Anion Gap BUN Creatinine Est GFR (CKD-EPI)AfAm Est GFR (CKD-EPI)NonAf Random Glucose Lactic Acid Calcium Phosphorus Magnesium Total Bilirubin AST ALT Alkaline Phosphatase Troponin I Total Protein Albumin Lipase Stool Occult Blood Anti-A Titer Blood Type B POSITIVE Antibody Screen Negative Active Medications Generic Name Dose Route Start Last Admin Trade Name Freq PRN Reason Stop Dose Admin Ascorbic Acid 500 mg 08/06/19 10:00 08/06/19 10:30 Vitamin C - PO Not Given DAILY [facility] Cholecalciferol 1,000 unit 08/07/19 10:00 Vitamin D3 - PO MoWeFr@1000 GIA Ferrous Sulfate 325 mg 08/05/19 22:00 08/06/19 10:30 Feosol - PO Not Given BID GIA Fluticasone Propionate 2 spray 08/06/19 10:00 08/06/19 10:30 Flonase - NS Not Given DAILY [facility] Sodium Chloride 1,000 mls @ 0 mls/hr 08/05/19 19:15 08/05/19 20:15 Normal Saline - IV 1,000 mls/hr ASDIR GIA Administration Wide Open Pantoprazole Sodium 80 mg/ 100 mls @ 10 mls/hr 08/05/19 20:30 08/06/19 10:24 Sodium Chloride IVPB 10 mls/hr Q10H GIA Administration 8 MG/HR Dextrose/Lactated Ringer's 1,000 mls @ 100 mls/hr 08/05/19 20:30 08/06/19 12: 30 D5-Lr - IV 100 mls/hr ASDIR GIA Administration Ceftriaxone Sodium 1 gm/ 50 mls @ 100 mls/hr 08/06/19 14:30 08/06/19 15:26 Dextrose IVPB 100 mls/hr DAILY GIA Administration Metronidazole 500 mg in 100 mls @ 100 mls/hr 08/06/19 18:00 Flagyl 500mg Premixed Ivpb - IVPB Q8H-IV GIA Latanoprost 1 drop 08/05/19 22:00 08/05/19 23:21 Xalatan 0.005% Eye Drops - OS 1 drop HS GIA Administration Metoprolol Tartrate 12.5 mg 08/05/19 22:00 08/06/19 10:30 Lopressor - PO Not Given BID [facility] Multivitamins/Minerals/Vitamin C 1 tab 08/06/19 10:00 08/06/19 10:30 Tab-A-Vit - PO Not Given DAILY [facility] Prednisolone Acetate 1 drop 08/05/19 22:00 08/06/19 15:26 Pred Forte 1% - OD 1 drop TID GIA Administration ASSESSMENT/PLAN: Problem List - Problems (1) Acute blood loss anemia Assessment/Plan: significant blood loss since admission, a/e/b drop in hmg/hct. he is s/p 1 episode of coffee ground emesis in [facility] monitor hmg/hct. transfuse if hmg <8. Code(s): D62 - ACUTE POSTHEMORRHAGIC ANEMIA (2) Hematemesis/vomiting blood Assessment/Plan: one episode reported EGD per GI monitor cbc, which has dropped today since admission monitor for further bleeding Code(s): K92.0 - HEMATEMESIS (3) Cerebral palsy Assessment/Plan: by history. from [facility]. [facility] aide and patient's mom both state that pt mentation is at baseline. Code(s): G80.9 - CEREBRAL PALSY, UNSPECIFIED Qualifiers: Cerebral palsy type: unspecified type Qualified Code(s): G80.9 - Cerebral palsy, unspecified (4) Lactic acid acidosis Assessment/Plan: on ceftriaxone and flagy pending cultures lactic acid resolved Code(s): E87.2 - ACIDOSIS (5) Mitral regurgitation Code(s): I34.0 - NONRHEUMATIC MITRAL (VALVE) INSUFFICIENCY (6) Vomiting Assessment/Plan: no further vomiting monitor output started on clears per gi on protonix drip Code(s): R11.10 - VOMITING, UNSPECIFIED Qualifiers: Vomiting type: unspecified Vomiting Intractability: non-intractable Nausea presence: unspecified Qualified Code(s): R11.10 - Vomiting, unspecified (7) Prophylactic measure Code(s): Z29.9 - ENCOUNTER FOR PROPHYLACTIC MEASURES, UNSPECIFIED Visit type - Emergency Visit Emergency Visit: Yes ED Registration Date: 08/05/19 Care time: The patient presented to the Emergency Department on the above date and was hospitalized for further evaluation of their emergent condition. - New Patient This patient is new to me today: Yes Date on this admission: 08/06/19 - Critical Care Critical Care patient: No - Discharge Referral Referred to [facility] Med P.C.: No
[2019-08-06 17:43] LABS: BASO % 0.5 % (0-2.0); HEMATOCRIT 25.8 % (35.4-49); HEMOGLOBIN 8.4 GM/dL (11.7-16.9); LYMPH % 20.2 % (8-40); MCH 29.1 pg (25.7-33.7); MCHC 32.5 g/dl (32.0-35.9); MEAN CELL VOLUME 89.6 fl (80-96); MONO % 7.4 % (3.8-10.2); NEUT % 69.9 % (42.8-82.8); PLATELET COUNT 166 K/MM3 (134-434); RBC 2.88 M/mm3 (4.00-5.60); RDW 15.1 % (11.9-15.9); WHITE BLOOD COUNT 8.3 K/mm3 (4.0-10.0)
[2019-08-06] MEDS ORDERED: AMPICILLIN NA/SULBACTAM NA 3 GM in SODIUM CHLORIDE 100 ML IVPB SCH (18:00)
--- NOTE | 2019-08-06 18:58 | CONS ---
DATE OF CONSULTATION: REQUESTED BY: Hospitalist service. This is a 59-year-old man who lives in a assisted. He is non-ambulatory and non-verbal. He has a history of cerebral palsy. He has had recurrent upper GI bleeds related to severe reflux esophagitis and a large hiatal hernia. He was sent from the facility, when he had an episode of vomiting of blackish material yesterday. He was brought to the emergency room, where he was noted to have a low-grade fever of 100.4. He had an elevated white count of 18.3 and a lactic acid of 2.8. He had a chest x-ray that was unchanged from his baseline with left pleural calcifications, and he was started on antibiotic for possible aspiration. He has had a repeat CBC done that showed a drop in his hemoglobin from 12.6 to 8.5, which has been stable since that time. He has had no further vomiting. He is nonverbal and aide at the bedside reports that he is at his baseline mental status. He has had no further fevers and he looks quite comfortable. Past medical history is notable for seizures. He has a history of mental retardation, cerebral palsy, atrial fibrillation, aortic insufficiency, hypertension, mitral insufficiency, pulmonary hypertension. He has had pneumonia in the past. He has a history of GERD, hiatal hernia, peptic ulcer disease, history of Shanae-Richard bleed in the past, shingles, glaucoma, and he has apparently had a cardiology evaluation in the past that apparently revealed that he needed a heart valve replacement in order to have any surgery. He has no known drug allergies. His medications at the assisted includes fluticasone, prednisolone eyedrops, Xalatan eyedrops, Protonix, ferrous sulfate, calcium, whey protein, multivitamins, metoprolol, vitamin C, vitamin D, and MiraLax. Per the aide from the living facility, there are 11 adults who live there and no one is sick. She says there are no fevers, no respiratory illnesses circulating at the facility. PHYSICAL EXAMINATION: General: He is resting comfortably. Vital Signs: Temperature is 97.9. Pulse of 105. Blood pressure 105/57. Respiratory rate 18. He weighs 52 kg. HEENT: Normocephalic. He will not open his mouth. Lungs: Clear to auscultation. Heart: A regular rate and rhythm. He has a 3/6 holosystolic murmur. Abdomen: Soft, nontender. Extremities: Without edema. In summary, this is a 59-year-old man who I suspect has recurrent GI bleed. Leukocytosis and lactic acidosis could be due to the bleed. He had an episode of vomiting with fever. He may have aspirated. Would switch to Unasyn. He not been in the hospital for at least 6 months. The case was discussed with the hospitalist. Followup with GI. Zach [id number]
[2019-08-06 19:22] LABS: BASO % 0.6 % (0-2.0); EOS % 1.9 % (0-4.5); HEMATOCRIT 26.7 % (35.4-49); HEMOGLOBIN 8.6 GM/dL (11.7-16.9); LYMPH % 23.1 % (8-40); MCH 29.2 pg (25.7-33.7); MCHC 32.4 g/dl (32.0-35.9); MEAN CELL VOLUME 90.1 fl (80-96); MEAN PLT VOLUME 8.1 fl (7.5-11.1); MONO % 7.2 % (3.8-10.2); NEUT % 67.2 % (42.8-82.8); PLATELET COUNT 179 K/MM3 (134-434); RBC 2.96 M/mm3 (4.00-5.60); RDW 15.2 % (11.9-15.9); WHITE BLOOD COUNT 9.3 K/mm3 (4.0-10.0)
[2019-08-06 21:09] LABS: PH,URINE 8.5 (5.0-8.0); URINE APPEARANCE CLEAR; URINE BILIRUBIN NEGATIVE (NEGATIVE); URINE COLOR YELLOW; URINE GLUCOSE (UA) NEGATIVE (NEGATIVE); URINE KETONE NEGATIVE (NEGATIVE); URINE LEUK ESTERASE NEGATIVE (NEGATIVE); URINE NITRITE NEGATIVE (NEGATIVE); URINE PROTEIN NEGATIVE (NEGATIVE); URINE UROBILINOGEN 0.2 mg/dL (0.2-1.0)
[2019-08-06] MEDS: LATANOPROST 0.005% OPHTH SOLN 2.5ML BOTTLE OS SCH (22:49)
[2019-08-07] MEDS: DEXTROSE 5%-LACTATED RINGERS 1,000 ML IV SCH ×3 (02:02→21:31)
[2019-08-07] MEDS: PANTOPRAZOLE SODIUM 80 MG in SODIUM CHLORIDE 100 ML IVPB SCH ×3 (02:32→21:47)
[2019-08-07] MEDS: prednisoLONE ACETATE 1% OPHTH SUSP 5 ML BOTTLE OD SCH ×3 (06:57→21:35)
[2019-08-07 09:08] LABS: BASO % 0.4 % (0-2.0); EOS % 2.1 % (0-4.5); HEMOGLOBIN 9.3 GM/dL (11.7-16.9); LYMPH % 23.8 % (8-40); MCH 29.8 pg (25.7-33.7); MCHC 33.3 g/dl (32.0-35.9); MEAN CELL VOLUME 89.4 fl (80-96); MEAN PLT VOLUME 7.6 fl (7.5-11.1); MONO % 8.1 % (3.8-10.2); NEUT % 65.6 % (42.8-82.8); PLATELET COUNT 205 K/MM3 (134-434); RBC 3.13 M/mm3 (4.00-5.60); RDW 14.9 % (11.9-15.9); WHITE BLOOD COUNT 8.6 K/mm3 (4.0-10.0)
[2019-08-07 09:43] LABS: BILIRUBIN,TOTAL 0.6 mg/dL (0.2-1); BLOOD UREA NITROGEN 9.4 mg/dL (7-18); CALCIUM 8.1 mg/dL (8.5-10.1); CREATININE 0.8 mg/dL (0.55-1.3); POTASSIUM 3.4 mmol/L (3.5-5.1); TOT PROT 6.4 g/dl (6.4-8.2)
[2019-08-07] MEDS ORDERED: DEXTROSE 5%-WATER - 50 ML IVPB ONE (09:43)
[2019-08-07] MEDS ORDERED: cefTRIAXone SODIUM 1 GM VIAL ONE (09:43)
[2019-08-07] MEDS: CHOLECALCIFEROL (VIT D3) 1,000 UNIT (25 MCG) TABLET PO SCH (09:58)
[2019-08-07] MEDS: METOPROLOL TARTRATE 25 MG TABLET (FP) PO SCH ×2 (09:58→21:32)
[2019-08-07] MEDS: ASCORBIC ACID 500 MG TABLET (FP) PO SCH (09:58)
[2019-08-07] MEDS: MULTIVITAMINS (DAILY MVI) TABLET (FP) PO SCH (09:58)
[2019-08-07] MEDS: FERROUS SO4 325 MG TABLET (FP) PO SCH ×2 (09:58→21:32)
[2019-08-07] MEDS: CEFTRIAXONE 1 GM in DEXTROSE 5%-WATER - 50 ML IVPB SCH (09:59)
[2019-08-07] MEDS ORDERED: KCL 10 MEQ IVPB 10 MEQ/100 ML INFUS.BAG IVPB SCH (10:00)
--- NOTE | 2019-08-07 10:54 | PN ---
Progress Note (short form) - Note Progress Note: at baseline mental status per aide at bedside, nonverbal Vital Signs Period Temp Pulse Resp BP Sys/Pimentel Pulse Ox Last 24 Hr 96.8 F-98.8 F 93-114 93-142/59-70 96 cor-rrr lungs clear, decreased bs at bases abd soft,nt ext no edema CBC, BMP 08/07/19 08:50 08/07/19 08:50 Microbiology 08/05/19 16:53 Blood - Peripheral Venous Blood Culture - Preliminary NO GROWTH OBTAINED AFTER 24 HOURS, INCUBATION TO CONTINUE FOR 4 DAYS. 08/05/19 16:53 Blood - Peripheral Venous Blood Culture - Preliminary NO GROWTH OBTAINED AFTER 24 HOURS, INCUBATION TO CONTINUE FOR 4 DAYS. imp/reccd suspect UGI bleed with coffee ground emesis-hgb stable leukocytosis and lactic acidosis could be due to the above episode vomiting with fever- ?aspiration on rocephin/flagyl- no unasyn available day #2 antiibotics can switch to po augmentin to complete 5 days total please call back if needed Problem List - Problems (1) GI bleed Code(s): K92.2 - GASTROINTESTINAL HEMORRHAGE, UNSPECIFIED (2) Leukocytosis Code(s): D72.829 - ELEVATED WHITE BLOOD CELL COUNT, UNSPECIFIED (3) Lactic acid acidosis Code(s): E87.2 - ACIDOSIS (4) Aspiration pneumonia Code(s): J69.0 - PNEUMONITIS DUE TO INHALATION OF FOOD AND VOMIT
[2019-08-07] MEDS: FLUTICASONE PROP 0.05% 16 GM NASAL SPRAY NS SCH (12:24)
[2019-08-07] MEDS ORDERED: PT OWN MED DRAWER 7, Y5N ONE ×2 (12:43→21:46)
--- NOTE | 2019-08-07 18:27 | PN ---
Physical Exam: SUBJECTIVE: Patient seen and examined at the bedside. tolerating clears. no further vomiting. OBJECTIVE: Patient is a 58 year old male with a past medical history significant for cerebral palsy, seizures, HTN, anemia, MVP, respiratory failure, pneumonia, mitral regurg, paroxysmal a.fib, diastolic dysfunction, cerebral palsy, GERD, dysphagia. Past hospitalized for gi bleed s/p EGD and prbcs. Last admitted on 12/2018. Returns to [facility] for one episode of coffee ground emesis at the [facility]. continues on the protonix drip, no further episodes of vomiting, hmg/hct stable. Vital Signs Period Temp Pulse Resp BP Sys/Pimentel Pulse Ox Last 24 Hr 96.8 F-99.6 F 93-114 18-20 96-142/59-68 96 GENERAL: awake, alert, in no acute distress, hx of cerebral palsy HEAD: Normal with no signs of trauma. EYES: Pupils equal, round and reactive to light, extraocular movements intact, sclera anicteric, conjunctiva clear. No lid lag. EARS, NOSE, THROAT: Ears normal, nares patent, oropharynx clear without exudates. Moist mucous membranes. NECK: Normal range of motion, supple without lymphadenopathy, JVD, or masses. LUNGS: Breath sounds equal, clear to auscultation bilaterally. No wheezes, and no crackles. No accessory muscle use. HEART: mild tachycardia ABDOMEN: Soft, nontender, not distended, normoactive bowel sounds, no guarding, no rebound, no masses. No hepatomegaly or splenomegaly. MUSCULOSKELETAL: Normal range of motion at all joints. No bony deformities or tenderness. No CVA tenderness. UPPER EXTREMITIES: . No peripheral edema. LOWER EXTREMITIES: No peripheral edema. NEUROLOGICAL: Normal speech. Normal gait. Laboratory Results - last 24 hr 08/06/19 08/06/19 08/06/19 18:40 18:45 20:49 WBC 9.3 RBC 2.96 L Hgb 8.6 L Hct 26.7 L MCV 90.1 MCH 29.2 MCHC 32.4 RDW 15.2 Plt Count 179 MPV 8.1 Absolute Neuts (auto) 6.2 Neutrophils % 67.2 Lymphocytes % 23.1 Monocytes % 7.2 Eosinophils % 1.9 Basophils % 0.6 Nucleated RBC % 0 Retic Count Sodium Potassium Chloride Carbon Dioxide Anion Gap BUN Creatinine Est GFR (CKD-EPI)AfAm Est GFR (CKD-EPI)NonAf Random Glucose Lactic Acid 0.9 Calcium Magnesium Iron TIBC Iron Saturation Unsaturated IBC Ferritin Total Bilirubin AST ALT Alkaline Phosphatase Total Protein Albumin Urine Color Yellow Urine Appearance Clear Urine pH 8.5 H Ur Specific Jasper 1.017 Urine Protein Negative Urine Glucose (UA) Negative Urine Ketones Negative Urine Blood Negative Urine Nitrite Negative Urine Bilirubin Negative Urine Urobilinogen 0.2 Ur Leukocyte Esterase Negative 08/07/19 08/07/19 08/07/19 07:00 08:50 08:50 WBC 8.6 RBC 3.13 L Hgb 9.3 L Hct 28.0 L MCV 89.4 MCH 29.8 MCHC 33.3 RDW 14.9 Plt Count 205 MPV 7.6 Absolute Neuts (auto) 5.6 Neutrophils % 65.6 Lymphocytes % 23.8 Monocytes % 8.1 Eosinophils % 2.1 Basophils % 0.4 Nucleated RBC % 0 Retic Count 2.61 H Sodium 139 Potassium 3.4 L Chloride 105 Carbon Dioxide 25 Anion Gap 9 BUN 9.4 Creatinine 0.8 Est GFR (CKD-EPI)AfAm 114.93 Est GFR (CKD-EPI)NonAf 99.16 Random Glucose 108 H Lactic Acid Calcium 8.1 L Magnesium Iron 18 L TIBC 312 Iron Saturation 5 L Unsaturated IBC 294 H Ferritin 13.5 Total Bilirubin 0.6 AST 15 ALT 12 L Alkaline Phosphatase 69 Total Protein 6.4 Albumin 3.0 L Urine Color Urine Appearance Urine pH Ur Specific Jasper Urine Protein Urine Glucose (UA) Urine Ketones Urine Blood Urine Nitrite Urine Bilirubin Urine Urobilinogen Ur Leukocyte Esterase 08/07/19 08:50 WBC RBC Hgb Hct MCV MCH MCHC RDW Plt Count MPV Absolute Neuts (auto) Neutrophils % Lymphocytes % Monocytes % Eosinophils % Basophils % Nucleated RBC % Retic Count Sodium Potassium Chloride Carbon Dioxide Anion Gap BUN Creatinine Est GFR (CKD-EPI)AfAm Est GFR (CKD-EPI)NonAf Random Glucose Lactic Acid Calcium Magnesium 1.8 Iron TIBC Iron Saturation Unsaturated IBC Ferritin Total Bilirubin AST ALT Alkaline Phosphatase Total Protein Albumin Urine Color Urine Appearance Urine pH Ur Specific Jasper Urine Protein Urine Glucose (UA) Urine Ketones Urine Blood Urine Nitrite Urine Bilirubin Urine Urobilinogen Ur Leukocyte Esterase Active Medications Generic Name Dose Route Start Last Admin Trade Name Freq PRN Reason Stop Dose Admin Ascorbic Acid 500 mg 08/06/19 10:00 08/07/19 09:58 Vitamin C - PO 500 mg DAILY GIA Administration Cholecalciferol 1,000 unit 08/07/19 10:00 08/07/19 09:58 Vitamin D3 - PO 1,000 unit MoWeFr@1000 GIA Administration Ferrous Sulfate 325 mg 08/05/19 22:00 08/07/19 09:58 Feosol - PO 325 mg BID GIA Administration Fluticasone Propionate 2 spray 08/06/19 10:00 08/07/19 12:24 Flonase - NS Not Given DAILY GIA Pantoprazole Sodium 80 mg/ 100 mls @ 10 mls/hr 08/05/19 20:30 08/07/19 12:35 Sodium Chloride IVPB 10 mls/hr Q10H GIA Administration 8 MG/HR Dextrose/Lactated Ringer's 1,000 mls @ 100 mls/hr 08/05/19 20:30 08/07/19 18: 12 D5-Lr - IV 100 mls/hr ASDIR GIA Administration Ceftriaxone Sodium 1 gm/ 50 mls @ 100 mls/hr 08/06/19 14:30 08/07/19 09:59 Dextrose IVPB 100 mls/hr DAILY GIA Administration Metronidazole 500 mg in 100 mls @ 100 mls/hr 08/06/19 18:00 08/07/19 18:13 Flagyl 500mg Premixed Ivpb - IVPB 100 mls/hr Q8H-IV GIA Administration Latanoprost 1 drop 08/05/19 22:00 08/06/19 22:49 Xalatan 0.005% Eye Drops - OS 1 drop HS GIA Administration Metoprolol Tartrate 12.5 mg 08/05/19 22:00 08/07/19 09:58 Lopressor - PO 12.5 mg BID GIA Administration Multivitamins/Minerals/Vitamin C 1 tab 08/06/19 10:00 08/07/19 09:58 Tab-A-Vit - PO 1 tab DAILY GIA Administration Prednisolone Acetate 1 drop 08/05/19 22:00 08/07/19 15:38 Pred Forte 1% - OD 1 drop TID GIA Administration ASSESSMENT/PLAN: Problem List - Problems (1) Acute blood loss anemia Assessment/Plan: significant blood loss since admission, a/e/b drop in hmg/hct. he is s/p 1 episode of coffee ground emesis in [facility] monitor hmg/hct. transfuse if hmg <8. Code(s): D62 - ACUTE POSTHEMORRHAGIC ANEMIA (2) Hematemesis/vomiting blood Assessment/Plan: one episode reported EGD per GI monitor cbc, which has dropped since admission monitor for further bleeding Code(s): K92.0 - HEMATEMESIS (3) Cerebral palsy Assessment/Plan: by history. from [facility]. [facility] aide and patient's mom both state that pt mentation is at baseline. Code(s): G80.9 - CEREBRAL PALSY, UNSPECIFIED Qualifiers: Cerebral palsy type: unspecified type Qualified Code(s): G80.9 - Cerebral palsy, unspecified (4) Lactic acid acidosis Assessment/Plan: on ceftriaxone and flagy pending cultures, convert to oral antibiotics on d/c. lactic acid resolved Code(s): E87.2 - ACIDOSIS (5) Mitral regurgitation Code(s): I34.0 - NONRHEUMATIC MITRAL (VALVE) INSUFFICIENCY (6) Vomiting Assessment/Plan: no further vomiting monitor output tolerating clears on protonix drip Code(s): R11.10 - VOMITING, UNSPECIFIED Qualifiers: Vomiting type: unspecified Vomiting Intractability: non-intractable Nausea presence: unspecified Qualified Code(s): R11.10 - Vomiting, unspecified (7) Palliative care encounter Assessment/Plan: per mother, her wishes are for patient to be a dnr/dni. no hcp on file. palliative care consulted to discuss goals of care. pt is a resident at [facility]. Code(s): Z51.5 - ENCOUNTER FOR PALLIATIVE CARE (8) Prophylactic measure Code(s): Z29.9 - ENCOUNTER FOR PROPHYLACTIC MEASURES, UNSPECIFIED Visit type - Emergency Visit Emergency Visit: Yes ED Registration Date: 08/05/19 Care time: The patient presented to the Emergency Department on the above date and was hospitalized for further evaluation of their emergent condition. - New Patient This patient is new to me today: No - Critical Care Critical Care patient: No - Discharge Referral Referred to [facility] No
[2019-08-07] MEDS: LATANOPROST 0.005% OPHTH SOLN 2.5ML BOTTLE OS SCH (21:35)
[2019-08-08] MEDS: prednisoLONE ACETATE 1% OPHTH SUSP 5 ML BOTTLE OD SCH ×3 (05:54→22:36)
--- NOTE | 2019-08-08 08:43 | PN ---
Progress Note, Physician Chief Complaint: Non verbal. Mother at bedside, said he had a good night. History of Present Illness: Patient is a 58 year old male with a past medical history significant for cerebral palsy, seizures, HTN, anemia, MVP, respiratory failure, pneumonia, mitral regurg, paroxysmal a.fib, diastolic dysfunction, cerebral palsy, GERD, dysphagia. Past hospitalized for gi bleed s/p EGD and prbcs. Last admitted on 12/2018. Returns to [facility] for one episode of coffee ground emesis at the [facility]. continues on the protonix drip, no further episodes of vomiting, hmg/hct stable. - Current Medication List Current Medications: Active Medications Ascorbic Acid (Vitamin C -) 500 mg PO DAILY [facility] Last Admin: 08/07/19 09:58 Dose: 500 mg Cholecalciferol (Vitamin D3 -) 1,000 unit PO MoWeFr@1000 [facility] Last Admin: 08/07/19 09:58 Dose: 1,000 unit Ferrous Sulfate (Feosol -) 325 mg PO BID [facility] Last Admin: 08/07/19 21:32 Dose: 325 mg Fluticasone Propionate (Flonase -) 2 spray NS DAILY [facility] Last Admin: 08/07/19 12:24 Dose: Not Given Pantoprazole Sodium 80 mg/ (Sodium Chloride) 100 mls @ 10 mls/hr IVPB Q10H [facility] Last Admin: 08/07/19 21:47 Dose: 10 mls/hr Dextrose/Lactated Ringer's (D5-Lr -) 1,000 mls @ 100 mls/hr IV ASDIR [facility] Last Admin: 08/07/19 21:31 Dose: Not Given Ceftriaxone Sodium 1 gm/ (Dextrose) 50 mls @ 100 mls/hr IVPB DAILY [facility] Last Admin: 08/07/19 09:59 Dose: 100 mls/hr Metronidazole (Flagyl 500mg Premixed Ivpb -) 500 mg in 100 mls @ 100 mls/hr IVPB Q8H-IV [facility] Last Admin: 08/08/19 01:28 Dose: 100 mls/hr Latanoprost (Xalatan 0.005% Eye Drops -) 1 drop OS HS [facility] Last Admin: 08/07/19 21:35 Dose: 1 drop Metoprolol Tartrate (Lopressor -) 12.5 mg PO BID [facility] Last Admin: 08/07/19 21:32 Dose: 12.5 mg Multivitamins/Minerals/Vitamin C (Tab-A-Vit -) 1 tab PO DAILY [facility] Last Admin: 08/07/19 09:58 Dose: 1 tab Prednisolone Acetate (Pred Forte 1% -) 1 drop OD TID [facility] Last Admin: 08/08/19 05:54 Dose: 1 drop - Objective Vital Signs: Vital Signs Temperature 98.1 F 08/08/19 06:00 Pulse Rate 115 H 08/08/19 06:00 Respiratory Rate 20 08/08/19 06:00 Blood Pressure 135/60 08/08/19 06:00 O2 Sat by Pulse Oximetry (%) 98 08/07/19 21:00 Additional Findings/Remarks: GENERAL: Awake, alert, and fully oriented, in apparent distress. HEAD: Normal with no signs of trauma. EYES: haziness on right iris, sclera anicteric, conjunctiva clear. No lid lag. EARS, NOSE, THROAT: Ears normal, nares patent, oropharynx clear without exudates. Moist mucous membranes. NECK: Normal range of motion, supple without lymphadenopathy, JVD, or masses. LUNGS: Breath sounds equal, clear to auscultation bilaterally. No wheezes, and no crackles. No accessory muscle use. HEART: Regular rate and rhythm, normal S1 and S2 with 4/6 mummur in apex and left sternal border,no rub or gallop. ABDOMEN: Soft, nontender, not distended, hyperactive bowel sounds, no guarding, no rebound, no masses. No hepatomegaly or splenomegaly. MUSCULOSKELETAL: Normal range of motion at all joints. No bony deformities or tenderness. No CVA tenderness. UPPER EXTREMITIES: 2+ pulses, warm, well-perfused. No cyanosis. No clubbing. No peripheral edema. LOWER EXTREMITIES: 2+ pulses, warm, well-perfused. No calf tenderness. No peripheral edema. SKIN: Warm, dry, normal turgor, no rashes or lesions noted, normal capillary refill. Labs: CBC, BMP 08/07/19 08:50 08/07/19 08:50 INR, PTT INR 1.06 (0.83-1.09) 08/05/19 16:28 - ....Imaging Other: Report Reviewed (EGD with Dr. Post on 03/23/19 when his distal reflux esophaghitis appeared improved but it did reveal persistent linear ulcers. Biopsies however did not reveal Hensley's eosphagitis. IN 12/03 he had a Shanae Richard bleed that required endoclipping. He had a colonoscopy with Dr Post on 03/23/16 that was unremarkable) Problem List - Problems (1) Seizure Code(s): R56.9 - UNSPECIFIED CONVULSIONS (2) Diastolic dysfunction Code(s): I51.89 - OTHER ILL-DEFINED HEART DISEASES (3) Acute blood loss anemia Code(s): D62 - ACUTE POSTHEMORRHAGIC ANEMIA (4) Aspiration pneumonia Code(s): J69.0 - PNEUMONITIS DUE TO INHALATION OF FOOD AND VOMIT (5) Cerebral palsy Code(s): G80.9 - CEREBRAL PALSY, UNSPECIFIED Qualifiers: Cerebral palsy type: unspecified type Qualified Code(s): G80.9 - Cerebral palsy, unspecified (6) HTN (hypertension) Code(s): I10 - ESSENTIAL (PRIMARY) HYPERTENSION Qualifiers: Hypertension type: unspecified Qualified Code(s): I10 - Essential (primary ) hypertension (7) Hematemesis/vomiting blood Code(s): K92.0 - HEMATEMESIS (8) Mitral regurgitation Code(s): I34.0 - NONRHEUMATIC MITRAL (VALVE) INSUFFICIENCY (9) Palliative care encounter Assessment/Plan: per mother, her wishes are for patient to be a dnr/dni. no hcp on file. palliative care consulted to discuss goals of care. pt is a resident at [facility]. Code(s): Z51.5 - ENCOUNTER FOR PALLIATIVE CARE (10) Prophylactic measure Code(s): Z29.9 - ENCOUNTER FOR PROPHYLACTIC MEASURES, UNSPECIFIED (11) Functional quadriplegia Code(s): R53.2 - FUNCTIONAL QUADRIPLEGIA Impression/Plan Impression/Plan: Problem List - Problems (1) Acute blood loss anemia Assessment/Plan: no further s/s of bleeding h/h stable continue to monitor Code(s): D62 - ACUTE POSTHEMORRHAGIC ANEMIA (2) Hematemesis/vomiting blood Assessment/Plan: one episode reported EGD refused by mother monitor cbc monitor for further bleeding Code(s): K92.0 - HEMATEMESIS (3) Cerebral palsy Assessment/Plan: by history. from [facility]. [facility] aide and patient's mom both state that pt mentation is at baseline. Code(s): G80.9 - CEREBRAL PALSY, UNSPECIFIED Qualifiers: Cerebral palsy type: unspecified type Qualified Code(s): G80.9 - Cerebral palsy, unspecified (4) Lactic acid acidosis Assessment/Plan: on ceftriaxone and flagy pending cultures, convert to oral antibiotics on d/c. lactic acid resolved Code(s): E87.2 - ACIDOSIS (5) Mitral regurgitation Code(s): I34.0 - NONRHEUMATIC MITRAL (VALVE) INSUFFICIENCY (6) Vomiting Assessment/Plan: no further vomiting monitor output tolerating clears on protonix drip Code(s): R11.10 - VOMITING, UNSPECIFIED Qualifiers: Vomiting type: unspecified Vomiting Intractability: non-intractable Nausea presence: unspecified Qualified Code(s): R11.10 - Vomiting, unspecified (7) Palliative care encounter Assessment/Plan: per mother, her wishes are for patient to be a dnr/dni. no hcp on file. palliative care consulted to discuss goals of care. pt is a resident at [facility]. Code(s): Z51.5 - ENCOUNTER FOR PALLIATIVE CARE (8) Prophylactic measure Code(s): Z29.9 - ENCOUNTER FOR PROPHYLACTIC MEASURES, UNSPECIFIED Visit type - Emergency Visit Emergency Visit: Yes ED Registration Date: 08/05/19 Care time: The patient presented to the Emergency Department on the above date and was hospitalized for further evaluation of their emergent condition. - New Patient This patient is new to me today: Yes Date on this admission: 08/18/19 - Critical Care Critical Care patient: No - Discharge Referral Referred to [facility] No
[2019-08-08] MEDS: PANTOPRAZOLE SODIUM 80 MG in SODIUM CHLORIDE 100 ML IVPB SCH (09:36)
[2019-08-08] MEDS: DEXTROSE 5%-LACTATED RINGERS 1,000 ML IV SCH ×2 (09:40→22:35)
[2019-08-08] MEDS ORDERED: DEXTROSE 5%-WATER - 50 ML IVPB ONE (10:02)
[2019-08-08] MEDS ORDERED: cefTRIAXone SODIUM 1 GM VIAL ONE (10:02)
[2019-08-08] MEDS: FERROUS SO4 325 MG TABLET (FP) PO SCH ×2 (10:06→22:35)
[2019-08-08] MEDS: ASCORBIC ACID 500 MG TABLET (FP) PO SCH (10:06)
[2019-08-08] MEDS: MULTIVITAMINS (DAILY MVI) TABLET (FP) PO SCH (10:06)
[2019-08-08] MEDS: METOPROLOL TARTRATE 25 MG TABLET (FP) PO SCH ×2 (10:07→22:36)
[2019-08-08] MEDS: CEFTRIAXONE 1 GM in DEXTROSE 5%-WATER - 50 ML IVPB SCH (10:18)
[2019-08-08 10:52] LABS: BASO % 0.4 % (0-2.0); EOS % 0.8 % (0-4.5); HEMATOCRIT 26.7 % (35.4-49); MCH 29.5 pg (25.7-33.7); MCHC 33.6 g/dl (32.0-35.9); MEAN CELL VOLUME 87.8 fl (80-96); MEAN PLT VOLUME 7.6 fl (7.5-11.1); MONO % 11.6 % (3.8-10.2); NEUT % 75.2 % (42.8-82.8); PLATELET COUNT 183 K/MM3 (134-434); RBC 3.04 M/mm3 (4.00-5.60); RDW 14.8 % (11.9-15.9)
[2019-08-08 11:31] LABS: ALBUMIN 2.9 g/dl (3.4-5.0); BILIRUBIN,TOTAL 0.4 mg/dL (0.2-1); BLOOD UREA NITROGEN 4.6 mg/dL (7-18); CALCIUM 7.8 mg/dL (8.5-10.1); CREATININE 0.8 mg/dL (0.55-1.3); MAGNESIUM 1.6 mg/dL (1.8-2.4); POTASSIUM 3.4 mmol/L (3.5-5.1); TOT PROT 6.2 g/dl (6.4-8.2)
[2019-08-08 14:39] VITALS: BMI 19.3
[2019-08-08] MEDS: FLUTICASONE PROP 0.05% 16 GM NASAL SPRAY NS SCH (15:05)
--- NOTE | 2019-08-08 18:32 | PN.GI ---
GI Progress Note Subjective: No overt bleeding Health aid present No melena reported - Objective Vital Signs: Vital Signs Temperature 98.5 F 08/08/19 18:00 Pulse Rate 107 H 08/08/19 18:00 Respiratory Rate 20 08/08/19 18:00 Blood Pressure 110/60 08/08/19 18:00 O2 Sat by Pulse Oximetry (%) 97 08/08/19 09:00 Constitutional: Calm Cardiovascular: Yes: Tachycardia Respiratory: Yes: Diminished (at bases with poor insp effort) Gastrointestinal Inspection: No: Distention ...Auscultate: Yes: Normoactive Bowel Sounds ...Palpate: No: Tenderness (No grimacing upon palpation) Edema: No (No LE edema) Neurological: Yes: Alert Labs: CBC, BMP 08/08/19 10:30 08/08/19 10:30 INR, PTT INR 1.06 (0.83-1.09) 08/05/19 16:28 Problem List - Problems (1) Hiatal hernia with GERD and esophagitis Assessment/Plan: Recent upper endoscopy 04/05 with improved but persistent severe reflux esophagitis as well as large hiatal hernia Recurrent admissions for same issue Consideration for evaluation for hiatal hernia repair as outpatient. PAtient's mother has declined this multiple times in the past Advance diet Protonix 40mg PO BID Code(s): K44.9 - DIAPHRAGMATIC HERNIA WITHOUT OBSTRUCTION OR GANGRENE; K21.0 - GASTRO-ESOPHAGEAL REFLUX DISEASE WITH ESOPHAGITIS
[2019-08-08] MEDS ORDERED: FLU VACCINE QUAD 60 MCG/0.5 ML (MDV 19-20) IM ONE (19:00)
[2019-08-08] MEDS: LATANOPROST 0.005% OPHTH SOLN 2.5ML BOTTLE OS SCH (22:35)
[2019-08-08] MEDS: PANTOPRAZOLE 40 MG TABLET (FP) PO SCH (22:36)
[2019-08-09] MEDS: prednisoLONE ACETATE 1% OPHTH SUSP 5 ML BOTTLE OD SCH ×2 (06:24→15:48)
[2019-08-09] MEDS ORDERED: DEXTROSE 5%-LACTATED RINGERS 1,000 ML IV SCH (08:27)
--- NOTE | 2019-08-09 08:30 | PN ---
Progress Note, Physician - Current Medication List Current Medications: Active Medications Amoxicillin/Clavulanate Potassium (Augmentin - 875mg Tablet) 1 tab PO BID@0800, 1730 [facility] Stop: 08/14/19 17:29 Ascorbic Acid (Vitamin C -) 500 mg PO DAILY [facility] Last Admin: 08/08/19 10:06 Dose: 500 mg Cholecalciferol (Vitamin D3 -) 1,000 unit PO MoWeFr@1000 [facility] Last Admin: 08/07/19 09:58 Dose: 1,000 unit Ferrous Sulfate (Feosol -) 325 mg PO BID [facility] Last Admin: 08/08/19 22:35 Dose: 325 mg Fluticasone Propionate (Flonase -) 2 spray NS DAILY [facility] Last Admin: 08/08/19 15:05 Dose: 2 spray Dextrose/Lactated Ringer's (D5-Lr -) 1,000 mls @ 50 mls/hr IV ASDIR [facility] Latanoprost (Xalatan 0.005% Eye Drops -) 1 drop OS HS [facility] Last Admin: 08/08/19 22:35 Dose: 1 drop Metoprolol Tartrate (Lopressor -) 12.5 mg PO BID [facility] Last Admin: 08/08/19 22:36 Dose: 12.5 mg Multivitamins/Minerals/Vitamin C (Tab-A-Vit -) 1 tab PO DAILY [facility] Last Admin: 08/08/19 10:06 Dose: 1 tab Pantoprazole Sodium (Protonix -) 40 mg PO BID [facility] Last Admin: 08/08/19 22:36 Dose: 40 mg Prednisolone Acetate (Pred Forte 1% -) 1 drop OD TID [facility] Last Admin: 08/09/19 06:24 Dose: 1 drop - Objective Vital Signs: Vital Signs Temperature 98.4 F 08/09/19 06:00 Pulse Rate 120 H 08/09/19 06:00 Respiratory Rate 21 H 08/09/19 06:00 Blood Pressure 129/72 08/09/19 06:00 O2 Sat by Pulse Oximetry (%) 97 08/08/19 21:00 Labs: CBC, BMP 08/08/19 10:30 08/08/19 10:30 INR, PTT INR 1.06 (0.83-1.09) 08/05/19 16:28 Problem List - Problems (1) Seizure Code(s): R56.9 - UNSPECIFIED CONVULSIONS (2) Diastolic dysfunction Code(s): I51.89 - OTHER ILL-DEFINED HEART DISEASES (3) Acute blood loss anemia Code(s): D62 - ACUTE POSTHEMORRHAGIC ANEMIA (4) Aspiration pneumonia Code(s): J69.0 - PNEUMONITIS DUE TO INHALATION OF FOOD AND VOMIT (5) Cerebral palsy Code(s): G80.9 - CEREBRAL PALSY, UNSPECIFIED Qualifiers: Cerebral palsy type: unspecified type Qualified Code(s): G80.9 - Cerebral palsy, unspecified (6) HTN (hypertension) Code(s): I10 - ESSENTIAL (PRIMARY) HYPERTENSION Qualifiers: Hypertension type: unspecified Qualified Code(s): I10 - Essential (primary ) hypertension (7) Hematemesis/vomiting blood Code(s): K92.0 - HEMATEMESIS (8) Mitral regurgitation Code(s): I34.0 - NONRHEUMATIC MITRAL (VALVE) INSUFFICIENCY (9) Palliative care encounter Code(s): Z51.5 - ENCOUNTER FOR PALLIATIVE CARE (10) Prophylactic measure Code(s): Z29.9 - ENCOUNTER FOR PROPHYLACTIC MEASURES, UNSPECIFIED (11) Functional quadriplegia Code(s): R53.2 - FUNCTIONAL QUADRIPLEGIA
[2019-08-09] MEDS ORDERED: POTASSIUM CHLORIDE TABS 20 MEQ TABLET.ER (FP) PO ONE (09:15)
[2019-08-09 10:08] LABS: BASO % 0.5 % (0-2.0); EOS % 1.2 % (0-4.5); HEMATOCRIT 27.5 % (35.4-49); HEMOGLOBIN 9.3 GM/dL (11.7-16.9); LYMPH % 14.6 % (8-40); MCH 29.7 pg (25.7-33.7); MCHC 33.6 g/dl (32.0-35.9); MEAN CELL VOLUME 88.4 fl (80-96); MEAN PLT VOLUME 7.5 fl (7.5-11.1); MONO % 11.2 % (3.8-10.2); NEUT % 72.5 % (42.8-82.8); PLATELET COUNT 200 K/MM3 (134-434); RBC 3.12 M/mm3 (4.00-5.60); RDW 15.4 % (11.9-15.9); WHITE BLOOD COUNT 7.2 K/mm3 (4.0-10.0)
[2019-08-09 10:35] LABS: ALBUMIN 2.8 g/dl (3.4-5.0); BILIRUBIN,TOTAL 0.2 mg/dL (0.2-1); BLOOD UREA NITROGEN 3.8 mg/dL (7-18); CALCIUM 7.7 mg/dL (8.5-10.1); CREATININE 0.8 mg/dL (0.55-1.3); MAGNESIUM 1.8 mg/dL (1.8-2.4); POTASSIUM 3.5 mmol/L (3.5-5.1); TOT PROT 6.3 g/dl (6.4-8.2)
[2019-08-09] MEDS: CHOLECALCIFEROL (VIT D3) 1,000 UNIT (25 MCG) TABLET PO SCH (12:14)
[2019-08-09] MEDS: MULTIVITAMINS (DAILY MVI) TABLET (FP) PO SCH (12:14)
[2019-08-09] MEDS: PANTOPRAZOLE 40 MG TABLET (FP) PO SCH (12:14)
[2019-08-09] MEDS: ASCORBIC ACID 500 MG TABLET (FP) PO SCH (12:14)
[2019-08-09] MEDS: METOPROLOL TARTRATE 25 MG TABLET (FP) PO SCH (12:14)
[2019-08-09] MEDS: FERROUS SO4 325 MG TABLET (FP) PO SCH (12:15)
[2019-08-09] MEDS: FLUTICASONE PROP 0.05% 16 GM NASAL SPRAY NS SCH (12:16)
[2019-08-09] MEDS ORDERED: POTASSIUM CHLORIDE ORAL LIQUID 20 MEQ/15 ML PO ONE (12:36)
[2019-08-09] MEDS ORDERED: FERROUS SO4 300 MG/5 ML ORAL SOLN UNIT DOSE CUPS PO SCH ×2 (12:45→22:00)
--- NOTE | 2019-08-09 12:45 | PN.GI ---
GI Progress Note Subjective: Pt seen/examined at bedside, pts mother present. Pt tolerating pureed diet this am, no vomiting reported. - Objective Vital Signs: Vital Signs Temperature 98.4 F 08/09/19 06:00 Pulse Rate 120 H 08/09/19 06:00 Respiratory Rate 21 H 08/09/19 06:00 Blood Pressure 129/72 08/09/19 06:00 O2 Sat by Pulse Oximetry (%) 97 08/08/19 21:00 Constitutional: Well Nourished, No Distress, Calm Cardiovascular: Yes: WNL, Regular Rate and Rhythm Respiratory: Yes: WNL, Regular, CTA Bilaterally ...Palpate: Yes: Other (Abd soft, nt, nd) Labs: CBC, BMP 08/09/19 09:55 08/09/19 09:55 INR, PTT INR 1.06 (0.83-1.09) 08/05/19 16:28 Problem List - Problems (1) GI bleed Assessment/Plan: 59yo male h/o cerebral palsy, GERD with reported coffee ground emesis. Recent EGD in 03/[address] Tang revealing improved but persistent severe reflux esophagitis and a large hiatal hernia. No further episodes of vomiting/coffee grounds. Hb stable. -No urgent indication for repeat endoscopy at this time -Pureed diet as tolerated -Antireflux measures -PPI bid -As previously noted, hiatal hernia repair to be considered however pts mother wanting to avoid surgery at this time. -DC planning today per primary team. Follow up with Dr. Tang as outpt in GI clinic. Code(s): K92.2 - GASTROINTESTINAL HEMORRHAGE, UNSPECIFIED
[2019-08-09 15:38] VITALS: BP 116/70; PULSE 95; TEMP 98.5
[2019-08-09] MEDS ORDERED: AMOX TR/POT CLAV 875MG/125MG TABLETS (FP) PO SCH (17:30)
[2019-08-09] MEDS ORDERED: AMOX TR/POTASSIUM CLAVULANATE 600 MG/5 ML PO SCH (17:30)
--- NOTE | 2019-08-09 18:13 | DS ---
Physical Exam: SUBJECTIVE: Patient seen and examined Non verbal. Mother at bedside. OBJECTIVE: Vital Signs Period Temp Pulse Resp BP Sys/Pimentel Pulse Ox Last 24 Hr 98.4 F-98.7 F 95-120 20-21 111-129/61-72 97-97 GENERAL: Awake, alert, and fully oriented, in apparent distress. HEAD: Normal with no signs of trauma. EYES: haziness on right iris, sclera anicteric, conjunctiva clear. No lid lag. EARS, NOSE, THROAT: Ears normal, nares patent, oropharynx clear without exudates. Moist mucous membranes. NECK: Normal range of motion, supple without lymphadenopathy, JVD, or masses. LUNGS: Breath sounds equal, clear to auscultation bilaterally. No wheezes, and no crackles. No accessory muscle use. HEART: Regular rate and rhythm, normal S1 and S2 with 4/6 mummur in apex and left sternal border,no rub or gallop. ABDOMEN: Soft, nontender, not distended, hyperactive bowel sounds, no guarding, no rebound, no masses. No hepatomegaly or splenomegaly. MUSCULOSKELETAL: Normal range of motion at all joints. No bony deformities or tenderness. No CVA tenderness. UPPER EXTREMITIES: 2+ pulses, warm, well-perfused. No cyanosis. No clubbing. No peripheral edema. LOWER EXTREMITIES: 2+ pulses, warm, well-perfused. No calf tenderness. No peripheral edema. SKIN: Warm, dry, normal turgor, no rashes or lesions noted, normal capillary refill. Labs: CBC, BMP 08/07/19 08:50 08/07/19 08:50 INR, PTT INR 1.06 (0.83-1.09) 08/05/19 16:28 LABS Laboratory Results - last 24 hr 08/09/19 08/09/19 09:55 09:55 WBC 7.2 RBC 3.12 L Hgb 9.3 L Hct 27.5 L MCV 88.4 MCH 29.7 MCHC 33.6 RDW 15.4 Plt Count 200 MPV 7.5 Absolute Neuts (auto) 5.2 Neutrophils % 72.5 Lymphocytes % 14.6 D Monocytes % 11.2 H Eosinophils % 1.2 Basophils % 0.5 Nucleated RBC % 0 Sodium 143 Potassium 3.5 Chloride 109 H Carbon Dioxide 27 Anion Gap 7 L BUN 3.8 L Creatinine 0.8 Est GFR (CKD-EPI)AfAm 114.93 Est GFR (CKD-EPI)NonAf 99.16 Random Glucose 103 Calcium 7.7 L Magnesium 1.8 Total Bilirubin 0.2 AST 29 ALT 16 Alkaline Phosphatase 66 Total Protein 6.3 L Albumin 2.8 L HOSPITAL COURSE: Date of Admission:08/05/19 Date of Discharge: 08/09/19 - ....Imaging Other: Report Reviewed (EGD with Dr. Post on 03/23/19 when his distal reflux esophaghitis appeared improved but it did reveal persistent linear ulcers. Biopsies however did not reveal Hensley's eosphagitis. IN 12/03 he had a Shanae Richard bleed that required endoclipping. He had a colonoscopy with Dr Post on 03/23/16 that was unremarkable) Problem List - Problems (1) Acute blood loss anemia Assessment/Plan: no further s/s of bleeding h/h stable Code(s): D62 - ACUTE POSTHEMORRHAGIC ANEMIA (2) Hematemesis/vomiting blood Assessment/Plan: one episode reported EGD refused by mother Code(s): K92.0 - HEMATEMESIS (3) Cerebral palsy Assessment/Plan: by history. from [facility]. detention aide and patient's mom both state that pt mentation is at baseline. Code(s): G80.9 - CEREBRAL PALSY, UNSPECIFIED Qualifiers: Cerebral palsy type: unspecified type Qualified Code(s): G80.9 - Cerebral palsy, unspecified (4) Lactic acid acidosis Assessment/Plan: Resolved. All cx NGTD. WBC was elevated on admission. C/w Augmentin x 5 days Code(s): E87.2 - ACIDOSIS (5) Mitral regurgitation Code(s): I34.0 - NONRHEUMATIC MITRAL (VALVE) INSUFFICIENCY (6) Vomiting Assessment/Plan: no further vomiting Protonix changed to orally via GT Code(s): R11.10 - VOMITING, UNSPECIFIED Qualifiers: Vomiting type: unspecified Vomiting Intractability: non-intractable Nausea presence: unspecified Qualified Code(s): R11.10 - Vomiting, unspecified (7) Palliative care encounter Assessment/Plan: per mother, her wishes are for patient to be a dnr/dni. no hcp on file. palliative care consulted to discuss goals of care. pt is a resident at [facility]. Code(s): Z51.5 - ENCOUNTER FOR PALLIATIVE CARE (8) Prophylactic measure Code(s): Z29.9 - ENCOUNTER FOR PROPHYLACTIC MEASURES, UNSPECIFIED Minutes to complete discharge: 40 Discharge Summary Problems reviewed: Yes Reason For Visit: CEREBRAL PALSY,HEMATEESIS,HTN Hospital Course: Problem List - Problems (1) Acute blood loss anemia Assessment/Plan: no further s/s of bleeding h/h stable Code(s): D62 - ACUTE POSTHEMORRHAGIC ANEMIA (2) Hematemesis/vomiting blood Assessment/Plan: one episode reported EGD refused by mother Code(s): K92.0 - HEMATEMESIS (3) Cerebral palsy Assessment/Plan: by history. from [facility]. detention aide and patient's mom both state that pt mentation is at baseline. Code(s): G80.9 - CEREBRAL PALSY, UNSPECIFIED Qualifiers: Cerebral palsy type: unspecified type Qualified Code(s): G80.9 - Cerebral palsy, unspecified (4) Lactic acid acidosis Assessment/Plan: Resolved. All cx NGTD. Will observe off abx Code(s): E87.2 - ACIDOSIS (5) Mitral regurgitation Code(s): I34.0 - NONRHEUMATIC MITRAL (VALVE) INSUFFICIENCY (6) Vomiting Assessment/Plan: no further vomiting Protonix changed to orally via GT Code(s): R11.10 - VOMITING, UNSPECIFIED Qualifiers: Vomiting type: unspecified Vomiting Intractability: non-intractable Nausea presence: unspecified Qualified Code(s): R11.10 - Vomiting, unspecified (7) Palliative care encounter Assessment/Plan: per mother, her wishes are for patient to be a dnr/dni. no hcp on file. palliative care consulted to discuss goals of care. pt is a resident at [facility]. Code(s): Z51.5 - ENCOUNTER FOR PALLIATIVE CARE (8) Prophylactic measure Code(s): Z29.9 - ENCOUNTER FOR PROPHYLACTIC MEASURES, UNSPECIFIED Condition: Improved - Instructions Diet, Activity, Other Instructions: Akbar was admitted with an upper GI bleed. It was treated with protonix and resolved. Continue the protonix twice a day. His WBC was elevated and antibiotics were started. Continue to take the AUGMENTIN for another 5 days. Resume all you other medications Resume Dorsey purred diet with thickened liquids. You can follow with Dr Sibley from GI If any further bleeding occurs call your PCP or return back to the ED Referrals: Agustin Post DO [Staff Physician] - Disposition: HOME - Home Medications Comprehensive Discharge Medication List: Ambulatory Orders Latanoprost 0.005% Eye Drops [Xalatan 0.005% Eye Drops -] 1 drop OS HS 11/12/16 Polyethylene Glycol 3350 [Glycolax] 17 gm PO DAILY 11/12/16 Prednisolone 1% Ophthalmic [Pred Forte 1% -] 1 ml OD TID 11/12/16 Ascorbic Acid [Vitamin C] 500 mg PO DAILY #7 capsule.er 11/14/16 Cholecalciferol (Vitamin D3) [Vitamin D3] 1,000 unit PO ASDIR 11/03/18 Metoprolol Tartrate 12.5 mg PO BID 12/20/18 Multivitamins [Multivit ([facility] Formulary)] 1 tab PO DAILY #30 tab 12/23/18 Pantoprazole Sodium [Protonix -] 40 mg PO BID #60 tablet.ec 12/23/18 Ferrous Sulfate [Iron] 325 mg PO BID 03/23/19 Calcium Citrate/Vitamin D3 [Calcium Cit 315-Vit D3 250 Cpt] 2 each PO BID Fluticasone Propionate 50 mcg IN DAILY 08/05/19 Whey Protein Isolate [Beneprotein] 1 each PO DAILY 08/05/19 Amox-Tr/K Cl [Augmentin 125 mg/5 ml Oral Suspension -] 875 ml PO BID 4 Days # 100 ml 08/09/19 Amox-Tr/K Cl [Augmentin 875-125mg Tablet -] 1 tab PO BID@0800,1730 #10 tablet Pantoprazole Sodium [Protonix -] 40 mg PO BID #0 tablet.ec 08/09/19 Prescription Drug Monitoring Program (I-STOP) results: I-STOP not reviewed Problem List - Problems (1) Seizure Code(s): R56.9 - UNSPECIFIED CONVULSIONS (2) Diastolic dysfunction Code(s): I51.89 - OTHER ILL-DEFINED HEART DISEASES (3) Acute blood loss anemia Code(s): D62 - ACUTE POSTHEMORRHAGIC ANEMIA (4) Aspiration pneumonia Code(s): J69.0 - PNEUMONITIS DUE TO INHALATION OF FOOD AND VOMIT (5) Cerebral palsy Code(s): G80.9 - CEREBRAL PALSY, UNSPECIFIED Qualifiers: Cerebral palsy type: unspecified type Qualified Code(s): G80.9 - Cerebral palsy, unspecified (6) HTN (hypertension) Code(s): I10 - ESSENTIAL (PRIMARY) HYPERTENSION Qualifiers: Hypertension type: unspecified Qualified Code(s): I10 - Essential (primary ) hypertension (7) Hematemesis/vomiting blood Code(s): K92.0 - HEMATEMESIS (8) Mitral regurgitation Code(s): I34.0 - NONRHEUMATIC MITRAL (VALVE) INSUFFICIENCY (9) Palliative care encounter Code(s): Z51.5 - ENCOUNTER FOR PALLIATIVE CARE (10) Prophylactic measure Code(s): Z29.9 - ENCOUNTER FOR PROPHYLACTIC MEASURES, UNSPECIFIED (11) Functional quadriplegia Code(s): R53.2 - FUNCTIONAL QUADRIPLEGIA This patient is new to me today: No Emergency Visit: Yes ED Registration Date: 08/05/19 Care time: The patient presented to the Emergency Department on the above date and was hospitalized for further evaluation of their emergent condition. Critical Care patient: No - Discharge Referral Referred to [facility] Med P.C.: No
== END 2019-08-09 16:22 | disposition home or self-care (01) | DRG 377 ==
LOC: JER 15:47 → JERBED 16:56 → J5S 20:40
PROVIDERS: ADMIT Internal Medicine; ATTEND Nurse Practitioner Acute Care
DX: K92.2 Gastrointestinal hemorrhage, unspecified (principal); R53.2 Functional quadriplegia; J69.0 Pneumonitis due to inhalation of food and vomit; D62 Acute posthemorrhagic anemia; G80.9 Cerebral palsy, unspecified; I10 Essential (primary) hypertension; I51.89 Other ill-defined heart diseases; I34.0 Nonrheumatic mitral (valve) insufficiency; K44.9 Diaphragmatic hernia without obstruction or gangrene; K21.0 Gastro-esophageal reflux disease with esophagitis; R00.0 Tachycardia, unspecified; D72.829 Elevated white blood cell count, unspecified
CPT/HCPCS: 36415; 71045-TC-FY; 80048; 80053; 81003; 82272; 82728; 82803; 83540; 83550; 83605; 83690; 83735; 84100; 84484; 85025; 85044; 85610; 85730; 86850; 86900; 86901; 87040; 87086; 93005; 93010; 97116-GP; 97162-GP; 99284-25; G0008; J0131; J7030; Q2036

== ENCOUNTER 2019-11-25 12:35 | Emergency (ER) | payer OTHER ==
[2019-11-25 13:06] VITALS: BP 97/55; PULSE 108; BMI 19.3
[2019-11-25] MEDS ORDERED: IBUPROFEN 100 MG/5 ML UNIT DOSE CUPS PO ONE (14:24)
[2019-11-25 14:26] VITALS: TEMP 102.4
[2019-11-25] MEDS ORDERED: IBUPROFEN 100 MG/5 ML UNIT DOSE CUPS ONE (14:27)
--- NOTE | 2019-11-25 14:30 | PDOC ---
History of Present Illness - General Chief Complaint: Respiratory Stated Complaint: COLD SYMPTOMS Time Seen by Provider: 11/25/19 13:16 History Source: Care Provider Exam Limitations: No Limitations - History of Present Illness Initial Comments: 11/25/19 14:30 59 y/o male presents to the emergency room for evaluation of cough, fever since yesterday. As per staff patient is wheelchair-bound but does take p.o. intake orally. Staff also states 2 other residents in the home with similar symptoms but was not seen as of yet. Staff denies change in appetite and states gave Tylenol at around 11 AM this morning. Patient does have history of pneumonia Is this a multiple visit Asthma Patient?: No Timing/Duration: reports: yesterday Severity: reports: mild, moderate Modifying Factors: improves with: coughing Associated Symptoms: reports: cough, fever/chills Past History - Travel Traveled outside of the country in the last 30 days: No Close contact w/someone who was outside of country & ill: No - Past Medical History Allergies/Adverse Reactions: Allergies Allergy/AdvReac Type Severity Reaction Status Date / Time No Known Allergies Allergy Verified 11/25/19 12:55 Home Medications: Ambulatory Orders Amoxicillin/Potassium Clav [Augmentin 875-125 Tablet] 1 each PO BID #14 tablet 11/25/19 Azithromycin [Zithromax Tri-Edwin (3 DAYS) -] 500 mg PO DAILY #3 tablet 11/25/19 Ferrous Sulfate 220 mg PO DAILY 11/25/19 Metoprolol Tartrate 12.5 mg PO BID 11/25/19 Oseltamivir Phosphate [Tamiflu -] 75 mg PO BID #10 capsule 11/25/19 Pantoprazole Sodium [Protonix] 40 mg PO BID 11/25/19 Anemia: Yes Asthma: No Cancer: No Cardiac Disorders: Yes (MVP AND INSUFFICIENCY with MR; PAFIB, VALVULAR HEART DISEASE) CVA: No COPD: No CHF: (left diastolic dysfunction) Dementia: No (profound mental retardation) Diabetes: No GI Disorders: Yes (HIATAL HERNIA, Shanae-nazario tear, upper GIB, GERD, dysphagia ) Disorders: No HTN: Yes Hypercholesterolemia: No Liver Disease: No Seizures: Yes Thyroid Disease: No - Surgical History Abdominal Surgery: No Appendectomy: No Cholecystectomy: No Lung Surgery: No Neurologic Surgery: No Orthopedic Surgery: No - Immunization History Immunization Up to Date: Yes - Psycho Social/Smoking Cessation Hx Smoking History: Never smoked Have you smoked in the past 12 months: No Number of Cigarettes Smoked Daily: 0 Hx Alcohol Use: No Drug/Substance Use Hx: No Substance Use Type: None Hx Substance Use Treatment: No Patient Lives Alone: No Lives with/in: jail Review of Systems - Review of Systems Able to Perform ROS?: Yes Constitutional: Yes: Fever HEENTM: No: Symptoms Reported Respiratory: Yes: Cough Cardiac (ROS): No: Symptoms Reported ABD/GI: No: Symptoms Reported : No: Symptoms Reported Musculoskeletal: No: Symptoms Reported Integumentary: No: Symptoms Reported Neurological: No: Symptoms reported Endocrine: No: Symptoms Reported Hematologic/Lymphatic: No: Symptoms Reported *Physical Exam - Vital Signs Last Vital Signs Temp Pulse Resp BP Pulse Ox 108 H 22 H 97/55 L 96 11/25/19 12:56 11/25/19 12:56 11/25/19 12:56 11/25/19 12:56 - Physical Exam General Appearance: Yes: Nourished, Appropriately Dressed. No: Apparent Distress HEENT: positive: Pharynx Normal. negative: Pale Conjunctivae Neck: positive: Supple Respiratory/Chest: positive: Lungs Clear, Normal Breath Sounds. negative: Respiratory Distress, Accessory Muscle Use Cardiovascular: positive: Regular Rhythm, Tachycardia. negative: Murmur Gastrointestinal/Abdominal: positive: Soft. negative: Tenderness Extremity: positive: Normal Inspection Integumentary: positive: Normal Color, Warm, Moist Neurologic: positive: Normal Mood/Affect, Motor Strength 5/5 (ambulatory) ED Treatment Course - RADIOLOGY Radiology Studies Ordered: Category Date Time Status CHEST PA & LAT [RAD] Stat Radiology 11/25/19 13:16 Completed Medical Decision Making - Medical Decision Making 11/25/19 13:35 CC: fever and cough x 1 day, tylenol at 11am Exam: lcta, tachycardic, febrile Plan: cxr, influenza 11/25/19 14:37 Laboratory Tests 11/25/19 13:14 Influenza A (Rapid) Positive A Influenza B (Rapid) Negative ? rt lower lobe base markings unseen on previous cxr. 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 Discharge - Discharge Information Problems reviewed: Yes Clinical Impression/Diagnosis: Influenza, Pneumonia Condition: Good Disposition: HOME - Additional Discharge Information Prescriptions: Amoxicillin/Potassium Clav [Augmentin 875-125 Tablet] 1 each PO BID #14 tablet Azithromycin [Zithromax Tri-Edwin (3 DAYS) -] 500 mg PO DAILY #3 tablet Oseltamivir Phosphate [Tamiflu -] 75 mg PO BID #10 capsule - Follow up/Referral Referrals: Anjelica Barker MD [Primary Care Provider] - - Patient Discharge Instructions Patient Printed Discharge Instructions: DI for Pneumonia -- Adult, DI for Influenza -- Adult Additional Instructions: Please continue to give Motrin 400 mg every 6-7 hours to control fever. Give Tamiflu as prescribed until completed. Give antibiotics as prescribed until completed for treatment of pneumonia. If symptoms do not improve over the next 24 hours and patient develops difficulty breathing, vomiting lethargy or uncontrolled fever please return to the emergency room immediately - Post Discharge Activity
== END 2019-11-25 16:21 | disposition home or self-care (01) ==
LOC: JER 12:35
DX: J09.X1 Influenza due to identified novel influenza A virus with pneumonia (principal); D64.9 Anemia, unspecified; F73 Profound intellectual disabilities; I11.0 Hypertensive heart disease with heart failure; I50.1 Left ventricular failure, unspecified; I48.0 Paroxysmal atrial fibrillation; I34.1 Nonrheumatic mitral (valve) prolapse; I34.0 Nonrheumatic mitral (valve) insufficiency; Z87.19 Personal history of other diseases of the digestive system; Z86.69 Personal history of other diseases of the nervous system and sense organs
CPT/HCPCS: 71046-TC-FY; 87804; 99282-25

== ENCOUNTER 2020-07-02 20:39 | Inpatient (IN) | payer OTHER ==
--- NOTE | 2020-07-02 20:59 | PDOC ---
Rapid Medical Evaluation Time Seen by Provider: 07/02/20 20:56 Medical Evaluation: Allergies Allergy/AdvReac Type Severity Reaction Status Date / Time No Known Allergies Allergy Verified 04/03/20 17:58 07/02/20 20:57 I have performed a brief in-person evaluation of this patient The patient presents with a chief complaint of: Fever of 102 w/ cough, runny nose, lethargy today. [facility]. Pt has CP, non-verbal at baseline, mostly wheelchair bound, HTN, GIB 2/2 twyla-Richard tear s/p endoclipping in 2016, afib not on AC, pHTN, ILD, GERD, anemia, scoliosis, hydrocephalus Pertinent physical exam findings:T 102.1, HR 114, BP 122/49 I have ordered the following:labs/mota-cx/cxr/ekg/covid pcr The patient will proceed to the ED for further evaluation Discharge Disposition - Diagnosis Fever Qualifiers: Fever type: unspecified Qualified Code(s): R50.9 - Fever, unspecified - Referrals - Patient Instructions - Post Discharge Activity
[2020-07-02 21:08] VITALS: BMI 17.9
[2020-07-02] MEDS ORDERED: SODIUM CHLORIDE 1,470 ML IV ONE (21:45)
--- NOTE | 2020-07-02 22:23 | PDOC ---
History of Present Illness - General Chief Complaint: Cold Symptoms Stated Complaint: FEVER,REF BY DOCTOR Time Seen by Provider: 07/02/20 20:56 - History of Present Illness Initial Comments: Limited 2/2 developmental delay and nonverbal pt. History obtained from health aide and chart review. Akbar Cage is a 60 y/o male with PMH significant for paroxysmal a-fib, pulmonary hypertension, hiatal hernia, twyla-nazario tear s/p endoclipping, GI bleed, GERd, anemia, cerebral palsy, ILD, scoliosis, hydrocephalus, sent in from shelter today. Per nursing coordinator pt had a fever of 102, cough, runny nose, and lethargy compared to baseline. Tachycardic at shelter. Past History - Medical History Allergies/Adverse Reactions: Allergies Allergy/AdvReac Type Severity Reaction Status Date / Time No Known Allergies Allergy Verified 04/03/20 17:58 Home Medications: Ambulatory Orders Pantoprazole Sodium [Protonix] 40 mg PO BID 11/25/19 Multivitamins [Multivit ([facility] Formulary)] 1 tab PO DAILY 04/03/20 Calcium Citrate/Vitamin D3 [Calcium Cit 315-Vit D3 250 Tab] 2 each PO BID 04/04/20 Fluoride (Sodium) [Sodium Fluoride 5000 Plus] 51 gm DT DAILY 04/04/20 Fluticasone Prop 0.05% Nasal [Flonase -] 1 - 2 spray NS DAILY 04/04/20 Latanoprost/Pf [Latanoprost 0.005% Eye Drop] 7.5 ml OP HS 04/04/20 Miconazole Nitrate [Althea Antifungal] 142 gm TP QID 04/04/20 Ascorbic Acid [Vitamin C -] 500 mg PO DAILY tablet 04/05/20 Metoprolol Succinate [Toprol Xl] 12.5 mg PO BID 07/03/20 Anemia: Yes Asthma: No Cancer: No Cardiac Disorders: Yes (AFIB, PULMONARY HTN) CVA: No COPD: No CHF: (left diastolic dysfunction) Dementia: No (profound mental retardation) Diabetes: No GI Disorders: Yes (HIATAL HERNIA, Twyla-nazario tear, S/P ENDOCLIPPING, GIB, GERD) Disorders: No HTN: Yes Hypercholesterolemia: No Liver Disease: No Seizures: Yes Thyroid Disease: No - Surgical History Abdominal Surgery: No Appendectomy: No Cholecystectomy: No Lung Surgery: No Neurologic Surgery: No Orthopedic Surgery: No - Immunization History Immunization Up to Date: Yes - Psycho-Social/Smoking History Smoking History: Never smoked Have you smoked in the past 12 months: No Number of Cigarettes Smoked Daily: 0 - Substance Abuse Hx (Audit-C & DAST Scrn) How often the patient has a drink containing alcohol: Never Score: In Men: 4 or > Positive; In Women: 3 or > Positive: 0 Screen Result (Pos requires Nsg. Audit-10AR): Negative Review of Systems - Review of Systems Able to Perform ROS?: No (cerebral palsy, nonverbal) *Physical Exam - Vital Signs Last Vital Signs Temp Pulse Resp BP Pulse Ox 102 F H 114 H 20 122/49 L 100 07/02/20 20:59 07/02/20 20:59 07/02/20 20:59 07/02/20 20:59 07/02/20 20:59 - Physical Exam GENERAL: In no obvious distress HEAD: No signs of trauma, normocephalic, atraumatic _ EYES: PERRLA, sclera anicteric, conjunctiva clear_ ENT: nares patent, oropharynx clear without exudates. No uvular deviation. NECK: Normal ROM, supple, no lymphadenopathy, JVD, or masses_ LUNGS: No distress, mild diffuse rhonchi HEART: tachycardic, normal S1 and S2, no murmurs appreciated, peripheral pulses normal and equal bilaterally._ ABDOMEN: Soft, nontender. No guarding, no rebound. No masses_ EXTREMITIES: Contracted, no edema. NEUROLOGICAL: Unable to assess SKIN: Warm, Dry ED Treatment Course - LABORATORY CBC & Chemistry Diagram: 07/03/20 05:45 07/03/20 05:45 Medical Decision Making - Medical Decision Making 60M hx of cerebral palsy, non verbal, coming from shelter for fever, tachycardia, and cough today. DDx includes sepsis 2/2 PNA vs UTI vs other source -cbc, cmp -ekg, trop, cxr -lactic -vbg -fluids -ua, ucx -blood cx -lipase -tylenol 07/02/20 22:21 EKG shows 124 bpm, sinus tachycardia, no axis deviation, MI 152, QTc 462, no ST elevation/depression. Prior EKG 03/2020 reviewed. 07/03/20 02:05 CXR shows possible mild opacity but otherwise no acute chest pathology. Prior imaging reviewed. Labs reviewed. Laboratory Last Values WBC 17.4 K/mm3 (4.0-10.0) H 07/02/20 22:40 RBC 4.20 M/mm3 (4.00-5.60) 07/02/20 22:40 Hgb 12.3 GM/dL (11.7-16.9) 07/02/20 22:40 Hct 36.7 % (35.4-49) 07/02/20 22:40 MCV 87.3 fl (80-96) 07/02/20 22:40 MCH 29.3 pg (25.7-33.7) 07/02/20 22:40 MCHC 33.5 g/dl (32.0-35.9) 07/02/20 22:40 RDW 14.3 % (11.9-15.9) 07/02/20 22:40 Plt Count 205 K/MM3 (134-434) 07/02/20 22:40 MPV 8.2 fl (7.5-11.1) 07/02/20 22:40 Absolute Neuts (auto) 14.0 K/mm3 (1.5-8.0) H 07/02/20 22:40 Neutrophils % 80.6 % (42.8-82.8) 07/02/20 22:40 Lymphocytes % 7.3 % (8-40) L 07/02/20 22:40 Monocytes % 12.0 % (3.8-10.2) H 07/02/20 22:40 Eosinophils % 0.0 % (0-4.5) D 07/02/20 22:40 Basophils % 0.1 % (0-2.0) 07/02/20 22:40 Nucleated RBC % 0 % (0-0) 07/02/20 22:40 PT with INR 12.80 SEC (9.7-13.0) 07/02/20 22:40 INR 1.08 (0.83-1.09) 07/02/20 22:40 PTT (Actin FS) 27.0 SECONDS (25.2-36.5) 07/02/20 22:40 Sodium 141 mmol/L (136-145) 07/02/20 22:40 Potassium 4.3 mmol/L (3.5-5.1) 07/02/20 22:40 Chloride 103 mmol/L (98-107) 07/02/20 22:40 Carbon Dioxide 29 mmol/L (21-32) 07/02/20 22:40 Anion Gap 8 MMOL/L (8-16) 07/02/20 22:40 BUN 18.7 mg/dL (7-18) H 07/02/20 22:40 Creatinine 0.9 mg/dL (0.55-1.3) 07/02/20 22:40 Est GFR (CKD-EPI)AfAm 108.73 07/02/20 22:40 Est GFR (CKD-EPI)NonAf 93.82 07/02/20 22:40 Random Glucose 123 mg/dL (74-106) H 07/02/20 22:40 Lactic Acid 3.1 mmol/L (0.4-2.0) H* 07/02/20 22:40 Calcium 8.9 mg/dL (8.5-10.1) 07/02/20 22:40 Total Bilirubin 0.3 mg/dL (0.2-1) 07/02/20 22:40 AST 12 U/L (15-37) L 07/02/20 22:40 ALT 14 U/L (13-61) 07/02/20 22:40 Alkaline Phosphatase 88 U/L (45-117) 07/02/20 22:40 Creatine Kinase 51 U/L (26-308) 07/02/20 22:40 Troponin I < 0.02 ng/ml (0.00-0.05) 07/02/20 22:40 Troponin I < 0.02 ng/ml (0.00-0.05) 07/02/20 22:40 Total Protein 7.6 g/dl (6.4-8.2) 07/02/20 22:40 Albumin 3.2 g/dl (3.4-5.0) L 07/02/20 22:40 Lipase 101 U/L (73-393) 07/02/20 22:40 Will cover with azithro and rocephin for sepsis. 07/03/20 02:30 Case d/w Dr. Price who accepts the patient for admission. Discharge - Discharge Information Problems reviewed: Yes Clinical Impression/Diagnosis: Sepsis Fever Qualifiers: Fever type: unspecified Qualified Code(s): R50.9 - Fever, unspecified Condition: Guarded - Admission Yes - Follow up/Referral - Patient Discharge Instructions - Post Discharge Activity
[2020-07-02 23:22] LABS: BASO % 0.1 % (0-2.0); HEMATOCRIT 36.7 % (35.4-49); HEMOGLOBIN 12.3 GM/dL (11.7-16.9); LYMPH % 7.3 % (8-40); MCH 29.3 pg (25.7-33.7); MCHC 33.5 g/dl (32.0-35.9); MEAN CELL VOLUME 87.3 fl (80-96); MEAN PLT VOLUME 8.2 fl (7.5-11.1); NEUT % 80.6 % (42.8-82.8); PLATELET COUNT 205 K/MM3 (134-434); RDW 14.3 % (11.9-15.9); WHITE BLOOD COUNT 17.4 K/mm3 (4.0-10.0)
[2020-07-02] MEDS ORDERED: IBUPROFEN 600 MG TABLET (FP) PO ONE (23:34)
[2020-07-02] MEDS ORDERED: BACITRACIN 0.9 GM PACKET ONE (23:34)
[2020-07-02 23:40] LABS: INR 1.08 (0.83-1.09); PROTHROMBIN TIME (PATIENT) 12.8 SEC (9.7-13.0)
--- NOTE | 2020-07-02 23:44 | PDOC ---
Documentation entered by Mehran Huber SCRIBE, acting as scribe for Alicia Zelaya MD. Alicia Zelaya MD: This documentation has been prepared by the Joey curran Angel, SCRIBE, under my direction and personally reviewed by me in its entirety. I confirm that the documentation accurately reflects all work, treatment, procedures, and medical decision making performed by me. Attending Attestation - Resident Resident Name: Brad Bearden - ED Attending Attestation I have performed the following: I have examined & evaluated the patient, The case was reviewed & discussed with the resident, I agree w/resident's findings & plan, Exceptions are as noted - HPI HPI: 07/02/20 23:19 The patient is a 60 year old male with a significant past medical history of Afib, Pulmonary HTN, Hiatal hernia, Shanae-nazario tear, S/P Endoclipping, GIB, GERD, anemia, scoliosis and hydrocephalus who presents to the ED from [facility] with a fever of 102, cough, lethargy and rhinorrhea today. The patient was tachycardic at the [facility]. The patient is unable to contribute to history because he is non-verbal at baseline and is wheelchair bound. - Physicial Exam PE: 07/02/20 23:43 thin 60 yo male with Cerebral palsy brought in for fever and cough head no scalp laceration lungs [facility] tachycardia abdomen flat skin warm and dry neuro alert but not conversant 07/02/20 23:45 - Medical Decision Making 07/03/20 00:16 pt with CP,cognitive deficits and was brought in for sepsis workup 07/03/20 01:07 review of labs shows a leukocytosis 07/03/20 01:08 negative troponin Discharge - Discharge Information Problems reviewed: Yes Clinical Impression/Diagnosis: Fever Qualifiers: Fever type: unspecified Qualified Code(s): R50.9 - Fever, unspecified Sepsis Qualifiers: Sepsis type: sepsis due to unspecified organism Disposition: LONGTERM FACILITY - Follow up/Referral - Patient Discharge Instructions - Post Discharge Activity
[2020-07-02 23:54] LABS: ALBUMIN 3.2 g/dl (3.4-5.0); ALK PHOS 88 U/L (45-117); ANION GAP 8 MMOL/L (8-16); BILIRUBIN,TOTAL 0.3 mg/dL (0.2-1); BLOOD UREA NITROGEN 18.7 mg/dL (7-18); CALCIUM 8.9 mg/dL (8.5-10.1); CHLORIDE 103 mmol/L (98-107); CO2 29 mmol/L (21-32); CREATININE 0.9 mg/dL (0.55-1.3); GLUCOSE,RANDOM 123 mg/dL (74-106); LIPASE 101 U/L (73-393); POTASSIUM 4.3 mmol/L (3.5-5.1); SGOT/AST 12 U/L (15-37); SGPT/ALT 14 U/L (13-61); SODIUM 141 mmol/L (136-145); TOT PROT 7.6 g/dl (6.4-8.2)
[2020-07-03] MEDS ORDERED: AZITHROMYCIN IVPB 500 MG in DEXTROSE 5%-WATER - 250 ML IVPB ONE (02:05)
[2020-07-03] MEDS ORDERED: CEFTRIAXONE 1 GM in DEXTROSE 5%-WATER - 100 ML IVPB ONE (02:05)
[2020-07-03 02:11] LABS: VENOUS O2 SATURATION 99.1 % (70-80); VENOUS PCO2 37.9 mmHg (38-52); VENOUS PH 7.438 (7.310-7.410)
[2020-07-03] MEDS ORDERED: ACETAMINOPHEN INJECTION 100 ML IVPB ONE (02:30)
--- NOTE | 2020-07-03 03:08 | PN ---
Teaching Attending Note Name of Resident: Laurie Price ATTENDING PHYSICIAN STATEMENT I saw and evaluated the patient. I reviewed the resident's note and discussed the case with the resident. I agree with the resident's findings and plan as documented. SUBJECTIVE: Patient is a 60 year old man with a PMH of Cerebral palsy (nonverbal), Afib, Wheelchair use, Pulmonary HTN, Hiatal hernia, Shanae-nazario tear (s/p endoclipping), GI bleeding, GERD, Puree diet, Scoliosis and Hydrocephalus who presents to the ER from [facility] with a fever of 102, cough, lethargy and rhinorrhea for one day. Noted to be tachycardic and lethargic at the [facility]. The patient is unable to contribute to history because he is non-verbal at baseline. There is no reported vomiting, diarrhea, frequency,melena, hematochezia or hematuria. No reported history of alcohol, tobacco or illicit drug use. No reported sick contacts or recent travels. Was hospitalized in March 2020 at [facility] for possible GI bleeding. Tested negative for COVID-19 in March 2020. Family history is unavailable. OBJECTIVE: Alert, nonverbal Vital Signs Period Temp Pulse Resp BP Sys/Pimentel Pulse Ox Last 24 Hr 102 F 110-114 20-20 122-123/49-70 95-100 HEENT: No Jaundice, eye redness or discharge, PERRLA, EOMI. Normocephalic, atraumatic. External ears are normal. No nasal discharge. Neck: Supple, nontender. No palpable adenopathy or thyromegaly. No JVD Chest: Good effort. Clear to auscultation and percussion. Heart: Regular. No S3, rub or murmur Abdomen: Not distended, scoliosis, soft, nontender and no HSM. No rebound or guarding. Normal bowel sounds. Ext: Peripheral pulses intact. No leg edema. Skin: Warm and dry. No petechiae, rash or ecchymosis. Neuro: Alert. Nonverbal. Psych: Unable to assess. Home Medications Medication Instructions Recorded Ferrous Sulfate 220 mg PO ACHS 11/25/19 Metoprolol Tartrate 12.5 mg PO BID 11/25/19 Pantoprazole Sodium [Protonix] 40 mg PO BID 11/25/19 Cholecalciferol (Vitamin D3) 25 mcg PO ASDIR 04/03/20 [Vitamin D3] Multivitamins [Multivit ([facility] 1 tab PO DAILY 04/03/20 Formulary)] Polyethylene Glycol [Polyox 17 gm PO DAILY 04/03/20 Wsr-301] Calcium Citrate/Vitamin D3 2 each PO BID 04/04/20 [Calcium Cit 315-Vit D3 250 Tab] Erythromycin Base in Ethanol 60 ml TP BID 04/04/20 [Erythromycin 2% Solution] Fluoride (Sodium) [Sodium Fluoride 51 gm DT DAILY 04/04/20 5000 Plus] Fluticasone Prop 0.05% Nasal 1 - 2 spray NS DAILY 04/04/20 [Flonase -] Latanoprost/Pf [Latanoprost 0.005% 7.5 ml OP HS 04/04/20 Eye Drop] Miconazole Nitrate [Althea 142 gm TP QID 04/04/20 Antifungal] Nystatin Powder [Nystop Powder -] 60 gm TP BID 04/04/20 Ascorbic Acid [Vitamin C -] 500 mg PO DAILY tablet 04/05/20 Pantoprazole Suspension [Protonix 40 mg PO BID 30 Days #60 packet 04/05/20 Packets For Oral Suspension -] Sucralfate Oral Suspension 1 gm PO BID 10 Days #20 gm 04/05/20 [Carafate *Oral Susp*] Abnormal Lab Results 07/02/20 07/02/20 07/02/20 22:40 22:40 22:40 WBC 17.4 H Absolute Neuts (auto) 14.0 H Lymphocytes % 7.3 L Monocytes % 12.0 H VBG pH POC VBG pCO2 POC VBG pO2 VBG O2 Sat (Skye) BUN 18.7 H Random Glucose 123 H Lactic Acid 3.1 H* AST 12 L Albumin 3.2 L Urine pH Urine Blood 07/03/20 07/03/20 01:58 03:03 WBC Absolute Neuts (auto) Lymphocytes % Monocytes % VBG pH 7.438 H POC VBG pCO2 37.9 L POC VBG pO2 155.7 H VBG O2 Sat (Skye) 99.1 H BUN Random Glucose Lactic Acid AST Albumin Urine pH 8.5 H Urine Blood 1+ H Current Medications Generic Name Dose Route Start Last Admin Trade Name Freq PRN Reason Stop Dose Admin Enoxaparin Sodium 40 mg 07/03/20 10:00 Lovenox - SQ DAILY GIA Piperacillin Sod/Tazobactam 50 mls @ 100 mls/hr 07/03/20 05:00 07/03/20 05:15 Sod 3.375 gm/ Dextrose IVPB 07/03/20 18:29 100 mls/hr Q8H-IV GIA Administration Protocol Piperacillin Sod/Tazobactam 50 mls @ 100 mls/hr 07/04/20 02:00 Sod 3.375 gm/ Dextrose IVPB Q8H-IV GIA Protocol Pantoprazole Sodium 40 mg 07/03/20 10:00 Protonix - PO BID GIA Vancomycin HCl 1,000 mg 07/04/20 06:15 Vancomycin (Pre-Docked) IVPB Q24H GIA Protocol ASSESSMENT AND PLAN: 1. Sepsis due to Pneumonia/Rule out COVID-19 infection - CXR shows cardiomegaly, chronic pleural and interstitial changes, scoliosis, RLL infiltrate and possible LLL infiltrate. Viral testing for COVID-19 ordered and patient placed on airborne, droplet and contact isolation. Started on supplemental oxygen via nasal cannula. Patient was recently hospitalized and comes from a Detention. Will check D-Dimer, Ferritin, LDH and treat with Zinc sulfate, Pepcid, Vitamin C, IV Zosyn and IV Vancomycin, Tylenol PRN, IV NS and consult ID/Pulmonary.EKG shows sinus tachycardia at 124/minute, LVH, PVCs and QTc [address]-T wave changes. Initial troponin is negative. Will avoid drugs that may prolong QTc. Got IV NS in the ER and lactic acid is improved. Will continue comprehensive care for all of patients comorbid conditions including Puree diet and frequent repositioning to avoid decubitus ulcers. 2. Hypoalbuminemia - Possibly due to combined effects of malnutrition and inflammation associated with comorbid conditions. Will ensure adequate dietary protein intake and also consult appraiser auditor. 3. DVT prophylaxis - Lovenox 40 mg SQ q 24 hours. 4. Advance directives - Full code
[2020-07-03] MEDS ORDERED: CEFTRIAXONE 1 GM/50 ML BAG ONE (03:09)
[2020-07-03] MEDS ORDERED: ACETAMINOPHEN 1000 MG/100 ML VIAL (NON FORMULARY) IVPB ONE (03:10)
[2020-07-03] MEDS ORDERED: AZITHROMYCIN IVPB 500 MG/250 ML BAG IVPB ONE (03:10)
[2020-07-03 04:07] LABS: EPI CELLS >36 /uL (0-25.1); HYALINE CASTS 2 /uL (0-3.1); PH,URINE 8.5 (5.0-8.0); URINE APPEARANCE CLEAR; URINE BACTERIA 31 /uL (0-1359); URINE BILIRUBIN NEGATIVE (NEGATIVE); URINE COLOR YELLOW; URINE GLUCOSE (UA) NEGATIVE (NEGATIVE); URINE KETONE NEGATIVE (NEGATIVE); URINE LEUK ESTERASE NEGATIVE (NEGATIVE); URINE NITRITE NEGATIVE (NEGATIVE); URINE PROTEIN NEGATIVE (NEGATIVE); URINE UROBILINOGEN 0.2 mg/dL (0.2-1.0); URINE WBC 9 /uL (0-25.8)
[2020-07-03] MEDS ORDERED: PIPERACILLIN/TAZOB 3.375 GM 3.375 GM/50 ML BAG IVPB ONE (05:11)
[2020-07-03] MEDS: PIPERACILLIN/TAZOB 3.375 GM 3.375 GM in DEXTROSE 5%-WATER - 50 ML IVPB SCH ×3 (05:15→22:00)
--- NOTE | 2020-07-03 05:57 | HP ---
CHIEF COMPLAINT: He was coughing PCP: Dr. Sarah Miller HISTORY OF PRESENT ILLNESS: 60yo M with PMHx of cerebral palsy, developmental delay, HTN, pHTN, ILD, GERD, reflux esophagitis with linar ulcers, hx of GIB 2/2 Shanae Richard (2016 endoclipped), large hiatal hernia, afib without AC, scoliosis, hydrocephalus, wheelchair bound [facility]ing and fluctuating pulse. Per [facility] staff at bedside: she noticed that patient was coughing when she was giving him his lunch. They then took his vitals and noted that his pulse was fluctuating, ranging 50-120. Other than coughing she did not notice any other symptoms such as vomiting, diarrhea, and the patient was not giving signs of p ain. She explained that at baseline he ambulates in a wheel chair and spends a good amount of his days sitting in a recliner chair. He is minimally verbal but can express when he is displeased. Also, as patient does not like being touched by strangers, it is recommended to properly introduce oneself to the patient and tell him what will be happening next. ER course was notable for: (1) T 102F, P 114, WBC 17.4, BUN 18.7, lactic acid 3.1 (2) CXR with increased interstitial markings more pronounced in L lung Recent Travel: none PAST MEDICAL HISTORY: as per HPI PAST SURGICAL HISTORY: none per [facility] staff at bedside Family History unable to assess Social History: Home: used to live with mother but [facility] Mother: Kathy Cage [phone] [facility] staff Patrh Vaughn: [phone] Allergies No Known Allergies Allergy (Verified 04/03/20 17:58) HOME MEDICATIONS: Home Medications Medication Instructions Recorded Ferrous Sulfate 220 mg PO ACHS 11/25/19 Metoprolol Tartrate 12.5 mg PO BID 11/25/19 Pantoprazole Sodium [Protonix] 40 mg PO BID 11/25/19 Cholecalciferol (Vitamin D3) 25 mcg PO ASDIR 04/03/20 [Vitamin D3] Multivitamins [Multivit ([facility] 1 tab PO DAILY 04/03/20 Formulary)] Polyethylene Glycol [Polyox 17 gm PO DAILY 04/03/20 Wsr-301] Calcium Citrate/Vitamin D3 2 each PO BID 04/04/20 [Calcium Cit 315-Vit D3 250 Tab] Erythromycin Base in Ethanol 60 ml TP BID 04/04/20 [Erythromycin 2% Solution] Fluoride (Sodium) [Sodium Fluoride 51 gm DT DAILY 04/04/20 5000 Plus] Fluticasone Prop 0.05% Nasal 1 - 2 spray NS DAILY 04/04/20 [Flonase -] Latanoprost/Pf [Latanoprost 0.005% 7.5 ml OP HS 04/04/20 Eye Drop] Miconazole Nitrate [Althea 142 gm TP QID 04/04/20 Antifungal] Nystatin Powder [Nystop Powder -] 60 gm TP BID 04/04/20 Ascorbic Acid [Vitamin C -] 500 mg PO DAILY tablet 04/05/20 Pantoprazole Suspension [Protonix 40 mg PO BID 30 Days #60 packet 04/05/20 Packets For Oral Suspension -] Sucralfate Oral Suspension 1 gm PO BID 10 Days #20 gm 04/05/20 [Carafate *Oral Susp*] REVIEW OF SYSTEMS as per HPI PHYSICAL EXAMINATION Vital Signs - 24 hr 07/02/20 07/02/20 07/03/20 20:59 22:45 02:29 Temperature 102 F H 102 F H 99.5 F Pulse Rate 114 H Pulse Rate [ 110 H Apical] Respiratory 20 20 Rate Blood Pressure 122/49 L Blood Pressure 123/70 [Left Arm] O2 Sat by Pulse 100 95 Oximetry (%) 07/03/20 03:36 Temperature Pulse Rate Pulse Rate [ Apical] Respiratory Rate Blood Pressure Blood Pressure [Left Arm] O2 Sat by Pulse 95 Oximetry (%) GENERAL: M with apparent cerebral palsy, appears stated age, thin body habitus, nonverbal, no signs of acute distress HEAD: Normal with no signs of trauma EYES: R eye blind and generalized haziness, L eye round and reactive to light with extraocular movements intact LUNGS: CTAB but limited exam HEART: irregularly irregular, normal S1 and S2 without murmur ABDOMEN: Soft, nontender, not distended, active bowel sounds EXTREMITIES: 1+ radial and dorsalis pedis pulses, warm to touch bilaterally, nontender to palpation, no peripheral edema appreciated, no active lesions or ulcers noted on feet bilaterally including interdigital web spaces NEUROLOGICAL: unable to assess PSYCHIATRIC: Cooperative when verbally prepared on upcoming action, does not respond to commands. limited eye contact SKIN: no rashes or lesions noted Abnormal Lab Results 07/02/20 07/02/20 07/02/20 22:40 22:40 22:40 WBC 17.4 H Absolute Neuts (auto) 14.0 H Lymphocytes % 7.3 L Monocytes % 12.0 H VBG pH POC VBG pCO2 POC VBG pO2 VBG O2 Sat (Skye) BUN 18.7 H Random Glucose 123 H Lactic Acid 3.1 H* AST 12 L Albumin 3.2 L Urine pH Urine Blood 07/03/20 07/03/20 01:58 03:03 WBC Absolute Neuts (auto) Lymphocytes % Monocytes % VBG pH 7.438 H POC VBG pCO2 37.9 L POC VBG pO2 155.7 H VBG O2 Sat (Skye) 99.1 H BUN Random Glucose Lactic Acid AST Albumin Urine pH 8.5 H Urine Blood 1+ H ASSESSMENT/PLAN: 60yo M with PMHx of cerebral palsy, developmental delay, HTN, pHTN, ILD, GERD, reflux esophagitis with linar ulcers, hx of GIB 2/2 Shanae Richard (2016 endoclipped), large hiatal hernia, afib without AC, scoliosis, hydrocephalus, wheelchair bound who [facility] with [facility] and fluctuating pulse. Initial ED workup was remarkable for T 102F, P 114, WBC 17.4, BUN 18.7, lactic acid 3.1. Patient admitted for treatment of sepsis. #sepsis 2/2 to UTI and/or community acquired PNA, and/or COVID > patient was recently hospitalized in April > patient lives in a fdc which increases risk of PNA > no decubitus ulcer or other wounds present > CXR: difficult to determine whether increased L pulmonary markings are due to image vs ILD vs infective ideology - started broad spectrum coverage for UTI and PNA with vanc and zosyn - ordered ferritin, d-dimer, LDH, CRP - ID consulted - PT consulted - continue tylenol for fever #GERD - restarted home pantoprazole *more detailed med rec needed #FEN - no standing fluids - replete lytes PRN - puree diet - registered client associate consulted #PPX - DVT: lovenox - GI: pantoprazole #Dispo: medSurg Family Medical History Family History: Unable to Obtain Visit type - Emergency Visit Emergency Visit: Yes ED Registration Date: 07/03/20 Care time: The patient presented to the Emergency Department on the above date and was hospitalized for further evaluation of their emergent condition. - New Patient This patient is new to me today: Yes Date on this admission: 07/03/20 - Critical Care Critical Care patient: No ATTENDING PHYSICIAN STATEMENT I saw and evaluated the patient. I reviewed the resident's note and discussed the case with the resident. I agree with the resident's findings and plan as documented. SUBJECTIVE: OBJECTIVE: ASSESSMENT AND PLAN:
[2020-07-03] MEDS ORDERED: VANCOMYCIN 1 GM in D5W (PRE-DOCKED) 1,000 MG/250 ML IVPB SCH (06:15)
[2020-07-03] MEDS ORDERED: VANCOMYCIN 1 GRAM (PRE-DOCKED) 1,000 MG/250 ML BAG IVPB ONE (06:26)
[2020-07-03 06:37] LABS: URINE RBC 154.1 /uL (0-23.9); YEAST NONE SEEN (NEGATIVE)
[2020-07-03 07:31] LABS: BASO % 0.3 % (0-2.0); EOS % 0.6 % (0-4.5); HEMATOCRIT 31.6 % (35.4-49); HEMOGLOBIN 10.6 GM/dL (11.7-16.9); LYMPH % 10.6 % (8-40); MCH 29.2 pg (25.7-33.7); MCHC 33.6 g/dl (32.0-35.9); MEAN PLT VOLUME 8.3 fl (7.5-11.1); NEUT % 77.5 % (42.8-82.8); PLATELET COUNT 178 K/MM3 (134-434); RBC 3.63 M/mm3 (4.00-5.60); WHITE BLOOD COUNT 12.3 K/mm3 (4.0-10.0)
[2020-07-03 08:01] LABS: ALBUMIN 2.5 g/dl (3.4-5.0); BILIRUBIN,TOTAL 0.4 mg/dL (0.2-1); CALCIUM 7.8 mg/dL (8.5-10.1); CREATININE 0.7 mg/dL (0.55-1.3); MAGNESIUM 1.9 mg/dL (1.8-2.4); PHOSPHOROUS 2.5 mg/dL (2.5-4.9); POTASSIUM 3.8 mmol/L (3.5-5.1); TOT PROT 6.2 g/dl (6.4-8.2)
[2020-07-03 08:10] LABS: BLOOD UREA NITROGEN 11.5 mg/dL (7-18)
--- NOTE | 2020-07-03 09:04 | EKG ---
Test Reason : Blood Pressure : / mmHG Vent. Rate : 124 BPM Atrial Rate : 124 BPM P-R Int : 152 ms QRS Dur : 092 ms QT Int : 322 ms P-R-T Axes : 042 008 111 degrees QTc Int : 462 ms POOR DATA QUALITY, INTERPRETATION MAY BE ADVERSELY AFFECTED SINUS TACHYCARDIA WITH FREQUENT PREMATURE VENTRICULAR COMPLEXES VOLTAGE CRITERIA FOR LEFT VENTRICULAR HYPERTROPHY CANNOT RULE OUT SEPTAL INFARCT , AGE UNDETERMINED ABNORMAL ECG WHEN COMPARED WITH ECG OF 03-APR-2020 17:34, PREMATURE VENTRICULAR COMPLEXES ARE NOW PRESENT MINIMAL CRITERIA FOR SEPTAL INFARCT ARE NOW PRESENT T WAVE INVERSION MORE EVIDENT IN LATERAL LEADS Confirmed by MD NANCI, SAURAV ([id number]) on 07/03/2020 9:03:59 AM Referred By: Confirmed By:SAURAV CHRISTINE MD
--- NOTE | 2020-07-03 10:14 | PN ---
Progress Note (short form) - Note Progress Note: ID consult dictated imp/reccd 60 yo man
--- NOTE | 2020-07-03 10:19 | CON.ID ---
Consult Consult Specialty:: infectious disease Referred by:: hospitalist Reason for Consultation:: fever - History of Present Illness Chief Complaint: cough and fever History of Present Illness: history from aide who is with patient daily 60 yo man with CP and developmental delay developed dry cough after lunch (pureed food) yesterday- no vomiting, no diarrhea cough persisted and he developed fever and was brought to ED otherwise well at baseline mental status per aide everyone at the prison is tested for covid and the residents do not go out to any activities except doctors appts and then they are masked in ED fever to 102 got rocephin/zith then vancomycin and zosyn not hlypoxic resting comfortably patient is nonverbal with me, per aide occasionally verbal with staff - Past Medical History 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: 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, Other (Mental retardation-cerebral palsy) Cardio/Vascular: Yes: AFIB (paroxysmal), Aortic Insufficiency, HTN, Mitral Insufficiency (moderate to severe MR), Murmur (moderate to severe TR and MR), Pulmonary Hypertension Pulmonary: Yes: Pneumonia Gastrointestinal: Yes: GERD (severe and refractory to therapy and causing transfusion requiring chronic blood loss anemia ), Hiatal Hernia (large intrathoracic segment HH prone to Nigel ulcers, GERD and gastric volvulus), Peptic Ulcer Disease, Other (large intrathoracic hiatal hernia, h/o Shanae Richard bleed) Infectious Disease: Yes: Other (influenza 12/07) Additional Medical History: Cerebral palsy, Seizure D/O, Mitral valve prolapse, shingles, glaucoma - Past Surgical History Past Surgical History: Yes: Colonoscopy, Upper Endoscopy - Alcohol/Substance Use Hx Alcohol Use: No History of Substance Use: reports: None - Smoking History Smoking history: Never smoked Have you smoked in the past 12 months: No Aproximately how many cigarettes per day: 0 - Social History Usual Living Arrangement: Other (prison) ADL: Support Services Place of : [place] History of Recent Travel: No Home Medications - Allergies Allergies/Adverse Reactions: Allergies Allergy/AdvReac Type Severity Reaction Status Date / Time No Known Allergies Allergy Verified 04/03/20 17:58 - Home Medications Home Medications: Ambulatory Orders Ferrous Sulfate 220 mg PO ACHS 11/25/19 Metoprolol Tartrate 12.5 mg PO BID 11/25/19 Pantoprazole Sodium [Protonix] 40 mg PO BID 11/25/19 Cholecalciferol (Vitamin D3) [Vitamin D3] 25 mcg PO ASDIR 04/03/20 Multivitamins [Multivit ([facility] Formulary)] 1 tab PO DAILY 04/03/20 Polyethylene Glycol [Polyox Wsr-301] 17 gm PO DAILY 04/03/20 Calcium Citrate/Vitamin D3 [Calcium Cit 315-Vit D3 250 Tab] 2 each PO BID 04/04/20 Erythromycin Base in Ethanol [Erythromycin 2% Solution] 60 ml TP BID 04/04/20 Fluoride (Sodium) [Sodium Fluoride 5000 Plus] 51 gm DT DAILY 04/04/20 Fluticasone Prop 0.05% Nasal [Flonase -] 1 - 2 spray NS DAILY 04/04/20 Latanoprost/Pf [Latanoprost 0.005% Eye Drop] 7.5 ml OP HS 04/04/20 Miconazole Nitrate [Althea Antifungal] 142 gm TP QID 04/04/20 Nystatin Powder [Nystop Powder -] 60 gm TP BID 04/04/20 Ascorbic Acid [Vitamin C -] 500 mg PO DAILY tablet 04/05/20 Pantoprazole Suspension [Protonix Packets For Oral Suspension -] 40 mg PO BID 30 Days #60 packet 04/05/20 Sucralfate Oral Suspension [Carafate *Oral Susp*] 1 gm PO BID 10 Days #20 gm 04/05/20 Family Medical History Family History: Unable to Obtain Review of Systems - Review of Systems Constitutional: reports: Fever Respiratory: reports: Cough Gastrointestinal: reports: No Symptoms. denies: Vomiting Genitourinary: reports: No Symptoms Physical Exam Vital Signs: Vital Signs Temperature 99.3 F 07/03/20 06:10 Pulse Rate 88 07/03/20 08:20 Respiratory Rate 20 07/03/20 08:20 Blood Pressure 104/67 07/03/20 08:20 O2 Sat by Pulse Oximetry (%) 97 07/03/20 08:20 Constitutional: Yes: Well Nourished, No Distress Eyes: Yes: Conjunctiva Clear HENT: Yes: Atraumatic, Normocephalic. No: Thrush Neck: Yes: Supple, Trachea Midline Cardiovascular: Yes: Regular Rate and Rhythm Respiratory: Yes: Regular, Other (decreased bs at bases) Gastrointestinal: Yes: Normal Bowel Sounds, Soft ...Rectal Exam: Yes: Deferred Musculoskeletal: Yes: WNL Extremities: Yes: WNL Edema: No Psychiatric: Yes: Alert Labs: CBC, BMP 07/03/20 05:45 07/03/20 05:45 Imaging - Results Chest X-ray: Report Reviewed, Image Reviewed Problem List - Problems (1) Pneumonia Code(s): J18.9 - PNEUMONIA, UNSPECIFIED ORGANISM (2) Cerebral palsy Code(s): G80.9 - CEREBRAL PALSY, UNSPECIFIED Qualifiers: Cerebral palsy type: unspecified type Qualified Code(s): G80.9 - Cerebral palsy, unspecified Assessment/Plan possible aspiratin vs CAP history of underlying ILD already on a puree diet continue zosyn/zithromax check cultures check legionella antigen consider swallowing evaluation
[2020-07-03] MEDS ORDERED: ENOXAPARIN NA (PORCINE) 40 MG/0.4 ML DISP.SYRIN SQ ONE (11:38)
[2020-07-03] MEDS ORDERED: PANTOPRAZOLE 40 MG TABLET ONE (11:38)
[2020-07-03] MEDS: ENOXAPARIN NA (PORCINE) 40 MG/0.4 ML DISP.SYRIN SQ SCH (11:48)
[2020-07-03] MEDS: PANTOPRAZOLE 40 MG TABLET PO SCH ×2 (11:49→21:57)
--- NOTE | 2020-07-03 14:40 | PN ---
Teaching Attending Note Name of Resident: Miriam Cline ATTENDING PHYSICIAN STATEMENT I saw and evaluated the patient. I reviewed the resident's note and discussed the case with the resident. I agree with the resident's findings and plan as documented. SUBJECTIVE: pt seen and examined at bedside, non verbal, but attempts to communicate OBJECTIVE: Last Vital Signs Temp Pulse Resp BP Pulse Ox 98.1 F 86 16 123/85 95 07/03/20 12:32 07/03/20 12:32 07/03/20 12:32 07/03/20 12:32 07/03/20 12:30 GENERAL: Awake, alert, in no acute distress. HEAD: Normal with no signs of trauma. EYES: Rt corneal scarring LUNGS: Rt lower lobe rales HEART: S1S2+, pulmonary diastolic murmur 3/6, machinary musical murmur at apical area ABDOMEN: Soft, nontender, not distended MUSCULOSKELETAL: kyphoscoliosis LOWER EXTREMITIES: 2+ pulses, warm, well-perfused. No calf tenderness. No peripheral edema. CBCD WBC 12.3 K/mm3 (4.0-10.0) H 07/03/20 05:45 RBC 3.63 M/mm3 (4.00-5.60) L 07/03/20 05:45 Hgb 10.6 GM/dL (11.7-16.9) L 07/03/20 05:45 Hct 31.6 % (35.4-49) L 07/03/20 05:45 MCV 87.0 fl (80-96) 07/03/20 05:45 MCHC 33.6 g/dl (32.0-35.9) 07/03/20 05:45 RDW 14.0 % (11.9-15.9) 07/03/20 05:45 Plt Count 178 K/MM3 (134-434) 07/03/20 05:45 MPV 8.3 fl (7.5-11.1) 07/03/20 05:45 CMP Sodium 140 mmol/L (136-145) 07/03/20 05:45 Potassium 3.8 mmol/L (3.5-5.1) 07/03/20 05:45 Chloride 106 mmol/L (98-107) 07/03/20 05:45 Carbon Dioxide 29 mmol/L (21-32) 07/03/20 05:45 Anion Gap 5 MMOL/L (8-16) L 07/03/20 05:45 BUN 11.5 mg/dL (7-18) 07/03/20 05:45 Creatinine 0.7 mg/dL (0.55-1.3) 07/03/20 05:45 Calcium 7.8 mg/dL (8.5-10.1) L 07/03/20 05:45 Total Bilirubin 0.4 mg/dL (0.2-1) 07/03/20 05:45 AST 9 U/L (15-37) L 07/03/20 05:45 ALT 12 U/L (13-61) L 07/03/20 05:45 Alkaline Phosphatase 68 U/L (45-117) 07/03/20 05:45 Total Protein 6.2 g/dl (6.4-8.2) L 07/03/20 05:45 Albumin 2.5 g/dl (3.4-5.0) L 07/03/20 05:45 Active Medications Enoxaparin Sodium (Lovenox -) 40 mg SQ DAILY GIA Last Admin: 07/03/20 11:48 Dose: 40 mg Documented by: Piperacillin Sod/Tazobactam (Sod 3.375 gm/ Dextrose) 50 mls @ 100 mls/hr IVPB Q8H-IV GIA; Protocol Stop: 07/03/20 18:29 Last Admin: 07/03/20 14:13 Dose: 100 mls/hr Documented by: Piperacillin Sod/Tazobactam (Sod 3.375 gm/ Dextrose) 50 mls @ 100 mls/hr IVPB Q8H-IV GIA; Protocol Pantoprazole Sodium (Protonix -) 40 mg PO BID GIA Last Admin: 07/03/20 11:49 Dose: 40 mg Documented by: ASSESSMENT AND PLAN: 60yo Man with PMHx of cerebral palsy, developmental delay, HTN, pHTN, ILD, GERD, reflux esophagitis with linar ulcers, hx of GIB 2/2 Shanae Richard (2016 endoclipped), large hiatal hernia, afib without AC, scoliosis, hydrocephalus, corneal opacity, wheelchair bound [facility] and [facility] # sepsis 2/2 aspiration pneumonia leukocytosis, fever, infiltrate on CXR meeting sepsis criteria CP, kyphoscoliosis restrictive/interstitial lung disease elevated bicarb, suspecting CO2 retaining Abx per ID Lactic acidosis, resolving improving white count keep head elevated, speech and swallow eval Trend platelets when on zosyn sputum, blood culture, CoV2 test, flu test, mycoplasma, legionella aspiration precautions, fall precautions GERD HTN pulmonary HTN HH AFib hydrocephalus Cerebral Palsy DVT prophylaxis
--- NOTE | 2020-07-03 18:48 | PN ---
Physical Exam: SUBJECTIVE: Patient seen and examined. Nonverbal at baseline. OBJECTIVE: Vital Signs Period Temp Pulse Resp BP Sys/Pimentel Pulse Ox Last 24 Hr 97.4 F-102 F 67-114 16-20 104-123/49-85 95-100 GENERAL: The patient is awake, alert, in no acute distress. HEAD: Normal with no signs of trauma. EYES: PERRL, extraocular movements intact, sclera anicteric, conjunctiva clear. No ptosis. Corneal scarring ENT: Ears normal, nares patent, oropharynx clear without exudates, moist mucous membranes. NECK: Trachea midline, full range of motion, supple. LUNGS: Breath sounds equal, clear to auscultation bilaterally, no wheezes, no crackles, no accessory muscle use. Rales R lower lobe HEART: Regular rate and rhythm, S1, S2 without murmur, rub or gallop. Machine like murmur at apex, pulmonary diastolic murmur ABDOMEN: Soft, nontender, nondistended, normoactive bowel sounds, no guarding, no rebound, no hepatosplenomegaly, no masses. EXTREMITIES: 2+ pulses, warm, well-perfused, no edema. NEUROLOGICAL: Cranial nerves II through XII grossly intact. Normal speech, gait not observed. PSYCH: Normal mood, normal affect. SKIN: Warm, dry, normal turgor, no rashes or lesions noted Laboratory Results - last 24 hr 07/02/20 07/02/20 07/02/20 22:40 22:40 22:40 WBC 17.4 H RBC 4.20 Hgb 12.3 Hct 36.7 MCV 87.3 MCH 29.3 MCHC 33.5 RDW 14.3 Plt Count 205 MPV 8.2 Absolute Neuts (auto) 14.0 H Neutrophils % 80.6 Lymphocytes % 7.3 L Monocytes % 12.0 H Eosinophils % 0.0 D Basophils % 0.1 Nucleated RBC % 0 PT with INR 12.80 INR 1.08 PTT (Actin FS) 27.0 D-Dimer VBG pH POC VBG pCO2 POC VBG pO2 VBG HCO3 VBG O2 Sat (Skye) VBG Base Excess Sodium 141 Potassium 4.3 Chloride 103 Carbon Dioxide 29 Anion Gap 8 BUN 18.7 H Creatinine 0.9 Est GFR (CKD-EPI)AfAm 108.73 Est GFR (CKD-EPI)NonAf 93.82 Random Glucose 123 H Lactic Acid Calcium 8.9 Phosphorus Magnesium Ferritin Total Bilirubin 0.3 AST 12 L ALT 14 Alkaline Phosphatase 88 LD Total Creatine Kinase 51 Troponin I < 0.02 C-Reactive Protein Total Protein 7.6 Albumin 3.2 L Lipase 101 Urine Color Urine Appearance Urine pH Ur Specific [place] Urine Protein Urine Glucose (UA) Urine Ketones Urine Blood Urine Nitrite Urine Bilirubin Urine Urobilinogen Ur Leukocyte Esterase Urine WBC (Auto) Urine RBC (Auto) Urine Casts (Auto) U Epithel Cells (Auto) U Sm Round Cell (Auto) Urine Bacteria (Auto) Urine Yeast (Auto) 07/02/20 07/02/20 07/03/20 22:40 22:40 01:58 WBC RBC Hgb Hct MCV MCH MCHC RDW Plt Count MPV Absolute Neuts (auto) Neutrophils % Lymphocytes % Monocytes % Eosinophils % Basophils % Nucleated RBC % PT with INR INR PTT (Actin FS) D-Dimer VBG pH 7.438 H POC VBG pCO2 37.9 L POC VBG pO2 155.7 H VBG HCO3 25.0 VBG O2 Sat (Skye) 99.1 H VBG Base Excess 1.0 Sodium Potassium Chloride Carbon Dioxide Anion Gap BUN Creatinine Est GFR (CKD-EPI)AfAm Est GFR (CKD-EPI)NonAf Random Glucose Lactic Acid 3.1 H* Calcium Phosphorus Magnesium Ferritin Total Bilirubin AST ALT Alkaline Phosphatase LD Total Creatine Kinase Troponin I < 0.02 C-Reactive Protein Total Protein Albumin Lipase Urine Color Urine Appearance Urine pH Ur Specific [place] Urine Protein Urine Glucose (UA) Urine Ketones Urine Blood Urine Nitrite Urine Bilirubin Urine Urobilinogen Ur Leukocyte Esterase Urine WBC (Auto) Urine RBC (Auto) Urine Casts (Auto) U Epithel Cells (Auto) U Sm Round Cell (Auto) Urine Bacteria (Auto) Urine Yeast (Auto) 07/03/20 07/03/20 07/03/20 01:58 03:03 05:45 WBC 12.3 H RBC 3.63 L Hgb 10.6 L Hct 31.6 L MCV 87.0 MCH 29.2 MCHC 33.6 RDW 14.0 Plt Count 178 MPV 8.3 Absolute Neuts (auto) 9.5 H Neutrophils % 77.5 Lymphocytes % 10.6 D Monocytes % 11.0 H Eosinophils % 0.6 D Basophils % 0.3 Nucleated RBC % 0 PT with INR INR PTT (Actin FS) D-Dimer VBG pH POC VBG pCO2 POC VBG pO2 VBG HCO3 VBG O2 Sat (Skye) VBG Base Excess Sodium Potassium Chloride Carbon Dioxide Anion Gap BUN Creatinine Est GFR (CKD-EPI)AfAm Est GFR (CKD-EPI)NonAf Random Glucose Lactic Acid 1.5 Calcium Phosphorus Magnesium Ferritin Total Bilirubin AST ALT Alkaline Phosphatase LD Total Creatine Kinase Troponin I C-Reactive Protein Total Protein Albumin Lipase Urine Color Yellow Urine Appearance Clear Urine pH 8.5 H Ur Specific [place] 1.012 Urine Protein Negative Urine Glucose (UA) Negative Urine Ketones Negative Urine Blood 1+ H Urine Nitrite Negative Urine Bilirubin Negative Urine Urobilinogen 0.2 Ur Leukocyte Esterase Negative Urine WBC (Auto) 9 Urine RBC (Auto) 154.1 Urine Casts (Auto) 2 U Epithel Cells (Auto) >36 U Sm Round Cell (Auto) None seen Urine Bacteria (Auto) 31 Urine Yeast (Auto) None seen 07/03/20 07/03/20 07/03/20 05:45 05:45 05:45 WBC RBC Hgb Hct MCV MCH MCHC RDW Plt Count MPV Absolute Neuts (auto) Neutrophils % Lymphocytes % Monocytes % Eosinophils % Basophils % Nucleated RBC % PT with INR INR PTT (Actin FS) D-Dimer 449 VBG pH POC VBG pCO2 POC VBG pO2 VBG HCO3 VBG O2 Sat (Skye) VBG Base Excess Sodium 140 Potassium 3.8 Chloride 106 Carbon Dioxide 29 Anion Gap 5 L BUN 11.5 Creatinine 0.7 Est GFR (CKD-EPI)AfAm 120.56 Est GFR (CKD-EPI)NonAf 104.02 Random Glucose 96 Lactic Acid Calcium 7.8 L Phosphorus 2.5 Magnesium 1.9 Ferritin 103.8 Total Bilirubin 0.4 AST 9 L ALT 12 L Alkaline Phosphatase 68 LD Total 137 Creatine Kinase Troponin I C-Reactive Protein 9.9 H Total Protein 6.2 L Albumin 2.5 L Lipase Urine Color Urine Appearance Urine pH Ur Specific [place] Urine Protein Urine Glucose (UA) Urine Ketones Urine Blood Urine Nitrite Urine Bilirubin Urine Urobilinogen Ur Leukocyte Esterase Urine WBC (Auto) Urine RBC (Auto) Urine Casts (Auto) U Epithel Cells (Auto) U Sm Round Cell (Auto) Urine Bacteria (Auto) Urine Yeast (Auto) Active Medications Generic Name Dose Route Start Last Admin Trade Name Freq PRN Reason Stop Dose Admin Enoxaparin Sodium 40 mg 07/03/20 10:00 07/03/20 11:48 Lovenox - SQ 40 mg DAILY GIA Administration Piperacillin Sod/Tazobactam 50 mls @ 100 mls/hr 07/03/20 22:00 Sod 3.375 gm/ Dextrose IVPB Q8H [facility] Protocol Azithromycin 500 mg in 250 mls @ 250 mls/hr 07/04/20 10:00 Zithromax 500mg Ivpb (Pre-Docked) IVPB DAILY [facility] Pantoprazole Sodium 40 mg 07/03/20 10:00 07/03/20 11:49 Protonix - PO 40 mg BID GAI Administration ASSESSMENT/PLAN: 60 year old mael with PMHx of cerebral palsy, developmental delay, HTN, pHTN, I LD, GERD, reflux esophagitis with linar ulcers, hx of GIB 2/2 Shanae Richard (2016 endoclipped), large hiatal hernia, afib without AC, scoliosis, hydrocephalus, corneal opacity, wheelchair bound [facility] #Sepsis 2/2 to aspiration PNA -WBC on admission 17.4, improving to 12.3 -lactic acidosis resolved -afebrile -puree diet -consulted speech and swallow -ID cnosulted, on azithro and zosyn -infleunza, mycoplasma, legionella, sputum cx -pending blood cx #Hx of GERD -continue home protonix #Hx of HTN -continue home metoprolol #Hx of afib -on metoprolol succinate -not on AC due to hx of GIB Visit type - Emergency Visit Emergency Visit: Yes ED Registration Date: 07/03/20 Care time: The patient presented to the Emergency Department on the above date and was hospitalized for further evaluation of their emergent condition. - New Patient This patient is new to me today: No - Critical Care Critical Care patient: No ATTENDING PHYSICIAN STATEMENT I saw and evaluated the patient. I reviewed the resident's note and discussed the case with the resident. I agree with the resident's findings and plan as documented. SUBJECTIVE: OBJECTIVE: ASSESSMENT AND PLAN:
[2020-07-03] MEDS: metoPROLOL SUCCINATE 25 MG TAB.SR.24H (FP) PO SCH (21:57)
[2020-07-03] MEDS: LATANOPROST 0.005% OPHTH SOLN 2.5ML BOTTLE OS SCH (21:58)
[2020-07-04] MEDS: PIPERACILLIN/TAZOB 3.375 GM 3.375 GM in DEXTROSE 5%-WATER - 50 ML IVPB SCH ×3 (05:58→22:15)
[2020-07-04] MEDS ORDERED: VANCOMYCIN 1 GM in D5W (PRE-DOCKED) 1,000 MG/250 ML IVPB SCH (06:15)
[2020-07-04 08:57] LABS: BASO % 0.3 % (0-2.0); HEMATOCRIT 34.3 % (35.4-49); HEMOGLOBIN 11.7 GM/dL (11.7-16.9); LYMPH % 11.8 % (8-40); MCH 29.5 pg (25.7-33.7); MEAN CELL VOLUME 86.8 fl (80-96); MONO % 11.2 % (3.8-10.2); NEUT % 74.7 % (42.8-82.8); PLATELET COUNT 200 K/MM3 (134-434); RBC 3.95 M/mm3 (4.00-5.60); RDW 14.1 % (11.9-15.9); WHITE BLOOD COUNT 8.2 K/mm3 (4.0-10.0)
[2020-07-04 09:27] LABS: BLOOD UREA NITROGEN 8.1 mg/dL (7-18); CALCIUM 8.3 mg/dL (8.5-10.1); POTASSIUM 3.6 mmol/L (3.5-5.1)
[2020-07-04 09:28] LABS: CREATININE 0.5 mg/dL (0.55-1.3); PHOSPHOROUS 3.4 mg/dL (2.5-4.9)
[2020-07-04] MEDS: ENOXAPARIN NA (PORCINE) 40 MG/0.4 ML DISP.SYRIN SQ SCH (10:15)
[2020-07-04] MEDS: AZITHROMYCIN IVPB 500 MG/250 ML BAG IVPB SCH (10:15)
[2020-07-04] MEDS: metoPROLOL SUCCINATE 25 MG TAB.SR.24H (FP) PO SCH ×2 (10:17→22:15)
[2020-07-04] MEDS: MULTIVITAMINS (DAILY MVI) TABLET (FP) PO SCH (10:17)
[2020-07-04] MEDS: PANTOPRAZOLE 40 MG TABLET PO SCH ×2 (10:18→22:15)
--- NOTE | 2020-07-04 10:46 | PN ---
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 SECURITY REPRESENTATIVE - Note Progress Note: 60 year old renny with PMHx of cerebral palsy, developmental delay, HTN, pHTN, I LD, GERD, reflux esophagitis with linar ulcers, hx of GIB 2/2 Shanae Richard (2016 endoclipped), large hiatal hernia, afib without AC, scoliosis, hydrocephalus, corneal opacity, wheelchair bound who presented from [facility] with coughing Sepsis 2/2 to aspiration PNA Selected Entries 07/02/20 07/02/20 07/03/20 20:59 22:45 02:29 Breakfast Diet Tolerated Lunch Supper Temperature 102 F H 102 F H Pulse Rate 114 H Respiratory Rate Blood Pressure 122/49 L O2 Sat by Pulse 95 Oximetry (%) Oxygen Delivery Room Air Method 07/03/20 07/03/20 07/03/20 03:36 06:10 07:25 Breakfast Diet Tolerated Lunch Supper Temperature Pulse Rate Respiratory Rate Blood Pressure O2 Sat by Pulse 95 98 97 Oximetry (%) Oxygen Delivery Room Air Room Air Room Air Method 07/03/20 07/03/20 07/03/20 08:20 12:00 12:30 Breakfast Diet Tolerated Well Lunch 100% Supper Temperature Pulse Rate Respiratory Rate Blood Pressure O2 Sat by Pulse 97 95 Oximetry (%) Oxygen Delivery Room Air Room Air Method 07/03/20 07/03/20 07/03/20 21:00 22:00 22:52 Breakfast Diet Tolerated Well Lunch Supper Temperature Pulse Rate Respiratory Rate Blood Pressure O2 Sat by Pulse 95 95 Oximetry (%) Oxygen Delivery Room Air Method 07/03/20 07/04/20 07/04/20 23:39 06:00 10:03 Breakfast 100% Diet Tolerated Well Well Lunch Supper 75% Temperature 98.2 F Pulse Rate 120 H Respiratory 18 Rate Blood Pressure 148/67 O2 Sat by Pulse 95 Oximetry (%) Oxygen Delivery Method Laboratory Tests 07/02/20 07/03/20 07/04/20 22:40 05:45 07:50 WBC 17.4 H 12.3 H 8.2 Diet order "Puree" adjusted to puree/nectar. PER emr, i last saw pt in 2015, although I do believe my notes are not coming up, and he has been seen by me more recently.
--- NOTE | 2020-07-04 10:52 | CONSULT ---
Admitting History and Physical - Admission History of Present Illness: 60 year old mael with PMHx of cerebral palsy, developmental delay, HTN, pHTN, ILD, GERD, reflux esophagitis with linar ulcers, hx of GIB 2/2 Shanae Richard (2016 endoclipped), large hiatal hernia, afib without AC, scoliosis, hydrocephalus, corneal opacity, wheelchair bound who presented from [facility] with coughing Sepsis 2/2 to aspiration PNA Selected Entries 07/02/20 07/02/20 07/03/20 20:59 22:45 02:29 Breakfast Diet Tolerated Lunch Supper Temperature 102 F H 102 F H Pulse Rate 114 H Respiratory Rate Blood Pressure 122/49 L O2 Sat by Pulse 95 Oximetry (%) Oxygen Delivery Room Air Method 07/03/20 07/03/20 07/03/20 03:36 06:10 07:25 Breakfast Diet Tolerated Lunch Supper Temperature Pulse Rate Respiratory Rate Blood Pressure O2 Sat by Pulse 95 98 97 Oximetry (%) Oxygen Delivery Room Air Room Air Room Air Method 07/03/20 07/03/20 07/03/20 08:20 12:00 12:30 Breakfast Diet Tolerated Well Lunch 100% Supper Temperature Pulse Rate Respiratory Rate Blood Pressure O2 Sat by Pulse 97 95 Oximetry (%) Oxygen Delivery Room Air Room Air Method 07/03/20 07/03/20 07/03/20 21:00 22:00 22:52 Breakfast Diet Tolerated Well Lunch Supper Temperature Pulse Rate Respiratory Rate Blood Pressure O2 Sat by Pulse 95 95 Oximetry (%) Oxygen Delivery Room Air Method 07/03/20 07/04/20 07/04/20 23:39 06:00 10:03 Breakfast 100% Diet Tolerated Well Well Lunch Supper 75% Temperature 98.2 F Pulse Rate 120 H Respiratory 18 Rate Blood Pressure 148/67 O2 Sat by Pulse 95 Oximetry (%) Oxygen Delivery Method Laboratory Tests 07/02/20 07/03/20 07/04/20 22:40 05:45 07:50 WBC 17.4 H 12.3 H 8.2 Laboratory Tests 07/02/20 07/04/20 02:00 07:50 COVID-19 (TED) Not detected M.pneumoniae IgM Titer Pending Diet order "Puree" adjusted to puree/nectar. PER emr, I last saw pt in 2015? Per central processing tech, pt tolerates puree and some chopped foods in grouphome with nectar thick liquids. Good appetite here. Occasional cough after eating reported by central processing tech. History Source: Medical Record, Caregiver Limitations to Obtaining History: Clinical Condition - Past Medical History CONSTRUCTION STONEMASON: Yes: Seizure, Other (Mental retardation-cerebral palsy) Cardiovascular: Yes: AFIB (paroxysmal), Aortic Insufficiency, HTN, Mitral Insufficiency (moderate to severe MR), Murmur (moderate to severe TR and MR), Pulmonary Hypertension Pulmonary: Yes: Pneumonia Gastrointestinal: Yes: GERD (severe and refractory to therapy and causing transfusion requiring chronic blood loss anemia ), Hiatal Hernia (large intrathoracic segment HH prone to Nigel ulcers, GERD and gastric volvulus), Peptic Ulcer Disease, Other (large intrathoracic hiatal hernia, h/o Shanae Richard bleed) Heme/Onc: Yes: Anemia (due to GERD and Nigel ulcers) Infectious Disease: Yes: Other (influenza 12/07) - Past Surgical History Past Surgical History: Yes: Colonoscopy, Upper Endoscopy - Smoking History Smoking history: Never smoked Have you smoked in the past 12 months: No Aproximately how many cigarettes per day: 0 - Alcohol/Substance Use Hx Alcohol Use: No History of Substance Use: reports: None - Social History ADL: Support Services History of Recent Travel: No History - Admission Reason For Visit: FEVER,SEPSIS - Diagnostics X-ray: Report Reviewed - General Mental Status: Awake and Alert, Able to Follow Commands, Confused, Flat Affect Attention: Intact Head/Neck Control: Fair - Hearing Hearing: Functional Speech Evaluation - Communication Primary Language: FRENCH Communication: Yes: Non-Communicable - Speech Production Able to Make Needs Known: Yes: Severely Impaired - Speech Characteristics Articulation: Yes: Imprecise - Language/Auditory Comprehension Observation: Able to respond to yes/no queries: Yes (gesture y/n to accept food), Comprehends Conversational Speech: Yes (simple suspected) - Swallow Evaluation/Bedside Assessment Current Nutritional Intake: Dysphagia Pureed, [place] Textured Liquids Oral Secretions: Yes: WFL Facial Symmetry at Rest: Symmetrical Facial Symmetry on Retraction: Symmetrical Jaw Position: Open at Rest Lingual Speed of Movement: Reduced Lingual Movement Strgth Against Opposition: Reduced Laryngeal Elevation: Impaired Laryngeal Movement: Reduced Excursion, Labored,delay initiation, Reduced Velocity Rate of Intake: WFL Bolus Size: Small Labial Seal: WFL Chewing: Impaired A-P Transit: Impaired Coughing/Throat Clear: Yes (after meals) Recommendations - Speech Evaluation, Impression/Plan Impression: Good appetite here. Occasional cough after eating reported by central processing tech. Swallowing seems reduced in onset, labored, reduced in vom/rom of layngeal excursion. Last MBS 2015. - Disposition Discharge to: Adult Residence - Dysphagia Impressions/Plan Swallowing Skills: Impaired Dysphagia Impressions: Mild Impairment, Moderate Impairment, Risk of Aspiration *Silent aspiration: cannot be R/O at bedside Dysphagia Treatment Plan: Small Bites, Chin Tuck/Down, Clear Pocket Food, Facilitative Feeding, Safe Rate, 1/2 tsp. at a time, Elevate HOB during feed, Other (allow 2 swallows per 1/2 tsp. Alternate puree with nectar thick liquid) Recommendations: Modified Barium Swallow (r/o stasis/aspiration) - Recommendations Diet Consistency: Dysphagia Pureed, Other (extra gravy) Medication Administration: Crushed with applesauce Liquids: [place] Thick Supplement: Ensure Pudding, Other (2 nuha hn)
--- NOTE | 2020-07-04 11:00 | CON.CARD ---
Consult Consult Specialty:: Cardiology Referred by:: Hospitalist Medicine Reason for Consultation:: PAF->SR - History of Present Illness Chief Complaint: Fever, dyspnea History of Present Illness: Patient is a 60 year old male with cerebral palsy, hydrocephalus, scoliosis, HTN, LV diastolic dysfunction, GERD, paroxysmal afib not on ac due to history of GI bleed due to large hiatal hernia Shanae-richard tear (s/p endoclipping), dysphagia, mitral valve disease (MVP) with moderate to severe MR who presented with fever of 102, cough, lethargy, tachycardia. He is nonverbal. History was obtained from previous medical records. 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: Seizure, Other (Mental retardation-cerebral palsy) Cardio/Vascular: Yes: AFIB (paroxysmal), Aortic Insufficiency, HTN, Mitral Insufficiency (moderate to severe MR), Murmur (moderate to severe TR and MR), Pulmonary Hypertension Pulmonary: Yes: Pneumonia Gastrointestinal: Yes: GERD (severe and refractory to therapy and causing transfusion requiring chronic blood loss anemia ), Hiatal Hernia (large intrathoracic segment HH prone to Nigel ulcers, GERD and gastric volvulus), Peptic Ulcer Disease, Other (large intrathoracic hiatal hernia, h/o Shanae Richard bleed) Infectious Disease: Yes: Other (influenza 12/07) Additional Medical History: Cerebral palsy, Seizure D/O, Mitral valve prolapse, shingles, glaucoma - Past Surgical History Past Surgical History: Yes: Colonoscopy, Upper Endoscopy - Alcohol/Substance Use Hx Alcohol Use: No History of Substance Use: reports: None - Smoking History Smoking history: Never smoked Have you smoked in the past 12 months: No Aproximately how many cigarettes per day: 0 - Social History Usual Living Arrangement: Other (shelter) ADL: Support Services History of Recent Travel: No Home Medications - Allergies Allergies/Adverse Reactions: Allergies Allergy/AdvReac Type Severity Reaction Status Date / Time No Known Allergies Allergy Verified 04/03/20 17:58 - Home Medications Home Medications: Ambulatory Orders Pantoprazole Sodium [Protonix] 40 mg PO BID 11/25/19 Multivitamins [Multivit ([facility] Formulary)] 1 tab PO DAILY 04/03/20 Calcium Citrate/Vitamin D3 [Calcium Cit 315-Vit D3 250 Tab] 2 each PO BID 04/04/20 Fluoride (Sodium) [Sodium Fluoride 5000 Plus] 51 gm DT DAILY 04/04/20 Fluticasone Prop 0.05% Nasal [Flonase -] 1 - 2 spray NS DAILY 04/04/20 Latanoprost/Pf [Latanoprost 0.005% Eye Drop] 7.5 ml OP HS 04/04/20 Miconazole Nitrate [[place]a Antifungal] 142 gm TP QID 04/04/20 Ascorbic Acid [Vitamin C -] 500 mg PO DAILY tablet 04/05/20 Metoprolol Succinate [Toprol Xl] 12.5 mg PO BID 07/03/20 Family Medical History Family History: Unable to Obtain Review of Systems - Review of Systems Constitutional: reports: Fever, Lethargy Vital Signs: Vital Signs Temperature 98.2 F 07/04/20 06:00 Pulse Rate 120 H 07/04/20 06:00 Respiratory Rate 18 07/04/20 06:00 Blood Pressure 148/67 07/04/20 06:00 O2 Sat by Pulse Oximetry (%) 95 07/04/20 06:00 Constitutional: Yes: No Distress, Calm, Thin Neck: Yes: Supple Respiratory: Yes: Regular, CTA Bilaterally Gastrointestinal: Yes: Soft, Hypoactive Bowel Sounds Cardiovascular: Yes: Tachycardia Heart Sounds: Yes: S1, S2 Murmur: Yes: Systolic Murmur Edema: No - Other Data Labs, Other Data: CBC, BMP 07/04/20 07:50 07/04/20 07:50 INR, PTT INR 1.08 (0.83-1.09) 07/02/20 22:40 ST @ 125 LVH, PVC Echo: Report Reviewed Ejection Fraction %: LVEF > or = 40 % Imaging - Results Chest X-ray: Report Reviewed (Cardiomegaly, chronic pleural and interstitial changes, scoliosis, RLL infiltrate and possible LLL infiltrate.) Problem List - Problems (1) Fever Code(s): R50.9 - FEVER, UNSPECIFIED Qualifiers: Fever type: unspecified Qualified Code(s): R50.9 - Fever, unspecified (2) Sepsis Code(s): A41.9 - SEPSIS, UNSPECIFIED ORGANISM Qualifiers: Sepsis type: sepsis due to unspecified organism (3) Aspiration pneumonia Code(s): J69.0 - PNEUMONITIS DUE TO INHALATION OF FOOD AND VOMIT Qualifiers: Aspiration pneumonia type: due to gastric secretions Laterality: unspecified laterality (4) Cerebral palsy Code(s): G80.9 - CEREBRAL PALSY, UNSPECIFIED Qualifiers: Cerebral palsy type: unspecified type Qualified Code(s): G80.9 - Cerebral palsy, unspecified (5) Diastolic dysfunction Code(s): I51.89 - OTHER ILL-DEFINED HEART DISEASES (6) Functional quadriplegia Code(s): R53.2 - FUNCTIONAL QUADRIPLEGIA (7) HTN (hypertension) Code(s): I10 - ESSENTIAL (PRIMARY) HYPERTENSION Qualifiers: Hypertension type: unspecified Qualified Code(s): I10 - Essential (primary) hypertension (8) Hiatal hernia with GERD and esophagitis Code(s): K44.9 - DIAPHRAGMATIC HERNIA WITHOUT OBSTRUCTION OR GANGRENE; K21.0 - GASTRO-ESOPHAGEAL REFLUX DISEASE WITH ESOPHAGITIS (9) Mitral regurgitation Code(s): I34.0 - NONRHEUMATIC MITRAL (VALVE) INSUFFICIENCY Assessment/Plan 09/04/2016 Echo: Normal LV and RV size and fxn, mild LAE, MVP with mod-severe MR, mild-mod TR, RVSP 40-50 mmHg, mild-mod AR 1. Aspiration PNA with sepsis underlying ILD 2. Anemia with heme positive stool referable to severe reflux esophagitis 3. LV diastolic dysfunction with pulm HTN currently euvolemic 4. HTN 5. GERD with history of prior GI bleed 2/2 MWT, reflux esophagitis and Nigel ulcers post endoclipping 6. Hiatal hernia 7. Mental retardation due to cerebral palsy and hydrocephelus 8. AFIB not on a/c 9. Mitral valve disease with MVP and moderate to severe MR PLAN: 1. Abx course per ID, O2 as needed, pureed dysphagia diet 2. Not ideal candidate for systemic anticoagulation 3. Resume Toprol XL 12.5 bid, f/u echo results 4. Transfuse as needed and follow H/H 5. DVT prophylaxis 6. Thank you for consultative opportunity
--- NOTE | 2020-07-04 15:50 | PN ---
Physical Exam: SUBJECTIVE: Patient seen and examined OBJECTIVE: Vital Signs Period Temp Pulse Resp BP Sys/Pimentel Pulse Ox Last 24 Hr 97.6 F-98.2 F 104-120 18-20 116-148/67-94 95-95 GENERAL: The patient is awake, alert, in no acute distress. HEAD: Normal with no signs of trauma. EYES: PERRL, extraocular movements intact, sclera anicteric, conjunctiva clear. No ptosis. Corneal opacification ENT: Ears normal, nares patent, oropharynx clear without exudates, moist mucous membranes. NECK: Trachea midline, full range of motion, supple. LUNGS: Breath sounds equal, clear to auscultation bilaterally, no wheezes, no crackles, no accessory muscle use. Rales R lower lobe HEART: Regular rate and rhythm, S1, S2 without murmur, rub or gallop. Machine like murmur at apex, pulmonary diastolic murmur ABDOMEN: Soft, nontender, nondistended, normoactive bowel sounds, no guarding, no rebound, no hepatosplenomegaly, no masses. EXTREMITIES: 2+ pulses, warm, well-perfused, no edema. NEUROLOGICAL: Cranial nerves II through XII grossly intact. Normal speech, gait not observed. PSYCH: Normal mood, normal affect. SKIN: Warm, dry, normal turgor, no rashes or lesions noted Laboratory Results - last 24 hr 07/02/20 07/03/20 07/04/20 02:00 05:45 07:50 WBC 8.2 RBC 3.95 L Hgb 11.7 Hct 34.3 L MCV 86.8 MCH 29.5 MCHC 34.0 RDW 14.1 Plt Count 200 MPV 8.0 Absolute Neuts (auto) 6.1 Neutrophils % 74.7 Lymphocytes % 11.8 Monocytes % 11.2 H Eosinophils % 2.0 D Basophils % 0.3 Nucleated RBC % 0 Sodium Potassium Chloride Carbon Dioxide Anion Gap BUN Creatinine Est GFR (CKD-EPI)AfAm Est GFR (CKD-EPI)NonAf Random Glucose Calcium Phosphorus Magnesium LD Total 137 COVID-19 (TED) Not detected 07/04/20 07:50 WBC RBC Hgb Hct MCV MCH MCHC RDW Plt Count MPV Absolute Neuts (auto) Neutrophils % Lymphocytes % Monocytes % Eosinophils % Basophils % Nucleated RBC % Sodium 138 Potassium 3.6 Chloride 102 Carbon Dioxide 26 Anion Gap 10 BUN 8.1 Creatinine 0.5 L Est GFR (CKD-EPI)AfAm 138.44 Est GFR (CKD-EPI)NonAf 119.45 Random Glucose 79 Calcium 8.3 L Phosphorus 3.4 Magnesium 2.0 LD Total COVID-19 (TED) Active Medications Generic Name Dose Route Start Last Admin Trade Name Freq PRN Reason Stop Dose Admin Enoxaparin Sodium 40 mg 07/03/20 10:00 07/04/20 10:15 Lovenox - SQ 40 mg DAILY [facility] Administration Piperacillin Sod/Tazobactam 50 mls @ 100 mls/hr 07/03/20 22:00 07/04/20 14:45 Sod 3.375 gm/ Dextrose IVPB 100 mls/hr Q8H [facility] Administration Protocol Azithromycin 500 mg in 250 mls @ 250 mls/hr 07/04/20 10:00 07/04/20 10:15 Zithromax 500mg Ivpb (Pre-Docked) IVPB 250 mls/hr DAILY [facility] Administration Latanoprost 1 drop 07/03/20 22:00 07/03/20 21:58 Xalatan 0.005% Eye Drops - OS 1 drop HS [facility] Administration Metoprolol Succinate 12.5 mg 07/03/20 22:00 07/04/20 10:17 Toprol Xl - PO 12.5 mg BID [facility] Administration Multivitamins/Minerals/Vitamin C 1 tab 07/04/20 10:00 07/04/20 10:17 Tab-A-Vit - PO 1 tab DAILY [facility] Administration Pantoprazole Sodium 40 mg 07/03/20 10:00 07/04/20 10:18 Protonix - PO 40 mg BID [facility] Administration ASSESSMENT/PLAN: 60 year old male with PMHx of cerebral palsy, developmental delay, HTN, pHTN, ILD, GERD, reflux esophagitis with linear ulcers, hx of GIB 2/2 Shanae Richard (2016 endoclipped), large hiatal hernia, afib without AC, scoliosis, hydrocephalus, corneal opacity, wheelchair bound [facility] for sepsis 2/2 to PNA #Sepsis 2/2 to aspiration PNA -WBC on admission 17.4, resolved to 8.2 -lactic acidosis resolved; afebrile -consulted speech and swallow; dysphagia puree -ID cnosulted, on azithro and zosyn -infleunza, mycoplasma, legionella, sputum cx -pending blood cx -urine Cx growing lactose fermenting gram negative bacilli, proteus, groupD str ep or enterococcus #Hx of GERD -continue home protonix #Hx of HTN -continue home metoprolol #Hx of afib -on metoprolol succinate -not on AC due to hx of GIB FEN Dysphagia puree diet Monitor electrolytes No standing fluids PPx Lovenox 40mg SQ Dispo Admit to med surg. Pneumonia and urine cx positive, on Zosyn and azithro. ID consulted. Cardio consulted, echo pending. Visit type - Emergency Visit Emergency Visit: Yes ED Registration Date: 07/03/20 Care time: The patient presented to the Emergency Department on the above date and was hospitalized for further evaluation of their emergent condition. - New Patient This patient is new to me today: No - Critical Care Critical Care patient: No ATTENDING PHYSICIAN STATEMENT I saw and evaluated the patient. I reviewed the resident's note and discussed the case with the resident. I agree with the resident's findings and plan as documented. SUBJECTIVE: OBJECTIVE: ASSESSMENT AND PLAN:
--- NOTE | 2020-07-04 16:15 | PN ---
Teaching Attending Note Name of Resident: Miriam Cline ATTENDING PHYSICIAN STATEMENT I saw and evaluated the patient. I reviewed the resident's note and discussed the case with the resident. I agree with the resident's findings and plan as documented. SUBJECTIVE: pt seen and examined OBJECTIVE: Last Vital Signs Temp Pulse Resp BP Pulse Ox 97.9 F 112 H 20 116/79 95 07/04/20 14:00 07/04/20 14:00 07/04/20 14:00 07/04/20 14:00 07/04/20 09:00 GENERAL: Awake, alert, in no acute distress. HEAD: Normal with no signs of trauma. EYES: Rt corneal scarring LUNGS: Rt lower lobe rales HEART: S1S2+, pulmonary diastolic murmur 3/6, systolic murmur at apical area ABDOMEN: Soft, nontender, not distended MUSCULOSKELETAL: kyphoscoliosis LOWER EXTREMITIES: 2+ pulses, warm, well-perfused. No calf tenderness. No peripheral edema. CBCD WBC 8.2 K/mm3 (4.0-10.0) 07/04/20 07:50 RBC 3.95 M/mm3 (4.00-5.60) L 07/04/20 07:50 Hgb 11.7 GM/dL (11.7-16.9) 07/04/20 07:50 Hct 34.3 % (35.4-49) L 07/04/20 07:50 MCV 86.8 fl (80-96) 07/04/20 07:50 MCHC 34.0 g/dl (32.0-35.9) 07/04/20 07:50 RDW 14.1 % (11.9-15.9) 07/04/20 07:50 Plt Count 200 K/MM3 (134-434) 07/04/20 07:50 MPV 8.0 fl (7.5-11.1) 07/04/20 07:50 CMP Sodium 138 mmol/L (136-145) 07/04/20 07:50 Potassium 3.6 mmol/L (3.5-5.1) 07/04/20 07:50 Chloride 102 mmol/L (98-107) 07/04/20 07:50 Carbon Dioxide 26 mmol/L (21-32) 07/04/20 07:50 Anion Gap 10 MMOL/L (8-16) 07/04/20 07:50 BUN 8.1 mg/dL (7-18) 07/04/20 07:50 Creatinine 0.5 mg/dL (0.55-1.3) L 07/04/20 07:50 Random Glucose 79 mg/dL (74-106) 07/04/20 07:50 Calcium 8.3 mg/dL (8.5-10.1) L 07/04/20 07:50 Total Bilirubin 0.4 mg/dL (0.2-1) 07/03/20 05:45 AST 9 U/L (15-37) L 07/03/20 05:45 ALT 12 U/L (13-61) L 07/03/20 05:45 Alkaline Phosphatase 68 U/L (45-117) 07/03/20 05:45 Total Protein 6.2 g/dl (6.4-8.2) L 07/03/20 05:45 Albumin 2.5 g/dl (3.4-5.0) L 07/03/20 05:45 CARDIAC ENZYMES Creatine Kinase 51 U/L (26-308) 07/02/20 22:40 Troponin I < 0.02 ng/ml (0.00-0.05) 07/02/20 22:40 Troponin I < 0.02 ng/ml (0.00-0.05) 07/02/20 22:40 Active Medications Enoxaparin Sodium (Lovenox -) 40 mg SQ DAILY [facility] Last Admin: 07/04/20 10:15 Dose: 40 mg Documented by: Piperacillin Sod/Tazobactam (Sod 3.375 gm/ Dextrose) 50 mls @ 100 mls/hr IVPB Q8H [facility]; Protocol Last Admin: 07/04/20 14:45 Dose: 100 mls/hr Documented by: Azithromycin (Zithromax 500mg Ivpb (Pre-Docked)) 500 mg in 250 mls @ 250 mls/hr IVPB DAILY [facility] Last Admin: 07/04/20 10:15 Dose: 250 mls/hr Documented by: Latanoprost (Xalatan 0.005% Eye Drops -) 1 drop OS HS [facility] Last Admin: 07/03/20 21:58 Dose: 1 drop Documented by: Metoprolol Succinate (Toprol Xl -) 12.5 mg PO BID [facility] Last Admin: 07/04/20 10:17 Dose: 12.5 mg Documented by: Multivitamins/Minerals/Vitamin C (Tab-A-Vit -) 1 tab PO DAILY [facility] Last Admin: 07/04/20 10:17 Dose: 1 tab Documented by: Pantoprazole Sodium (Protonix -) 40 mg PO BID [facility] Last Admin: 07/04/20 10:18 Dose: 40 mg Documented by: ASSESSMENT AND PLAN: 60yo Man with PMHx of cerebral palsy, developmental delay, HTN, pHTN, ILD, GERD, reflux esophagitis with linar ulcers, hx of GIB 2/2 Shanae Richard (2016 endoclipped), large hiatal hernia, afib without AC, scoliosis, hydrocephalus, corneal opacity, wheelchair bound [facility] # sepsis 2/2 aspiration pneumonia, improving Abx per ID Lactic acidosis, resolved improving white count keep head elevated, speech and swallow eval Trend platelets when on zosyn blood culture negative to date aspiration precautions, fall precautions GERD HTN restrictive/interstitial lung disease pulmonary HTN HH AFib hydrocephalus Cerebral Palsy DVT prophylaxis
[2020-07-04] MEDS ORDERED: DEXTROSE 5%-WATER - 50 ML IVPB ONE (22:10)
[2020-07-04] MEDS ORDERED: PIPERACILLIN/TAZOBACTAM 3.375 GM VIAL IVPB ONE (22:10)
[2020-07-04] MEDS: LATANOPROST 0.005% OPHTH SOLN 2.5ML BOTTLE OS SCH (23:18)
[2020-07-05] MEDS ORDERED: PIPERACILLIN/TAZOBACTAM 3.375 GM VIAL IVPB ONE ×2 (04:35→13:35)
[2020-07-05] MEDS ORDERED: DEXTROSE 5%-WATER - 50 ML IVPB ONE ×2 (04:36→13:35)
[2020-07-05] MEDS: PIPERACILLIN/TAZOB 3.375 GM 3.375 GM in DEXTROSE 5%-WATER - 50 ML IVPB SCH ×2 (05:06→13:41)
[2020-07-05 07:22] LABS: HEMATOCRIT 38.3 % (35.4-49); HEMOGLOBIN 12.9 GM/dL (11.7-16.9); MCH 29.6 pg (25.7-33.7); MCHC 33.7 g/dl (32.0-35.9); MEAN CELL VOLUME 87.8 fl (80-96); MEAN PLT VOLUME 8.6 fl (7.5-11.1); PLATELET COUNT 198 K/MM3 (134-434); RBC 4.36 M/mm3 (4.00-5.60); RDW 14.1 % (11.9-15.9); WHITE BLOOD COUNT 7.9 K/mm3 (4.0-10.0)
[2020-07-05 07:49] LABS: CALCIUM 8.8 mg/dL (8.5-10.1); CREATININE 0.9 mg/dL (0.55-1.3); MAGNESIUM 1.8 mg/dL (1.8-2.4); PHOSPHOROUS 3.9 mg/dL (2.5-4.9); POTASSIUM 4.2 mmol/L (3.5-5.1)
--- NOTE | 2020-07-05 09:05 | PN ---
Progress Note, Physician History of Present Illness: Patient is a 60 year old male with cerebral palsy, hydrocephalus, scoliosis, HTN, LV diastolic dysfunction, GERD, paroxysmal afib not on ac due to history of GI bleed due to large hiatal hernia Shanae-nazario tear (s/p endoclipping), dysphagia, mitral valve disease (MVP) with moderate to severe MR who presented with fever of 102, cough, lethargy, tachycardia, now afebrile. He is nonverbal. History was obtained from previous medical records. - Current Medication List Current Medications: Active Medications Enoxaparin Sodium (Lovenox -) 40 mg SQ DAILY [facility] Last Admin: 07/04/20 10:15 Dose: 40 mg Documented by: Piperacillin Sod/Tazobactam (Sod 3.375 gm/ Dextrose) 50 mls @ 100 mls/hr IVPB Q8H [facility]; Protocol Last Admin: 07/05/20 05:06 Dose: 100 mls/hr Documented by: Azithromycin (Zithromax 500mg Ivpb (Pre-Docked)) 500 mg in 250 mls @ 250 mls/hr IVPB DAILY [facility] Last Admin: 07/04/20 10:15 Dose: 250 mls/hr Documented by: Latanoprost (Xalatan 0.005% Eye Drops -) 1 drop OS HS [facility] Last Admin: 07/04/20 23:18 Dose: 1 drop Documented by: Metoprolol Succinate (Toprol Xl -) 12.5 mg PO BID [facility] Last Admin: 07/04/20 22:15 Dose: 12.5 mg Documented by: Multivitamins/Minerals/Vitamin C (Tab-A-Vit -) 1 tab PO DAILY [facility] Last Admin: 07/04/20 10:17 Dose: 1 tab Documented by: Pantoprazole Sodium (Protonix -) 40 mg PO BID [facility] Last Admin: 07/04/20 22:15 Dose: 40 mg Documented by: - Objective Vital Signs: Vital Signs Temperature 97.5 F L 07/05/20 06:57 Pulse Rate 135 H 07/05/20 06:00 Respiratory Rate 20 07/05/20 06:00 Blood Pressure 131/86 07/05/20 06:00 O2 Sat by Pulse Oximetry (%) 95 07/05/20 06:00 Constitutional: Yes: No Distress, Calm, Thin Neck: Yes: Supple Cardiovascular: Yes: Tachycardia Respiratory: Yes: Regular, CTA Bilaterally Gastrointestinal: Yes: Soft, Hypoactive Bowel Sounds Edema: No Labs: CBC, BMP 07/05/20 06:35 07/05/20 06:35 INR, PTT INR 1.08 (0.83-1.09) 07/02/20 22:40 - ....Imaging Chest X-ray: Report Reviewed (ATX right base) Problem List - Problems (1) Fever Code(s): R50.9 - FEVER, UNSPECIFIED Qualifiers: Fever type: unspecified Qualified Code(s): R50.9 - Fever, unspecified (2) Sepsis Code(s): A41.9 - SEPSIS, UNSPECIFIED ORGANISM Qualifiers: Sepsis type: sepsis due to unspecified organism (3) Aspiration pneumonia Code(s): J69.0 - PNEUMONITIS DUE TO INHALATION OF FOOD AND VOMIT Qualifiers: Aspiration pneumonia type: due to gastric secretions Laterality: unspecified laterality (4) Cerebral palsy Code(s): G80.9 - CEREBRAL PALSY, UNSPECIFIED Qualifiers: Cerebral palsy type: unspecified type Qualified Code(s): G80.9 - Cerebral palsy, unspecified (5) Diastolic dysfunction Code(s): I51.89 - OTHER ILL-DEFINED HEART DISEASES (6) Functional quadriplegia Code(s): R53.2 - FUNCTIONAL QUADRIPLEGIA (7) HTN (hypertension) Code(s): I10 - ESSENTIAL (PRIMARY) HYPERTENSION Qualifiers: Hypertension type: unspecified Qualified Code(s): I10 - Essential (primary) hypertension (8) Hiatal hernia with GERD and esophagitis Code(s): K44.9 - DIAPHRAGMATIC HERNIA WITHOUT OBSTRUCTION OR GANGRENE; K21.0 - GASTRO-ESOPHAGEAL REFLUX DISEASE WITH ESOPHAGITIS (9) Mitral regurgitation Code(s): I34.0 - NONRHEUMATIC MITRAL (VALVE) INSUFFICIENCY Assessment/Plan 07/05/2020 Echo: Normal LV size and fxn LVEF 55-60%, mild LAE, anterior MV prolapse with mod MR, mild TR, AR 09/04/2016 Echo: Normal LV and RV size and fxn, mild LAE, MVP with mod-severe MR, mild-mod TR, RVSP 40-50 mmHg, mild-mod AR 1. Aspiration PNA with sepsis underlying ILD 2. Anemia with heme positive stool referable to severe reflux esophagitis 3. LV diastolic dysfunction with pulm HTN currently euvolemic 4. HTN 5. GERD with history of prior GI bleed 2/2 MWT, reflux esophagitis and Nigel ulcers post endoclipping 6. Hiatal hernia 7. Mental retardation due to cerebral palsy and hydrocephelus 8. AFIB not on a/c 9. Mitral valve disease with MVP and moderate MR PLAN: 1. Abx course per ID, O2 as needed, pureed dysphagia diet 2. Not ideal candidate for systemic anticoagulation 3. Resume Toprol XL 12.5 bid, echo results reviewed 4. Transfuse as needed and follow H/H 5. DVT prophylaxis 6. Thank you for consultative opportunity
[2020-07-05] MEDS: ENOXAPARIN NA (PORCINE) 40 MG/0.4 ML DISP.SYRIN SQ SCH (09:41)
[2020-07-05] MEDS: metoPROLOL SUCCINATE 25 MG TAB.SR.24H (FP) PO SCH (09:41)
[2020-07-05] MEDS: AZITHROMYCIN IVPB 500 MG/250 ML BAG IVPB SCH (09:41)
[2020-07-05] MEDS: PANTOPRAZOLE 40 MG TABLET PO SCH (09:41)
[2020-07-05] MEDS: MULTIVITAMINS (DAILY MVI) TABLET (FP) PO SCH (09:41)
--- NOTE | 2020-07-05 10:11 | PN ---
Progress Note, ADMINISTRATION ASSISTANT - Note Progress Note: Selected Entries 07/04/20 07/04/20 07/04/20 10:03 14:00 15:00 Breakfast 100% Diet Tolerated Well Well Well Lunch 100% 100% Supper Temperature Pulse Rate Blood Pressure 07/04/20 07/05/20 07/05/20 22:00 06:00 06:57 Breakfast Diet Tolerated Well Lunch Supper 100% Temperature 99.5 F 97.5 F L Pulse Rate 135 H Blood Pressure 131/86 07/05/20 09:44 Breakfast 100% Diet Tolerated Well Lunch Supper Temperature Pulse Rate Blood Pressure Laboratory Tests 07/05/20 06:35 WBC 7.9 On puree/nectar CXR -no infiltrates Tolerating diet
--- NOTE | 2020-07-05 13:55 | ECHO ---
Version: 1 Name: LEXI HAMILTON Exam: Adult Echocardiogram Study Date: 07/05/2020, 12:07 PM Age: 60 Years MMode/2D Measurements & Calculations IVSd: 0.84 cm LVIDs: 3.0 cm LVIDd: 4.4 cm LVPWd: 1.03 cm LAV (MOD-bp): 92.3 ml LVOT diam: 1.99 cm Ao root diam: 2.7 cm LA dimension: 3.7 cm Doppler Measurements & Calculations MV E max luis: 105.0 cm/sec Med E/e': 11.4 MV A max luis: 80.9 cm/sec Med Peak E' Luis: 9.2 cm/sec MV E/A: 1.30 Lat E/e': 8.1 Lat Peak E' Luis: 12.9 cm/sec MR max P.0 mmHg Ao max P.9 mmHg ANGE(I,D): 2.01 cm Ao mean P.7 mmHg LV V1 mean: 89.3 cm/sec Ao V2 max: 197.5 cm/sec LV V1 mean P.7 mmHg AI P1/2t: 291.1 msec TR max luis: 217.2 cm/sec TR max P.9 mmHg Left Ventricle Left ventricular systolic function is normal. Ejection Fraction = 55-60%. Right Ventricle The right ventricle is normal in size and function. Atria The left atrium is mildly dilated. Right atrial size is normal. Mitral Valve The mitral valve leaflets appear thickened, but open well. There is mild mitral valve prolapse. Prol apse of the anterior mitral leaflet. There is no mitral valve stenosis. There is moderate mitral regurgitati on. Tricuspid Valve The tricuspid valve is normal in structure and function. There is mild tricuspid regurgitation. Righ t ventricular systolic pressure is normal. Aortic Valve There is mild aortic valve thickening. No hemodynamically significant valvular aortic stenosis. Mild aortic regurgitation. Pulmonic Valve The pulmonic valve is not well seen, but is grossly normal. There is no pulmonic valvular stenosis. Great Vessels The aortic root is normal size. Pericardium/Pleura There is no pericardial effusion. Summary Statements Left ventricular systolic function is normal. Ejection Fraction = 55-60%. The left atrium is mildly dilated. The mitral valve leaflets appear thickened, but open well. Prolapse of the anterior mitral leaflet. There is moderate mitral regurgitation. There is mild tricuspid regurgitation. Mild aortic regurgitation. There is no pericardial effusion. MD Soto *Yvon 07/05/2020, 1:54 PM Ordering Physician: Karan Espino Performed By: Elayne Nicholas
[2020-07-05 14:57] VITALS: BP 104/70; PULSE 111; TEMP 98.5
--- NOTE | 2020-07-05 15:13 | PN ---
Teaching Attending Note Name of Resident: Miriam Cline ATTENDING PHYSICIAN STATEMENT I saw and evaluated the patient. I reviewed the resident's note and discussed the case with the resident. I agree with the resident's findings and plan as documented. SUBJECTIVE: pt seen and examined OBJECTIVE: Last Vital Signs Temp Pulse Resp BP Pulse Ox 98.5 F 111 H 20 104/70 96 07/05/20 14:55 07/05/20 14:55 07/05/20 14:55 07/05/20 14:55 07/05/20 14:55 GENERAL: Awake, alert, in no acute distress. HEAD: Normal with no signs of trauma. EYES: Rt corneal scarring LUNGS: Rt lower lobe rales HEART: S1S2+, pulmonary diastolic murmur 3/6, systolic murmur at apical area ABDOMEN: Soft, nontender, not distended MUSCULOSKELETAL: kyphoscoliosis LOWER EXTREMITIES: 2+ pulses, warm, well-perfused. No calf tenderness. No peripheral edema. CBCD WBC 7.9 K/mm3 (4.0-10.0) 07/05/20 06:35 RBC 4.36 M/mm3 (4.00-5.60) 07/05/20 06:35 Hgb 12.9 GM/dL (11.7-16.9) 07/05/20 06:35 Hct 38.3 % (35.4-49) 07/05/20 06:35 MCV 87.8 fl (80-96) 07/05/20 06:35 MCHC 33.7 g/dl (32.0-35.9) 07/05/20 06:35 RDW 14.1 % (11.9-15.9) 07/05/20 06:35 Plt Count 198 K/MM3 (134-434) 07/05/20 06:35 MPV 8.6 fl (7.5-11.1) 07/05/20 06:35 CMP Sodium 139 mmol/L (136-145) 07/05/20 06:35 Potassium 4.2 mmol/L (3.5-5.1) 07/05/20 06:35 Chloride 102 mmol/L (98-107) 07/05/20 06:35 Carbon Dioxide 28 mmol/L (21-32) 07/05/20 06:35 Anion Gap 9 MMOL/L (8-16) 07/05/20 06:35 BUN 12.0 mg/dL (7-18) 07/05/20 06:35 Creatinine 0.9 mg/dL (0.55-1.3) 07/05/20 06:35 Calcium 8.8 mg/dL (8.5-10.1) 07/05/20 06:35 Total Bilirubin 0.4 mg/dL (0.2-1) 07/03/20 05:45 AST 9 U/L (15-37) L 07/03/20 05:45 ALT 12 U/L (13-61) L 07/03/20 05:45 Alkaline Phosphatase 68 U/L (45-117) 07/03/20 05:45 Total Protein 6.2 g/dl (6.4-8.2) L 07/03/20 05:45 Albumin 2.5 g/dl (3.4-5.0) L 07/03/20 05:45 Active Medications Enoxaparin Sodium (Lovenox -) 40 mg SQ DAILY [facility] Last Admin: 07/05/20 09:41 Dose: 40 mg Documented by: Piperacillin Sod/Tazobactam (Sod 3.375 gm/ Dextrose) 50 mls @ 100 mls/hr IVPB Q8H [facility]; Protocol Last Admin: 07/05/20 13:41 Dose: 100 mls/hr Documented by: Azithromycin (Zithromax 500mg Ivpb (Pre-Docked)) 500 mg in 250 mls @ 250 mls/hr IVPB DAILY [facility] Last Admin: 07/05/20 09:41 Dose: 250 mls/hr Documented by: Latanoprost (Xalatan 0.005% Eye Drops -) 1 drop OS HS [facility] Last Admin: 07/04/20 23:18 Dose: 1 drop Documented by: Metoprolol Succinate (Toprol Xl -) 12.5 mg PO BID [facility] Last Admin: 07/05/20 09:41 Dose: 12.5 mg Documented by: Multivitamins/Minerals/Vitamin C (Tab-A-Vit -) 1 tab PO DAILY [facility] Last Admin: 07/05/20 09:41 Dose: 1 tab Documented by: Pantoprazole Sodium (Protonix -) 40 mg PO BID [facility] Last Admin: 07/05/20 09:41 Dose: 40 mg Documented by: ASSESSMENT AND PLAN: 60yo Man with PMHx of cerebral palsy, developmental delay, HTN, pHTN, ILD, GERD, reflux esophagitis with linar ulcers, hx of GIB 2/2 Shanae Richard (2016 endoclipped), large hiatal hernia, afib without AC, scoliosis, hydrocephalus, corneal opacity, wheelchair bound [facility] # sepsis 2/2 aspiration pneumonia, resolved ABx per ID Lactic acidosis, resolved normal WBC no leukocytosis keep head elevated, speech and swallow eval Trend platelets when on zosyn blood culture negative to date aspiration precautions, fall precautions case discussed with consult GERD HTN restrictive/interstitial lung disease pulmonary HTN HH AFib hydrocephalus Cerebral Palsy DVT prophylaxis
--- NOTE | 2020-07-05 16:06 | DS ---
Physical Exam: SUBJECTIVE: Patient seen and examined OBJECTIVE: Vital Signs Period Temp Pulse Resp BP Sys/Pimentel Pulse Ox Last 24 Hr 97.5 F-99.5 F 106-135 20-20 104-135/64-86 93-96 PHYSICAL EXAM GENERAL: The patient is awake, alert, and fully oriented, in no acute distress. HEAD: Normal with no signs of trauma. EYES: PERRL, extraocular movements intact, sclera anicteric, conjunctiva clear. ENT: Ears normal, nares patent, oropharynx clear without exudates, moist mucous membranes. NECK: Trachea midline, full range of motion, supple. LUNGS: Breath sounds equal, clear to auscultation bilaterally, no wheezes, no crackles, no accessory muscle use. HEART: Regular rate and rhythm, S1, S2 without murmur, rub or gallop. ABDOMEN: Soft, nontender, nondistended, normoactive bowel sounds, no guarding, no rebound, no hepatosplenomegaly, no masses. EXTREMITIES: 2+ pulses, warm, well-perfused, no edema. NEUROLOGICAL: Cranial nerves II through XII grossly intact. Normal speech, gait not observed. PSYCH: Normal mood, normal affect. SKIN: Warm, dry, normal turgor, no rashes or lesions noted. LABS Laboratory Results - last 24 hr 07/05/20 07/05/20 06:35 06:35 WBC 7.9 RBC 4.36 Hgb 12.9 Hct 38.3 MCV 87.8 MCH 29.6 MCHC 33.7 RDW 14.1 Plt Count 198 MPV 8.6 Sodium 139 Potassium 4.2 Chloride 102 Carbon Dioxide 28 Anion Gap 9 BUN 12.0 Creatinine 0.9 Est GFR (CKD-EPI)AfAm 108.73 Est GFR (CKD-EPI)NonAf 93.82 Random Glucose 119 H Calcium 8.8 Phosphorus 3.9 Magnesium 1.8 HOSPITAL COURSE: Date of Admission:07/03/20 Date of Discharge: 07/05/20 Minutes to complete discharge: 36 Discharge Summary Problems reviewed: Yes Reason For Visit: FEVER,SEPSIS Current Active Problems Fever (Acute) Sepsis (Acute) - Instructions Diet, Activity, Other Instructions: You came to the hospital because you with coughing, fever. You were found to have pneumonia. You were treated with antibiotics. You also were seen by the state superintendent of schools for a murmur and had an echocardiogram done, which showed your heart is functioning well but you have a benign finding in one of your heart valves. Please START Augmentin 875 mg twice a day for 4 days. Please ensure to complete the antibiotics. Please resume all other home medications as prescribed. Please follow up with your primary care physician, Dr. Miller, within 1 week for your overall health maintenance. Please follow up with your state superintendent of schools, Dr. Noel, within 2 weeks for further evaluation. If you have any new, worsening or changing symptoms please return to the ED or call 911. Referrals: Sonny Noel MD [Staff Physician] - Sarah Miller [Primary Care Provider] - Disposition: [facility] - Home Medications Comprehensive Discharge Medication List: Ambulatory Orders Pantoprazole Sodium [Protonix] 40 mg PO BID 11/25/19 Multivitamins [Multivit ([facility] Formulary)] 1 tab PO DAILY 04/03/20 Calcium Citrate/Vitamin D3 [Calcium Cit 315-Vit D3 250 Tab] 2 each PO BID 04/04/20 Fluoride (Sodium) [Sodium Fluoride 5000 Plus] 51 gm DT DAILY 04/04/20 Fluticasone Prop 0.05% Nasal [Flonase -] 1 - 2 spray NS DAILY 04/04/20 Latanoprost/Pf [Latanoprost 0.005% Eye Drop] 7.5 ml OP HS 04/04/20 Miconazole Nitrate [[place] Antifungal] 142 gm TP QID 04/04/20 Ascorbic Acid [Vitamin C -] 500 mg PO DAILY tablet 04/05/20 Metoprolol Succinate [Toprol Xl] 12.5 mg PO BID 07/03/20 Amoxicillin/Potassium Clav [Augmentin 875-125 Tablet] 1 each PO BID #8 tablet 07/05/20 This patient is new to me today: No Emergency Visit: Yes ED Registration Date: 07/03/20 Care time: The patient presented to the Emergency Department on the above date and was hospitalized for further evaluation of their emergent condition. Critical Care patient: No - Discharge Referral Referred to [facility] No ATTENDING PHYSICIAN STATEMENT I saw and evaluated the patient. I reviewed the resident's note and discussed the case with the resident. I agree with the resident's findings and plan as documented. SUBJECTIVE: OBJECTIVE: ASSESSMENT AND PLAN:
== END 2020-07-05 18:19 | DRG 871 ==
LOC: JER 20:39 → JERBED 07-03 02:28 → J6WEST-2 07-03 13:07 → J7W 07-04 15:24
PROVIDERS: ADMIT Internal Medicine; ATTEND Student in an Organized Health Care Education/Training Program
DX: A41.89 Other specified sepsis (principal); J69.0 Pneumonitis due to inhalation of food and vomit; R53.2 Functional quadriplegia; J84.9 Interstitial pulmonary disease, unspecified; G91.9 Hydrocephalus, unspecified; Q67.5 Congenital deformity of spine; F73 Profound intellectual disabilities; E46 Unspecified protein-calorie malnutrition; Z68.1 Body mass index [BMI] 19.9 or less, adult; N39.0 Urinary tract infection, site not specified; E87.2 Acidosis; R00.0 Tachycardia, unspecified; R50.9 Fever, unspecified; I48.91 Unspecified atrial fibrillation; I10 Essential (primary) hypertension; I27.20 Pulmonary hypertension, unspecified; K21.9 Gastro-esophageal reflux disease without esophagitis; D64.9 Anemia, unspecified; K44.9 Diaphragmatic hernia without obstruction or gangrene; E88.09 Other disorders of plasma-protein metabolism, not elsewhere classified; B96.4 Proteus (mirabilis) (morganii) as the cause of diseases classified elsewhere; I08.3 Combined rheumatic disorders of mitral, aortic and tricuspid valves; H40.9 Unspecified glaucoma; Q13.3 Congenital corneal opacity; D72.829 Elevated white blood cell count, unspecified; Z99.3 Dependence on wheelchair
CPT/HCPCS: 36415; 71045-TC-FY; 80048; 80053; 81003; 82550; 82728; 82803; 83605; 83615; 83690; 83735; 84100; 84484; 85025; 85027; 85379; 85610; 85730; 86140; 86738; 87040; 87086; 93005; 93010; 93306-TC; 97116-GP; 97161-GP; 99285-25; J0131; U0003

== ENCOUNTER 2021-08-02 08:26 | Inpatient (IN) | payer OTHER ==
[2021-08-02] MEDS ORDERED: SODIUM CHLORIDE 0.9% 500 ML INFUS.BAG IV ONE (08:32)
[2021-08-02] MEDS ORDERED: ACETAMINOPHEN 1000 MG/100 ML VIAL IVPB ONE (08:32)
[2021-08-02] MEDS ORDERED: GLYCOPYRROLATE 1 MG TABLET PO ONE (08:42)
[2021-08-02] MEDS ORDERED: PANTOPRAZOLE SODIUM 40 MG VIAL IVPUSH ONE (08:42)
[2021-08-02] MEDS ORDERED: PANTOPRAZOLE SODIUM 40 MG VIAL ONE (08:42)
[2021-08-02] MEDS ORDERED: PIPERACILLIN/TAZOB 3.375 GM 3.375 GM in DEXTROSE 5%-WATER - 50 ML IVPB ONE (08:43)
[2021-08-02] MEDS ORDERED: VANCOMYCIN 1 GM in D5W (PRE-DOCKED) 1,000 MG/250 ML IVPB ONE (08:43)
[2021-08-02] MEDS ORDERED: ACETAMINOPHEN INJECTION 100 ML IVPB ONE (08:44)
[2021-08-02] MEDS ORDERED: VANCOMYCIN 1 GRAM (PRE-DOCKED) 1,000 MG/250 ML BAG IVPB ONE (08:45)
[2021-08-02] MEDS ORDERED: CEFTRIAXONE 1,000 MG in DEXTROSE 5%-WATER - 50 ML IVPB ONE (08:55)
[2021-08-02] MEDS ORDERED: ONDANSETRON 4 MG/2 ML VIAL IVPUSH ONE (08:56)
[2021-08-02] MEDS ORDERED: LORazepam 2 MG/ML SDV VIAL IVPUSH ONE (08:57)
[2021-08-02 08:59] LABS: BASO % 0.2 % (0-2.0); HEMATOCRIT 40.2 % (35.4-49); HEMOGLOBIN 13.2 GM/dL (11.7-16.9); LYMPH % 2.6 % (8-40); MCH 29.5 pg (25.7-33.7); MCHC 32.9 g/dl (32.0-35.9); MEAN CELL VOLUME 89.6 fl (80-96); MEAN PLT VOLUME 8.1 fl (7.5-11.1); MONO % 4.5 % (3.8-10.2); NEUT % 92.7 % (42.8-82.8); PLATELET COUNT 310 10^3/uL (134-434); RBC 4.48 M/mm3 (4.00-5.60); RDW 14.2 % (11.9-15.9); WHITE BLOOD COUNT 16.3 K/mm3 (4.0-10.0)
[2021-08-02] MEDS ORDERED: LORazepam 2 MG/ML SDV VIAL ONE (08:59)
[2021-08-02] MEDS ORDERED: ONDANSETRON 4 MG/2 ML VIAL ONE (09:05)
[2021-08-02 09:06] LABS: INR 1.02 (0.83-1.09); PROTHROMBIN TIME (PATIENT) 11.9 SEC (9.7-13.0)
[2021-08-02 09:08] LABS: ACTIVATED PTT 23.6 SECONDS (25.2-36.5)
[2021-08-02 09:10] LABS: CHLORIDE 102 mmol/L (98-107); SODIUM 139 mmol/L (136-145)
[2021-08-02 09:13] LABS: ANION GAP 12 MMOL/L (8-16); BLOOD UREA NITROGEN 29.5 mg/dL (7-18); CALCIUM 9.3 mg/dL (8.5-10.1); CO2 25 mmol/L (21-32); GLUCOSE,RANDOM 154 mg/dL (74-106)
[2021-08-02 09:16] LABS: SGOT/AST 30 U/L (15-37); SGPT/ALT 16 U/L (13-61)
[2021-08-02 09:19] LABS: BILIRUBIN,TOTAL 0.5 mg/dL (0.2-1); TOT PROT 8.2 g/dl (6.4-8.2)
[2021-08-02 09:20] LABS: ALK PHOS 87 U/L (45-117)
[2021-08-02 09:45] LABS: LACTIC ACID 6.6 mmol/L (0.4-2.0)
[2021-08-02] MEDS ORDERED: SODIUM CHLORIDE 1,769 ML IV ONE (09:47)
[2021-08-02] MEDS ORDERED: PIPERACILLIN/TAZOB 3.375 GM 3.375 GM/50 ML BAG IVPB ONE (10:28)
[2021-08-02] MEDS ORDERED: CEFTRIAXONE 1 GM/50 ML BAG ONE (10:28)
[2021-08-02] MEDS ORDERED: METOCLOPRAMIDE HCL INJECTION 10 MG/2 ML VIAL IVPUSH ONE (10:42)
[2021-08-02 10:52] LABS: ANISOCYTOSIS 0; HELMET CELLS 0; HOWELL-JOLLY BODIES 0; MACROCYTOSIS 0; OVALOCYTE 0; PLATELET ESTIMATE NORMAL; ROULEAU 0; SICKELED CELLS 0; TARGET CELLS 0; TEAR DROP CELLS 0; TOXIC GRANULATION 0
[2021-08-02] MEDS ORDERED: METOCLOPRAMIDE HCL INJECTION 10 MG/2 ML VIAL ONE (10:59)
[2021-08-02 11:53] LABS: LACTIC ACID 5.9 mmol/L (0.4-2.0)
[2021-08-02] MEDS ORDERED: ONDANSETRON 4 MG/2 ML VIAL IVPB PRN (12:02)
[2021-08-02 12:24] LABS: EPI CELLS 5 /uL (0-25.1); HYALINE CASTS 2 /uL (0-3.1); PH,URINE 5.5 (5.0-8.0); URINE APPEARANCE CLEAR; URINE BACTERIA 0 /uL (0-1359); URINE BILIRUBIN NEGATIVE (NEGATIVE); URINE COLOR YELLOW; URINE GLUCOSE (UA) NEGATIVE (NEGATIVE); URINE KETONE NEGATIVE (NEGATIVE); URINE LEUK ESTERASE NEGATIVE (NEGATIVE); URINE NITRITE NEGATIVE (NEGATIVE); URINE PROTEIN TRACE (NEGATIVE); URINE RBC 29 /uL (0-23.9); URINE UROBILINOGEN 0.2 mg/dL (0.2-1.0); URINE WBC 11 /uL (0-25.8)
[2021-08-02] MEDS ORDERED: PIPERACILLIN/TAZOB 3.375 GM 3.375 GM in DEXTROSE 5%-WATER - 50 ML IVPB SCH ×2 (12:45→18:00)
[2021-08-02] MEDS: METOCLOPRAMIDE HCL INJECTION 10 MG/2 ML VIAL IVPUSH SCH ×2 (13:32→21:40)
[2021-08-02] MEDS: PIPERACILLIN/TAZOB 3.375 GM 3.375 GM in DEXTROSE 5%-WATER - 50 ML IVPB SCH ×2 (13:32→18:04)
[2021-08-02] MEDS: PANTOPRAZOLE SODIUM 80 MG in SODIUM CHLORIDE 100 ML IVPB SCH ×2 (16:00→21:47)
[2021-08-02 17:37] LABS: ARTERIAL BLD GAS O2 SATURATION 99.4 % (95-98); ARTERIAL BLOOD GAS BASE EXCESS 0.3 mmol/L (-2-2); ARTERIAL BLOOD GAS PO2 246.1 mmHg (80-100); ARTERIAL BLOOD GAS pH 7.247 (7.350-7.450)
[2021-08-02 17:38] LABS: ALLENS TEST POSITIVE
[2021-08-02] MEDS ORDERED: PIPERACILLIN/TAZOBACTAM 3.375 GM VIAL IVPB ONE (18:02)
[2021-08-02] MEDS ORDERED: DEXTROSE 5%-WATER - 50 ML IVPB ONE (18:03)
[2021-08-02 18:39] LABS: HEMATOCRIT 31.4 % (35.4-49); HEMOGLOBIN 10.5 GM/dL (11.7-16.9); MCH 29.2 pg (25.7-33.7); MCHC 33.3 g/dl (32.0-35.9); MEAN CELL VOLUME 87.7 fl (80-96); MEAN PLT VOLUME 7.3 fl (7.5-11.1); PLATELET COUNT 228 10^3/uL (134-434); RBC 3.58 M/mm3 (4.00-5.60); RDW 13.9 % (11.9-15.9)
[2021-08-02] MEDS ORDERED: dilTIAZem HCL 50 MG/10 ML - 10 ML VIAL IVPUSH ONE (21:29)
[2021-08-02] MEDS: MUPIROCIN 2% TOPICAL OINTMENT FOR DECOLONIZATION NS SCH (21:47)
[2021-08-02] MEDS: CHLORHEXIDINE GLUCONATE 4% CLEANSER FOR DECOLONIZATION TP SCH (21:47)
[2021-08-02 22:09] LABS: ARTERIAL BLD GAS O2 SATURATION 98.9 % (95-98); ARTERIAL BLOOD GAS BASE EXCESS 3.4 mmol/L (-2-2); ARTERIAL BLOOD GAS PO2 171.9 mmHg (80-100); ARTERIAL BLOOD GAS pH 7.284 (7.350-7.450)
[2021-08-02 22:10] LABS: ALLENS TEST POSITIVE
[2021-08-02] MEDS: LATANOPROST 0.005% OPHTH SOLN 2.5ML BOTTLE OS SCH (22:23)
[2021-08-03] MEDS: PANTOPRAZOLE SODIUM 80 MG in SODIUM CHLORIDE 100 ML IVPB SCH ×4 (00:13→22:11)
[2021-08-03] MEDS ORDERED: PIPERACILLIN/TAZOBACTAM 3.375 GM VIAL IVPB ONE ×3 (01:52→17:40)
[2021-08-03] MEDS ORDERED: DEXTROSE 5%-WATER - 50 ML IVPB ONE ×3 (01:53→17:40)
[2021-08-03] MEDS: PIPERACILLIN/TAZOB 3.375 GM 3.375 GM in DEXTROSE 5%-WATER - 50 ML IVPB SCH ×2 (01:54→17:42)
[2021-08-03] MEDS ORDERED: SODIUM CHLORIDE 500 ML IV STA (02:46)
[2021-08-03 07:38] LABS: HEMATOCRIT 29.7 % (35.4-49); HEMOGLOBIN 9.9 GM/dL (11.7-16.9); MCH 29.4 pg (25.7-33.7); MCHC 33.4 g/dl (32.0-35.9); MEAN CELL VOLUME 87.9 fl (80-96); MEAN PLT VOLUME 7.7 fl (7.5-11.1); PLATELET COUNT 208 10^3/uL (134-434); RBC 3.38 M/mm3 (4.00-5.60); WHITE BLOOD COUNT 19.1 K/mm3 (4.0-10.0)
[2021-08-03 07:50] LABS: MAGNESIUM 1.7 mg/dL (1.8-2.4)
[2021-08-03 07:53] LABS: CREATININE 0.6 mg/dL (0.55-1.3); PHOSPHOROUS 3.2 mg/dL (2.5-4.9)
[2021-08-03 07:55] LABS: BILIRUBIN,TOTAL 0.4 mg/dL (0.2-1)
[2021-08-03 07:58] LABS: CALCIUM 7.6 mg/dL (8.5-10.1); TOT PROT 5.8 g/dl (6.4-8.2)
[2021-08-03 08:19] LABS: INR 1.21 (0.83-1.09); PROTHROMBIN TIME (PATIENT) 13.6 SEC (9.7-13.0)
[2021-08-03 08:22] LABS: ACTIVATED PTT 27.2 SECONDS (25.2-36.5)
[2021-08-03] MEDS: MUPIROCIN 2% TOPICAL OINTMENT FOR DECOLONIZATION NS SCH ×2 (09:49→22:10)
[2021-08-03] MEDS ORDERED: ALBUTEROL SO4 0.083% IH SOL 2.5 MG/3 ML VIAL.NEB. NEB ONE (11:20)
[2021-08-03] MEDS ORDERED: ACETYLCYSTEINE 20% 200MG/ML 4 ML VIAL *FOR ORAL / INH USE ONLY ONE (11:20)
[2021-08-03] MEDS: ALBUTEROL SO4 0.083% IH SOL 2.5 MG/3 ML VIAL.NEB. NEB PRN ×3 (11:28→20:27)
[2021-08-03] MEDS: ACETYLCYSTEINE 20% 200MG/ML 4 ML VIAL *FOR ORAL / INH USE ONLY NEB SCH ×3 (11:29→20:26)
[2021-08-03] MEDS: ACETAMINOPHEN 1000 MG/100 ML VIAL IVPB PRN (12:27)
[2021-08-03] MEDS ORDERED: DEXTROSE 5%-0.45% SALINE 1,000 ML IV SCH (15:00)
[2021-08-03] MEDS: CHLORHEXIDINE GLUCONATE 4% CLEANSER FOR DECOLONIZATION TP SCH (22:10)
[2021-08-03] MEDS: LATANOPROST 0.005% OPHTH SOLN 2.5ML BOTTLE OS SCH (22:11)
[2021-08-04] MEDS ORDERED: DEXTROSE 5%-WATER - 50 ML IVPB ONE ×3 (01:43→18:07)
[2021-08-04] MEDS ORDERED: PIPERACILLIN/TAZOBACTAM 3.375 GM VIAL IVPB ONE ×3 (01:43→18:07)
[2021-08-04] MEDS: ACETAMINOPHEN 1000 MG/100 ML VIAL IVPB PRN (01:44)
[2021-08-04] MEDS: PIPERACILLIN/TAZOB 3.375 GM 3.375 GM in DEXTROSE 5%-WATER - 50 ML IVPB SCH ×3 (01:44→18:12)
[2021-08-04] MEDS: PANTOPRAZOLE SODIUM 80 MG in SODIUM CHLORIDE 100 ML IVPB SCH (06:37)
[2021-08-04 07:14] LABS: BASO % 0.2 % (0-2.0); HEMATOCRIT 28.5 % (35.4-49); HEMOGLOBIN 9.6 GM/dL (11.7-16.9); LYMPH % 6.1 % (8-40); MCH 29.6 pg (25.7-33.7); MCHC 33.7 g/dl (32.0-35.9); MEAN CELL VOLUME 87.9 fl (80-96); MEAN PLT VOLUME 7.8 fl (7.5-11.1); MONO % 7.3 % (3.8-10.2); NEUT % 85.4 % (42.8-82.8); PLATELET COUNT 208 10^3/uL (134-434); RBC 3.24 M/mm3 (4.00-5.60); WHITE BLOOD COUNT 14.2 K/mm3 (4.0-10.0)
[2021-08-04 07:26] LABS: CALCIUM 7.6 mg/dL (8.5-10.1)
[2021-08-04 07:27] LABS: BLOOD UREA NITROGEN 16.8 mg/dL (7-18); MAGNESIUM 1.8 mg/dL (1.8-2.4)
[2021-08-04 07:30] LABS: CREATININE 0.6 mg/dL (0.55-1.3); PHOSPHOROUS 2.9 mg/dL (2.5-4.9)
[2021-08-04 07:32] LABS: BILIRUBIN,TOTAL 0.5 mg/dL (0.2-1); TOT PROT 5.9 g/dl (6.4-8.2)
[2021-08-04] MEDS: ACETYLCYSTEINE 20% 200MG/ML 4 ML VIAL *FOR ORAL / INH USE ONLY NEB SCH ×4 (07:56→20:15)
[2021-08-04] MEDS: ALBUTEROL SO4 0.083% IH SOL 2.5 MG/3 ML VIAL.NEB. NEB PRN ×4 (07:56→20:15)
[2021-08-04] MEDS ORDERED: METOPROLOL TARTRATE 5 MG/5 ML VIAL ONE (08:57)
[2021-08-04] MEDS ORDERED: PT OWN MED DRAWER 7, Y5N ONE (09:00)
[2021-08-04] MEDS ORDERED: METOCLOPRAMIDE HCL INJECTION 10 MG/2 ML VIAL IVPUSH ONE (09:00)
[2021-08-04] MEDS ORDERED: METOPROLOL TARTRATE 5 MG/5 ML VIAL IVPUSH ONE (09:14)
[2021-08-04] MEDS ORDERED: dilTIAZem HCL 50 MG/10 ML - 10 ML VIAL IVPUSH ONE (09:53)
[2021-08-04] MEDS ORDERED: dilTIAZem HCL 50 MG/10 ML - 10 ML VIAL ONE (09:56)
[2021-08-04] MEDS: MUPIROCIN 2% TOPICAL OINTMENT FOR DECOLONIZATION NS SCH ×2 (10:12→21:29)
[2021-08-04] MEDS ORDERED: dilTIAZem HCL 25 MG/5 ML - 5 ML VIAL ONE (10:46)
[2021-08-04] MEDS ORDERED: LACTATED RINGERS SOLUTION 1,000 ML/1,000 ML INFUS.BAG IV SCH (12:45)
[2021-08-04] MEDS: DEXTROSE 5%-LACTATED RINGERS 1,000 ML IV SCH (19:07)
[2021-08-04] MEDS: PANTOPRAZOLE SODIUM 40 MG VIAL IVPUSH SCH (21:29)
[2021-08-04] MEDS: CHLORHEXIDINE GLUCONATE 4% CLEANSER FOR DECOLONIZATION TP SCH (21:29)
[2021-08-04 21:35] LABS: BASO % 0.3 % (0-2.0); EOS % 0.3 % (0-4.5); HEMATOCRIT 29.1 % (35.4-49); HEMOGLOBIN 9.9 GM/dL (11.7-16.9); MCH 29.9 pg (25.7-33.7); MEAN PLT VOLUME 8.3 fl (7.5-11.1); MONO % 7.2 % (3.8-10.2); NEUT % 84.2 % (42.8-82.8); PLATELET COUNT 200 10^3/uL (134-434); RBC 3.31 M/mm3 (4.00-5.60); RDW 13.8 % (11.9-15.9); WHITE BLOOD COUNT 13.8 K/mm3 (4.0-10.0)
[2021-08-04] MEDS: LATANOPROST 0.005% OPHTH SOLN 2.5ML BOTTLE OS SCH (22:30)
[2021-08-05] MEDS ORDERED: PIPERACILLIN/TAZOBACTAM 3.375 GM VIAL IVPB ONE ×3 (00:43→18:05)
[2021-08-05] MEDS ORDERED: DEXTROSE 5%-WATER - 50 ML IVPB ONE ×3 (00:43→18:05)
[2021-08-05] MEDS: PIPERACILLIN/TAZOB 3.375 GM 3.375 GM in DEXTROSE 5%-WATER - 50 ML IVPB SCH ×3 (01:01→18:12)
[2021-08-05 06:47] LABS: BASO % 0.2 % (0-2.0); EOS % 0.7 % (0-4.5); HEMATOCRIT 28.8 % (35.4-49); HEMOGLOBIN 9.8 GM/dL (11.7-16.9); LYMPH % 7.7 % (8-40); MCHC 34.1 g/dl (32.0-35.9); MEAN PLT VOLUME 7.9 fl (7.5-11.1); MONO % 8.1 % (3.8-10.2); NEUT % 83.3 % (42.8-82.8); PLATELET COUNT 201 10^3/uL (134-434); RBC 3.27 M/mm3 (4.00-5.60); RDW 13.6 % (11.9-15.9); WHITE BLOOD COUNT 11.2 K/mm3 (4.0-10.0)
[2021-08-05 07:07] LABS: CALCIUM 7.6 mg/dL (8.5-10.1)
[2021-08-05 07:08] LABS: BLOOD UREA NITROGEN 20.9 mg/dL (7-18); MAGNESIUM 1.9 mg/dL (1.8-2.4)
[2021-08-05 07:09] LABS: ALBUMIN 1.9 g/dl (3.4-5.0)
[2021-08-05 07:11] LABS: CREATININE 0.6 mg/dL (0.55-1.3); PHOSPHOROUS 2.8 mg/dL (2.5-4.9)
[2021-08-05 07:12] LABS: BILIRUBIN,TOTAL 0.6 mg/dL (0.2-1)
[2021-08-05] MEDS: ACETYLCYSTEINE 20% 200MG/ML 4 ML VIAL *FOR ORAL / INH USE ONLY NEB SCH ×4 (08:25→20:47)
[2021-08-05] MEDS: ALBUTEROL SO4 0.083% IH SOL 2.5 MG/3 ML VIAL.NEB. NEB PRN ×4 (08:25→20:47)
[2021-08-05] MEDS: PANTOPRAZOLE SODIUM 40 MG VIAL IVPUSH SCH ×2 (10:42→21:23)
[2021-08-05] MEDS: MUPIROCIN 2% TOPICAL OINTMENT FOR DECOLONIZATION NS SCH ×2 (10:50→22:30)
[2021-08-05] MEDS: DEXTROSE 5%-LACTATED RINGERS 1,000 ML IV SCH (15:15)
[2021-08-05 16:16] LABS: BASO % 0.2 % (0-2.0); EOS % 0.7 % (0-4.5); HEMATOCRIT 27.8 % (35.4-49); HEMOGLOBIN 9.5 GM/dL (11.7-16.9); LYMPH % 9.4 % (8-40); MCH 29.8 pg (25.7-33.7); MCHC 34.2 g/dl (32.0-35.9); MEAN PLT VOLUME 7.8 fl (7.5-11.1); NEUT % 80.7 % (42.8-82.8); PLATELET COUNT 210 10^3/uL (134-434); RBC 3.19 M/mm3 (4.00-5.60); RDW 13.9 % (11.9-15.9); WHITE BLOOD COUNT 9.7 K/mm3 (4.0-10.0)
[2021-08-05] MEDS ORDERED: ACETAMINOPHEN 1000 MG/100 ML VIAL IVPB ONE (18:42)
[2021-08-05] MEDS ORDERED: VANCOMYCIN 1 GM in D5W (PRE-DOCKED) 1,000 MG/250 ML IVPB ONE (20:49)
[2021-08-05] MEDS ORDERED: HEPARIN SOD,PORK IN 0.45% NACL 25,000 UNITS/500 ML INFUS.BAG IVPB SCH (21:00)
[2021-08-05] MEDS ORDERED: MEROPENEM 1 GM in DEXTROSE 5%-WATER 100 ML IVPB ONE (21:01)
[2021-08-05] MEDS ORDERED: MEROPENEM 1 GM VIAL (RESTRICTED TO ID) IVPB ONE (21:19)
[2021-08-05] MEDS ORDERED: DEXTROSE 5%-WATER 100 ML IVPB ONE (21:19)
[2021-08-05] MEDS: LATANOPROST 0.005% OPHTH SOLN 2.5ML BOTTLE OS SCH (21:23)
[2021-08-05] MEDS: CHLORHEXIDINE GLUCONATE 4% CLEANSER FOR DECOLONIZATION TP SCH (22:00)
[2021-08-06] MEDS ORDERED: PIPERACILLIN/TAZOBACTAM 3.375 GM VIAL IVPB ONE ×4 (00:17→21:01)
[2021-08-06] MEDS ORDERED: DEXTROSE 5%-WATER - 50 ML IVPB ONE ×4 (00:17→21:01)
[2021-08-06] MEDS: PIPERACILLIN/TAZOB 3.375 GM 3.375 GM in DEXTROSE 5%-WATER - 50 ML IVPB SCH ×3 (01:34→18:26)
[2021-08-06 06:47] LABS: BASO % 0.3 % (0-2.0); EOS % 1.8 % (0-4.5); HEMATOCRIT 26.4 % (35.4-49); HEMOGLOBIN 8.9 GM/dL (11.7-16.9); LYMPH % 16.8 % (8-40); MCH 29.9 pg (25.7-33.7); MCHC 33.9 g/dl (32.0-35.9); MEAN CELL VOLUME 88.3 fl (80-96); MEAN PLT VOLUME 8.1 fl (7.5-11.1); MONO % 14.5 % (3.8-10.2); NEUT % 66.6 % (42.8-82.8); PLATELET COUNT 213 10^3/uL (134-434); RBC 2.99 M/mm3 (4.00-5.60); RDW 13.9 % (11.9-15.9); WHITE BLOOD COUNT 7.7 K/mm3 (4.0-10.0)
[2021-08-06 07:08] LABS: ALBUMIN 1.8 g/dl (3.4-5.0); BLOOD UREA NITROGEN 18.1 mg/dL (7-18); CALCIUM 8.1 mg/dL (8.5-10.1)
[2021-08-06 07:11] LABS: CREATININE 0.7 mg/dL (0.55-1.3)
[2021-08-06 07:12] LABS: BILIRUBIN,TOTAL 0.5 mg/dL (0.2-1); PHOSPHOROUS 3.1 mg/dL (2.5-4.9)
[2021-08-06 07:13] LABS: TOT PROT 5.8 g/dl (6.4-8.2)
[2021-08-06] MEDS: ACETYLCYSTEINE 20% 200MG/ML 4 ML VIAL *FOR ORAL / INH USE ONLY NEB SCH ×4 (07:50→20:51)
[2021-08-06] MEDS ORDERED: METOPROLOL TARTRATE 5 MG/5 ML VIAL IVPUSH ONE (09:53)
[2021-08-06] MEDS: METOPROLOL TARTRATE 25 MG TABLET (FP) PO SCH ×2 (10:21→21:59)
[2021-08-06] MEDS: PANTOPRAZOLE SODIUM 40 MG VIAL IVPUSH SCH ×2 (10:26→21:59)
[2021-08-06] MEDS: MUPIROCIN 2% TOPICAL OINTMENT FOR DECOLONIZATION NS SCH ×2 (10:26→21:58)
[2021-08-06] MEDS: DEXTROSE 5%-WATER - 1,000 ML IV SCH (11:20)
[2021-08-06] MEDS ORDERED: FUROSEMIDE 40 MG/4 ML INJECTABLE VIAL IVPUSH ONE (12:30)
[2021-08-06] MEDS ORDERED: ACETAMINOPHEN 1000 MG/100 ML VIAL IVPB ONE (16:22)
[2021-08-06] MEDS ORDERED: FUROSEMIDE 40 MG/4 ML INJECTABLE VIAL ONE (16:40)
[2021-08-06] MEDS: ALBUTEROL SO4 0.083% IH SOL 2.5 MG/3 ML VIAL.NEB. NEB PRN (20:51)
[2021-08-06] MEDS: CHLORHEXIDINE GLUCONATE 4% CLEANSER FOR DECOLONIZATION TP SCH (21:58)
[2021-08-06] MEDS: LATANOPROST 0.005% OPHTH SOLN 2.5ML BOTTLE OS SCH (21:59)
[2021-08-06] MEDS: ACETAMINOPHEN 1000 MG/100 ML VIAL IVPB PRN (23:26)
[2021-08-07] MEDS: PIPERACILLIN/TAZOB 3.375 GM 3.375 GM in DEXTROSE 5%-WATER - 50 ML IVPB SCH ×3 (01:46→18:03)
[2021-08-07] MEDS ORDERED: ACETAMINOPHEN 1000 MG/100 ML VIAL IVPB ONE (02:08)
[2021-08-07 07:04] LABS: BASO % 0.5 % (0-2.0); EOS % 2.9 % (0-4.5); HEMATOCRIT 29.4 % (35.4-49); HEMOGLOBIN 9.8 GM/dL (11.7-16.9); LYMPH % 16.2 % (8-40); MCH 29.4 pg (25.7-33.7); MCHC 33.3 g/dl (32.0-35.9); MEAN CELL VOLUME 88.4 fl (80-96); MEAN PLT VOLUME 8.5 fl (7.5-11.1); NEUT % 67.4 % (42.8-82.8); PLATELET COUNT 272 10^3/uL (134-434); RBC 3.32 M/mm3 (4.00-5.60); RDW 14.2 % (11.9-15.9)
[2021-08-07 07:36] LABS: ALBUMIN 1.9 g/dl (3.4-5.0); BLOOD UREA NITROGEN 14.8 mg/dL (7-18); CALCIUM 8.1 mg/dL (8.5-10.1)
[2021-08-07 07:37] LABS: MAGNESIUM 1.6 mg/dL (1.8-2.4)
[2021-08-07 07:40] LABS: CREATININE 0.7 mg/dL (0.55-1.3); PHOSPHOROUS 2.1 mg/dL (2.5-4.9)
[2021-08-07 07:41] LABS: BILIRUBIN,TOTAL 0.3 mg/dL (0.2-1); TOT PROT 6.5 g/dl (6.4-8.2)
[2021-08-07 07:45] LABS: N-TERMINAL BNP 6943.1 pg/ml (5-125)
[2021-08-07] MEDS: ALBUTEROL SO4 0.083% IH SOL 2.5 MG/3 ML VIAL.NEB. NEB PRN (07:45)
[2021-08-07] MEDS: ACETYLCYSTEINE 20% 200MG/ML 4 ML VIAL *FOR ORAL / INH USE ONLY NEB SCH ×3 (07:45→19:53)
[2021-08-07] MEDS ORDERED: MAGNESIUM SULF 50% (8.12 MEQ/2 ML-1 GM VIAL) IVPB ONE (08:09)
[2021-08-07] MEDS ORDERED: POTASSIUM PHOSPHATE 30 MM in DEXTROSE 5%-WATER - 250 ML IVPB ONE (09:00)
[2021-08-07] MEDS: KCL 10 MEQ IVPB 10 MEQ/100 ML INFUS.BAG IVPB SCH ×2 (09:15→10:15)
[2021-08-07] MEDS ORDERED: PT OWN MED DRAWER 7, Y5N ONE (09:48)
[2021-08-07] MEDS ORDERED: PIPERACILLIN/TAZOBACTAM 3.375 GM VIAL IVPB ONE ×2 (09:48→17:59)
[2021-08-07] MEDS ORDERED: DEXTROSE 5%-WATER - 50 ML IVPB ONE ×2 (09:48→17:59)
[2021-08-07] MEDS: PANTOPRAZOLE SODIUM 40 MG VIAL IVPUSH SCH ×2 (10:13→23:14)
[2021-08-07] MEDS: METOPROLOL TARTRATE 25 MG TABLET (FP) PO SCH (10:17)
[2021-08-07] MEDS: MUPIROCIN 2% TOPICAL OINTMENT FOR DECOLONIZATION NS SCH (10:21)
[2021-08-07] MEDS: DEXTROSE 5%-WATER - 1,000 ML IV SCH (11:13)
[2021-08-07] MEDS: AMINO ACIDS 4.25%/D5W 1,000 ML IV SCH (13:00)
[2021-08-07] MEDS: ALBUTEROL SO4 0.083% IH SOL 2.5 MG/3 ML VIAL.NEB. NEB SCH ×2 (14:57→19:52)
[2021-08-07] MEDS ORDERED: METOPROLOL TARTRATE 5 MG/5 ML VIAL IVPUSH PRN ×2 (18:37→18:49)
[2021-08-07] MEDS ORDERED: INSULIN (NOVOLOG) ASPART 100 UNITS/ML 10ML VIAL ONE (21:31)
[2021-08-07] MEDS: LATANOPROST 0.005% OPHTH SOLN 2.5ML BOTTLE OS SCH (23:14)
[2021-08-07] MEDS: CHLORHEXIDINE GLUCONATE 4% CLEANSER FOR DECOLONIZATION TP SCH (23:14)
[2021-08-07] MEDS: ACETAMINOPHEN 1000 MG/100 ML VIAL IVPB PRN (23:15)
[2021-08-08] MEDS ORDERED: DEXTROSE 5%-WATER - 50 ML IVPB ONE ×3 (01:07→18:25)
[2021-08-08] MEDS ORDERED: PIPERACILLIN/TAZOBACTAM 3.375 GM VIAL IVPB ONE ×3 (01:07→18:24)
[2021-08-08] MEDS: PIPERACILLIN/TAZOB 3.375 GM 3.375 GM in DEXTROSE 5%-WATER - 50 ML IVPB SCH ×3 (01:10→18:29)
[2021-08-08] MEDS ORDERED: METOPROLOL TARTRATE 5 MG/5 ML VIAL IVPUSH ONE ×2 (04:46→15:54)
[2021-08-08] MEDS ORDERED: morphine SULFATE 4 MG/ML VIAL IVPUSH ONE (04:53)
[2021-08-08] MEDS ORDERED: morphine CARPU-JECT 4 MG/1 ML DISP.SYRIN IVPUSH ONE (04:53)
[2021-08-08] MEDS ORDERED: LEVALBUTEROL HCL 0.31 MG/3 ML VIAL.NEB IH ONE (04:56)
[2021-08-08] MEDS ORDERED: morphine SULFATE 4 MG/ML VIAL ONE (04:58)
[2021-08-08] MEDS ORDERED: FUROSEMIDE 40 MG/4 ML INJECTABLE VIAL ONE (05:07)
[2021-08-08] MEDS ORDERED: LEVALBUTEROL HCL 0.31 MG/3 ML VIAL.NEB IH SCH (08:00)
[2021-08-08] MEDS: ALBUTEROL SO4 0.083% IH SOL 2.5 MG/3 ML VIAL.NEB. NEB SCH ×3 (08:14→20:15)
[2021-08-08] MEDS: ACETYLCYSTEINE 20% 200MG/ML 4 ML VIAL *FOR ORAL / INH USE ONLY NEB SCH ×3 (08:14→20:15)
[2021-08-08] MEDS: ACETAMINOPHEN 1000 MG/100 ML VIAL IVPB PRN (08:58)
[2021-08-08] MEDS: PANTOPRAZOLE SODIUM 40 MG VIAL IVPUSH SCH ×2 (09:01→22:10)
[2021-08-08] MEDS: DEXTROSE 5%-WATER - 1,000 ML IV SCH (10:55)
[2021-08-08] MEDS: AMINO ACIDS 4.25%/D5W 1,000 ML IV SCH (11:56)
[2021-08-08 11:57] LABS: BASO % 0.5 % (0-2.0); EOS % 1.5 % (0-4.5); HEMOGLOBIN 9.7 GM/dL (11.7-16.9); MCH 29.3 pg (25.7-33.7); MCHC 33.6 g/dl (32.0-35.9); MEAN CELL VOLUME 87.1 fl (80-96); MEAN PLT VOLUME 7.9 fl (7.5-11.1); MONO % 12.5 % (3.8-10.2); NEUT % 73.5 % (42.8-82.8); PLATELET COUNT 291 10^3/uL (134-434); RBC 3.32 M/mm3 (4.00-5.60); RDW 14.2 % (11.9-15.9); WHITE BLOOD COUNT 8.2 K/mm3 (4.0-10.0)
[2021-08-08] MEDS: METOPROLOL TARTRATE 25 MG TABLET (FP) PO SCH (21:22)
[2021-08-08] MEDS: LATANOPROST 0.005% OPHTH SOLN 2.5ML BOTTLE OS SCH (22:10)
[2021-08-08] MEDS: CHLORHEXIDINE GLUCONATE 4% CLEANSER FOR DECOLONIZATION TP SCH (22:10)
[2021-08-09] MEDS ORDERED: PIPERACILLIN/TAZOBACTAM 3.375 GM VIAL IVPB ONE ×3 (01:23→17:31)
[2021-08-09] MEDS ORDERED: DEXTROSE 5%-WATER - 50 ML IVPB ONE ×3 (01:23→17:31)
[2021-08-09] MEDS: PIPERACILLIN/TAZOB 3.375 GM 3.375 GM in DEXTROSE 5%-WATER - 50 ML IVPB SCH ×3 (01:29→17:49)
[2021-08-09 07:00] LABS: BASO % 0.5 % (0-2.0); EOS % 1.9 % (0-4.5); HEMATOCRIT 30.8 % (35.4-49); HEMOGLOBIN 10.5 GM/dL (11.7-16.9); LYMPH % 14.9 % (8-40); MCH 29.5 pg (25.7-33.7); MEAN PLT VOLUME 7.9 fl (7.5-11.1); MONO % 10.3 % (3.8-10.2); NEUT % 72.4 % (42.8-82.8); PLATELET COUNT 410 10^3/uL (134-434); RBC 3.54 M/mm3 (4.00-5.60); RDW 14.1 % (11.9-15.9); WHITE BLOOD COUNT 8.5 K/mm3 (4.0-10.0)
[2021-08-09] MEDS: ACETYLCYSTEINE 20% 200MG/ML 4 ML VIAL *FOR ORAL / INH USE ONLY NEB SCH ×3 (08:23→20:50)
[2021-08-09] MEDS: ALBUTEROL SO4 0.083% IH SOL 2.5 MG/3 ML VIAL.NEB. NEB SCH ×3 (08:24→20:50)
[2021-08-09] MEDS: PANTOPRAZOLE SODIUM 40 MG VIAL IVPUSH SCH ×2 (10:15→21:24)
[2021-08-09] MEDS: METOPROLOL TARTRATE 25 MG TABLET (FP) PO SCH ×3 (10:16→21:55)
[2021-08-09 11:35] LABS: CALCIUM 7.5 mg/dL (8.5-10.1)
[2021-08-09 11:36] LABS: ALBUMIN 1.9 g/dl (3.4-5.0); BLOOD UREA NITROGEN 10.6 mg/dL (7-18); MAGNESIUM 1.9 mg/dL (1.8-2.4)
[2021-08-09 11:39] LABS: CREATININE 0.7 mg/dL (0.55-1.3); PHOSPHOROUS 2.2 mg/dL (2.5-4.9)
[2021-08-09 11:40] LABS: BILIRUBIN,TOTAL 0.5 mg/dL (0.2-1)
[2021-08-09 11:41] LABS: TOT PROT 6.7 g/dl (6.4-8.2)
[2021-08-09] MEDS: AMINO ACIDS 4.25%/D5W 1,000 ML IV SCH (17:49)
[2021-08-09] MEDS: CHLORHEXIDINE GLUCONATE 4% CLEANSER FOR DECOLONIZATION TP SCH (21:24)
[2021-08-09] MEDS: LATANOPROST 0.005% OPHTH SOLN 2.5ML BOTTLE OS SCH (21:24)
[2021-08-10] MEDS ORDERED: PIPERACILLIN/TAZOBACTAM 3.375 GM VIAL IVPB ONE ×3 (01:07→16:59)
[2021-08-10] MEDS ORDERED: DEXTROSE 5%-WATER - 50 ML IVPB ONE ×3 (01:07→16:59)
[2021-08-10] MEDS: PIPERACILLIN/TAZOB 3.375 GM 3.375 GM in DEXTROSE 5%-WATER - 50 ML IVPB SCH ×3 (01:19→17:34)
[2021-08-10 06:45] LABS: BASO % 0.3 % (0-2.0); EOS % 1.5 % (0-4.5); HEMATOCRIT 32.4 % (35.4-49); HEMOGLOBIN 11.2 GM/dL (11.7-16.9); LYMPH % 12.3 % (8-40); MCH 29.8 pg (25.7-33.7); MCHC 34.7 g/dl (32.0-35.9); MEAN CELL VOLUME 85.8 fl (80-96); MEAN PLT VOLUME 7.7 fl (7.5-11.1); MONO % 9.4 % (3.8-10.2); NEUT % 76.5 % (42.8-82.8); PLATELET COUNT 459 10^3/uL (134-434); RBC 3.77 M/mm3 (4.00-5.60); RDW 14.4 % (11.9-15.9); WHITE BLOOD COUNT 9.4 K/mm3 (4.0-10.0)
[2021-08-10 07:11] LABS: BLOOD UREA NITROGEN 15.3 mg/dL (7-18); MAGNESIUM 2.1 mg/dL (1.8-2.4)
[2021-08-10 07:12] LABS: ALBUMIN 2.2 g/dl (3.4-5.0)
[2021-08-10 07:14] LABS: CREATININE 0.8 mg/dL (0.55-1.3)
[2021-08-10 07:15] LABS: PHOSPHOROUS 2.6 mg/dL (2.5-4.9)
[2021-08-10 07:16] LABS: BILIRUBIN,TOTAL 0.5 mg/dL (0.2-1); TOT PROT 7.4 g/dl (6.4-8.2)
[2021-08-10] MEDS ORDERED: dilTIAZem HCL 25 MG/5 ML - 5 ML VIAL ONE (07:40)
[2021-08-10] MEDS ORDERED: AMIODARONE IN DEXTROSE,ISO-OSM 150 MG/100 ML BAG IVPB ONE (08:59)
[2021-08-10] MEDS ORDERED: AMIODARONE IN DEXTROSE,ISO-OSM 150 MG/100 ML BAG ONE (09:01)
[2021-08-10] MEDS: PANTOPRAZOLE SODIUM 40 MG VIAL IVPUSH SCH ×2 (09:43→21:34)
[2021-08-10] MEDS: KCL 10 MEQ IVPB 10 MEQ/100 ML INFUS.BAG IVPB SCH ×2 (09:44→10:40)
[2021-08-10] MEDS: ACETYLCYSTEINE 20% 200MG/ML 4 ML VIAL *FOR ORAL / INH USE ONLY NEB SCH ×3 (09:55→20:45)
[2021-08-10] MEDS: ALBUTEROL SO4 0.083% IH SOL 2.5 MG/3 ML VIAL.NEB. NEB SCH ×3 (09:56→20:45)
[2021-08-10] MEDS: AMINO ACIDS 4.25%/D5W 1,000 ML IV SCH (17:09)
[2021-08-10] MEDS: CHLORHEXIDINE GLUCONATE 4% CLEANSER FOR DECOLONIZATION TP SCH (21:34)
[2021-08-10] MEDS: LATANOPROST 0.005% OPHTH SOLN 2.5ML BOTTLE OS SCH (21:38)
[2021-08-11] MEDS ORDERED: METOPROLOL TARTRATE 5 MG/5 ML VIAL IVPUSH ONE (01:15)
[2021-08-11] MEDS ORDERED: DEXTROSE 5%-WATER - 50 ML IVPB ONE ×4 (01:18→20:51)
[2021-08-11] MEDS ORDERED: PIPERACILLIN/TAZOBACTAM 3.375 GM VIAL IVPB ONE ×4 (01:18→20:51)
[2021-08-11] MEDS: PIPERACILLIN/TAZOB 3.375 GM 3.375 GM in DEXTROSE 5%-WATER - 50 ML IVPB SCH ×3 (01:29→17:22)
[2021-08-11 06:46] LABS: BASO % 0.4 % (0-2.0); EOS % 1.1 % (0-4.5); HEMATOCRIT 32.7 % (35.4-49); HEMOGLOBIN 10.9 GM/dL (11.7-16.9); LYMPH % 8.9 % (8-40); MCHC 33.2 g/dl (32.0-35.9); MEAN CELL VOLUME 87.4 fl (80-96); MEAN PLT VOLUME 7.5 fl (7.5-11.1); MONO % 8.2 % (3.8-10.2); NEUT % 81.4 % (42.8-82.8); PLATELET COUNT 476 10^3/uL (134-434); RBC 3.74 M/mm3 (4.00-5.60); RDW 14.5 % (11.9-15.9); WHITE BLOOD COUNT 11.3 K/mm3 (4.0-10.0)
[2021-08-11 06:52] LABS: ALBUMIN 2.3 g/dl (3.4-5.0); BLOOD UREA NITROGEN 22.1 mg/dL (7-18); CALCIUM 8.2 mg/dL (8.5-10.1)
[2021-08-11 06:56] LABS: CREATININE 0.8 mg/dL (0.55-1.3); PHOSPHOROUS 2.5 mg/dL (2.5-4.9)
[2021-08-11 06:57] LABS: BILIRUBIN,TOTAL 0.5 mg/dL (0.2-1); TOT PROT 7.4 g/dl (6.4-8.2)
[2021-08-11] MEDS: ACETYLCYSTEINE 20% 200MG/ML 4 ML VIAL *FOR ORAL / INH USE ONLY NEB SCH ×3 (08:09→20:23)
[2021-08-11] MEDS: ALBUTEROL SO4 0.083% IH SOL 2.5 MG/3 ML VIAL.NEB. NEB SCH ×3 (08:09→20:23)
[2021-08-11] MEDS ORDERED: PT OWN MED DRAWER 7, Y5N ONE ×2 (08:55→17:24)
[2021-08-11] MEDS: PANTOPRAZOLE SODIUM 40 MG VIAL IVPUSH SCH ×2 (09:16→21:13)
[2021-08-11] MEDS ORDERED: DIGOXIN 0.5 MG/2 ML AMPUL IVPUSH ONE (11:43)
[2021-08-11] MEDS: AMINO ACIDS 4.25%/D5W 1,000 ML IV SCH ×2 (12:38→12:39)
[2021-08-11] MEDS: MULTIVIT INJ. ADULT COMBO WITH VIT K 1 COMBO 10 ML VIAL IV SCH (13:48)
[2021-08-11] MEDS ORDERED: MAGNESIUM SULFATE IN WATER 2 GM/50 ML IVPB IVPB ONE (15:02)
[2021-08-11] MEDS ORDERED: KCL 10 MEQ IVPB 10 MEQ/100 ML INFUS.BAG IVPB SCH (15:15)
[2021-08-11 15:31] VITALS: BMI 20.1
[2021-08-11] MEDS: DIGOXIN 0.5 MG/2 ML AMPUL IVPUSH SCH (17:24)
[2021-08-11] MEDS: FAT EMUL/SOY/MCT/OLIV/FISH OIL 250 ML IV SCH (21:12)
[2021-08-11] MEDS: LATANOPROST 0.005% OPHTH SOLN 2.5ML BOTTLE OS SCH (21:13)
[2021-08-11] MEDS: CHLORHEXIDINE GLUCONATE 4% CLEANSER FOR DECOLONIZATION TP SCH (21:13)
[2021-08-11] MEDS ORDERED: SMOFLIPID - FAT EMUL/SOY/MCT/OLIV/FISH OIL 250 ML EMULSION IV SCH (22:00)
[2021-08-12] MEDS: DIGOXIN 0.5 MG/2 ML AMPUL IVPUSH SCH (00:02)
[2021-08-12] MEDS: PIPERACILLIN/TAZOB 3.375 GM 3.375 GM in DEXTROSE 5%-WATER - 50 ML IVPB SCH ×3 (02:35→17:18)
[2021-08-12] MEDS: ACETYLCYSTEINE 20% 200MG/ML 4 ML VIAL *FOR ORAL / INH USE ONLY NEB SCH ×3 (07:35→20:00)
[2021-08-12] MEDS: ALBUTEROL SO4 0.083% IH SOL 2.5 MG/3 ML VIAL.NEB. NEB SCH (07:35)
[2021-08-12 07:47] LABS: BASO % 0.4 % (0-2.0); EOS % 2.6 % (0-4.5); HEMATOCRIT 30.8 % (35.4-49); HEMOGLOBIN 10.5 GM/dL (11.7-16.9); LYMPH % 7.9 % (8-40); MCH 29.5 pg (25.7-33.7); MCHC 33.9 g/dl (32.0-35.9); MEAN CELL VOLUME 86.9 fl (80-96); MEAN PLT VOLUME 7.4 fl (7.5-11.1); MONO % 8.1 % (3.8-10.2); PLATELET COUNT 490 10^3/uL (134-434); RBC 3.55 M/mm3 (4.00-5.60); RDW 14.2 % (11.9-15.9); WHITE BLOOD COUNT 9.3 K/mm3 (4.0-10.0)
[2021-08-12 08:10] LABS: BLOOD UREA NITROGEN 16.4 mg/dL (7-18); CALCIUM 8.1 mg/dL (8.5-10.1)
[2021-08-12 08:11] LABS: ALBUMIN 2.1 g/dl (3.4-5.0); MAGNESIUM 2.2 mg/dL (1.8-2.4)
[2021-08-12 08:14] LABS: CREATININE 0.7 mg/dL (0.55-1.3)
[2021-08-12 08:15] LABS: BILIRUBIN,TOTAL 0.7 mg/dL (0.2-1); TOT PROT 7.2 g/dl (6.4-8.2)
[2021-08-12] MEDS: KCL 10 MEQ IVPB 10 MEQ/100 ML INFUS.BAG IVPB SCH ×2 (09:10→10:10)
[2021-08-12] MEDS ORDERED: PIPERACILLIN/TAZOBACTAM 3.375 GM VIAL IVPB ONE ×2 (09:40→17:17)
[2021-08-12] MEDS ORDERED: DEXTROSE 5%-WATER - 50 ML IVPB ONE ×2 (09:40→17:18)
[2021-08-12] MEDS: PANTOPRAZOLE SODIUM 40 MG VIAL IVPUSH SCH ×2 (09:53→21:07)
[2021-08-12] MEDS ORDERED: dilTIAZem HCL 50 MG/10 ML - 10 ML VIAL IVPB SCH (11:30)
[2021-08-12] MEDS ORDERED: MAGNESIUM SULF 50% (8.12 MEQ/2 ML-1 GM VIAL) IVPB ONE (11:44)
[2021-08-12] MEDS ORDERED: PT OWN MED DRAWER 7, Y5N ONE (14:07)
[2021-08-12] MEDS: AMINO ACIDS 4.25%/D5W 1,000 ML IV SCH (14:08)
[2021-08-12] MEDS: WATER IV SCH ×2 (14:09→21:07)
[2021-08-12] MEDS: MULTIVIT INJ. ADULT COMBO WITH VIT K 1 COMBO 10 ML VIAL IV SCH (14:09)
[2021-08-12] MEDS: DEXTROSE 5% IV SCH ×2 (14:09→21:07)
[2021-08-12] MEDS: DILTIAZEM IV SCH ×2 (14:09→21:07)
[2021-08-12] MEDS: AMINO ACIDS 4.25%/D5W 2,000 ML IV SCH (16:20)
[2021-08-12] MEDS ORDERED: dilTIAZem HCL 125 MG/25 ML - 25 ML VIAL ONE (20:49)
[2021-08-12] MEDS: FAT EMUL/SOY/MCT/OLIV/FISH OIL 250 ML IV SCH (21:07)
[2021-08-12] MEDS: CHLORHEXIDINE GLUCONATE 4% CLEANSER FOR DECOLONIZATION TP SCH (21:08)
[2021-08-12] MEDS: LATANOPROST 0.005% OPHTH SOLN 2.5ML BOTTLE OS SCH (21:08)
[2021-08-12] MEDS ORDERED: DIGOXIN 0.5 MG/2 ML AMPUL IVPUSH SCH (22:00)
[2021-08-13] MEDS ORDERED: dilTIAZem HCL 125 MG/25 ML - 25 ML VIAL ONE (01:03)
[2021-08-13] MEDS ORDERED: PIPERACILLIN/TAZOBACTAM 3.375 GM VIAL IVPB ONE ×3 (01:04→17:26)
[2021-08-13] MEDS ORDERED: DEXTROSE 5%-WATER - 50 ML IVPB ONE ×3 (01:04→17:26)
[2021-08-13] MEDS: PIPERACILLIN/TAZOB 3.375 GM 3.375 GM in DEXTROSE 5%-WATER - 50 ML IVPB SCH ×3 (01:47→17:31)
[2021-08-13] MEDS: DEXTROSE 5% IV SCH ×4 (02:29→21:07)
[2021-08-13] MEDS: DILTIAZEM IV SCH ×4 (02:29→21:07)
[2021-08-13] MEDS: WATER IV SCH ×4 (02:29→21:07)
[2021-08-13 07:28] LABS: BASO % 0.5 % (0-2.0); HEMATOCRIT 29.4 % (35.4-49); HEMOGLOBIN 9.9 GM/dL (11.7-16.9); LYMPH % 9.8 % (8-40); MCHC 33.7 g/dl (32.0-35.9); MEAN CELL VOLUME 86.3 fl (80-96); MEAN PLT VOLUME 7.1 fl (7.5-11.1); MONO % 10.4 % (3.8-10.2); NEUT % 76.3 % (42.8-82.8); PLATELET COUNT 424 10^3/uL (134-434); RBC 3.41 M/mm3 (4.00-5.60); RDW 14.5 % (11.9-15.9); WHITE BLOOD COUNT 9.2 K/mm3 (4.0-10.0)
[2021-08-13] MEDS: ALBUTEROL SO4 0.083% IH SOL 2.5 MG/3 ML VIAL.NEB. NEB SCH ×3 (07:47→20:35)
[2021-08-13] MEDS: ACETYLCYSTEINE 20% 200MG/ML 4 ML VIAL *FOR ORAL / INH USE ONLY NEB SCH ×3 (07:47→20:35)
[2021-08-13 07:48] LABS: CALCIUM 8.1 mg/dL (8.5-10.1)
[2021-08-13 07:49] LABS: MAGNESIUM 2.3 mg/dL (1.8-2.4)
[2021-08-13 07:51] LABS: ALBUMIN 2.2 g/dl (3.4-5.0); BLOOD UREA NITROGEN 14.6 mg/dL (7-18)
[2021-08-13 07:53] LABS: CREATININE 0.7 mg/dL (0.55-1.3)
[2021-08-13 07:55] LABS: BILIRUBIN,TOTAL 0.6 mg/dL (0.2-1)
[2021-08-13] MEDS: PANTOPRAZOLE SODIUM 40 MG VIAL IVPUSH SCH ×2 (09:35→21:07)
[2021-08-13] MEDS: DIGOXIN 0.5 MG/2 ML AMPUL IVPUSH SCH (12:00)
[2021-08-13] MEDS ORDERED: PT OWN MED DRAWER 7, Y5N ONE ×2 (14:55→21:02)
[2021-08-13] MEDS: MULTIVIT INJ. ADULT COMBO WITH VIT K 1 COMBO 10 ML VIAL IV SCH (15:00)
[2021-08-13] MEDS: AMINO ACIDS 4.25%/D5W 2,000 ML IV SCH (15:15)
[2021-08-13] MEDS: CHLORHEXIDINE GLUCONATE 4% CLEANSER FOR DECOLONIZATION TP SCH (21:07)
[2021-08-13] MEDS: FAT EMUL/SOY/MCT/OLIV/FISH OIL 250 ML IV SCH (21:08)
[2021-08-13] MEDS: LATANOPROST 0.005% OPHTH SOLN 2.5ML BOTTLE OS SCH (21:08)
[2021-08-14] MEDS ORDERED: PIPERACILLIN/TAZOBACTAM 3.375 GM VIAL IVPB ONE ×4 (00:49→21:38)
[2021-08-14] MEDS ORDERED: DEXTROSE 5%-WATER - 50 ML IVPB ONE ×4 (00:49→21:38)
[2021-08-14] MEDS: PIPERACILLIN/TAZOB 3.375 GM 3.375 GM in DEXTROSE 5%-WATER - 50 ML IVPB SCH ×3 (02:06→21:36)
[2021-08-14] MEDS: DILTIAZEM IV SCH ×4 (02:06→22:00)
[2021-08-14] MEDS: WATER IV SCH ×4 (02:06→22:00)
[2021-08-14] MEDS: DEXTROSE 5% IV SCH ×4 (02:06→22:00)
[2021-08-14] MEDS: ALBUTEROL SO4 0.083% IH SOL 2.5 MG/3 ML VIAL.NEB. NEB SCH ×3 (07:38→20:36)
[2021-08-14] MEDS: ACETYLCYSTEINE 20% 200MG/ML 4 ML VIAL *FOR ORAL / INH USE ONLY NEB SCH ×3 (07:38→20:36)
[2021-08-14] MEDS ORDERED: PT OWN MED DRAWER 7, Y5N ONE ×3 (08:51→18:22)
[2021-08-14] MEDS: PANTOPRAZOLE SODIUM 40 MG VIAL IVPUSH SCH ×2 (09:04→21:39)
[2021-08-14 09:21] LABS: HEMATOCRIT 28.4 % (35.4-49); HEMOGLOBIN 9.9 GM/dL (11.7-16.9); MCH 29.8 pg (25.7-33.7); MCHC 34.9 g/dl (32.0-35.9); MEAN CELL VOLUME 85.4 fl (80-96); MEAN PLT VOLUME 6.9 fl (7.5-11.1); PLATELET COUNT 408 10^3/uL (134-434); RBC 3.33 M/mm3 (4.00-5.60); RDW 14.4 % (11.9-15.9); WHITE BLOOD COUNT 9.8 K/mm3 (4.0-10.0)
[2021-08-14 09:49] LABS: CALCIUM 8.6 mg/dL (8.5-10.1)
[2021-08-14 09:50] LABS: BLOOD UREA NITROGEN 15.4 mg/dL (7-18)
[2021-08-14 09:53] LABS: CREATININE 0.6 mg/dL (0.55-1.3)
[2021-08-14] MEDS: KCL 10 MEQ IVPB 10 MEQ/100 ML INFUS.BAG IVPB SCH ×2 (15:45→21:36)
[2021-08-14] MEDS: MULTIVIT INJ. ADULT COMBO WITH VIT K 1 COMBO 10 ML VIAL IV SCH (21:35)
[2021-08-14] MEDS: CHLORHEXIDINE GLUCONATE 4% CLEANSER FOR DECOLONIZATION TP SCH (21:36)
[2021-08-14] MEDS: AMINO ACIDS 4.25%/D5W 2,000 ML IV SCH (21:36)
[2021-08-14] MEDS: LATANOPROST 0.005% OPHTH SOLN 2.5ML BOTTLE OS SCH (21:37)
[2021-08-14] MEDS: FAT EMUL/SOY/MCT/OLIV/FISH OIL 250 ML IV SCH (21:39)
[2021-08-15] MEDS ORDERED: PIPERACILLIN/TAZOBACTAM 3.375 GM VIAL IVPB ONE ×4 (01:09→17:41)
[2021-08-15] MEDS ORDERED: DEXTROSE 5%-WATER - 50 ML IVPB ONE ×3 (01:10→16:33)
[2021-08-15] MEDS: DEXTROSE 5% IV SCH ×4 (02:44→22:38)
[2021-08-15] MEDS: PIPERACILLIN/TAZOB 3.375 GM 3.375 GM in DEXTROSE 5%-WATER - 50 ML IVPB SCH ×3 (02:44→17:53)
[2021-08-15] MEDS: DILTIAZEM IV SCH ×4 (02:44→22:38)
[2021-08-15] MEDS: WATER IV SCH ×4 (02:44→22:38)
[2021-08-15 06:24] LABS: BASO % 0.8 % (0-2.0); EOS % 3.5 % (0-4.5); HEMATOCRIT 30.2 % (35.4-49); HEMOGLOBIN 10.4 GM/dL (11.7-16.9); LYMPH % 10.6 % (8-40); MCH 29.5 pg (25.7-33.7); MCHC 34.3 g/dl (32.0-35.9); MEAN CELL VOLUME 86.1 fl (80-96); MEAN PLT VOLUME 7.4 fl (7.5-11.1); MONO % 10.9 % (3.8-10.2); NEUT % 74.2 % (42.8-82.8); PLATELET COUNT 434 10^3/uL (134-434); RBC 3.51 M/mm3 (4.00-5.60); RDW 14.5 % (11.9-15.9); WHITE BLOOD COUNT 7.8 K/mm3 (4.0-10.0)
[2021-08-15 06:45] LABS: CALCIUM 8.4 mg/dL (8.5-10.1)
[2021-08-15 06:46] LABS: ALBUMIN 2.2 g/dl (3.4-5.0); BLOOD UREA NITROGEN 13.5 mg/dL (7-18)
[2021-08-15 06:49] LABS: CREATININE 0.6 mg/dL (0.55-1.3); PHOSPHOROUS 3.2 mg/dL (2.5-4.9)
[2021-08-15 06:50] LABS: BILIRUBIN,TOTAL 0.4 mg/dL (0.2-1); TOT PROT 7.2 g/dl (6.4-8.2)
[2021-08-15 07:07] LABS: MAGNESIUM 1.4 mg/dL (1.8-2.4)
[2021-08-15] MEDS: ALBUTEROL SO4 0.083% IH SOL 2.5 MG/3 ML VIAL.NEB. NEB SCH ×3 (07:40→19:54)
[2021-08-15] MEDS: ACETYLCYSTEINE 20% 200MG/ML 4 ML VIAL *FOR ORAL / INH USE ONLY NEB SCH ×3 (07:40→19:54)
[2021-08-15] MEDS ORDERED: PT OWN MED DRAWER 7, Y5N ONE ×3 (08:35→21:41)
[2021-08-15] MEDS: PANTOPRAZOLE SODIUM 40 MG VIAL IVPUSH SCH ×2 (10:31→21:45)
[2021-08-15] MEDS: DIGOXIN 0.5 MG/2 ML AMPUL IVPUSH SCH (12:32)
[2021-08-15] MEDS ORDERED: ONDANSETRON 4 MG/2 ML VIAL IVPB PRN (20:38)
[2021-08-15] MEDS: CHLORHEXIDINE GLUCONATE 4% CLEANSER FOR DECOLONIZATION TP SCH (21:38)
[2021-08-15] MEDS: MULTIVIT INJ. ADULT COMBO WITH VIT K 1 COMBO 10 ML VIAL IV SCH ×2 (21:45→23:42)
[2021-08-15] MEDS: AMINO ACIDS 4.25%/D5W 2,000 ML IV SCH ×2 (21:45→23:42)
[2021-08-15] MEDS: FAT EMUL/SOY/MCT/OLIV/FISH OIL 250 ML IV SCH (22:38)
[2021-08-15] MEDS: LATANOPROST 0.005% OPHTH SOLN 2.5ML BOTTLE OS SCH (23:00)
[2021-08-16] MEDS ORDERED: DEXTROSE 5%-WATER - 50 ML IVPB ONE ×3 (02:04→18:06)
[2021-08-16] MEDS ORDERED: PIPERACILLIN/TAZOBACTAM 3.375 GM VIAL IVPB ONE ×3 (02:04→18:05)
[2021-08-16] MEDS: DEXTROSE 5% IV SCH ×4 (02:13→20:31)
[2021-08-16] MEDS: WATER IV SCH ×4 (02:13→20:31)
[2021-08-16] MEDS: PIPERACILLIN/TAZOB 3.375 GM 3.375 GM in DEXTROSE 5%-WATER - 50 ML IVPB SCH ×3 (02:13→18:07)
[2021-08-16] MEDS: DILTIAZEM IV SCH ×4 (02:13→20:31)
[2021-08-16] MEDS: ALBUTEROL SO4 0.083% IH SOL 2.5 MG/3 ML VIAL.NEB. NEB SCH ×3 (08:20→20:10)
[2021-08-16] MEDS: ACETYLCYSTEINE 20% 200MG/ML 4 ML VIAL *FOR ORAL / INH USE ONLY NEB SCH ×3 (08:20→20:10)
[2021-08-16] MEDS: PANTOPRAZOLE SODIUM 40 MG VIAL IVPUSH SCH ×2 (09:37→21:40)
[2021-08-16] MEDS: METOPROLOL TARTRATE 5 MG/5 ML VIAL IVPUSH PRN (13:06)
[2021-08-16] MEDS: MULTIVIT INJ. ADULT COMBO WITH VIT K 1 COMBO 10 ML VIAL IV SCH (13:30)
[2021-08-16] MEDS: AMINO ACIDS 4.25%/D5W 2,000 ML IV SCH (15:30)
[2021-08-16] MEDS: CHLORHEXIDINE GLUCONATE 4% CLEANSER FOR DECOLONIZATION TP SCH (21:40)
[2021-08-16] MEDS: FAT EMUL/SOY/MCT/OLIV/FISH OIL 250 ML IV SCH (21:41)
[2021-08-16] MEDS: LATANOPROST 0.005% OPHTH SOLN 2.5ML BOTTLE OS SCH (21:42)
[2021-08-17] MEDS ORDERED: PIPERACILLIN/TAZOBACTAM 3.375 GM VIAL IVPB ONE ×3 (01:18→17:34)
[2021-08-17] MEDS ORDERED: DEXTROSE 5%-WATER - 50 ML IVPB ONE ×3 (01:19→17:34)
[2021-08-17] MEDS: PIPERACILLIN/TAZOB 3.375 GM 3.375 GM in DEXTROSE 5%-WATER - 50 ML IVPB SCH ×3 (01:30→18:04)
[2021-08-17] MEDS: DILTIAZEM IV SCH ×4 (02:26→21:57)
[2021-08-17] MEDS: WATER IV SCH ×4 (02:26→21:57)
[2021-08-17] MEDS: DEXTROSE 5% IV SCH ×4 (02:26→21:57)
[2021-08-17 06:25] LABS: BASO % 0.7 % (0-2.0); EOS % 3.4 % (0-4.5); HEMATOCRIT 31.6 % (35.4-49); HEMOGLOBIN 10.6 GM/dL (11.7-16.9); LYMPH % 20.9 % (8-40); MCHC 33.5 g/dl (32.0-35.9); MEAN CELL VOLUME 86.5 fl (80-96); MEAN PLT VOLUME 7.3 fl (7.5-11.1); MONO % 11.9 % (3.8-10.2); NEUT % 63.1 % (42.8-82.8); PLATELET COUNT 474 10^3/uL (134-434); RBC 3.65 M/mm3 (4.00-5.60); RDW 14.6 % (11.9-15.9); WHITE BLOOD COUNT 6.5 K/mm3 (4.0-10.0)
[2021-08-17 06:42] LABS: CALCIUM 8.7 mg/dL (8.5-10.1)
[2021-08-17 06:43] LABS: BLOOD UREA NITROGEN 15.9 mg/dL (7-18)
[2021-08-17 06:46] LABS: CREATININE 0.6 mg/dL (0.55-1.3)
[2021-08-17] MEDS: METOPROLOL TARTRATE 5 MG/5 ML VIAL IVPUSH PRN (06:53)
[2021-08-17] MEDS: AMINO ACIDS 4.25%/D5W 2,000 ML IV SCH ×2 (07:45→15:09)
[2021-08-17] MEDS: MULTIVIT INJ. ADULT COMBO WITH VIT K 1 COMBO 10 ML VIAL IV SCH ×2 (07:45→13:44)
[2021-08-17] MEDS: ACETYLCYSTEINE 20% 200MG/ML 4 ML VIAL *FOR ORAL / INH USE ONLY NEB SCH ×3 (08:42→20:10)
[2021-08-17] MEDS: ALBUTEROL SO4 0.083% IH SOL 2.5 MG/3 ML VIAL.NEB. NEB SCH ×3 (08:43→20:10)
[2021-08-17] MEDS ORDERED: PT OWN MED DRAWER 7, Y5N ONE ×4 (08:46→21:42)
[2021-08-17] MEDS: PANTOPRAZOLE SODIUM 40 MG VIAL IVPUSH SCH ×2 (09:14→21:23)
[2021-08-17] MEDS: DIGOXIN 0.5 MG/2 ML AMPUL IVPUSH SCH (09:14)
[2021-08-17] MEDS ORDERED: ACETAMINOPHEN 1000 MG/100 ML VIAL IVPB PRN (12:19)
[2021-08-17] MEDS: FAT EMUL/SOY/MCT/OLIV/FISH OIL 250 ML IV SCH (21:58)
[2021-08-17] MEDS: CHLORHEXIDINE GLUCONATE 4% CLEANSER FOR DECOLONIZATION TP SCH (21:58)
[2021-08-17] MEDS: LATANOPROST 0.005% OPHTH SOLN 2.5ML BOTTLE OS SCH (22:12)
[2021-08-18] MEDS ORDERED: PIPERACILLIN/TAZOBACTAM 3.375 GM VIAL IVPB ONE (01:29)
[2021-08-18] MEDS ORDERED: DEXTROSE 5%-WATER - 50 ML IVPB ONE (01:29)
[2021-08-18] MEDS: PIPERACILLIN/TAZOB 3.375 GM 3.375 GM in DEXTROSE 5%-WATER - 50 ML IVPB SCH (01:32)
[2021-08-18] MEDS: DILTIAZEM IV SCH ×4 (02:15→21:33)
[2021-08-18] MEDS: DEXTROSE 5% IV SCH ×4 (02:15→21:33)
[2021-08-18] MEDS: WATER IV SCH ×4 (02:15→21:33)
[2021-08-18 06:32] LABS: HEMATOCRIT 31.2 % (35.4-49); HEMOGLOBIN 10.6 GM/dL (11.7-16.9); MCH 28.9 pg (25.7-33.7); MCHC 33.9 g/dl (32.0-35.9); MEAN CELL VOLUME 85.2 fl (80-96); MEAN PLT VOLUME 7.6 fl (7.5-11.1); PLATELET COUNT 438 10^3/uL (134-434); RBC 3.66 M/mm3 (4.00-5.60); RDW 14.2 % (11.9-15.9); WHITE BLOOD COUNT 7.7 K/mm3 (4.0-10.0)
[2021-08-18 06:56] LABS: CALCIUM 8.7 mg/dL (8.5-10.1)
[2021-08-18 06:57] LABS: BLOOD UREA NITROGEN 19.3 mg/dL (7-18); MAGNESIUM 1.7 mg/dL (1.8-2.4)
[2021-08-18 07:00] LABS: CREATININE 0.6 mg/dL (0.55-1.3); PHOSPHOROUS 3.3 mg/dL (2.5-4.9)
[2021-08-18] MEDS: ALBUTEROL SO4 0.083% IH SOL 2.5 MG/3 ML VIAL.NEB. NEB SCH ×3 (07:20→20:05)
[2021-08-18] MEDS: ACETYLCYSTEINE 20% 200MG/ML 4 ML VIAL *FOR ORAL / INH USE ONLY NEB SCH ×3 (07:20→20:05)
[2021-08-18] MEDS: METOPROLOL TARTRATE 5 MG/5 ML VIAL IVPUSH PRN (07:41)
[2021-08-18] MEDS ORDERED: PT OWN MED DRAWER 7, Y5N ONE ×3 (08:47→21:00)
[2021-08-18] MEDS: PANTOPRAZOLE SODIUM 40 MG VIAL IVPUSH SCH ×2 (09:39→21:33)
[2021-08-18] MEDS: AMINO ACIDS 4.25%/D5W 2,000 ML IV SCH (21:21)
[2021-08-18] MEDS: MULTIVIT INJ. ADULT COMBO WITH VIT K 1 COMBO 10 ML VIAL IV SCH (21:23)
[2021-08-18] MEDS: LATANOPROST 0.005% OPHTH SOLN 2.5ML BOTTLE OS SCH (21:33)
[2021-08-18] MEDS: CHLORHEXIDINE GLUCONATE 4% CLEANSER FOR DECOLONIZATION TP SCH (21:33)
[2021-08-18] MEDS: FAT EMUL/SOY/MCT/OLIV/FISH OIL 250 ML IV SCH (22:37)
[2021-08-19] MEDS: DEXTROSE 5% IV SCH ×4 (03:36→21:53)
[2021-08-19] MEDS: WATER IV SCH ×4 (03:36→21:53)
[2021-08-19] MEDS: DILTIAZEM IV SCH ×4 (03:36→21:53)
[2021-08-19 06:55] LABS: HEMATOCRIT 29.3 % (35.4-49); HEMOGLOBIN 10.2 GM/dL (11.7-16.9); MCHC 34.9 g/dl (32.0-35.9); MEAN CELL VOLUME 83.2 fl (80-96); MEAN PLT VOLUME 7.6 fl (7.5-11.1); PLATELET COUNT 453 10^3/uL (134-434); RBC 3.52 M/mm3 (4.00-5.60); RDW 14.5 % (11.9-15.9); WHITE BLOOD COUNT 7.7 K/mm3 (4.0-10.0)
[2021-08-19 07:21] LABS: CALCIUM 8.6 mg/dL (8.5-10.1)
[2021-08-19 07:22] LABS: ALBUMIN 2.4 g/dl (3.4-5.0); BLOOD UREA NITROGEN 17.8 mg/dL (7-18)
[2021-08-19 07:25] LABS: CREATININE 0.6 mg/dL (0.55-1.3)
[2021-08-19 07:27] LABS: TOT PROT 7.6 g/dl (6.4-8.2)
[2021-08-19 07:28] LABS: BILIRUBIN,TOTAL 0.4 mg/dL (0.2-1)
[2021-08-19] MEDS: ACETYLCYSTEINE 20% 200MG/ML 4 ML VIAL *FOR ORAL / INH USE ONLY NEB SCH ×2 (08:25→20:55)
[2021-08-19] MEDS: ALBUTEROL SO4 0.083% IH SOL 2.5 MG/3 ML VIAL.NEB. NEB SCH ×2 (08:25→20:56)
[2021-08-19] MEDS ORDERED: PT OWN MED DRAWER 7, Y5N ONE ×2 (08:49→21:52)
[2021-08-19] MEDS: PANTOPRAZOLE SODIUM 40 MG VIAL IVPUSH SCH ×2 (09:00→21:59)
[2021-08-19] MEDS: DIGOXIN 0.5 MG/2 ML AMPUL IVPUSH SCH (09:16)
[2021-08-19] MEDS: MULTIVIT INJ. ADULT COMBO WITH VIT K 1 COMBO 10 ML VIAL IV SCH (13:36)
[2021-08-19] MEDS: AMINO ACIDS 4.25%/D5W 2,000 ML IV SCH (16:09)
[2021-08-19] MEDS: CHLORHEXIDINE GLUCONATE 4% CLEANSER FOR DECOLONIZATION TP SCH (21:54)
[2021-08-19] MEDS: LATANOPROST 0.005% OPHTH SOLN 2.5ML BOTTLE OS SCH (22:00)
[2021-08-19] MEDS: FAT EMUL/SOY/MCT/OLIV/FISH OIL 250 ML IV SCH (23:16)
[2021-08-20] MEDS ORDERED: PT OWN MED DRAWER 7, Y5N ONE ×3 (03:08→19:28)
[2021-08-20] MEDS: DEXTROSE 5% IV SCH ×4 (03:10→21:10)
[2021-08-20] MEDS: WATER IV SCH ×4 (03:10→21:10)
[2021-08-20] MEDS: DILTIAZEM IV SCH ×4 (03:10→21:10)
[2021-08-20 06:14] LABS: HEMATOCRIT 29.2 % (35.4-49); HEMOGLOBIN 10.1 GM/dL (11.7-16.9); MCH 28.6 pg (25.7-33.7); MCHC 34.7 g/dl (32.0-35.9); MEAN CELL VOLUME 82.3 fl (80-96); MEAN PLT VOLUME 7.6 fl (7.5-11.1); PLATELET COUNT 420 10^3/uL (134-434); RBC 3.54 M/mm3 (4.00-5.60); RDW 14.1 % (11.9-15.9); WHITE BLOOD COUNT 6.7 K/mm3 (4.0-10.0)
[2021-08-20 06:25] LABS: CALCIUM 8.9 mg/dL (8.5-10.1)
[2021-08-20 06:26] LABS: BLOOD UREA NITROGEN 20.8 mg/dL (7-18)
[2021-08-20 06:29] LABS: CREATININE 0.6 mg/dL (0.55-1.3)
[2021-08-20] MEDS: METOPROLOL TARTRATE 5 MG/5 ML VIAL IVPUSH PRN (08:15)
[2021-08-20] MEDS: ALBUTEROL SO4 0.083% IH SOL 2.5 MG/3 ML VIAL.NEB. NEB SCH ×3 (08:25→20:34)
[2021-08-20] MEDS: ACETYLCYSTEINE 20% 200MG/ML 4 ML VIAL *FOR ORAL / INH USE ONLY NEB SCH ×3 (08:25→20:33)
[2021-08-20] MEDS: PANTOPRAZOLE SODIUM 40 MG VIAL IVPUSH SCH ×2 (09:00→21:09)
[2021-08-20] MEDS: MULTIVIT INJ. ADULT COMBO WITH VIT K 1 COMBO 10 ML VIAL IV SCH (10:36)
[2021-08-20] MEDS: AMINO ACIDS 4.25%/D5W 2,000 ML IV SCH (10:37)
[2021-08-20] MEDS: METOPROLOL TARTRATE 25 MG TABLET (FP) PO SCH ×2 (12:40→21:09)
[2021-08-20] MEDS: CHLORHEXIDINE GLUCONATE 4% CLEANSER FOR DECOLONIZATION TP SCH (21:10)
[2021-08-20] MEDS: LATANOPROST 0.005% OPHTH SOLN 2.5ML BOTTLE OS SCH (21:23)
[2021-08-21] MEDS: WATER IV SCH ×4 (03:13→20:38)
[2021-08-21] MEDS: DEXTROSE 5% IV SCH ×4 (03:13→20:38)
[2021-08-21] MEDS: DILTIAZEM IV SCH ×4 (03:13→20:38)
[2021-08-21 07:15] LABS: HEMATOCRIT 30.3 % (35.4-49); HEMOGLOBIN 10.1 GM/dL (11.7-16.9); MCHC 33.4 g/dl (32.0-35.9); MEAN CELL VOLUME 83.9 fl (80-96); MEAN PLT VOLUME 7.9 fl (7.5-11.1); PLATELET COUNT 403 10^3/uL (134-434); RBC 3.61 M/mm3 (4.00-5.60); RDW 14.5 % (11.9-15.9); WHITE BLOOD COUNT 11.3 K/mm3 (4.0-10.0)
[2021-08-21 07:21] LABS: BLOOD UREA NITROGEN 27.3 mg/dL (7-18); CALCIUM 8.6 mg/dL (8.5-10.1)
[2021-08-21 07:25] LABS: CREATININE 0.6 mg/dL (0.55-1.3)
[2021-08-21] MEDS: METOPROLOL TARTRATE 5 MG/5 ML VIAL IVPUSH PRN (07:26)
[2021-08-21] MEDS: ACETYLCYSTEINE 20% 200MG/ML 4 ML VIAL *FOR ORAL / INH USE ONLY NEB SCH ×3 (07:30→20:01)
[2021-08-21] MEDS: ALBUTEROL SO4 0.083% IH SOL 2.5 MG/3 ML VIAL.NEB. NEB SCH ×3 (07:30→20:01)
[2021-08-21] MEDS: PANTOPRAZOLE SODIUM 40 MG VIAL IVPUSH SCH ×2 (09:21→20:59)
[2021-08-21] MEDS: METOPROLOL TARTRATE 25 MG TABLET (FP) PO SCH ×2 (09:21→20:59)
[2021-08-21 13:53] LABS: ALBUMIN 2.6 g/dl (3.4-5.0); MAGNESIUM 1.8 mg/dL (1.8-2.4)
[2021-08-21 13:56] LABS: BILIRUBIN,DIRECT 0.1 mg/dL (0.0-0.2); BILIRUBIN,TOTAL 0.3 mg/dL (0.2-1); PHOSPHOROUS 3.5 mg/dL (2.5-4.9)
[2021-08-21 13:58] LABS: TOT PROT 7.8 g/dl (6.4-8.2)
[2021-08-21] MEDS ORDERED: PT OWN MED DRAWER 7, Y5N ONE (16:59)
[2021-08-21] MEDS: AMINO ACIDS 4.25%/D5W 2,000 ML IV SCH (18:17)
[2021-08-21] MEDS: MULTIVIT INJ. ADULT COMBO WITH VIT K 1 COMBO 10 ML VIAL IV SCH (18:17)
[2021-08-21 19:24] LABS: EPI CELLS 1 /uL (0-25.1); HYALINE CASTS 1 /uL (0-3.1); URINE APPEARANCE CLEAR; URINE BACTERIA 3 /uL (0-1359); URINE BILIRUBIN NEGATIVE (NEGATIVE); URINE COLOR YELLOW; URINE GLUCOSE (UA) NEGATIVE (NEGATIVE); URINE KETONE NEGATIVE (NEGATIVE); URINE LEUK ESTERASE NEGATIVE (NEGATIVE); URINE NITRITE NEGATIVE (NEGATIVE); URINE PROTEIN NEGATIVE (NEGATIVE); URINE RBC 12 /uL (0-23.9); URINE UROBILINOGEN 0.2 mg/dL (0.2-1.0); URINE WBC 12 /uL (0-25.8)
[2021-08-21] MEDS ORDERED: ACETAMINOPHEN 1000 MG/100 ML VIAL IVPB ONE (20:59)
[2021-08-21] MEDS: CHLORHEXIDINE GLUCONATE 4% CLEANSER FOR DECOLONIZATION TP SCH (20:59)
[2021-08-21] MEDS: LATANOPROST 0.005% OPHTH SOLN 2.5ML BOTTLE OS SCH (21:00)
[2021-08-22] MEDS: DILTIAZEM IV SCH ×2 (04:10→09:39)
[2021-08-22] MEDS: DEXTROSE 5% IV SCH ×2 (04:10→09:39)
[2021-08-22] MEDS: WATER IV SCH ×2 (04:10→09:39)
[2021-08-22 07:08] LABS: BASO % 1.1 % (0-2.0); EOS % 2.2 % (0-4.5); HEMOGLOBIN 9.3 GM/dL (11.7-16.9); LYMPH % 12.2 % (8-40); MCH 28.5 pg (25.7-33.7); MCHC 34.3 g/dl (32.0-35.9); MEAN CELL VOLUME 83.1 fl (80-96); MEAN PLT VOLUME 7.7 fl (7.5-11.1); MONO % 13.3 % (3.8-10.2); NEUT % 71.2 % (42.8-82.8); PLATELET COUNT 348 10^3/uL (134-434); RBC 3.25 M/mm3 (4.00-5.60); RDW 14.5 % (11.9-15.9); WHITE BLOOD COUNT 9.9 K/mm3 (4.0-10.0)
[2021-08-22 07:25] LABS: ALBUMIN 2.4 g/dl (3.4-5.0); BILIRUBIN,TOTAL 0.7 mg/dL (0.2-1); CALCIUM 8.6 mg/dL (8.5-10.1); TOT PROT 7.2 g/dl (6.4-8.2)
[2021-08-22 07:27] LABS: MAGNESIUM 1.9 mg/dL (1.8-2.4)
[2021-08-22 07:28] LABS: CREATININE 0.7 mg/dL (0.55-1.3)
[2021-08-22] MEDS: ACETYLCYSTEINE 20% 200MG/ML 4 ML VIAL *FOR ORAL / INH USE ONLY NEB SCH ×3 (08:17→20:44)
[2021-08-22] MEDS: ALBUTEROL SO4 0.083% IH SOL 2.5 MG/3 ML VIAL.NEB. NEB SCH ×3 (08:17→20:44)
[2021-08-22] MEDS: PANTOPRAZOLE SODIUM 40 MG VIAL IVPUSH SCH ×2 (09:39→21:14)
[2021-08-22] MEDS: METOPROLOL TARTRATE 25 MG TABLET (FP) PO SCH ×2 (09:39→21:14)
[2021-08-22] MEDS ORDERED: AMINO ACIDS 4.25%/D5W 2,000 ML IV SCH (12:08)
[2021-08-22] MEDS: AMINO ACIDS 4.25%/D5W 1,000 ML IV SCH (16:57)
[2021-08-22] MEDS: MULTIVIT INJ. ADULT COMBO WITH VIT K 1 COMBO 10 ML VIAL IV SCH (16:57)
[2021-08-22] MEDS: METOPROLOL TARTRATE 5 MG/5 ML VIAL IVPUSH PRN (21:06)
[2021-08-22] MEDS: CHLORHEXIDINE GLUCONATE 4% CLEANSER FOR DECOLONIZATION TP SCH (21:13)
[2021-08-22] MEDS: LATANOPROST 0.005% OPHTH SOLN 2.5ML BOTTLE OS SCH (21:14)
[2021-08-22] MEDS ORDERED: ACETAMINOPHEN 1000 MG/100 ML VIAL IVPB ONE (21:31)
[2021-08-22 21:58] LABS: BASO % 0.6 % (0-2.0); EOS % 1.7 % (0-4.5); HEMATOCRIT 28.4 % (35.4-49); HEMOGLOBIN 9.4 GM/dL (11.7-16.9); MEAN CELL VOLUME 84.8 fl (80-96); MEAN PLT VOLUME 7.7 fl (7.5-11.1); MONO % 12.9 % (3.8-10.2); NEUT % 75.8 % (42.8-82.8); PLATELET COUNT 356 10^3/uL (134-434); RBC 3.35 M/mm3 (4.00-5.60); RDW 14.4 % (11.9-15.9); WHITE BLOOD COUNT 13.1 K/mm3 (4.0-10.0)
[2021-08-23] MEDS: METOPROLOL TARTRATE 25 MG TABLET (FP) PO SCH ×3 (06:27→21:16)
[2021-08-23] MEDS: AMINO ACIDS 4.25%/D5W 1,000 ML IV SCH ×2 (06:28→13:07)
[2021-08-23 06:50] LABS: HEMATOCRIT 27.8 % (35.4-49); HEMOGLOBIN 9.2 GM/dL (11.7-16.9); MCHC 33.1 g/dl (32.0-35.9); MEAN CELL VOLUME 84.7 fl (80-96); MEAN PLT VOLUME 7.9 fl (7.5-11.1); PLATELET COUNT 344 10^3/uL (134-434); RBC 3.28 M/mm3 (4.00-5.60); WHITE BLOOD COUNT 12.1 K/mm3 (4.0-10.0)
[2021-08-23 06:59] LABS: CALCIUM 8.6 mg/dL (8.5-10.1)
[2021-08-23 07:00] LABS: ALBUMIN 2.3 g/dl (3.4-5.0); BLOOD UREA NITROGEN 27.4 mg/dL (7-18)
[2021-08-23 07:03] LABS: CREATININE 0.6 mg/dL (0.55-1.3)
[2021-08-23 07:05] LABS: BILIRUBIN,TOTAL 0.5 mg/dL (0.2-1); TOT PROT 7.4 g/dl (6.4-8.2)
[2021-08-23] MEDS: ACETYLCYSTEINE 20% 200MG/ML 4 ML VIAL *FOR ORAL / INH USE ONLY NEB SCH ×3 (08:40→20:44)
[2021-08-23] MEDS: PANTOPRAZOLE SODIUM 40 MG VIAL IVPUSH SCH ×2 (09:22→21:16)
[2021-08-23] MEDS: METOPROLOL TARTRATE 5 MG/5 ML VIAL IVPUSH PRN ×2 (09:23→18:28)
[2021-08-23] MEDS: ALBUTEROL SO4 0.083% IH SOL 2.5 MG/3 ML VIAL.NEB. NEB SCH ×3 (09:51→20:44)
[2021-08-23] MEDS: MULTIVIT INJ. ADULT COMBO WITH VIT K 1 COMBO 10 ML VIAL IV SCH ×2 (13:07→14:48)
[2021-08-23] MEDS: CHLORHEXIDINE GLUCONATE 4% CLEANSER FOR DECOLONIZATION TP SCH (21:14)
[2021-08-23] MEDS: LATANOPROST 0.005% OPHTH SOLN 2.5ML BOTTLE OS SCH (21:24)
[2021-08-24] MEDS: METOPROLOL TARTRATE 25 MG TABLET (FP) PO SCH ×3 (05:06→21:23)
[2021-08-24 06:41] LABS: BASO % 0.9 % (0-2.0); EOS % 3.7 % (0-4.5); HEMATOCRIT 27.5 % (35.4-49); HEMOGLOBIN 9.2 GM/dL (11.7-16.9); MCH 28.3 pg (25.7-33.7); MCHC 33.4 g/dl (32.0-35.9); MEAN CELL VOLUME 84.6 fl (80-96); MEAN PLT VOLUME 8.1 fl (7.5-11.1); MONO % 12.2 % (3.8-10.2); NEUT % 68.2 % (42.8-82.8); PLATELET COUNT 333 10^3/uL (134-434); RBC 3.25 M/mm3 (4.00-5.60); RDW 14.8 % (11.9-15.9); WHITE BLOOD COUNT 9.2 K/mm3 (4.0-10.0)
[2021-08-24 07:01] LABS: ALBUMIN 2.3 g/dl (3.4-5.0); BLOOD UREA NITROGEN 22.8 mg/dL (7-18); CALCIUM 8.4 mg/dL (8.5-10.1)
[2021-08-24 07:04] LABS: CREATININE 0.6 mg/dL (0.55-1.3); PHOSPHOROUS 3.4 mg/dL (2.5-4.9)
[2021-08-24 07:07] LABS: BILIRUBIN,TOTAL 0.5 mg/dL (0.2-1); TOT PROT 7.6 g/dl (6.4-8.2)
[2021-08-24] MEDS: ACETYLCYSTEINE 20% 200MG/ML 4 ML VIAL *FOR ORAL / INH USE ONLY NEB SCH ×3 (08:41→20:42)
[2021-08-24] MEDS: ALBUTEROL SO4 0.083% IH SOL 2.5 MG/3 ML VIAL.NEB. NEB SCH ×2 (08:42→15:05)
[2021-08-24] MEDS: PANTOPRAZOLE SODIUM 40 MG VIAL IVPUSH SCH ×2 (10:09→21:23)
[2021-08-24] MEDS: METOPROLOL TARTRATE 5 MG/5 ML VIAL IVPUSH PRN ×2 (10:20→17:53)
[2021-08-24] MEDS: MULTIVIT INJ. ADULT COMBO WITH VIT K 1 COMBO 10 ML VIAL IV SCH (16:14)
[2021-08-24] MEDS: AMINO ACIDS 4.25%/D5W 1,000 ML IV SCH (16:14)
[2021-08-24] MEDS: CHLORHEXIDINE GLUCONATE 4% CLEANSER FOR DECOLONIZATION TP SCH (21:25)
[2021-08-24] MEDS: LATANOPROST 0.005% OPHTH SOLN 2.5ML BOTTLE OS SCH (21:27)
[2021-08-25] MEDS: METOPROLOL TARTRATE 25 MG TABLET (FP) PO SCH ×3 (05:29→21:27)
[2021-08-25] MEDS: ACETYLCYSTEINE 20% 200MG/ML 4 ML VIAL *FOR ORAL / INH USE ONLY NEB SCH ×3 (07:41→20:07)
[2021-08-25] MEDS: PANTOPRAZOLE SODIUM 40 MG VIAL IVPUSH SCH ×2 (09:52→21:27)
[2021-08-25] MEDS ORDERED: dilTIAZem HCL 50 MG/10 ML - 10 ML VIAL IVPUSH ONE (11:15)
[2021-08-25] MEDS: METOPROLOL TARTRATE 5 MG/5 ML VIAL IVPUSH PRN (11:18)
[2021-08-25] MEDS: MULTIVIT INJ. ADULT COMBO WITH VIT K 1 COMBO 10 ML VIAL IV SCH (14:00)
[2021-08-25] MEDS: AMINO ACIDS 4.25%/D5W 1,000 ML IV SCH (14:00)
[2021-08-25] MEDS: dilTIAZem HCL 30 MG TABLET PO SCH ×2 (14:59→21:27)
[2021-08-25] MEDS: LATANOPROST 0.005% OPHTH SOLN 2.5ML BOTTLE OS SCH (21:27)
[2021-08-25] MEDS: CHLORHEXIDINE GLUCONATE 4% CLEANSER FOR DECOLONIZATION TP SCH (21:30)
[2021-08-26] MEDS: METOPROLOL TARTRATE 25 MG TABLET (FP) PO SCH ×3 (05:11→22:08)
[2021-08-26] MEDS: dilTIAZem HCL 30 MG TABLET PO SCH ×3 (05:12→22:08)
[2021-08-26 07:30] LABS: HEMATOCRIT 27.4 % (35.4-49); HEMOGLOBIN 9.3 GM/dL (11.7-16.9); MCH 28.3 pg (25.7-33.7); MEAN CELL VOLUME 83.2 fl (80-96); MEAN PLT VOLUME 7.7 fl (7.5-11.1); PLATELET COUNT 308 10^3/uL (134-434); RDW 14.8 % (11.9-15.9); WHITE BLOOD COUNT 7.8 K/mm3 (4.0-10.0)
[2021-08-26] MEDS: ACETYLCYSTEINE 20% 200MG/ML 4 ML VIAL *FOR ORAL / INH USE ONLY NEB SCH ×3 (07:45→20:10)
[2021-08-26 08:14] LABS: ALBUMIN 2.2 g/dl (3.4-5.0); BILIRUBIN,TOTAL 0.4 mg/dL (0.2-1); BLOOD UREA NITROGEN 19.6 mg/dL (7-18); CALCIUM 8.2 mg/dL (8.5-10.1); CREATININE 0.6 mg/dL (0.55-1.3); TOT PROT 7.3 g/dl (6.4-8.2)
[2021-08-26] MEDS: PANTOPRAZOLE SODIUM 40 MG VIAL IVPUSH SCH ×2 (09:01→22:08)
[2021-08-26] MEDS ORDERED: ACETAMINOPHEN 325 MG TABLET (FP) PO ONE (12:00)
[2021-08-26] MEDS: METOPROLOL TARTRATE 5 MG/5 ML VIAL IVPUSH PRN (13:59)
[2021-08-26] MEDS ORDERED: PT OWN MED DRAWER 7, Y5N ONE ×3 (19:17→20:44)
[2021-08-26] MEDS: AMINO ACIDS 4.25%/D5W 1,000 ML IV SCH (20:50)
[2021-08-26] MEDS: MULTIVIT INJ. ADULT COMBO WITH VIT K 1 COMBO 10 ML VIAL IV SCH (20:51)
[2021-08-26] MEDS: LATANOPROST 0.005% OPHTH SOLN 2.5ML BOTTLE OS SCH (22:08)
[2021-08-26] MEDS: CHLORHEXIDINE GLUCONATE 4% CLEANSER FOR DECOLONIZATION TP SCH (22:08)
[2021-08-27] MEDS ORDERED: PT OWN MED DRAWER 7, Y5N ONE ×2 (05:41→17:06)
[2021-08-27] MEDS: METOPROLOL TARTRATE 25 MG TABLET (FP) PO SCH ×3 (05:53→21:31)
[2021-08-27] MEDS: dilTIAZem HCL 30 MG TABLET PO SCH ×3 (05:53→21:31)
[2021-08-27] MEDS: ACETYLCYSTEINE 20% 200MG/ML 4 ML VIAL *FOR ORAL / INH USE ONLY NEB SCH ×3 (08:05→20:29)
[2021-08-27] MEDS: PANTOPRAZOLE SODIUM 40 MG VIAL IVPUSH SCH ×2 (09:41→21:31)
[2021-08-27] MEDS: AMINO ACIDS 4.25%/D5W 1,000 ML IV SCH (18:00)
[2021-08-27] MEDS: MULTIVIT INJ. ADULT COMBO WITH VIT K 1 COMBO 10 ML VIAL IV SCH (18:50)
[2021-08-27] MEDS: LATANOPROST 0.005% OPHTH SOLN 2.5ML BOTTLE OS SCH (21:31)
[2021-08-27] MEDS: CHLORHEXIDINE GLUCONATE 4% CLEANSER FOR DECOLONIZATION TP SCH (21:31)
[2021-08-28] MEDS: METOPROLOL TARTRATE 25 MG TABLET (FP) PO SCH ×2 (06:31→21:32)
[2021-08-28] MEDS: dilTIAZem HCL 30 MG TABLET PO SCH (06:31)
[2021-08-28] MEDS: ACETYLCYSTEINE 20% 200MG/ML 4 ML VIAL *FOR ORAL / INH USE ONLY NEB SCH ×3 (09:05→20:09)
[2021-08-28] MEDS: PANTOPRAZOLE SODIUM 40 MG VIAL IVPUSH SCH ×2 (09:42→21:33)
[2021-08-28] MEDS ORDERED: PT OWN MED DRAWER 7, Y5N ONE (13:08)
[2021-08-28] MEDS ORDERED: metoPROLOL SUCCINATE 25 MG TAB.SR.24H (FP) PO SCH (14:00)
[2021-08-28] MEDS: METOPROLOL TARTRATE 5 MG/5 ML VIAL IVPUSH PRN (14:07)
[2021-08-28] MEDS: AMINO ACIDS 4.25%/D5W 1,000 ML IV SCH (16:28)
[2021-08-28] MEDS: MULTIVIT INJ. ADULT COMBO WITH VIT K 1 COMBO 10 ML VIAL IV SCH (16:34)
[2021-08-28] MEDS: CHLORHEXIDINE GLUCONATE 4% CLEANSER FOR DECOLONIZATION TP SCH (21:32)
[2021-08-28] MEDS: LATANOPROST 0.005% OPHTH SOLN 2.5ML BOTTLE OS SCH (21:33)
[2021-08-29] MEDS: METOPROLOL TARTRATE 5 MG/5 ML VIAL IVPUSH PRN ×2 (06:52→16:13)
[2021-08-29] MEDS: ACETYLCYSTEINE 20% 200MG/ML 4 ML VIAL *FOR ORAL / INH USE ONLY NEB SCH ×3 (08:13→20:05)
[2021-08-29] MEDS: METOPROLOL TARTRATE 25 MG TABLET (FP) PO SCH ×2 (09:22→21:43)
[2021-08-29] MEDS: PANTOPRAZOLE SODIUM 40 MG VIAL IVPUSH SCH ×2 (09:22→21:44)
[2021-08-29] MEDS: dilTIAZem HCL 30 MG TABLET PO SCH ×2 (16:59→21:43)
[2021-08-29] MEDS: CHLORHEXIDINE GLUCONATE 4% CLEANSER FOR DECOLONIZATION TP SCH (21:40)
[2021-08-29] MEDS: LATANOPROST 0.005% OPHTH SOLN 2.5ML BOTTLE OS SCH (21:40)
[2021-08-30] MEDS: dilTIAZem HCL 30 MG TABLET PO SCH ×3 (06:45→21:12)
[2021-08-30] MEDS: ACETYLCYSTEINE 20% 200MG/ML 4 ML VIAL *FOR ORAL / INH USE ONLY NEB SCH ×3 (07:45→20:13)
[2021-08-30] MEDS: PANTOPRAZOLE SODIUM 40 MG VIAL IVPUSH SCH ×2 (09:16→21:14)
[2021-08-30] MEDS: METOPROLOL TARTRATE 25 MG TABLET (FP) PO SCH ×2 (09:18→21:13)
[2021-08-30] MEDS: LATANOPROST 0.005% OPHTH SOLN 2.5ML BOTTLE OS SCH (21:13)
[2021-08-30] MEDS: CHLORHEXIDINE GLUCONATE 4% CLEANSER FOR DECOLONIZATION TP SCH (21:13)
[2021-08-31] MEDS: dilTIAZem HCL 30 MG TABLET PO SCH (06:33)
[2021-08-31] MEDS: ACETYLCYSTEINE 20% 200MG/ML 4 ML VIAL *FOR ORAL / INH USE ONLY NEB SCH (07:35)
[2021-08-31] MEDS: METOPROLOL TARTRATE 25 MG TABLET (FP) PO SCH (09:10)
[2021-08-31] MEDS: PANTOPRAZOLE SODIUM 40 MG VIAL IVPUSH SCH (09:10)
[2021-08-31 09:22] VITALS: TEMP 98
[2021-08-31 11:23] VITALS: BP 106/70; PULSE 112
== END 2021-08-31 11:21 | DRG 871 ==
LOC: JER 08:26 → JERBED 09:25 → JICU 15:58 → J2W 08-15 19:25
PROVIDERS: ADMIT Internal Medicine Pulmonary Disease; ATTEND Internal Medicine
PROC: 0D9670Z Drainage of Stomach with Drainage Device, Via Natural or Artificial Opening (ICD-10-PCS; principal; 2021-08-02)
DX: A41.89 Other specified sepsis (principal); J69.0 Pneumonitis due to inhalation of food and vomit; J96.01 Acute respiratory failure with hypoxia; I50.33 Acute on chronic diastolic (congestive) heart failure; G91.9 Hydrocephalus, unspecified; J84.9 Interstitial pulmonary disease, unspecified; K92.2 Gastrointestinal hemorrhage, unspecified; F73 Profound intellectual disabilities; E87.2 Acidosis; I48.19 Other persistent atrial fibrillation; R00.0 Tachycardia, unspecified; K21.00 Gastro-esophageal reflux disease with esophagitis, without bleeding; I27.20 Pulmonary hypertension, unspecified; I11.0 Hypertensive heart disease with heart failure; I10 Essential (primary) hypertension; M41.9 Scoliosis, unspecified; D72.829 Elevated white blood cell count, unspecified; D50.9 Iron deficiency anemia, unspecified; Z87.11 Personal history of peptic ulcer disease; I08.0 Rheumatic disorders of both mitral and aortic valves; Q13.3 Congenital corneal opacity; D64.9 Anemia, unspecified; K44.9 Diaphragmatic hernia without obstruction or gangrene; G80.9 Cerebral palsy, unspecified; Z93.1 Gastrostomy status; Z99.3 Dependence on wheelchair; Z66 Do not resuscitate
CPT/HCPCS: 36415; 36600; 43752; 71045-TC-FY; 74018-TC-FY; 74230-TC-FY; 80048; 80053; 80061; 80076; 80162; 81003; 82272; 82803; 82962; 83605; 83735; 83880; 84100; 84484; 85025; 85027; 85610; 85730; 86850; 86900; 86901; 87040; 87070; 87077; 87086; 87186; 87205; 87899; 92611-GN; 93005; 93010; 94640; 97116-GP; 97161-GP; 99291; C9803; J0131; J0282; U0003; U0005